=== PATIENT | female | born 1950 | race Caucasian/White ===

== ENCOUNTER → 2018-11-30 12:56 | Outpatient (CLI) | payer MEDICARE, OTHER, SELFPAY ==
[2018-11-30 13:39] LABS: Absolute Lymphocyte Count 1.85 X10^3/ul (0.83-4.51); Absolute Neutrophil Count 3.5 X10^3/uL (2.0-7.7); Basophil# 0.03 X10^3/uL; Basophil% 0.5 % (0-1); Eosinophils% 1.7 % (0-5); Hematocrit 41.3 % (37-47); Hemoglobin 13.8 g/dl (12.0-15.0); Lymphocyte # 1.85 X10^3/ul (4.0); Mean Corp Hgb Conc 33.4 g/gl (32-36); Mean Corpuscular Hgb 31.2 pg (27.0-32.0); Mean Corpuscular Volume 93.2 fL (81-99); Mean Platelet Vol. 10.4 fl (6.2-12.0); Monocyte# 0.31 X10^3/uL; Monocyte% 5.4 % (0-10); Neutrophil # 3.48 X10^3/uL (2.7-7.7); Neutrophil % 60.2 % (47-70); Platelet Count 223 K/mm3 (150-450); RBC Distribution Width CV 13.1 % (11.6-14.6); RBC Distribution Width SD 44.7 fl (35.1-43.9); Red Blood Count 4.43 M/mm3 (4.2-5.4); White Blood Count 5.8 K/mm3 (4.4-11.0)
[2018-11-30 13:53] LABS: POSITIVE COUNT NO; POSITIVE DIFFERENTIAL NO; POSITIVE MORPHOLOGY NO
[2018-11-30 14:02] LABS: Vitamin D,25 Hydroxy 29.8 ng/mL (29.95-100.01)
[2018-11-30 14:09] LABS: ALB/GLOB Ratio 1.1 RATIO (0.9-2.4); AST(SGOT) 13 U/L (15-37); Alanine Aminotransfer ALT/SGPT 24 U/L (13-56); Albumin, Serum 3.9 g/dL (3.2-5.0); Alkaline Phosphatase 89 U/L (45-117); Anion Gap 8 (5-15); BUN 15 mg/dL (7-18); BUN/Creat Ratio 25.6 RATIO (10-20); Chloride 106 mmol/L (98-107); Cholesterol 229 mg/dL (200); Creatinine, Serum 0.59 mg/dL (0.55-1.02); EST Glomerular Filtration Rate 108 mL/min (>60); Est Glom Filt Rate - Afr Amer 131 mL/min (>60); Globulin 3.4 g/dL (2.2-4.2); Glucose 101 mg/dL (74-106); High Density Lipoprotein 55 mg/dL; Iron 104 ug/dL (50-170); Potassium 4.4 mmol/L (3.5-5.1); Protein, Total 7.3 g/dL (6.4-8.2); Sodium Level 142 mmol/L (136-145); T4 Free Direct 1.17 ng/dL (0.76-1.46); Thyroid Stim Hormone (TSH) 2.31 uIU/mL (0.358-3.74); Triglycerides 132 mg/dL; Very Low Density Lipoprotein 26 mg/dL (5-40)
== END ==
PROVIDERS: Family Provider Family Medicine; PCP Family Medicine; Referring Provider Family Medicine; Visit Provider Family Medicine
DX: D64.9 Anemia, unspecified (principal); E78.5 Hyperlipidemia, unspecified; E55.9 Vitamin D deficiency, unspecified; R53.83 Other fatigue; Z51.81 Encounter for therapeutic drug level monitoring
CPT/HCPCS: 36415; 80053; 80061; 82306; 83540; 84439; 84443; 84481; 85025

== ENCOUNTER → 2019-12-02 11:31 | Outpatient (CLI) | payer MEDICARE, OTHER, SELFPAY ==
[2019-12-02 15:15] LABS: Absolute Lymphocyte Count 2.52 X10^3/uL (0.83-4.51); Absolute Neutrophil Count 5.2 X10^3/uL (2.0-7.7); Basophil# 0.05 X10^3/uL; Basophil% 0.6 % (0-1); Eosinophil# 0.17 X10^3/uL; Hematocrit 44.7 % (37-47); Hemoglobin 14.6 g/dL (12.0-15.0); Lymphocyte # 2.52 X10^3/ul (4.0); Lymphocyte % 29.3 % (19-41); Mean Corp Hgb Conc 32.7 g/dL (32-36); Mean Corpuscular Hgb 31.4 pg (27.0-32.0); Mean Corpuscular Volume 96.1 fL (81-99); Mean Platelet Vol. 10.8 fl (6.2-12.0); Monocyte# 0.67 X10^3/uL; Monocyte% 7.8 % (0-10); NRBC Flagged by Analyzer 0 % (0-5); Neutrophil # 5.16 X10^3/uL (2.7-7.7); Platelet Count 245 K/mm3 (150-450); RBC Distribution Width SD 45.3 fl (35.1-43.9); Red Blood Count 4.65 M/mm3 (4.2-5.4); White Blood Count 8.6 K/mm3 (4.4-11.0)
[2019-12-02 15:31] LABS: Vitamin D,25 Hydroxy 44.6 ng/mL
[2019-12-02 15:33] LABS: ALB/GLOB Ratio 0.9 RATIO (0.9-2.4); AST(SGOT) 16 U/L (15-37); Alanine Aminotransfer ALT/SGPT 28 U/L (13-56); Albumin, Serum 3.7 g/dL (3.2-5.0); Alkaline Phosphatase 92 U/L (45-117); Anion Gap 4 (5-15); BUN 18 mg/dL (7-18); Calcium,Total 8.8 mg/dL (8.5-10.1); Chloride 104 mmol/L (98-107); Cholesterol 215 mg/dL (200); Creatinine, Serum 0.58 mg/dL (0.55-1.02); EST Glomerular Filtration Rate 109 mL/min (>60); Est Glom Filt Rate - Afr Amer 132 mL/min (>60); Globulin 4.1 g/dL (2.2-4.2); Glucose 99 mg/dL (74-106); High Density Lipoprotein 61 mg/dL; Potassium 4.4 mmol/L (3.5-5.1); Protein, Total 7.8 g/dL (6.4-8.2); Sodium Level 139 mmol/L (136-145); Triglycerides 146 mg/dL; Very Low Density Lipoprotein 29 mg/dL (5-40)
== END ==
PROVIDERS: PCP Family Medicine; Visit Provider Family Medicine
DX: I10 Essential (primary) hypertension (principal); E55.9 Vitamin D deficiency, unspecified; E87.1 Hypo-osmolality and hyponatremia; E87.2 Acidosis
CPT/HCPCS: 36415; 80053; 80061; 82306; 85025

== ENCOUNTER → 2020-02-13 13:47 | Outpatient (CLI) | payer MEDICARE, OTHER, SELFPAY ==
--- NOTE | 2020-02-13 13:49 | CT_ITS ---
STUDY: CT RIGHT SHOULDER REASON FOR EXAM: Female, 69 years old. PT STATED OSTEOARTHRITIS, TRUE SITE PROSPER RADIATION DOSAGE (If Supplied By Facility): CTDIvol = ( 49.86 ) mGy, DLP = ( 1127.68 ) mGycm TECHNIQUE: The patient was scanned in a multi detector CT scanner. High resolution transaxial imaging was performed without the administration of intravenous contrast material. Sagittal and coronal images were reconstructed. Individualized dose optimization techniques were used for this CT. COMPARISON: None. FINDINGS: There is severe osteoarthritis, with severe articular joint space narrowing, osteoarthritic spurring, articular remodeling, and with articular erosions. Subchondral geodes. Hypertrophic spurs are seen along the inferior aspect of the humerus both anteriorly and posteriorly. Normal humeral head, neck and tuberosities. Normal coracoid process. Normal visualized lateral clavicle. There is moderate osteoarthritis with articular joint space narrowing and with osteoarthritic spurring. There is a Type II morphology (curved), with a neutral orientation. Normal visualized muscles and soft tissue structures. CT/Extremity Upper without Contra IMPRESSION: Marked degree of the degenerative changes involving the glenohumeral joint as well as the acromioclavicular joint. Electronically Signed: Ralph Rowland, at 14:33 EDT , Service support ,
== END ==
PROVIDERS: PCP Family Medicine; Referring Provider Specialist; Visit Provider Specialist
DX: M19.011 Primary osteoarthritis, right shoulder (principal)
CPT/HCPCS: 73200

== ENCOUNTER 2020-03-15 00:40 | Emergency (ER) | payer MEDICARE, OTHER, SELFPAY ==
[2020-03-15 00:48] VITALS: BP 179/73; PULSE 66; RESP 18; TEMP 36.4; O2SAT 96; BMI 43.8
--- NOTE | 2020-03-15 00:58 | CT_ITS ---
STUDY: CT ABDOMEN AND PELVIS WITHOUT CONTRAST REASON FOR EXAM: Female, 69 years old. UMBILICAL PAIN SUDDEN ONSET RADIATION DOSAGE (If Supplied By Facility): CTDIvol = ( 22.84 ) mGy, DLP = ( 1238.30 ) mGycm TECHNIQUE: Transaxial images were obtained from the dome of the diaphragm to the symphysis pubis without oral contrast, and without intravenous contrast. Sagittal and coronal images were reconstructed. Individualized dose optimization techniques were used for this CT. COMPARISON: None. FINDINGS: The visualized lung bases are unremarkable. The visualized portions of the heart are within normal limits. Normal liver. Normal gallbladder and extrahepatic biliary system. Normal spleen. Normal pancreas. Normal bilateral adrenal glands. Normal right kidney. Normal left kidney. Normal visualized stomach. Normal small intestine. There are multiple colonic diverticula consistent with diverticulosis. The appendix is visualized and appears normal. Normal abdominal aorta. Normal inferior vena cava. Normal retroperitoneum. Normal urinary bladder. There is a 6 cm umbilical hernia containing fat. There are diffuse degenerative changes of the visualized lumbar spine. CT/Abdomen/Pelvis without Cont IMPRESSION: Umbilical hernia measures 6 cm containing fat. Sigmoid diverticulosis. Electronically Signed: Alissa Shelley, at 2:01 EDT Tel , Service support ,
--- NOTE | 2020-03-15 00:59 | ED.VIS.GEN ---
History of Present Illness Chief Complaint: Abd Pain Informant: Patient Narrative: Patient is a 69-year-old female with a past medical history of arthritis who presents to the emergency department for acute onset umbilical abdominal pain. This started at 11 PM this night. She does not remember what she is doing to aggravate the symptoms. No injury. She denies ever having this happen before in the past. Her only previous abdominal surgery was for a bladder tuck. She denies any nausea or vomiting associated with this. No change in bowel habits recently. No blood in the stool or black tarry stools. She denies any urinary symptoms. No fevers or chills. No chest pain or shortness of breath associated with this. No radiation of the abdominal pain. She states at its worst it was a 11 out of 10. She currently rates the pain as an 8 out of 10. Movements make the pain worse as well as pushing on it. She has not tried taking anything for this. Past Medical History - Allergies and Home Meds Allergies/Adverse Reactions: Allergies iodine Allergy (Verified 03/15/20 00:41) Hives Penicillins Allergy (Verified 03/15/20 00:41) Hives Iodine and Iodide Containing Produc Adverse Reaction (Verified 03/15/20 00:41) Hives Primary Care Physician: Faith Barrientos DO [Primary Care Provider] - Randall Wang MD [STAFF PHYSICIAN] - 3-5 Days if not improving Prior records reviewed: Yes Past Medical History: - - Arthritis Smoking Status: Former smoker Review of Systems All systems negative except as indicated General: Denies: Chills, Fever, Sweats Eyes: Denies: Visual changes - bilaterally, Diplopia ENT: Denies: Rhinorrhea, Sore throat Cardiovascular: Denies: Chest pain, Palpitations Respiratory: Denies: Dyspnea, Cough, Dyspnea on exertion Gastrointestinal: Reports: Abdominal pain. Denies: Nausea, Vomiting, Diarrhea, Melena, Hematochezia Genitourinary: Denies: Dysuria, Hematuria, Frequency Musculoskeletal: Denies: Back pain, Extremity Pain Skin: Denies: Rash, Wounds Neurological: Denies: Headache, Weakness, Numbness Physical Exam Vital Signs/Narrative: Vital Signs Temp Pulse Resp BP Pulse Ox 03/15/20 00:48 97.5 F L 66 18 179/73 H 96 Inital Vital Signs reviewed: Yes General: Well nourished, Well developed, No Acute Distress Head: Normocephalic, Atraumatic Eyes: Perrl, EOMI ENT: Moist mucous membranes, No rhinorrhea Neck: Supple, Nontender Cardiovascular: Regular rate, Regular rhythm, No murmurs Respiratory: No distress, CTA bilaterally, Chest nontender Abdomen: Soft, Nondistended, Normal bowel sounds, Tender - Umbilical, Umbilical hernia, - - No pain over McBurney's point.. Negative for: Guarding, Rebound tenderness, Motley's sign Back: Nontender, Normal Inspection. Negative for: CVA tenderness, Spinal tenderness Extremities: Nontender, No edema Skin: Normal color, No rash Neurological: Alert, Oriented x3, Cranial nerves II-XII grossly intact, Normal Strength, Normal Sensation Psychological: Normal affect, Normal Mood Diagnostic/Tx/Re-eval - Medical Decision Making Patient presents the emerge department for umbilical abdominal pain. It does appear that she has an umbilical hernia. She states that she has had this before in the past but it has never bothered her before. Upon arrival to the emergency department she is mildly hypertensive but otherwise normal vital signs. She does not appear in any acute distress. Will check basic lab work along with CT scan of the abdomen/pelvis. Patient treated symptomatically with morphine. Patient CT scan showed an abdominal hernia but was only fat-containing. The rest the lab work did not reveal any significant acute abnormality. Patient is feeling much better after treatment. Will recommend symptomatic treatment at home. Will give referral for general surgery if this continues to bother her. Patient given precautions about hernias including bracing the area when exerting or straining. She can use ice/heat over the area. Warning signs and symptoms for which to return to the ED are reviewed. They understand and are agreeable this plan. Will discharge home in stable condition. ED Disposition - Plan for ED Patient: Disposition: Home or Assisted Living Diagnosis: Umbilical hernia Instructions: What Is a Hernia? Referrals: Faith Barrientos DO [Primary Care Provider] - Randall Wang MD [STAFF PHYSICIAN] - 3-5 Days if not improving
[2020-03-15] MEDS: Morphine 4 MG/ML Syringe IV (01:36)
[2020-03-15 01:47] LABS: Absolute Neutrophil Count 6.1 X10^3/uL (2.0-7.7); Basophil# 0.04 X10^3/uL; Basophil% 0.5 % (0-1); Eosinophil# 0.16 X10^3/uL; Eosinophils% 1.8 % (0-5); Hematocrit 40.1 % (37-47); Hemoglobin 13.1 g/dL (12.0-15.0); Lymphocyte % 20.7 % (19-41); Mean Corp Hgb Conc 32.7 g/dL (32-36); Mean Corpuscular Hgb 31.6 pg (27.0-32.0); Mean Corpuscular Volume 96.9 fL (81-99); Mean Platelet Vol. 10.4 fl (6.2-12.0); Monocyte# 0.54 X10^3/uL; Monocyte% 6.2 % (0-10); NRBC Flagged by Analyzer 0 % (0-5); Neutrophil # 6.14 X10^3/uL (2.7-7.7); Neutrophil % 70.6 % (47-70); Platelet Count 233 K/mm3 (150-450); RBC Distribution Width CV 12.2 % (11.6-14.6); RBC Distribution Width SD 43.2 fl (35.1-43.9); Red Blood Count 4.14 M/mm3 (4.2-5.4); White Blood Count 8.7 K/mm3 (4.4-11.0)
[2020-03-15 01:48] LABS: Bacteria 0 SEEN /hpf (None Seen); Mucous, Urine 0 SEEN /hpf (<or=2+); Red Blood Cells-Urine 0 SEEN /hpf (0-5); Squamous Epithelial Cells - UA 0 SEEN /hpf (5-10); White Blood Cells 0 SEEN /hpf (0-5)
[2020-03-15 01:56] LABS: Lactic Acid 1.3 mmol/L (0.4-1.9)
[2020-03-15 01:56] LABS: ALB/GLOB Ratio 0.9 RATIO (0.9-2.4); AST(SGOT) 15 U/L (15-37); Alanine Aminotransfer ALT/SGPT 24 U/L (13-56); Albumin, Serum 3.5 g/dL (3.2-5.0); Alkaline Phosphatase 85 U/L (45-117); Anion Gap 5 (5-15); BUN 26 mg/dL (7-18); BUN/Creat Ratio 33.9 RATIO (10-20); Calcium,Total 8.8 mg/dL (8.5-10.1); Chloride 105 mmol/L (98-107); Creatinine, Serum 0.77 mg/dL (0.55-1.02); EST Glomerular Filtration Rate 79 mL/min (>60); Est Glom Filt Rate - Afr Amer 95 mL/min (>60); Globulin 3.9 g/dL (2.2-4.2); Glucose 118 mg/dL (74-106); Lipase 140 U/L (73-393); Potassium 3.8 mmol/L (3.5-5.1); Protein, Total 7.4 g/dL (6.4-8.2); Sodium Level 139 mmol/L (136-145)
[2020-03-15 01:59] LABS: Color, Urine Yellow (Yellow); Glucose, Dipstick Normal (Normal); Ketone-Dipstick Negative (Negative); Leukocyte Esterase-Dipstick Negative /ul (Negative); Nitrite-Dipstick Negative (Negative); Occult Blood-Urine Negative /ul (Negative); Protein-Dipstick 30 mg/dl (Negative); Specific Gravity, Urine 1.025 (1.002-1.030); Urine Bilirubin Dipstick Negative (Negative); Urine Clarity Sl. Cloudy (Clear); Urine Urobilinogen Normal (Normal)
[2020-03-15 02:08] LABS: Amorphous Sediment 1+
[2020-03-15 02:44] VITALS: BP 142/68; PULSE 65; RESP 15; O2SAT 97
--- NOTE | 2020-03-15 02:45 | ED.RN ---
PT AND EDUCATED ON WRITTEN AND VERBAL DISCHARGE INSTRUCTIONS. PT VERBALIZES UNDERSTANDING OF INSTRUCTIONS AND FOLLOW UP. PT IV D/C AND COVERED WITH 2X2 GAUZE AND PAPER TAPE. PT DRESSES SELF AND WHEELS PT IN WHEELCHAIR TO THE CAR.
== END 2020-03-15 02:47 | disposition home or self-care (01) ==
PROVIDERS: Emergency Provider Emergency Medicine; PCP Family Medicine
DX: K42.9 Umbilical hernia without obstruction or gangrene (principal); I10 Essential (primary) hypertension; M19.90 Unspecified osteoarthritis, unspecified site; Z79.899 Other long term (current) drug therapy; Z87.891 Personal history of nicotine dependence
CPT/HCPCS: 74176; 80053; 81001; 83605; 83690; 84484; 85025; 96374; 99285; A4216

== ENCOUNTER → 2022-05-23 | Outpatient (CLI) | payer MEDICARE, OTHER, SELFPAY ==
[2022-05-23 13:41] LABS: Absolute Neutrophil Count 3.7 X10^3/uL (2.0-7.7); Basophil# 0.03 X10^3/uL; Basophil% 0.5 % (0-1); Eosinophil# 0.16 X10^3/uL; Eosinophils% 2.5 % (0-5); Hematocrit 43.2 % (37-47); Hemoglobin 13.9 g/dL (12.0-15.0); Lymphocyte % 30.7 % (19-41); Mean Corp Hgb Conc 32.2 g/dL (32-36); Mean Corpuscular Hgb 29.6 pg (27.0-32.0); Mean Corpuscular Volume 92.1 fL (81-99); Mean Platelet Vol. 10.6 fl (6.2-12.0); Monocyte# 0.65 X10^3/uL; NRBC Flagged by Analyzer 0 % (0-5); Neutrophil # 3.65 X10^3/uL (2.7-7.7); Platelet Count 260 K/mm3 (150-450); RBC Distribution Width CV 12.9 % (11.6-14.6); RBC Distribution Width SD 43.4 fl (35.1-43.9); Red Blood Count 4.69 M/mm3 (4.2-5.4); White Blood Count 6.5 K/mm3 (4.4-11.0)
[2022-05-23 14:22] LABS: ALB/GLOB Ratio 0.9 RATIO (0.9-2.4); AST(SGOT) 11 U/L (15-37); Alanine Aminotransfer ALT/SGPT 21 U/L (13-56); Albumin, Serum 3.6 g/dL (3.2-5.0); Alkaline Phosphatase 102 U/L (45-117); Anion Gap 4 (5-15); BUN 19 mg/dL (7-18); BUN/Creat Ratio 34.2 RATIO (10-20); Calcium,Total 9.2 mg/dL (8.5-10.1); Chloride 102 mmol/L (98-107); Cholesterol 214 mg/dL (200); Creatinine, Serum 0.56 mg/dL (0.55-1.02); EST Glomerular Filtration Rate 114 mL/min (>60); Est Glom Filt Rate - Afr Amer 138 mL/min (>60); Globulin 3.9 g/dL (2.2-4.2); Glucose 93 mg/dL (74-106); High Density Lipoprotein 58 mg/dL; Potassium 4.4 mmol/L (3.5-5.1); Protein, Total 7.5 g/dL (6.4-8.2); Sodium Level 137 mmol/L (136-145); Thyroid Stim Hormone (TSH) 3.17 uIU/mL (0.358-3.74); Triglycerides 121 mg/dL; Very Low Density Lipoprotein 24 mg/dL (5-40)
== END | disposition home or self-care (01) ==
PROVIDERS: PCP Family Medicine; Referring Provider Specialist; Visit Provider Specialist
DX: M16.12 Unilateral primary osteoarthritis, left hip (principal); I10 Essential (primary) hypertension; Z51.81 Encounter for therapeutic drug level monitoring
CPT/HCPCS: 36415; 80053; 80061; 84443; 85025

== ENCOUNTER → 2022-10-27 | Outpatient (CLI) | payer MEDICARE, OTHER, SELFPAY ==
--- NOTE | 2022-10-27 08:40 | RAD_ITS ---
PROCEDURE: Fluoroscopic guided left shoulder injection. DATE: October 27, 2022. INDICATION: Female, 72 years old. Chronic left shoulder pain. PHYSICIAN: Ralph Rowland M.D. MEDICATIONS: 12 mg of betamethasone and 4 cc of 1% lidocaine. 2% lidocaine administered subcutaneously for local anesthesia. ACCESS SITE: Left shoulder. NEEDLE: 22-gauge spinal needle. FLUOROSCOPY TIME (if supplied): (0:52) minutes/seconds. 6.79 mGy. One image was submitted. FINDINGS: The risks, benefits, and alternatives to the procedure were explained to the patient. The specific risks of bleeding, infection, and neurovascular injury were detailed and accepted. Witnessed informed consent was obtained. A 22-gauge spinal needle was positioned under radiographic fluoroscopic localization. Approximately 2 cc of Isovue-300 instilled for localization purposes. Medication was then injected. The patient tolerated the procedure well without any immediate complications. RAD/Inj/Asp David Jt Should/Hip/Knee IMPRESSION: 1. Successful fluoroscopic guided left shoulder injection. Electronically Signed: Ralph Rowland MD at 11:12 EDT ,
[2022-10-27] MEDS: Lidocaine 2% (5ml sdv) 5 ML VIAL.MPF INFILT (10:00)
[2022-10-27] MEDS: Betamethasone/Betamethasone 30 MG/5 ML Vial 12 MG INTRAARTIC (10:04)
== END | disposition home or self-care (01) ==
LOC: RAD 09:23
PROVIDERS: PCP Family Medicine; Referring Provider Specialist; Visit Provider Specialist
DX: M19.012 Primary osteoarthritis, left shoulder (principal)
CPT/HCPCS: 20610; 77002; Q9967; J0702

== ENCOUNTER → 2024-04-26 | Outpatient (CLI) | payer MEDICARE, OTHER, SELFPAY | END | disposition home or self-care (01) | LOC: LAB.FUTURE 10:19 | PROVIDERS: PCP Family Medicine; Referring Provider Family Medicine; Visit Provider Family Medicine | DX: I10 Essential (primary) hypertension (principal); E55.9 Vitamin D deficiency, unspecified; Z51.81 Encounter for therapeutic drug level monitoring ==

== ENCOUNTER → 2024-04-29 | Outpatient (CLI) | payer MEDICARE, OTHER, SELFPAY ==
[2024-04-29 15:26] LABS: Absolute Lymphocyte Count 1.74 X10^3/uL (0.83-4.51); Absolute Neutrophil Count 3.2 X10^3/uL (2.0-7.7); Basophil# 0.06 X10^3/uL; Basophil% 1.1 % (0-1); Eosinophil# 0.25 X10^3/uL; Eosinophils% 4.4 % (0-5); Hemoglobin 13.4 g/dL (12.0-15.0); Lymphocyte # 1.74 X10^3/ul (0.83-4.51); Lymphocyte % 30.6 % (19-41); Mean Corp Hgb Conc 31.9 g/dL (32-36); Mean Corpuscular Hgb 29.9 pg (27.0-32.0); Mean Corpuscular Volume 93.8 fL (81-99); Mean Platelet Vol. 10.9 fl (6.2-12.0); Monocyte# 0.41 X10^3/uL; Monocyte% 7.2 % (0-10); NRBC Flagged by Analyzer 0 % (0-5); Neutrophil % 56.3 % (47-70); Platelet Count 214 K/mm3 (150-450); RBC Distribution Width CV 12.6 % (11.6-14.6); RBC Distribution Width SD 43.5 fl (35.1-43.9); Red Blood Count 4.48 M/mm3 (4.2-5.4); White Blood Count 5.7 K/mm3 (4.4-11.0)
[2024-04-29 15:53] LABS: Vitamin D,25 Hydroxy 52.6 ng/mL
[2024-04-29 16:17] LABS: AST(SGOT) 11 U/L (15-37); Alanine Aminotransfer ALT/SGPT 17 U/L (13-56); Albumin, Serum 3.6 g/dL (3.2-5.0); Alkaline Phosphatase 86 U/L (45-117); Anion Gap 3 (5-15); BUN 20 mg/dL (7-18); BUN/Creat Ratio 37.5 RATIO (10-20); Chloride 105 mmol/L (98-107); Cholesterol 229 mg/dL (200); Creatinine, Serum 0.53 mg/dL (0.55-1.02); EST Glomerular Filtration Rate 119 mL/min (>60); Est Glom Filt Rate - Afr Amer 144 mL/min (>60); Globulin 3.7 g/dL (2.2-4.2); Glucose 103 mg/dL (74-106); High Density Lipoprotein 59 mg/dL; Potassium 4.4 mmol/L (3.5-5.1); Protein, Total 7.3 g/dL (6.4-8.2); Sodium Level 138 mmol/L (136-145); Triglycerides 99 mg/dL; Very Low Density Lipoprotein 20 mg/dL (5-40)
== END | disposition home or self-care (01) ==
PROVIDERS: PCP Family Medicine; Referring Provider Family Medicine; Visit Provider Family Medicine
DX: I10 Essential (primary) hypertension (principal); E55.9 Vitamin D deficiency, unspecified; Z51.81 Encounter for therapeutic drug level monitoring
CPT/HCPCS: 36415; 80053; 80061; 82306; 84443; 85025

== ENCOUNTER 2024-11-01 14:19 | Emergency (ER) | payer MEDICARE, OTHER, SELFPAY ==
[2024-11-01 14:20] VITALS: BP 209/112; PULSE 78; RESP 18; TEMP 36.4; O2SAT 95; BMI 39.9
--- NOTE | 2024-11-01 15:10 | RAD_ITS ---
EXAM: XR Left Foot Complete, 3 or More Views CLINICAL INDICATION: PAIN TECHNIQUE: Frontal, lateral and oblique views of the left foot. COMPARISON: No relevant prior studies available. FINDINGS: BONES/JOINTS: Mild degenerative changes of the intertarsal joints. SOFT TISSUES: Soft tissue swelling without acute fracture. No radiopaque foreign body. RAD/Foot min 3 Views IMPRESSION: 1. Soft tissue swelling without acute fracture. 2. If symptoms persist, further evaluation with CT is recommended. Reading Location[facility]
--- NOTE | 2024-11-01 15:22 | EDS_ITS ---
HPI History of Present Illness Chief Complaint: Lower Extremity Injury Informant: patient Narrative Narrative: 74-year-old female presenting with atraumatic left foot pain. No systemic symptoms or fevers, started maybe 2 or 3 weeks ago with a couple twinges of pa in, but gradually worsening especially in the past week, now to the point where she cannot put weight on it because of how bad that makes it hurt. She points to the first ray, mostly in the dorsal midfoot near the ankle where the pain is. She denies any new rashes. She denies any obvious reason for this pain to be present or injuries to it. She denies any overuse recently. She states 8 weeks ago she joined a geriatric fitness program, but it ended a week ago and in the past week is when this has become worse. She states she has bilateral knee replacements so she has not been doing any walking or running for exercise. [facility] Medical History Hypertensive disorder Contact with or suspected exposure to other viral communicable disease Acute sinusitis Home Medications ?Medication ?Instructions ?Recorded ?Last Taken ?Type Cholecalciferol (Vitamin D3) 5,000 unit PO DAILY 03/15 Unknown History [Vitamin D3] citalopram 10 mg tablet 10 mg PO QHS 03/15/20 Unknow n History meloxicam 7.5 mg tablet 7.5 mg PO BID 03/15/20 Unkno wn History cetirizine 10 mg tablet 10 mg PO DAILY 10/03/22 Unkn own History montelukast 10 mg tablet 10 mg PO QHS 10/03/22 Unknow n History vitamins A,C,X-wnza-ticqil 4,296 1 cap PO BID 10/03/22 Unknown History mcg-226 mg-90 mg capsule (ICaps AREDS) hydrocodone-acetaminophen 5-325mg 1 tab PO Q6H PRN PRN Pain 3 days 11/01/24 Unknown Rx 5mg-325mg #10 TABLETS prednisone 20 mg tablet 40 mg (2 x 20 mg) PO DAILY 4 days 11/01/24 Unknown Rx #8 tabs Allergy/AdvReac Type Severity Reaction Status Date / Time iodine Allergy Hives Verified 11/01/24 14:30 Penicillins Allergy Hives Verified 11/01/24 14:30 Iodine and Iodide Containing AdvReac Hives Verified 11/01/24 14:30 Produc Surgical History Hx of shoulder surgery History of carpal tunnel surgery of right wrist Hx of tubal ligation History of total left knee replacement History of right knee joint replacement History of left hip replacement Hx of bilateral cataract extraction Social History household members: spouse current occupational status: retired Smoking Status: Former smoker ROS ROS ED Constitutional Constitutional ED: Denies chills or fever(s) Cardiovascular Cardiovascular: Denies chest pain Respiratory/Chest Respiratory/Chest: Denies dyspnea Gastrointestinal Gastrointestinal: Denies abdominal pain Musculoskeletal Musculoskeletal: Reports extremity pain; Denies neck pain Integumentary Denies Abrasions, rash or wounds Neurologic Neurologic: Denies paresthesias or weakness EXAM Physical Exam Const Vital Signs: 11/01/24 14:20 Temperature 97.5 F L Temperature Source Temporal Pulse Rate 78 Respiratory Rate 18 Blood Pressure 209/112 H Blood Pressure Mean 144 Pulse Ox 95 Oxygen Delivery Method Room Air Positive well nourished and well developed General Appearance ED: well developed and NAD Neck full ROM and supple Back/Spine normal ROM and normal to inspection Extremity Extremity Narrative: Patient has tenderness in the anterior left ankle/midfoot. She has significant pain when she actively tries to dorsiflex at the ankle, but if I do it passively she does not have significant discomfort. If I plantarflex her foot, passively stretching the extensor tendons, she has more pain, no tingling. She has an intact pulse. She has symmetric appearing varicose veins at the tibial aspect of both feet. There is no erythema in the affected area or signs of a skin infection. If I gently dorsiflex the foot and have her dorsiflex the great toe actively, she has increased pain. If her ankle is neutral and I passively dorsiflex/plantarflex the great toe she does not have discomfort. Neuro oriented x3, no focal motor deficits and no sensory deficits noted Sensorium / Orientation: alert Psych mental status grossly normal and thought process normal Skin no wounds Rashes: no rashes MDM MDM MDM Narrative Medical decision making narrative: Work this patient up with x-rays but also obtain some labs because it is not clear what is causing her pain. Three-view x-ray series of the left foot on my interpretation are unremarkable, no sign of subcutaneous air, osteomyelitis, or fracture; radiology was in agreement. They said there were soft tissue swelling but they did not say where and I cannot appreciate any major swelling clinically or radiographically where the patient is having pain just anterior and distal to the ankle. It is almost acting like a tendinitis of her foot dorsiflexors. Since I can passively dorsiflex and plantarflex at the ankle without causing any discomfort at all, my suspicion for septic arthritis is extremely low. She does not have a leukocytosis, her CRP is a little elevated but her ESR is normal, and all of this argues against septic arthritis. Her uric acid is 4.1, this is normal and does not rule out gouty arthritis, but again this is acting less like a focal joint inflammation although she states she has a history of osteoarthritis. She has a cane to use and crutches at home, I am giving her an Hussein wrap, a prescription for something for pain but she drove here today, and I think a 5-day course of prednisone would be reasonable. There is no erythema or sign of infection and she has had this for 2 or 3 weeks, with no leukocytosis so I think an infection is much less likely here. I advised following up with podiatry, she has an appointment in 5 days. We discussed signs and symptoms of infection and reasons to return to the ER if she develops any of that while on prednisone and she is comfortable with that plan. Lab Data Attestation: I reviewed the patient's lab results. Labs: Laboratory Results - last 24 hr 11/01/24 15:23 WBC 6.3 RBC 4.24 Hgb 13.1 Hct 39.2 MCV 92.5 MCH 30.9 MCHC 33.4 RDW Std Deviation 44.3 H RDW Coeff of Audrey 13.2 Plt Count 216 MPV 10.7 Immature Gran % (Auto) 0.600 Neut % (Auto) 63.3 Lymph % (Auto) 26.5 Karnes % (Auto) 6.3 Eos % (Auto) 2.7 Baso % (Auto) 0.6 Absolute Neuts (auto) 4.0 Absolute Lymphs (auto) 1.68 Nucleated RBC % 0 ESR 7 Sodium 138 Potassium 4.4 Chloride 100 Carbon Dioxide 28.2 Anion Gap 10 BUN 21 H Creatinine 0.60 L Estim Creat Clear Calc 72.00 Est GFR (MDRD) Non-Af 94 BUN/Creatinine Ratio 34.2 H Glucose 102 H Uric Acid 4.1 Calcium 9.3 C-React Prot Ext Range 11.80 H Radiography Diagnostic Testing: Clinical Impression(s) from Imaging Studies Foot X-Ray 11/01/24 15:10 IMPRESSION: 1. Soft tissue swelling without acute fracture. 2. If symptoms persist, further evaluation with CT is recommended. Reading Location: [facility]AC[facility] Discharge Plan Triage Chief Complaint: Lower Extremity Injury ED Provider: Luis Brown Dx/Rx/DC Orders Clinical Impression: Acute pain of left foot Instructions: What Is Tendonitis of the Foot?, ED Pain, Acute, Uncertain Cause Prescriptions: New hydrocodone-acetaminophen 5-325 mg tablet 1 tab PO Q6H PRN PRN (Reason: Pain) 3 Days Qty: 10 0RF prednisone 20 mg tablet 40 mg PO DAILY 4 Days Qty: 8 0RF No Action montelukast 10 mg tablet 10 mg PO QHS cetirizine 10 mg tablet 10 mg PO DAILY ICaps AREDS 4,296 mcg-226 mg-90 mg capsule 1 cap PO BID citalopram 10 mg tablet 10 mg PO QHS meloxicam 7.5 MG tablet 7.5 mg PO BID Cholecalciferol (Vitamin D3) [Vitamin D3] 5,000 UNIT capsule 5,000 unit PO DAILY Primary Care Provider: Faith Barrientos Referrals: Tee Montilla DPM [Med Staff - Active Staff] - Keep Karma appointment Print Language: Albanian Disposition Disposition: Home, Self Care
[2024-11-01 16:00] LABS: Anion Gap 10 (5-15); BUN 21 mg/dL (4-19); BUN/Creat Ratio 34.2 RATIO (10-20); Calcium,Total 9.3 mg/dL (7.6-11.0); Carbon Dioxide 28.2 mmol/L (21.0-32.0); Chloride 100 mmol/L (98-108); EST Glomerular Filtration Rate 94 (>60); Glucose 102 mg/dL (70-99); Potassium 4.4 mmol/L (3.3-5.1); Sodium Level 138 mmol/L (133-145)
[2024-11-01 16:02] LABS: Absolute Lymphocyte Count 1.68 X10^3/uL (0.83-4.51); Basophil# 0.04 X10^3/uL; Basophil% 0.6 % (0-1); Eosinophil# 0.17 X10^3/uL; Eosinophils% 2.7 % (0-5); Hematocrit 39.2 % (37-47); Hemoglobin 13.1 g/dL (12.0-15.0); Lymphocyte # 1.68 X10^3/ul (0.83-4.51); Lymphocyte % 26.5 % (19-41); Mean Corp Hgb Conc 33.4 g/dL (32-36); Mean Corpuscular Hgb 30.9 pg (27.0-32.0); Mean Corpuscular Volume 92.5 fL (81-99); Mean Platelet Vol. 10.7 fl (6.2-12.0); Monocyte% 6.3 % (0-10); NRBC Flagged by Analyzer 0 % (0-5); Neutrophil # 4.01 X10^3/uL (2.7-7.7); Neutrophil % 63.3 % (47-70); Platelet Count 216 K/mm3 (150-450); RBC Distribution Width CV 13.2 % (11.6-14.6); RBC Distribution Width SD 44.3 fl (35.1-43.9); Red Blood Count 4.24 M/mm3 (4.2-5.4); White Blood Count 6.3 K/mm3 (4.4-11.0)
[2024-11-01 16:19] LABS: Uric Acid 4.1 mg/dL (2.6-6.0)
[2024-11-01 16:24] LABS: Erythrocyte Sedimentation Rate 7 mm/hr (0-30)
[2024-11-01] MEDS: predniSONE 20 MG Tablet 40 MG PO (16:54)
[2024-11-01 17:02] VITALS: BP 174/92; PULSE 79; RESP 19; TEMP 36.3; O2SAT 96
== END 2024-11-01 17:09 | disposition home or self-care (01) ==
PROVIDERS: Emergency Provider Emergency Medicine; PCP Family Medicine; Visit Provider Emergency Medicine
DX: M79.672 Pain in left foot (principal); M25.572 Pain in left ankle and joints of left foot; I10 Essential (primary) hypertension; Z87.891 Personal history of nicotine dependence; Z96.653 Presence of artificial knee joint, bilateral
CPT/HCPCS: 73630; 80048; 84550; 85025; 85652; 86140; 99283; A4216

== ENCOUNTER 2025-04-16 13:10 | Outpatient (CLI) | payer MEDICARE, OTHER, SELFPAY ==
[2025-04-16 13:31] LABS: Hematocrit 39.9 % (37-47); Hemoglobin 13.1 g/dL (12.0-15.0); Immature Granulocytes Count 0.020 X10^3/uL (0.0-0.0); Mean Corp Hgb Conc 32.8 g/dL (32-36); Mean Corpuscular Volume 92.4 fL (81-99); Mean Platelet Vol. 10.4 fl (6.2-12.0); NRBC Flagged by Analyzer 0 % (0-5); Platelet Count 186 K/mm3 (150-450); RBC Distribution Width CV 14.6 % (11.6-14.6); RBC Distribution Width SD 49.2 fl (35.1-43.9); Red Blood Count 4.32 M/mm3 (4.2-5.4); White Blood Count 7.4 K/mm3 (4.4-11.0)
--- NOTE | 2025-04-16 13:35 | RAD_ITS ---
PROCEDURE: CHEST PA AND LATERAL 04/16/2025 REASON FOR EXAM: DYSPNEA TECHNIQUE: Procedure Code: RADCXR Modality: DX Procedure: CHEST PA AND LATERAL FINDINGS: No focal consolidation. Mild pulmonary vascular congestion and interstitial edema. Bibasilar subsegmental atelectasis. No pleural effusion or pneumothorax. Mild cardiomegaly. No acute fractures. Bilateral shoulder prosthesis. RAD/Chest PA and Lateral IMPRESSION: No focal consolidation. Mild pulmonary vascular congestion and interstitial anahy ma. Mild cardiomegaly. Reading Location: [id number]
[2025-04-16 14:06] LABS: AST(SGOT) 24 U/L (<=31); Alanine Aminotransfer ALT/SGPT 12 U/L (<=34); Albumin, Serum 4.0 g/dL (3.4-4.8); Alkaline Phosphatase 86 U/L (35-104); Anion Gap 11 (5-15); BUN 19 mg/dL (4-19); BUN/Creat Ratio 29.5 RATIO (10-20); Calcium,Total 9.0 mg/dL (7.6-11.0); Carbon Dioxide 24.5 mmol/L (21.0-32.0); Chloride 103 mmol/L (98-108); Globulin 2.6 g/dL (2.2-4.2); Glucose 121 mg/dL (70-99); Potassium 4.4 mmol/L (3.3-5.1); Pro- Brain NATRIURETIC PEPTIDE 3156 pg/mL (<=1800)
== END 2025-04-16 23:59 | disposition home or self-care (01) ==
LOC: LAB 13:12
PROVIDERS: PCP Family Medicine; Referring Provider Family Medicine; Visit Provider Family Medicine
DX: R82.90 Unspecified abnormal findings in urine (principal); I50.810 Right heart failure, unspecified; I11.0 Hypertensive heart disease with heart failure; R06.00 Dyspnea, unspecified; Z51.81 Encounter for therapeutic drug level monitoring
CPT/HCPCS: 36415; 71046; 80053; 83880; 85025

== ENCOUNTER 2025-04-21 17:28 | Inpatient (IN) | payer MEDICARE, OTHER, SELFPAY ==
[2025-04-21 17:30] VITALS: BP 133/98; PULSE 72; RESP 18; TEMP 36.6; O2SAT 93; BMI 40.4
--- NOTE | 2025-04-21 18:32 | EKG12_ITS ---
Test Reason : DYSRHYTHMIA Blood Pressure : */* mmHG Vent. Rate : 77 BPM Atrial Rate : 71 BPM P-R Int : 186 ms QRS Dur : 118 ms QT Int : 440 ms P-R-T Axes : 65 -35 143 degrees QTcB Int : 497 ms Sinus rhythm with Premature supraventricular complexes and Premature ventricular complexes Left axis deviation Minimal voltage criteria for LVH, may be normal variant NSST changes can not rule out inf ME- old Abnormal Confirmed by Jose Miguel Pink ([id number]), magazine editor TWIN POLLARD ([id number]) on 04/22/2025 11:44:50 AM Referred By: ANALI Confirmed By: Jose Miguel Pink
--- NOTE | 2025-04-21 18:34 | CT_ITS ---
PROCEDURE: CTA CHEST W/WO CONTRAST 04/21/2025 REASON FOR EXAM: PE TECHNIQUE: Procedure Code: [id number] Modality: CT Procedure: CTA CHEST W/WO CONTRAST Multiplanar Sagittal and Coronal images were obtained. 3D reconstructions CONTRAST: Isovue 370 VOLUME: 100 mL One or more dose reduction techniques were used (e.g., Automated exposure control, adjustment of the mA and/or kV according to patient size, use of iterative reconstruction technique). RADIATION DOSE SUMMARY: CTDlvol: 57 mGy DLP: 568 MGycm FINDINGS: inspection of the lung windows demonstrates moderate right-sided pleural effusion. No separate areas of pulmonary ramirez consolidation are identified. The contrast bolus appears adequate. There is no thoracic aneurysm or dissection. The pulmonary arterial tree is well opacified without visible filling defect. There is no thoracic compression deformity in the sternum is unremarkable. CT/CTA Chest W/WO Contrast IMPRESSION: No visible aortic pathology. Right-sided pleural effusion. Negative for pulmo nary embolism. Positive for coronary artery calcification. No acute lung pathology. Reading Location: [facility]
--- NOTE | 2025-04-21 18:51 | EX.ED.DYSGE1 ---
HPI History of Present Illness Chief Complaint: Abn Labs Narrative Narrative: Chief complaint and HPI: 74-year-old female with past medical history of anxiety, arthritis presents for evaluation of shortness of breath and bilateral lower extremity edema. Patient states for the past several weeks she has been having dyspnea, worse with exertion and bilateral lower extremity edema. States she was seen by her PCP in which she had an elevated BNP and a chest x-ray that showed pulmonary effusions. Concern was for CHF. She was started on 40 mg daily Lasix and then increased to 80 mg last Monday. Patient states for the past 3 weeks she has gained 15 pounds. She did lose 6 pounds being on the Lasix. She states she was was seen in the office today in which she had laboratory workup performed. She was further referred to the emergency department for further workup and to rule out blood clot in the lung. She denies any fever, chills, chest pain. Review of systems: See HPI Medications: As listed on the chart Allergies: As listed on the chart PFSH: Per chart Vital signs: As listed on the chart. Reviewed. Physical exam: Gen: A&O x3, NAD Head: Normocephalic, atraumatic Eyes: No sclera icterus, conjunctiva clear ENT: Moist mucous membranes Neck: Trachea midline CV: RRR, no murmurs, +2 bilateral pitting peripheral edema of the lower extremities Resp: Lungs diminished in the bilateral bases, dyspneic when speaking GI: Abd soft, non-distended, non-tender, no r/r/g Musc: Full ROM, no deformity Skin: Warm, dry Neuro: Alert, oriented, grossly intact, sensation intact Psych: Cooperative, appropriate mood and affect [facility] Medical History (Updated 04/21/25 @ 17:41 by Eliza Gregory) Anxiety Former smoker Hypertensive disorder Contact with or suspected exposure to other viral communicable disease Acute sinusitis Home Medications Medication Instructions Recorded Last Taken Type Cholecalciferol (Vitamin D3) 5,000 unit PO DAILY 03/15/20 04/21/25 History [Vitamin D3] citalopram 10 mg tablet 10 mg PO QHS 03/15/20 04/20/25 History meloxicam 7.5 mg tablet 7.5 mg PO BID 03/15/20 04/21/25 History cetirizine 10 mg tablet 10 mg PO DAILY 10/03/22 04/20/25 History vitamins A,C,Z-btnr-rsfsfu 4,296 1 cap PO BID 10/03/22 04/21/25 History mcg-226 mg-90 mg capsule (ICaps AREDS) acetaminophen 500 mg capsule 1,000 mg PO Q6H PRN fever or pain 04/21/25 04/20/25 History furosemide 40 mg tablet 80 mg PO DAILY 04/21/25 04/21/25 History Allergy/AdvReac Type Severity Reaction Status Date / Time iodine Allergy Hives Verified 04/21/25 17:30 Penicillins Allergy Hives Verified 04/21/25 17:30 Iodine and Iodide Containing AdvReac Hives Verified 04/21/25 17:30 Produc Surgical History Hx of shoulder surgery History of carpal tunnel surgery of right wrist Hx of tubal ligation History of total left knee replacement History of right knee joint replacement History of left hip replacement Hx of bilateral cataract extraction Social History household members: spouse current occupational status: retired Smoking Status: Former smoker EXAM Physical Exam Const Vital Signs: 04/21/25 17:30 04/21/25 17:42 04/21/25 19:00 Temperature 98 F Temperature Source Temporal Pulse Rate 72 73 Respiratory Rate 18 18 Respiratory Effort Short of Breath Blood Pressure 133/98 H 138/92 H Blood Pressure Mean 109 107 Pulse Ox 93 94 Oxygen Delivery Method Room Air 04/21/25 21:00 Temperature Temperature Source Pulse Rate 84 Respiratory Rate 18 Respiratory Effort Blood Pressure 152/99 H Blood Pressure Mean 116 Pulse Ox 94 Oxygen Delivery Method Room Air MDM MDM MDM Narrative Medical decision making narrative: 74-year-old female with past medical history of anxiety, arthritis presents for evaluation of shortness of breath and bilateral lower extremity edema. Patient states for the past several weeks she has been having dyspnea, worse with exertion and bilateral lower extremity edema. States she was seen by her PCP in which she had an elevated BNP and a chest x-ray that showed pulmonary effusions. Concern was for CHF. She was started on 40 mg daily Lasix and then increased to 80 mg last Monday. Patient states for the past 3 weeks she has gained 15 pounds. She did lose 6 pounds being on the Lasix. She states she was was seen in the office today in which she had laboratory workup performed. She was further referred to the emergency department for further workup and to rule out blood clot in the lung. On presentation, patient no acute distress. Not hypoxic. However becomes dyspneic when speaking. Differential diagnosis includes but is not limited to CHF, PE, pleural effusions, electrolyte abnormality, arrhythmia, ACS. CHF workup ordered. Patient has contrast allergy therefore she will require fluids, Benadryl, Solu-Medrol for CTA although fluids will make CHF worse. CBC without leukocytosis or anemia. Platelets unremarkable. INR unremarkable. BMP unremarkable. Magnesium unremarkable. Troponin elevated at 103. Patient not have any chest pain. Will give aspirin. Delta troponin ordered. BNP elevated at 3705. This is decreased from previous lab. IV Lasix ordered. CTA negative for PE. Moderate right sided pleural effusion. Patient will warrant admission for echocardiogram and further workup of elevated troponin. She is updated of all the results and confirmed understand the plan. I spoke with Dr. Nichole who accepted admission. Hold off on heparin for now as patient is not having any chest pain. EKG: Interpreted by me/EM physician: EKG shows sinus rhythm with PVCs. Nonspecific ST changes. Prolonged QTc of 497. Impression: 1. Heart failure 2. Right pulmonary effusion 3. Elevated troponin Lab Data Labs: Laboratory Results - last 24 hr 04/21/25 04/21/25 04/21/25 18:54 20:29 20:43 WBC 6.1 RBC 4.31 Hgb 12.9 Hct 39.7 MCV 92.1 MCH 29.9 MCHC 32.5 RDW Std Deviation 49.0 H RDW Coeff of Audrey 14.6 Plt Count 196 MPV 10.9 Immature Gran % (Auto) 0.300 Neut % (Auto) 73.3 H Lymph % (Auto) 16.7 L [place] % (Auto) 5.9 Eos % (Auto) 3.1 Baso % (Auto) 0.7 Absolute Neuts (auto) 4.5 Absolute Lymphs (auto) 1.02 Nucleated RBC % 0 PT Cancelled 15.4 H INR Cancelled 1.2 APTT Cancelled 28.6 Sodium 137 Potassium 3.9 Chloride 98 Carbon Dioxide 26.0 Anion Gap 14 BUN 23 H Creatinine 0.80 Estim Creat Clear Calc 72.41 Est GFR (MDRD) Non-Af 76 BUN/Creatinine Ratio 29.1 H Glucose 112 H Calcium 8.8 Magnesium 1.9 Troponin T High Sens 103 H* NT pro BNP II 3705 H Radiography Diagnostic Testing: Clinical Impression(s) from Imaging Studies Chest CTA 04/21/25 18:34 IMPRESSION: No visible aortic pathology. Right-sided pleural effusion. Negative for pulmonary embolism. Positive for coronary artery calcification. No acute lung pathology. [facility] Triage Chief Complaint: Abn Labs ED Provider: David Pineda Dx/Rx/DC Orders Prescriptions: No Action cetirizine 10 mg tablet 10 mg PO DAILY ICaps AREDS 4,296 mcg-226 mg-90 mg capsule 1 cap PO BID citalopram 10 mg tablet 10 mg PO QHS meloxicam 7.5 MG tablet 7.5 mg PO BID Cholecalciferol (Vitamin D3) [Vitamin D3] 5,000 UNIT capsule 5,000 unit PO DAILY furosemide 40 mg tablet 80 mg PO DAILY acetaminophen 500 mg capsule 1,000 mg PO Q6H PRN (Reason: fever or pain) Primary Care Provider: Faith Barrientos Referrals: Faith Barrientos DO [Primary Care Provider, Family Practice] Print Language: Citizen [place]
[2025-04-21 19:00] VITALS: BP 138/92; PULSE 73; RESP 18; O2SAT 94
[2025-04-21] MEDS: DiphenhydrAMINE 50 MG/ML Syringe 25 MG IV (19:13)
[2025-04-21] MEDS: 0.9% Normal Saline (1000mL) 1,000 ML 1000 ML IV (19:37)
--- NOTE | 2025-04-21 20:22 | ED.RN ---
This RN notified Dr. Maldonado of the patient's elevated pro-BNP level and asked if the patient's fluids should be stopped at this time. Dr. Maldonado informed this RN that the patient's contrast allergy requires the patient to receive fluids despite her elevated pro-BNP level. Patient notified.
--- NOTE | 2025-04-21 20:57 | ED.RN ---
This RN notified that the patient's original blood work was lost in the lab. Therefore, the blood was redrawn and sent to lab. This RN notified Dr. Maldonado of the 2HR troponin not being drawn at this time.
[2025-04-21 20:58] LABS: Hematocrit 39.7 % (37-47); Hemoglobin 12.9 g/dL (12.0-15.0); Immature Granulocytes Count 0.020 X10^3/uL (0.0-0.0); Mean Corp Hgb Conc 32.5 g/dL (32-36); Mean Corpuscular Volume 92.1 fL (81-99); Mean Platelet Vol. 10.9 fl (6.2-12.0); NRBC Flagged by Analyzer 0 % (0-5); Platelet Count 196 K/mm3 (150-450); RBC Distribution Width CV 14.6 % (11.6-14.6); RBC Distribution Width SD 49.0 fl (35.1-43.9); Red Blood Count 4.31 M/mm3 (4.2-5.4); White Blood Count 6.1 K/mm3 (4.4-11.0)
[2025-04-21 21:00] VITALS: BP 152/99; PULSE 84; RESP 18; O2SAT 94
[2025-04-21 21:10] LABS: Prothrombin Time (Protime)PT. 15.4 SECONDS (11.7-14.9)
[2025-04-21 21:11] LABS: Partial Thromboplast Time 28.6 Seconds (24.1-36.2)
[2025-04-21 21:22] LABS: Anion Gap 14 (5-15); BUN 23 mg/dL (4-19); BUN/Creat Ratio 29.1 RATIO (10-20); Calcium,Total 8.8 mg/dL (7.6-11.0); Carbon Dioxide 26.0 mmol/L (21.0-32.0); Chloride 98 mmol/L (98-108); Estimated Creatinine Clearance 72.41 ml/min (50-250); Glucose 112 mg/dL (70-99); Magnesium 1.9 mg/dL (1.5-2.2); Potassium 3.9 mmol/L (3.3-5.1); Pro- Brain NATRIURETIC PEPTIDE 3705 pg/mL (<=1800)
[2025-04-21 21:23] LABS: Troponin T High Sensitivity 103 ng/L (<=14)
[2025-04-21 21:51] VITALS: BP 150/99; PULSE 86; RESP 18; TEMP 36.6; O2SAT 97
--- NOTE | 2025-04-21 21:57 | PCM.HP.STD ---
HPI - General General Date of Admission: 04/21/25 Date of Service: 04/21/25 Chief Complaint: Shortness of breath, fluid retention HPI Narrative BYRON ARSHAD, is a 74 F who presents to the emergency room at [facility] with complaints of fluid retention chiefly in her legs and shortness of breath especially when she lays flat over the past 2 to 3 weeks. She was placed on Lasix by her family physician because her family physician suspected that the patient might have congestive heart failure. Patient has no complaints at this time of any chest pain. Workup in the emergency room included labs-patient's CBC was unremarkable, chemistry profile was remarkable for BUN of 23, patient's troponin was elevated at 103, and her beta natruretic peptide was elevated at 3705. EKG showed a normal sinus rhythm with Q waves in V1 and V2 and occasional ectopic beats. CTA was obtained which showed right-sided pleural effusion, it was negative for pulmonary embolism and positive for coronary artery calcification. No acute lung pathology was noted. Patient did not require supplemental oxygen to maintain her pulse ox above 90%. Patient will be admitted to PCU for acute congestive heart failure-type unknown-she will be given IV Lasix and an echocardiogram will be obtained. Cardiac enzymes will be cycled but I suspect that the elevation of troponin is secondary to demand ischemia. [facility] Medical History (Updated 04/21/25 @ 22:[address] Freddie Wick, ) Anxiety Former smoker Hypertensive disorder Contact with or suspected exposure to other viral communicable disease Acute sinusitis Home Medications Medication Instructions Recorded Last Taken Type Cholecalciferol (Vitamin D3) 5,000 unit PO DAILY 03/15/20 04/21/25 History [Vitamin D3] citalopram 10 mg tablet 10 mg PO QHS 03/15/20 04/20/25 History meloxicam 7.5 mg tablet 7.5 mg PO BID 03/15/20 04/21/25 History cetirizine 10 mg tablet 10 mg PO DAILY 10/03/22 04/20/25 History vitamins A,C,H-jbqe-bmfihn 4,296 1 cap PO BID 10/03/22 04/21/25 History mcg-226 mg-90 mg capsule (ICaps AREDS) acetaminophen 500 mg capsule 1,000 mg PO Q6H PRN fever or pain 11/10/25 11/09/25 History furosemide 40 mg tablet 80 mg PO DAILY 04/21/25 04/21/25 History Allergy/AdvReac Type Severity Reaction Status Date / Time iodine Allergy Hives Verified 04/21/25 17:30 Penicillins Allergy Hives Verified 04/21/25 17:30 Iodine and Iodide Containing AdvReac Hives Verified 04/21/25 17:30 Produc Surgical History Hx of shoulder surgery History of carpal tunnel surgery of right wrist Hx of tubal ligation History of total left knee replacement History of right knee joint replacement History of left hip replacement Hx of bilateral cataract extraction Social History household members: spouse current occupational status: retired Smoking Status: Former smoker ROS Constitutional Constitutional: Denies anorexia, change in weight, chills, fatigue, fever(s), night sweats or weakness Eyes Eyes: Denies blurry vision, change in vision, discharge from eye(s) or eye pain Cardiovascular Cardiovascular: Reports edema; Denies chest pain, claudication or palpitations Respiratory/Chest Respiratory/Chest: Reports dyspnea, shortness of breath at rest and shortness of breath with exertion; Denies cough or hemoptysis Gastrointestinal Gastrointestinal: Denies abdominal pain, constipation, diarrhea, hematemesis, hematochezia, melena, nausea or vomiting Genitourinary Genitourinary: Denies dysuria, hematuria, urinary frequency, urinary hesitancy, urinary incontinence or urinary urgency Musculoskeletal Musculoskeletal: Denies back pain, joint pain, joint stiffness, joint swelling, myalgias or neck pain Neurologic Neurologic: Denies abnormal gait, abnormal speech, confusion, disequilibrium, dizziness, focal weakness, headache(s), loss of vision, numbness, other visual disturbances, paresthesias, syncope or tingling Psychiatric Psychiatric: Denies anxiety, cognitive impairment, depression, irritability, mood swings or suicidal ideation Endocrine Endocrinology: Denies change in body appearance, cold intolerance, excessive sweating, heat intolerance, polydipsia or polyuria Hematologic/Lymphatic Hematologic/Lymphatic: Denies none, anemia, easy bleeding, easy bruising or lymphadenopathy Allergic/Immunologic Allergic/Immunologic: Denies rhinitis, urticaria, eczemia or asthma Vital Signs Vital Signs Vital Signs: 04/21/25 17:30 04/21/25 17:42 04/21/25 19:00 Temperature 98 F Temperature Source Temporal Pulse Rate 72 73 Respiratory Rate 18 18 Respiratory Effort Short of Breath Blood Pressure 133/98 H 138/92 H Blood Pressure Mean 109 107 Pulse Ox 93 94 Oxygen Delivery Method Room Air 04/21/25 21:00 04/21/25 21:51 Temperature 97.9 F Temperature Source Pulse Rate 84 86 Respiratory Rate 18 18 Respiratory Effort Blood Pressure 152/99 H 150/99 H Blood Pressure Mean 116 116 Pulse Ox 94 97 Oxygen Delivery Method Room Air Weight Weight: 106.685 kg Body Mass Index (BMI) 40.4 Physical Exam Const alert, oriented x3, no apparent distress and healthy appearing Constitutional Narrative: Patient has class III obesity General Appearance: cooperative, well kempt and well developed Orientation / Consciousness: awake, oriented to person, oriented to place and oriented to time HEENT normocephalic, head/scalp atraumatic, hearing grossly normal bilaterally and moist oral mucous membranes Eyes PERRL, EOMs intact bilaterally and conjunctivae normal Neck supple, no JVD, thyroid normal and no carotid bruits General: trachea midline Resp normal respiratory effort, no retractions and no use of accessory muscles Resp Narrative: Decreased breath sounds are noted at the right lung base, there are fine crackles noted at the left lung base on inspiration Auscultation: rales; Negative for rhonchi or wheezes Cardio regular rate, regular rhythm, S1 normal heart sound, S2 normal heart sound, no murmurs, no rub and no gallops GI normal to inspection, nondistended, normoactive bowel sounds, soft to palpation, non-tender and non-distended Extremity Extremity Narrative: There is +1 to 2 mm pitting edema in the lower legs bilaterally-left worse than right Skin no rashes or lesions noted General Skin Exam: no breakdown Neuro oriented x3, CN's II-XII intact bilaterally, moves all extremities, no focal motor deficits and no sensory deficits noted Sensorium / Orientation: awake and alert Speech: speech normal Psych affect normal Results Lab / Micro Data 04/21/25 20:43 04/21/25 20:43 Labs: Laboratory Results - last 24 hr 04/21/25 18:54: PT Cancelled, INR Cancelled, APTT Cancelled 04/21/25 20:29: PT 15.4 H, INR 1.2, APTT 28.6 04/21/25 20:43: WBC 6.1, RBC 4.31, Hgb 12.9, Hct 39.7, MCV 92.1, MCH 29.9, MCHC 32.5, RDW Std Deviation 49.0 H, RDW Coeff of Audrey 14.6, Plt Count 196, MPV 10.9, Immature Gran % (Auto) 0.300, Neut % (Auto) 73.3 H, Lymph % (Auto) 16.7 L, [place] % (Auto) 5.9, Eos % (Auto) 3.1, Baso % (Auto) 0.7, Absolute Neuts (auto) 4.5, Absolute Lymphs (auto) 1.02, Nucleated RBC % 0, Sodium 137, Potassium 3.9, Chloride 98, Carbon Dioxide 26.0, Anion Gap 14, BUN 23 H, Creatinine 0.80, Estim Creat Clear Calc 72.41, Est GFR (MDRD) Non-Af 76, BUN/Creatinine Ratio 29.1 H, Glucose 112 H, Calcium 8.8, Magnesium 1.9, Troponin T High Sens 103 H*, NT pro BNP II 3705 H Imaging Radiology Impression Chest CTA 04/21/25 18:34 IMPRESSION: No visible aortic pathology. Right-sided pleural effusion. Negative for pulmonary embolism. Positive for coronary artery calcification. No acute lung pathology. Reading [facility] Assessment & Plan Assessment/Plan (1) Congestive heart failure: PLAN: Plan 1. Acute congestive heart failure-type unclear at this point-patient will be admitted to PCU, IV Lasix will be administered, she will have an echocardiogram performed, labs will be monitored #2 elevated troponin-most likely secondary to demand ischemia-patient has no complaints of any chest pain, follow-up troponin will be obtained #3 chronic depression-patient is on citalopram #4 class III obesity-complicates care, management, recovery, and prognosis Total clinical time spent by myself addressing the patient's medical issues, reviewing all of her data, and collaborating with patient's care team: 55 minutes Charges/Coding Visit Charges Inpatient E&M: 00523 Init Hosp L2
--- NOTE | 2025-04-21 22:28 | ECHOCS_ITS ---
Reason For Study Reason For Study: CONGESTIVE HEART FAILURE Procedure This was a 2D Doppler, Color Flow transthoracic echocardiogram. Contrast injection was performed. Exam performed portable in patient room. Left Ventricle Normal LV size. Mild concentric left ventricular hypertrophy. Severe global LV systolic dysfunction. Estimated LVEF 20%. Stage III diastolic dysfunction. Right Ventricle Normal right ventricle. Atria There is moderate biatrial dilatation. Mitral Valve Moderate (2+) mitral valve insufficiency. Tricuspid Valve Moderate-Severe (3+) tricuspid valve insufficiency. Right ventricular systolic pressure estimated to be 49 mmHg. Aortic Valve Mildly calcified aortic valve. Mild aortic valve stenosis. Mean peak gradient 9 mmHg. Pulmonic Valve The pulmonic valve is not well visualized. Trivial pulmonic valve insufficiency. Great Vessels Normal sized aortic root. Pericardium/Pleural No pericardial effusion. Medication Diluted definity 2ml given slow IV push to enhance endocardial definition. MMode/2D Measurements & Calculations LVIDd: 5.4 cm IVSd: 1.4 cm LVOT diam: 2.1 cm LVIDs: 4.6 cm LVPWd: 1.0 cm RVDd: 5.1 cm FS: 14.0 % LVOT area: 3.3 cm2 asc Aorta Diam: 3.1 cm LAV(MOD-bp): 85.8 ml LVAd ap4: 42.1 cm2 LAV(MOD-bp) Indexed: 41.0 ml/m2 LVLd ap4: 8.5 cm LAV(MOD-sp2): 88.5 ml EDV(MOD-sp4): 173.7 ml LAV(MOD-sp4): 84.1 ml EDV(sp4-el): 178.0 ml LVAs ap4: 37.2 cm2 LVLs ap4: 8.2 cm ESV(MOD-sp4): 138.7 ml ESV(sp4-el): 144.0 ml EF(MOD-sp4): 20.1 % EF(sp4-el): 19.1 % LVAd ap2: 41.9 cm2 SV(MOD-sp4): 35.0 ml SV(MOD-sp2): 34.2 ml LVLd ap2: 8.5 cm SI(MOD-sp4): 16.7 ml/m2 SI(MOD-sp2): 16.4 ml/m2 EDV(MOD-sp2): 166.3 ml EDV(sp2-el): 175.1 ml LVAs ap2: 36.3 cm2 LVLs ap2: 8.3 cm ESV(MOD-sp2): 132.1 ml ESV(sp2-el): 134.9 ml EF(MOD-sp2): 20.6 % SV(sp4-el): 34.0 ml Ao sinus diam: 2.[address] Junction: 2.4 cm LA dimension(2D): 4.7 cm LA A4 area: 26.9 cm2 RA A4 area: 23.1 cm2 TAPSE: 1.3 cm Time Measurements MV dec time: 0.21 sec Doppler Measurements & Calculations MV E max carlos: 107.8 cm/sec MV dec slope: 522.1 cm/sec2 Ao V2 max: 199.7 cm/sec MV A max carlos: 48.7 cm/sec Ao max P.0 mmHg MV E/A: 2.2 Ao V2 mean: 144.5 cm/sec Ao mean P.4 mmHg Ao V2 VTI: 39.0 cm AV (velocity ratio): 0.62 DANILO(I,D): 2.1 cm2 DANILO(V,D): 1.9 cm2 LV V1 max: 113.6 cm/sec SV(LVOT): 80.0 ml PA V2 max: 94.0 cm/sec LV V1 max P.3 mmHg LV V1 mean P.1 mmHg LV V1 mean: 82.3 cm/sec LV V1 VTI: 24.2 cm TR max carlos: 293.4 cm/sec TR max P.4 mmHg ECHO/Echo Complete W/ Contrast Interpretation Summary Mild concentric left ventricular hypertrophy. Severe global LV systolic dysfunction. Estimated LVEF 20%. Stage III diastolic dysfunction. There is moderate biatrial dilatation. Moderate (2+) mitral valve insufficiency. Moderate-Severe (3+) tricuspid valve insufficiency. Right ventricular systolic pressure estimated to be 49 mmHg. Mildly calcified aortic valve. Mild aortic valve stenosis. Mean peak gradient 9 mmHg. Ordering Physician: Freddie Wick Referring Physician: Faith Barrientos Performed By: Elisa Isbell RDCS
--- OUTSIDE RECORDS SUMMARY | 2025-04-21 22:34 | XMS RPT_ITS | CCD ---
Author Organization [facility] Inform ion Partnership [facility] Care Team Providers Care Legal Transcriptionist Name Role Phone DARNELL FLORES, DR FAITH Spears Primary Care Physician WHITNEY SOSA, DR LAUREANO Spears Attending Mikal Huitron MD, DR LAUREANO Spears Referring Mikal Huitron MD, DR LAUREANO Spears Admitting Unavailab kj BARRIENTOS DO, DR FAITH Spears Primary Care Unavailable KAPPERIK ELIGIBILITY TECHNICIAN-CAR PUSHER, FAITH Garcia Consulting Unavaila alex OLSON MD, DR LAUREANO Spears Attending Unavailab kj BARRIENTOS DO, DR FAITH Spears Primary Care Unavailable JOSE ANGELYS DO, DR FAITH Spears Primary Care Unavailable WHITNEY SOSA, DR LAUREANO Spears Attending Unavailab kj OLSON MD, DR LAUREANO Spears Attending Unavailab kj BARRIENTOS DO, DR FAITH Spears Primary Care Unavailable WHITNEY SOSA, DR LAUREANO Spears Attending Mikal Huitron MD, DR LAUREANO Spears Referring Unavailab kj OLSON MD, DR LAUREANO Spears Admitting Unavailab kj BARRIENTOS DO, DR FAITH Spears Primary Care Unavailable KAPPER ELIGIBILITY TECHNICIAN-CAR PUSHER, FAITH M Consulting Unavaila ble Malys, Faith Attending Unavailable Malys, Faith Referring Unavailable Malys, Faith Primary Care Unavailable Malys, Faith Referring Unavailable Malys, Faith Primary Care Unavailable Malys, Faith Attending Unavailable Malys, Faith Primary Care Unavailable Luis Brown Attending Unavailable Malys, Faith Referring Unavailable Malys, Faith Primary Care Unavailable Malys, Faith Attending Unavailable Allergies Allergy Classification Reported Allergen(s) Allergy Type Date of Onset Reaction(s) Facility (6 sources) Contrast media; Translations: [iodinated radiocontrast agents] Drug allergy [facility] (6 sources) Latex Allergy to substance [facility] (6 sources) Penicillin; Translations: [penicillins] Drug Allergy Hives [facility] (1 source) Iodine Drug Allergy 5 [facility] (1 source) Penicillins Drug allergy (disorder) 5 [facility] (1 source) Iodine and Iodide Containing Produc Drug allergy (disorder) 5 [facility] Medications Current Medications Medication Drug Class(es) Dates Sig (Normalized) Sig (Original) acetaminophen 500 mg oral tablet (5 sources) Start: 08-09-2022 take 1 tablet by mouth once daily Tylenol Extra Strength 500 mg oral tablet Dose : 1,000 mg = 2 tab(s), Oral, TID, PRN as needed for pain, not to exceed 3000 mg/day Start Date: 08/09/22 Status: Ordered Start: 07-27-2022 Tylenol 325 mg oral capsule Dose : 325 mg = 1 cap(s), Oral, q4h, PRN as needed for pain, # 20 cap(s), 0 Refill(s) Start Date: 07/27/22 Status: Ordered Start: 02-03-2022 End: 02-17-2022 take 1 tablet by mouth once daily acetaminophen 500 mg oral tablet Dose : 1,000 mg = 2 tab(s), Oral, TID, PRN as needed for pain, not to exceed 3000 mg/day, # 100 tab(s), 0 Refill(s), 02/17/22 11:25:00 EDT, Pharmacy: [facility]/pharmacy #[id number], 160, cm, 02/01/22 14:54:00 EDT, Height Start Date: 02/03/22 Stop Date: 02/17/22 Status: Ordered aspirin 81 mg oral tablet (2 sources) Platelet Aggregation Inhibitor, Nonsteroidal Anti-inflammatory Drug Start: 03-22-2023 End: 04-04-2023 take 1 tablet by mouth twice daily at mealtime aspirin Dose : 81 mg = 1 tab(s), Oral, BID, Take 81 mg aspirin twice daily with food for 2 weeks postoperatively for DVT prophylaxis., 0 Refill(s) Start Date: 03/22/23 Stop Date: 04/04/23 Status: Ordered Start: 02-03-2022 End: 03-05-2022 take 1 tablet by mouth twice daily aspirin 81 mg oral delayed release tablet Dose : 81 mg = 1 tab(s), Oral, BID, Take 81 mg aspirin twice daily with food for 4 weeks postoperatively for DVT prophylaxis, # 60 tab(s), 0 Refill(s), Pharmacy: [facility]/pharmacy #[id number], 160, cm, 02/01/22 14:54:00 EDT, Height Start Date: 02/03/22 Stop Date: 03/05/22 Status: Ordered betamethasone 0.5 mg/ml topical cream (3 sources) Corticosteroid Start: 03-31-2020 betamethasone dipropionate 0.05% topical cream Apply 1 jerson, Topical, PRN Rash, APPLY TO AREAS OF RASH YOU CAN SEE OR FEEL ON THE LEFT ANKLE Start Date: 03/31/20 Status: Ordered cetirizine hydrochloride 10 mg oral capsule (6 sources) Histamine-1 Receptor Antagonist Start: 03-13-2020 cetirizine 10 mg oral capsule Dose : 10 mg = 1 cap(s), Oral, qDay, PRN as needed for allergy symptoms, # 40 cap(s), 0 Refill(s) Start Date: 03/13/20 Status: Ordered cholecalciferol 0.125 mg oral capsule (6 sources) Vitamin D Start: 02-01-2022 cholecalciferol 125 mcg (5000 intl units) oral capsule Dose : 125 mcg = 1 cap(s), Oral, qDay, 0 Refill(s) Start Date: 02/01/22 Status: Ordered citalopram 10 mg oral tablet (7 sources) Serotonin Reuptake Inhibitor Start: 03-13-2020 citalopram 10 mg oral tablet Dose : 20 mg = 2 tab(s), Oral, qHS, 0 Refill(s) Start Date: 05/26/22 Status: Ordered docusate sodium 50 mg / sennosides, [facility] 8.6 mg oral tablet (1 source) Start: 03-22-2023 End: 03-25-2023 take 1 tablet by mouth twice daily Senokot S 50 mg-8.6 mg oral tablet Dose = 2 tab(s), Oral, BID, Take until first bowel movement, then as needed, X 3 day(s), # 12 tab(s), 0 Refill(s), Pharmacy: [facility]/pharmacy #[id number], 162, cm, 03/21/23 14:52:00 EDT, Height, kg, 03/21/23 14:52:00 EDT, Dosing Weight Start Date: 03/22/23 Stop Date: 03/25/23 Status: Ordered doxycycline hyclate 100 mg oral capsule (1 source) Tetracycline-class Drug Start: 02-03-2022 End: 02-16-2022 doxycycline hyclate 100 mg oral capsule Dose : 100 mg = 1 cap(s), Oral, q12h, X 13 day(s), # 26 cap(s), 0 Refill(s), 02/16/22 11:27:00 EDT, Pharmacy: [facility]/pharmacy #[id number], 160, cm, 02/01/22 14:54:00 EDT, Height, 112.6 Start Date: 02/03/22 Stop Date: 02/16/22 Status: Ordered famotidine 20 mg oral tablet (2 sources) Histamine-2 Receptor Antagonist Start: 03-22-2023 End: 04-05-2023 Pepcid 20 mg oral tablet Dose : 20 mg = 1 tab(s), Oral, qDay, # 14 tab(s), 0 Refill(s), Pharmacy: [facility]/pharmacy #[id number], 162, cm, 03/21/23 14:52:00 EDT, Height, kg, 03/21/23 14:52:00 EDT, Dosing Weight Start Date: 03/22/23 Stop Date: 04/05/23 Status: Ordered Start: 02-03-2022 Pepcid 20 mg o ral tablet Dose : 20 mg = 1 tab(s), Oral, qDay, # 30 tab(s), 0 Refill(s), Pharmacy: [facility]/pharmacy #[id number], 160, cm, 02/01/22 14:54:00 EDT, Height Start Date: 02/03/22 Status: Ordered meloxicam 7.5 mg oral tablet (6 sources) Nonsteroidal Anti-inflammatory Drug Start: 08-10-2022 Mobic 7.5 mg oral tablet Dose : 7.5 mg = 1 tab(s), Oral, BIDM, Do not take any other nonsteroidal anti-inflammatories while on meloxicam/Mobic, # 60 tab(s), 0 Refill(s), Pharmacy: [facility]/pharmacy #[id number], 162.6, cm, 08/09/22 12:41:00 EST, Height Start Date: 08/10/22 Status: Ordered Start: 03-13-2020 meloxicam 7.5 mg oral tablet Dose : 7.5 mg = 1 tab(s), Oral, BID, 0 Refill(s) Start Date: 03/13/20 Status: Ordered montelukast 10 mg oral tablet (1 source) Leukotriene Receptor Antagonist Start: 02-03-2022 montelukast 10 mg oral tablet Dose : 10 mg = 1 tab(s), Oral, qHS, # 30 tab(s), 2 Refill(s), Pharmacy: [facility]/pharmacy #[id number], 160, cm, 02/01/22 14:54:00 EDT, Height Start Date: 02/03/22 Status: Ordered nystatin [id number] unt/ml topical cream (3 sources) Polyene Antifungal Start: 02-01-2022 nystatin 100,000 units/g topical cream Apply 1 jerson, Topical, BID, PRN Rash, # 15 gram(s), 0 Refill(s), Cream, 112.6 Start Date: 02/01/22 Status: Ordered oxyCODONE hydrochloride 5 mg oral tablet (2 sources) Opioid Agonist Start: 03-22-2023 End: 03-29-2023 take 1-2 tablets by mouth every four hours as needed for pain oxyCODONE 5 mg oral tablet ( IMMEDIATE release ) See Instructions, PRN as needed for pain, 1-2 tab(s) Oral q4h, # 42 tab(s), 0 Refill(s), 03/29/23 6:54:00 AM EDT, Pharmacy: [facility]/pharmacy #[id number], Status post reverse total replacement of left shoulder, 162, cm, 03/21/23 14:52:00 EDT, Height, 97.3, kg, 03/21/23 14:52:00 EDT, Dosing Weight Start Date: 03/22/23 Stop Date: 03/29/23 Status: Ordered Start: 02-03-2022 End: 02-10-2022 take 1-2 tablets by mouth every four hours as needed for pain oxyCODONE 5 mg oral tablet ( IMMEDIATE release ) See Instructions, PRN as needed for pain, 1-2 tab(s) Oral q4h, # 60 tab(s), 0 Refill(s), 02/10/22 11:28:00 EDT, Pharmacy: [facility]/pharmacy #[id number], Status post revision of total replacement of left knee, 160, cm, 02/01/22 14:54:00 EDT, Height, 112.6 Start Date: 02/03/22 Stop Date: 02/10/22 Status: Ordered PreserVision AREDS 2 oral capsule (4 sources) Start: 07-27-2022 take 1 capsule by mouth twice daily PreserVision AREDS 2 oral capsule Dose = 1 cap(s), Oral, BID, # 60 cap(s), 0 Refill(s) Start Date: 07/27/22 Status: Ordered Refresh ophthalmic solution (4 sources) Start: 07-27-2022 take 1 dose into the eye(s) twice daily Refresh ophthalmic solution Dose = 1 drop(s), Eyes, both, BID, 0 Refill(s) Start Date: 07/27/22 Status: Ordered Start: 07-27-2022 take 1 dose into the eye(s) twice daily as needed Refresh ophthalmic solution Dose = 1 drop(s), Eyes, both, BID, PRN for dry eyes, # 15 mL, 0 Refill(s) Start Date: 07/27/22 Status: Ordered traMADol hydrochloride 50 mg oral tablet (3 sources) Opioid Agonist Start: 02-27-2023 traMADol 50 mg oral tablet Dose : 50 mg = 1 tab(s), Oral, q12h, PRN for pain, # 12 tab(s), 0 Refill(s), 105.4 Start Date: 02/27/23 Status: Ordered Start: 07-27-2022 take 1-2 tablets by mouth every six hours as needed for pain traMADol 50 mg oral tablet TAKE 1-2 TABLETS BY MOUTH EVERY 6 HOURS NEEDED FOR PAIN Start Date: 07/27/22 Status: Ordered Problems Active Problems Problem Classification Problem Date Documented Date Episodic/Chronic Anxiety disorders (1 source) Anxiety disorder; Translations: [Anxiety disorder, unspecified] Onset: 03-22-2023 Chronic Esophageal disorders (2 sources) Gastroesophageal reflux disease without esophagitis; Translations: [Gastro-esophageal reflux disease without esophagitis] Onset: 03-22-2023 Chronic Essential hypertension (3 sources) Hypertensive disorder; Translations: [Essential (primary) hypertension] Onset: 05-26-2024 08-09-2022 Chronic Fluid and electrolyte disorders (1 source) Hyperkalemia; Translations: [Hyperkalemia] Onset: 02-02-2022 Episodic Genitourinary symptoms and ill-defined conditions (1 source) Unspecified abnormal findings in urine; Translations: [Unspecified abnormal findings in urine] Onset: 04-17-2025 Episodic Mood disorders (1 source) Depressive disorder; Translations: [Depression, unspecified] Onset: 02-01-2022 Chronic Osteoarthritis (3 sources) Osteoarthritis of left hip joint 08-09-2022 Chronic Other connective tissue disease (1 source) Artificial knee joint present; Translations: [Presence of left artificial knee joint] Onset: 02-01-2022 Chronic Other connective tissue disease (1 source) History of left shoulder arthroplasty; Translations: [Presence of left artificial shoulder joint] Onset: 03-22-2023 Chronic Other lower respiratory disease (2 sources) Hypoxia 08-10-2022 Episodic Past or Other Problems Problem Classification Problem Date Documented Da te Episodic/Chronic Other injuries and conditions due to external causes (1 source) Unspecified injury of unspecified lower leg, initial encounter; Translations: [Unspecified injury of unspecified lower leg, initial encounter] Onset: 11-07-2024 Episodic Results Test Name Value Interpretation Reference Range Facility CBC W/Diff, Automatedon 11-0 Absolute Lymph 1.39 X10 3/uL Normal 0.83-4.51 [facility] Comment on above: Performed By: #### L 100.0100, L501.6710, L500.2500, L101.9900, L501.1400 #### [facility] [address] [place], [address] Absolute Neut 5.4 X10 3/uL Normal 2.0-7.7 [facility] Comment on above: Performed By: #### L 100.0100, L501.6710, L500.2500, L101.9900, L501.1400 #### [facility] [address] [place], [address] Basophils/100 WBC (Bld) 0.7 % Normal 0-1 [facility] Comment on above: Performed By: #### L 100.0100, L501.6710, L500.2500, L101.9900, L501.1400 #### [facility] [address] [place], [address] Eosinophils/100 WBC (Bld) 1.3 % Normal 0-5 [facility] Comment on above: Performed By: #### L 100.0100, L501.6710, L500.2500, L101.9900, L501.1400 #### [facility] [address] [place], [address] Erythrocyte distribution width (RBC) [Ratio] 14.6 % Normal 11.6-14.6 [facility] Comment on above: Performed By: #### L 100.0100, L501.6710, L500.2500, L101.9900, L501.1400 #### [facility] [address] [place], [address] Hematocrit (Bld) [Volume fraction] 39.9 % Normal 37-47 [facility] Comment on above: Performed By: #### L 100.0100, L501.6710, L500.2500, L101.9900, L501.1400 #### [facility] [address] [place], [address] Hemoglobin (Bld) [Mass/Vol] 13.1 g/dL Normal 12.0-15.0 [facility] Comment on above: Performed By: #### L 100.0100, L501.6710, L500.2500, L101.9900, L501.1400 #### [facility] [address] [place], [address] IG% 0.300 Normal 0.0-0.9 [facility] Comment on above: Result Comment: IG% - Immature Granulocytes (promyelocytes, myelocytes and metamyelocytes) > 1% indicates that a LEFT SHIFT is Present. Performed By: #### L 100.0100, L501.6710, L500.2500, L101.9900, L501.1400 #### [facility] [address] [place], [address] Lymphocytes/100 WBC (Bld) 18.7 % Low 19-41 [facility] Comment on above: Performed By: #### L 100.0100, L501.6710, L500.2500, L101.9900, L501.1400 #### [facility] [address] [place], [address] MCH (RBC) [Entitic mass] 30.3 pg Normal 27.0-32.0 [facility] Comment on above: Performed By: #### L 100.0100, L501.6710, L500.2500, L101.9900, L501.1400 #### [facility] [address] [place], [address] MCHC (RBC) [Mass/Vol] 32.8 g/dL Normal 32-36 [facility] Comment on above: Performed By: #### L 100.0100, L501.6710, L500.2500, L101.9900, L501.1400 #### [facility] [address] [place], [address] MCV (RBC) [Entitic vol] 92.4 fL Normal 81-99 [facility] Comment on above: Performed By: #### L 100.0100, L501.6710, L500.2500, L101.9900, L501.1400 #### [facility] [address] [place], [address] Monocytes/100 WBC (Bld) 7.1 % Normal 0-10 [facility] Comment on above: Performed By: #### L 100.0100, L501.6710, L500.2500, L101.9900, L501.1400 #### [facility] [address] [place], [address] Neutrophils/100 WBC (Bld) 71.9 % High 47-70 [facility] Comment on above: Performed By: #### L 100.0100, L501.6710, L500.2500, L101.9900, L501.1400 #### [facility] [address] [place], [address] Nucleated RBC (Bld) [#/Vol] 0 10*3/uL Normal 0-5 [facility] Comment on above: Performed By: #### L 100.0100, L501.6710, L500.2500, L101.9900, L501.1400 #### [facility] [address] [place], [address] Platelet mean volume (Bld) [Entitic vol] 10.4 fL Normal 6.2-12.0 [facility] Comment on above: Performed By: #### L 100.0100, L501.6710, L500.2500, L101.9900, L501.1400 #### [facility] [address] [place], [address] Platelets (Bld) [#/Vol] 186 10*3/uL Normal 150-450 [facility] Comment on above: Performed By: #### L 100.0100, L501.6710, L500.2500, L101.9900, L501.1400 #### [facility] [address] [place], [address] RBC (Bld) [#/Vol] 4.32 10*6/uL Normal 4.2-5.4 [facility] Comment on above: Performed By: #### L 100.0100, L501.6710, L500.2500, L101.9900, L501.1400 #### [facility] [address] [place], [address] RDW SD 49.2 fl High 35.1-43.9 [facility] Comment on above: Performed By: #### L 100.0100, L501.6710, L500.2500, L101.9900, L501.1400 #### [facility] [address] [place], [address] WBC (Bld) [#/Vol] 7.4 10*3/uL Normal 4.4-11.0 [facility] Comment on above: Performed By: #### L 100.0100, L501.6710, L500.2500, L101.9900, L501.1400 #### [facility] [address] [place], [address] Chest PA and Lateralon 04-16 Chest PA and Lateral [facility] [address] [place] [address] Chest PA and Lateral MR#: [id number] Acct: [id number] Name: IM PRETTY Rep #: [id number] : [id number] F 74 From: Aury Castrejon PCP: Dr. Faith Barrientos DO Status: REG CLI Study: Chest PA and Lateral Date of Exam: 04/16/25 Exam# [id number] Ordering Dr: Faith Barrientos DO PROCEDURE: CHEST PA AND LATERAL 04/16/2025 REASON FOR EXAM: DYSPNEA TECHNIQUE: Procedure Code: RADCXR Modality: DX Procedure: CHEST PA AND LATERAL FINDINGS: No focal consolidation. Mild pulmonary vascular congestion and interstitial edema. Bibasilar subsegmental atelectasis. No pleural effusion or pneumothorax. Mild cardiomegaly. No acute fractures. Bilateral shoulder prosthesis. RAD/Chest PA and Lateral IMPRESSION: No focal consolidation. Mild pulmonary vascular congestion and interstitial edema. Mild cardiomegaly. Reading Location: [facility] CC: Dr. Faith Barrientos DO Marine Animal Trainer: Signed Normal [facility] Comprehensive Metabolic Prof ilon 04-16-2025 Albumin [Mass/Vol] 4.0 g/dL Normal 3.4-4.8 [facility] Comment on above: Performed By: #### L 100.0100, L501.6710, L500.2500, L101.9900, L501.1400 #### [facility] [address] [place], [address] Albumin/Globulin [Mass ratio] 1.5 {ratio} Normal 0.9-2.4 [facility] Comment on above: Performed By: #### L 100.0100, L501.6710, L500.2500, L101.9900, L501.1400 #### [facility] [address] [place], [address] ALK PHOS 86 U/L Normal 35-104 [facility] Comment on above: Performed By: #### L 100.0100, L501.6710, L500.2500, L101.9900, L501.1400 #### [facility] [address] [place], [address] ALT [Catalytic activity/Vol] 12 U/L Normal <=34 [facility] Comment on above: Performed By: #### L 100.0100, L501.6710, L500.2500, L101.9900, L501.1400 #### [facility] [address] [place], [address] AST [Catalytic activity/Vol] 24 U/L Normal <=31 [facility] Comment on above: Performed By: #### L 100.0100, L501.6710, L500.2500, L101.9900, L501.1400 #### [facility] [address] [place], [address] Bilirubin [Mass/Vol] 1.84 mg/dL High 0.00-1.[address] [facility] Comment on above: Performed By: #### L 100.0100, L501.6710, L500.2500, L101.9900, L501.1400 #### [facility] [address] [place], [address] BUN/CRE 29.5 RATIO High 10-20 [facility] Comment on above: Performed By: #### L 100.0100, L501.6710, L500.2500, L101.9900, L501.1400 #### [facility] [address] [place], [address] Calcium [Mass/Vol] 9.0 mg/dL Normal 7.6-11.0 [facility] Comment on above: Performed By: #### L 100.0100, L501.6710, L500.2500, L101.9900, L501.1400 #### [facility] [address] [place], [address] Chloride [Moles/Vol] 103 mmol/L Normal 98-[address] [facility] Comment on above: Performed By: #### L 100.0100, L501.6710, L500.2500, L101.9900, L501.1400 #### [facility] [address] [place], [address] CO2 [Moles/Vol] 24.5 mmol/L Normal 21.0-32.0 [facility] Comment on above: Performed By: #### L 100.0100, L501.6710, L500.2500, L101.9900, L501.1400 #### [facility] [address] [place], [address] Creatinine [Mass/Vol] 0.65 mg/dL Low 0.70-1.20 [facility] Comment on above: Performed By: #### L 100.0100, L501.6710, L500.2500, L101.9900, L501.1400 #### [facility] [address] [place], [address] GAP 11 Normal 5-15 [facility] Comment on above: Performed By: #### L 100.0100, L501.6710, L500.2500, L101.9900, L501.1400 #### [facility] [address] [place], [address] GFR/1.73 sq M.predicted among non-blacks MDRD (S/P/Bld) [Vol rate/Area] 92 mL/min/{1.73_m2} Normal >60 [facility] Comment on above: Result Comment: mL/m in/1.73m2 CKD-EPI Creatinine Equation (2020) Performed By: #### L 100.0100, L501.6710, L500.2500, L101.9900, L501.1400 #### [facility] [address] [place], [address] Globulin (S) [Mass/Vol] 2.6 g/dL Normal 2.2-4.2 [facility] Comment on above: Performed By: #### L 100.0100, L501.6710, L500.2500, L101.9900, L501.1400 #### [facility] [address] [place], [address] Glucose [Mass/Vol] 121 mg/dL High 70-99 [facility] Comment on above: Performed By: #### L 100.0100, L501.6710, L500.2500, L101.9900, L501.1400 #### [facility] [address] [place], [address] Potassium [Moles/Vol] 4.4 mmol/L Normal 3.3-5.1 [facility] Comment on above: Performed By: #### L 100.0100, L501.6710, L500.2500, L101.9900, L501.1400 #### [facility] [address] [place], [address] Sodium [Moles/Vol] 138 mmol/L Normal 133-145 [facility] Comment on above: Performed By: #### L 100.0100, L501.6710, L500.2500, L101.9900, L501.1400 #### [facility] [address] [place], [address] T PROT 6.5 g/dL Normal 5.9-8.4 [facility] Comment on above: Performed By: #### L 100.0100, L501.6710, L500.2500, L101.9900, L501.1400 #### [facility] [address] [place], [address] Urea nitrogen [Mass/Vol] 19 mg/dL Normal 4-19 [facility] Comment on above: Performed By: #### L 100.0100, L501.6710, L500.2500, L101.9900, L501.1400 #### [facility] [address] [place], [address] Pro- Brain NATRIURETIC PEPTI Maddison 04-16-2025 Natriuretic peptide B (Bld) [Mass/Vol] 3156 pg/mL High <=1800 [facility] Comment on above: Result Comment: Hear t Failure Unlikely: < 300 pg/mL Heart Failure Likely < 50 Years: > 450 pg/mL 50-75 Years: > 900 pg/mL >75 Years: > 1800 pg/mL Performed By: #### L 100.0100, L501.6710, L500.2500, L101.9900, L501.1400 #### [facility] [address] [place], [address] Basic Metabolic Profile (BMP )on 11-01-2024 BUN/CRE 34.2 RATIO High 10-20 [facility] Comment on above: Performed By: #### L 100.0100, L501.6710, L500.2500, L101.9900, L501.1400 #### [facility] [address] [place], [address] Calcium [Mass/Vol] 9.3 mg/dL Normal 7.6-11.0 [facility] Comment on above: Performed By: #### L 100.0100, L501.6710, L500.2500, L101.9900, L501.1400 #### [facility] [address] [place], [address] Chloride [Moles/Vol] 100 mmol/L Normal 98-[address] [facility] Comment on above: Performed By: #### L 100.0100, L501.6710, L500.2500, L101.9900, L501.1400 #### [facility] [address] [place], [address] CO2 [Moles/Vol] 28.2 mmol/L Normal 21.0-32.0 [facility] Comment on above: Performed By: #### L 100.0100, L501.6710, L500.2500, L101.9900, L501.1400 #### [facility] [address] [place], [address] Creatinine [Mass/Vol] 0.60 mg/dL Low 0.70-1.20 [facility] Comment on above: Performed By: #### L 100.0100, L501.6710, L500.2500, L101.9900, L501.1400 #### [facility] Laboratory [address] [place], [address] ECRCL 72.00 ml/min Normal 50-250 [facility] Comment on above: Performed By: #### L 100.0100, L501.6710, L500.2500, L101.9900, L501.1400 #### [facility] [address] [place], [address] GAP 10 Normal 5-15 [facility] Comment on above: Performed By: #### L 100.0100, L501.6710, L500.2500, L101.9900, L501.1400 #### [facility] [address] [place], [address] GFR/1.73 sq M.predicted among non-blacks MDRD (S/P/Bld) [Vol rate/Area] 94 mL/min/{1.73_m2} Normal >60 [facility] Comment on above: Result Comment: mL/m in/1.73m2 CKD-EPI Creatinine Equation (2020) Performed By: #### L 100.0100, L501.6710, L500.2500, L101.9900, L501.1400 #### [facility] [address] [place], [address] Glucose [Mass/Vol] 102 mg/dL High 70-99 [facility] Comment on above: Performed By: #### L 100.0100, L501.6710, L500.2500, L101.9900, L501.1400 #### [facility] [address] [place], [address] Potassium [Moles/Vol] 4.4 mmol/L Normal 3.3-5.1 [facility] Comment on above: Performed By: #### L 100.0100, L501.6710, L500.2500, L101.9900, L501.1400 #### [facility] [address] [place], [address] Sodium [Moles/Vol] 138 mmol/L Normal 133-145 [facility] Comment on above: Performed By: #### L 100.0100, L501.6710, L500.2500, L101.9900, L501.1400 #### [facility] [address] [place], [address] Urea nitrogen [Mass/Vol] 21 mg/dL High 4-19 [facility] Comment on above: Performed By: #### L 100.0100, L501.6710, L500.2500, L101.9900, L501.1400 #### [facility] [address] [place], [address] CBC W/Diff, Automatedon 05-2 -2024 Absolute Lymph 1.68 X10 3/uL Normal 0.83-4.51 [facility] Comment on above: Performed By: #### L 100.0100, L501.6710, L500.2500, L101.9900, L501.1400 #### [facility] [address] [place], [address] Absolute Neut 4.0 X10 3/uL Normal 2.0-7.7 [facility] Comment on above: Performed By: #### L 100.0100, L501.6710, L500.2500, L101.9900, L501.1400 #### [facility] [address] [place], [address] Basophils/100 WBC (Bld) 0.6 % Normal 0-1 [facility] Comment on above: Performed By: #### L 100.0100, L501.6710, L500.2500, L101.9900, L501.1400 #### [facility] [address] [place], [address] Eosinophils/100 WBC (Bld) 2.7 % Normal 0-5 [facility] Comment on above: Performed By: #### L 100.0100, L501.6710, L500.2500, L101.9900, L501.1400 #### [facility] [address] [place], [address] Erythrocyte distribution width (RBC) [Ratio] 13.2 % Normal 11.6-14.6 [facility] Comment on above: Performed By: #### L 100.0100, L501.6710, L500.2500, L101.9900, L501.1400 #### [facility] [address] [place], [address] Hematocrit (Bld) [Volume fraction] 39.2 % Normal 37-47 [facility] Comment on above: Performed By: #### L 100.0100, L501.6710, L500.2500, L101.9900, L501.1400 #### [facility] [address] [place], [address] Hemoglobin (Bld) [Mass/Vol] 13.1 g/dL Normal 12.0-15.0 [facility] Comment on above: Performed By: #### L 100.0100, L501.6710, L500.2500, L101.9900, L501.1400 #### [facility] [address] [place], [address] IG% 0.600 Normal 0.0-0.9 [facility] Comment on above: Result Comment: IG% - Immature Granulocytes (promyelocytes, myelocytes and metamyelocytes) > 1% indicates that a LEFT SHIFT is Present. Performed By: #### L 100.0100, L501.6710, L500.2500, L101.9900, L501.1400 #### [facility] [address] [place], [address] Lymphocytes/100 WBC (Bld) 26.5 % Normal 19-41 [facility] Comment on above: Performed By: #### L 100.0100, L501.6710, L500.2500, L101.9900, L501.1400 #### [facility] [address] [place], [address] MCH (RBC) [Entitic mass] 30.9 pg Normal 27.0-32.0 [facility] Comment on above: Performed By: #### L 100.0100, L501.6710, L500.2500, L101.9900, L501.1400 #### [facility] [address] [place], [address] MCHC (RBC) [Mass/Vol] 33.4 g/dL Normal 32-36 [facility] Comment on above: Performed By: #### L 100.0100, L501.6710, L500.2500, L101.9900, L501.1400 #### [facility] [address] [place], [address] MCV (RBC) [Entitic vol] 92.5 fL Normal 81-99 [facility] Comment on above: Performed By: #### L 100.0100, L501.6710, L500.2500, L101.9900, L501.1400 #### [facility] [address] [place], [address] Monocytes/100 WBC (Bld) 6.3 % Normal 0-10 [facility] Comment on above: Performed By: #### L 100.0100, L501.6710, L500.2500, L101.9900, L501.1400 #### [facility] [address] [place], [address] Neutrophils/100 WBC (Bld) 63.3 % Normal 47-70 [facility] Comment on above: Performed By: #### L 100.0100, L501.6710, L500.2500, L101.9900, L501.1400 #### [facility] [address] [place], [address] Nucleated RBC (Bld) [#/Vol] 0 10*3/uL Normal 0-5 [facility] Comment on above: Performed By: #### L 100.0100, L501.6710, L500.2500, L101.9900, L501.1400 #### [facility] [address] [place], [address] Platelet mean volume (Bld) [Entitic vol] 10.7 fL Normal 6.2-12.0 [facility] Comment on above: Performed By: #### L 100.0100, L501.6710, L500.2500, L101.9900, L501.1400 #### [facility] [address] [place], [address] Platelets (Bld) [#/Vol] 216 10*3/uL Normal 150-450 [facility] Comment on above: Performed By: #### L 100.0100, L501.6710, L500.2500, L101.9900, L501.1400 #### [facility] [address] [place], [address] RBC (Bld) [#/Vol] 4.24 10*6/uL Normal 4.2-5.4 [facility] Comment on above: Performed By: #### L 100.0100, L501.6710, L500.2500, L101.9900, L501.1400 #### [facility] [address] [place], [address] RDW SD 44.3 fl High 35.1-43.9 [facility] Comment on above: Performed By: #### L 100.0100, L501.6710, L500.2500, L101.9900, L501.1400 #### [facility] [address] [place], [address] WBC (Bld) [#/Vol] 6.3 10*3/uL Normal 4.4-11.0 [facility] Comment on above: Performed By: #### L 100.0100, L501.6710, L500.2500, L101.9900, L501.1400 #### [facility] [address] [place], [address] CRPon 11-01-2024 C-REACTIVE PROT 11.80 mg/L High 0.0-3.0 [facility] Comment on above: Performed By: #### L 100.0100, L501.6710, L500.2500, L101.9900, L501.1400 #### [facility] [address] [place], [address] Emergency Department Summary on 11-01-2024 Emergency Department Summary [facility] Medical Records Department [address] [place] [address] Emergency Department Summary 11/01/24 MR#: [id number] Acct: [id number] Name: IM PRETTY Rep #: [id number] : 1950 74 From: Luis Brown MD PCP: Dr. Faith Barrientos, DO Status:REG ER Location: ED HPI History of Present Illness Chief Complaint: Lower Extremity Injury Informant: patient Narrative Narrative: 74-year-old female presenting with atraumatic left foot pain. No systemic symptoms or fevers, started maybe 2 or 3 weeks ago with a couple twinges of pain, but gradually worsening especially in the past week, now to the point where she cannot put weight on it because of how bad that makes it hurt. She points to the first ray, mostly in the dorsal midfoot near the ankle where the pain is. She denies any new rashes. She denies any obvious reason for this pain to be present or injuries to it. She denies any overuse recently. She states 8 weeks ago she joined a geriatric fitness program, but it ended a week ago and in the past week is when this has become worse. She states she has bilateral knee replacements so she has not been doing any walking or running for exercise. [facility] Medical History Hypertensive disorder Contact with or suspected exposure to other viral communicable disease Acute sinusitis Home Medications ???Medication ???Instructions ???Recorded ???Last Taken ???Type Cholecalciferol (Vitamin D3) 5,000 unit PO DAILY 03/15/20 Unkno wn History [Vitamin D3] citalopram 10 mg tablet 10 mg PO QHS 03/15/20 Unknown Hist ory meloxicam 7.5 mg tablet 7.5 mg PO BID 03/15/20 Unknown His tory cetirizine 10 mg tablet 10 mg PO DAILY 10/03/22 Unknown Hi story montelukast 10 mg tablet 10 mg PO QHS 10/03/22 Unknown Hist ory vitamins A,C,M-ogdj-wibesq 4,296 1 cap PO BID 10/03/22 Unknown Hist ory mcg-226 mg-90 mg capsule (ICaps AREDS) hydrocodone-acetamino phen 5-325mg 1 tab PO Q6H PRN PRN Pain 3 days 11/01/24 Unknown Rx 5mg-325mg #10 TABLETS prednisone 20 mg tablet 40 mg (2 x 20 mg) PO DAILY 4 days 11/01/24 Unknown Rx #8 tabs Allergy/AdvReac Type Severity Reaction Status Date / Time iodine Allergy Hives Verified 11/01/24 14:30 Penicillins Allergy Hives Verified 11/01/24 14:30 Iodine and Iodide Containing AdvReac Hives Verified 11/01/24 14:30 Produc Surgical History Hx of shoulder surgery History of carpal tunnel surgery of right wrist Hx of tubal ligation History of total left knee replacement History of right knee joint replacement History of left hip replacement Hx of bilateral cataract extraction Social History household members: spouse current occupational status: retired Smoking Status: Former smoker ROS ROS ED Constitutional Constitutional ED: Denies chills or fever(s) Cardiovascular Cardiovascular: Denies chest pain Respiratory/Chest Respiratory/Chest: Denies dyspnea Gastrointestinal Gastrointestinal: Denies abdominal pain Musculoskeletal Musculoskeletal: Reports extremity pain; Denies neck pain Integumentary Denies Abrasions, rash or wounds Neurologic Neurologic: Denies paresthesias or weakness EXAM Physical Exam Const Vital Signs: 11/01/24 14:20 Temperature 97.5 F L Temperature Source Temporal Pulse Rate 78 Respiratory Rate 18 Blood Pressure 209/112 H Blood Pressure Mean 144 Pulse Ox 95 Oxygen Delivery Method Room Air Positive well nourished and well developed General Appearance ED: well developed and NAD Neck full ROM and supple Back/Spine normal ROM and normal to inspection Extremity Extremity Narrative: Patient has tenderness in the anterior left ankle/midfoot. She has significant pain when she actively tries to dorsiflex at the ankle, but if I do it passively she does not have significant discomfort. If I plantarflex her foot, passively stretching the extensor tendons, she has more pain, no tingling. She has an intact pulse. She has symmetric appearing varicose veins at the tibial aspect of both feet. There is no erythema in the affected area or signs of a skin infection. If I gently dorsiflex the foot and have her dorsiflex the great toe actively, she has increased pain. If her ankle is neutral and I passively dorsiflex/plantarflex the great toe she does not have discomfort. Neuro oriented x3, no focal motor deficits and no sensory deficits noted Sensorium / Orientation: alert Psych mental status grossly normal and thought process normal Skin no wounds Rashes: no rashes MDM MDM MDM Narrative Medical decision making narrative: Work this patient up with x-rays bu (more content not included)... Normal [facility] Erythrocyte Sed Rateon 11-01 SED RATE 7 mm/hr Normal 0-30 [facility] Comment on above: Performed By: #### L 100.0100, L501.6710, L500.2500, L101.9900, L501.1400 #### [facility] [address] [facility] [place], [address] Foot min 3 Viewson 5 Foot min 3 Views [facility] Imaging Services [address] [place] [address] Foot min 3 Views MR#: [id number] Acct: [id number] Name: MI PRETTY Rep #: [id number] : 1950 F 74 From: Freddie Vázquez MD PCP: Dr. Faith Barrientos, DO Status: REG ER Study: Foot min 3 Views Date of Exam: 11/01/24 Exam# [id number] Ordering Dr: Luis Brown MD EXAM: XR Left Foot Complete, 3 or More Views CLINICAL INDICATION: PAIN TECHNIQUE: Frontal, lateral and oblique views of the left foot. COMPARISON: No relevant prior studies available. FINDINGS: BONES/JOINTS: Mild degenerative changes of the intertarsal joints. SOFT TISSUES: Soft tissue swelling without acute fracture. No radiopaque foreign body. RAD/Foot min 3 Views IMPRESSION: 1. Soft tissue swelling without acute fracture. 2. If symptoms persist, further evaluation with CT is recommended. Reading Location: [facility] CC: Dr. Luis Brown MD; Dr. Faith Barrientos DO Marine Animal Trainer: Signed Normal [facility] Uric Acidon 11-01-2024 URIC 4.1 mg/dL Normal 2.6-6.0 [facility] Comment on above: Result Comment: The drugs N-Acetylcysteine and Metamizole may falsely depress this assay. Performed By: #### L 100.0100, L501.6710, L500.2500, L101.9900, L501.1400 #### [facility] [address] [place], [address] CBC W/Diff, Automatedon 04-12 Absolute Lymph 1.74 X10 3/uL Normal 0.83-4.51 [facility] Comment on above: Performed By: #### L 100.0100, L506.1000, L501.9520, L500.4100, L500.4050 #### [facility] [address] [place], [address] Absolute Neut 3.2 X10 3/uL Normal 2.0-7.7 [facility] Comment on above: Performed By: #### L 100.0100, L506.1000, L501.9520, L500.4100, L500.4050 #### [facility] [address] [place], [address] Basophils/100 WBC (Bld) 1.1 % High 0-1 [facility] Comment on above: Performed By: #### L 100.0100, L506.1000, L501.9520, L500.4100, L500.4050 #### [facility] [address] [place], [address] Eosinophils/100 WBC (Bld) 4.4 % Normal 0-5 [facility] Comment on above: Performed By: #### L 100.0100, L506.1000, L501.9520, L500.4100, L500.4050 #### [facility] [address] [place], [address] Erythrocyte distribution width (RBC) [Ratio] 12.6 % Normal 11.6-14.6 [facility] Comment on above: Performed By: #### L 100.0100, L506.1000, L501.9520, L500.4100, L500.4050 #### [facility] [address] [place], [address] Hematocrit (Bld) [Volume fraction] 42.0 % Normal 37-47 [facility] Comment on above: Performed By: #### L 100.0100, L506.1000, L501.9520, L500.4100, L500.4050 #### [facility] [address] [place], [address] Hemoglobin (Bld) [Mass/Vol] 13.4 g/dL Normal 12.0-15.0 [facility] Comment on above: Performed By: #### L 100.0100, L506.1000, L501.9520, L500.4100, L500.4050 #### [facility] [address] [place], [address] IG% 0.400 Normal 0.0-0.9 [facility] Comment on above: Result Comment: IG% - Immature Granulocytes (promyelocytes, myelocytes and metamyelocytes) > 1% indicates that a LEFT SHIFT is Present. Performed By: #### L 100.0100, L506.1000, L501.9520, L500.4100, L500.4050 #### [facility] [address] [place], [address] Lymphocytes/100 WBC (Bld) 30.6 % Normal 19-41 [facility] Comment on above: Performed By: #### L 100.0100, L506.1000, L501.9520, L500.4100, L500.4050 #### [facility] [address] [place], [address] MCH (RBC) [Entitic mass] 29.9 pg Normal 27.0-32.0 [facility] Comment on above: Performed By: #### L 100.0100, L506.1000, L501.9520, L500.4100, L500.4050 #### [facility] [address] [place], [address] MCHC (RBC) [Mass/Vol] 31.9 g/dL Low 32-36 [facility] Comment on above: Performed By: #### L 100.0100, L506.1000, L501.9520, L500.4100, L500.4050 #### [facility] [address] [place], [address] MCV (RBC) [Entitic vol] 93.8 fL Normal 81-99 [facility] Comment on above: Performed By: #### L 100.0100, L506.1000, L501.9520, L500.4100, L500.4050 #### [facility] [address] [place], [address] Monocytes/100 WBC (Bld) 7.2 % Normal 0-10 [facility] Comment on above: Performed By: #### L 100.0100, L506.1000, L501.9520, L500.4100, L500.4050 #### [facility] [address] [place], [address] Neutrophils/100 WBC (Bld) 56.3 % Normal 47-70 [facility] Comment on above: Performed By: #### L 100.0100, L506.1000, L501.9520, L500.4100, L500.4050 #### [facility] [address] [place], [address] Nucleated RBC (Bld) [#/Vol] 0 10*3/uL Normal 0-5 [facility] Comment on above: Performed By: #### L 100.0100, L506.1000, L501.9520, L500.4100, L500.4050 #### [facility] [address] [place], [address] Platelet mean volume (Bld) [Entitic vol] 10.9 fL Normal 6.2-12.0 [facility] Comment on above: Performed By: #### L 100.0100, L506.1000, L501.9520, L500.4100, L500.4050 #### [facility] [address] [place], [address] Platelets (Bld) [#/Vol] 214 10*3/uL Normal 150-450 [facility] Comment on above: Performed By: #### L 100.0100, L506.1000, L501.9520, L500.4100, L500.4050 #### [facility] [address] [place], [address] RBC (Bld) [#/Vol] 4.48 10*6/uL Normal 4.2-5.4 [facility] Comment on above: Performed By: #### L 100.0100, L506.1000, L501.9520, L500.4100, L500.4050 #### [facility] [address] [place], [address] RDW SD 43.5 fl Normal 35.1-43.9 [facility] Comment on above: Performed By: #### L 100.0100, L506.1000, L501.9520, L500.4100, L500.4050 #### [facility] [address] [place], [address] WBC (Bld) [#/Vol] 5.7 10*3/uL Normal 4.4-11.0 [facility] Comment on above: Performed By: #### L 100.0100, L506.1000, L501.9520, L500.4100, L500.4050 #### [facility] [address] [place], [address] Comprehensive Metabolic Prof ilon 04-29-2024 Albumin [Mass/Vol] 3.6 g/dL Normal 3.2-5.0 [facility] Comment on above: Performed By: #### L 100.0100, L506.1000, L501.9520, L500.4100, L500.4050 #### [facility] [address] [place], [address] Albumin/Globulin [Mass ratio] 1.0 {ratio} Normal 0.9-2.4 [facility] Comment on above: Performed By: #### L 100.0100, L506.1000, L501.9520, L500.4100, L500.4050 #### [facility] [address] [place], [address] ALK P 86 U/L Normal 45-117 [facility] Comment on above: Performed By: #### L 100.0100, L506.1000, L501.9520, L500.4100, L500.4050 #### [facility] [address] [place], [address] ALT [Catalytic activity/Vol] 17 U/L Normal 13-56 [facility] Comment on above: Performed By: #### L 100.0100, L506.1000, L501.9520, L500.4100, L500.4050 #### [facility] [address] [place], [address] AST [Catalytic activity/Vol] 11 U/L Low 15-37 [facility] Comment on above: Performed By: #### L 100.0100, L506.1000, L501.9520, L500.4100, L500.4050 #### [facility] [address] [place], [address] Bilirubin [Mass/Vol] 0.70 mg/dL Normal 0.20-1.[address] [facility] Comment on above: Result Comment: For patients on eltrombopag therapy, use of Dimension [place] TBIL is not recommended. Performed By: #### L 100.0100, L506.1000, L501.9520, L500.4100, L500.4050 #### [facility] [address] [place], [address] BUN/CRE 37.5 RATIO High 10-20 [facility] Comment on above: Performed By: #### L 100.0100, L506.1000, L501.9520, L500.4100, L500.4050 #### [facility] [address] [place], [address] CA,Total 9.0 mg/dL Normal 8.5-10.1 [facility] Comment on above: Performed By: #### L 100.0100, L506.1000, L501.9520, L500.4100, L500.4050 #### [facility] [address] [place], [address] Chloride [Moles/Vol] 105 mmol/L Normal 98-[address] [facility] Comment on above: Performed By: #### L 100.0100, L506.1000, L501.9520, L500.4100, L500.4050 #### [facility] [address] [place], [address] CO2 [Moles/Vol] 30.0 mmol/L Normal 21.0-32.0 [facility] Comment on above: Performed By: #### L 100.0100, L506.1000, L501.9520, L500.4100, L500.4050 #### [facility] [address] [place], [address] Creatinine [Mass/Vol] 0.53 mg/dL Low 0.55-1.02 [facility] Comment on above: Result Comment: The validity of the calculated GFR GFRAA in patients over 70 years has not been determined. Clinical correlation is essential. Performed By: #### L 100.0100, L506.1000, L501.9520, L500.4100, L500.4050 #### [facility] [address] [place], [address] EST GFR - AA 144 mL/min Normal >60 [facility] Comment on above: Result Comment: Afri can [facility] [place] GFR Calc Performed By: #### L 100.0100, L506.1000, L501.9520, L500.4100, L500.4050 #### [facility] [address] [place], [address] GAP 3 Low 5-15 [facility] Comment on above: Performed By: #### L 100.0100, L506.1000, L501.9520, L500.4100, L500.4050 #### [facility] [address] [place], [address] GFR/1.73 sq M.predicted among non-blacks MDRD (S/P/Bld) [Vol rate/Area] 119 mL/min/{1.73_m2} Normal >60 [facility] Comment on above: Result Comment: Non- GFR Calc Performed By: #### L 100.0100, L506.1000, L501.9520, L500.4100, L500.4050 #### [facility] [address] [place], [address] Globulin (S) [Mass/Vol] 3.7 g/dL Normal 2.2-4.2 [facility] Comment on above: Performed By: #### L 100.0100, L506.1000, L501.9520, L500.4100, L500.4050 #### [facility] [address] [place], [address] Glucose [Mass/Vol] 103 mg/dL Normal 74-106 [facility] Comment on above: Result Comment: Fast ing Glucose result from 100 to 125 mg/dL suggests IMPAIRED HOMEOSTASIS per A.D.A. criteria. Performed By: #### L 100.0100, L506.1000, L501.9520, L500.4100, L500.4050 #### [facility] [address] [place], [address] Potassium [Moles/Vol] 4.4 mmol/L Normal 3.5-5.1 [facility] Comment on above: Performed By: #### L 100.0100, L506.1000, L501.9520, L500.4100, L500.4050 #### [facility] [address] [place], [address] Sodium [Moles/Vol] 138 mmol/L Normal 136-145 [facility] Comment on above: Performed By: #### L 100.0100, L506.1000, L501.9520, L500.4100, L500.4050 #### [facility] [address] [place], [address] T PROT 7.3 g/dL Normal 6.4-8.2 [facility] Comment on above: Performed By: #### L 100.0100, L506.1000, L501.9520, L500.4100, L500.4050 #### [facility] [address] [place], [address] Urea nitrogen [Mass/Vol] 20 mg/dL High 7-18 [facility] Comment on above: Performed By: #### L 100.0100, L506.1000, L501.9520, L500.4100, L500.4050 #### [facility] [address] [place], [address] Lipid Profileon 04-29-2024 Cholesterol [Mass/Vol] 229 mg/dL High 200 [facility] Comment on above: Result Comment: <200 mg/dL Desirable 200-240 mg/dL Borderline >240 mg/dL High Risk Performed By: #### L 100.0100, L506.1000, L501.9520, L500.4100, L500.4050 #### [facility] [facility] [address] [place], [address] Cholesterol in HDL [Mass/Vol] 59 mg/dL Normal [facility] Comment on above: Result Comment: The drugs N-Acetylcysteine and Metamizole may falsely depress this assay. Reference Range HDL <40 mg/dL Low HDL Cholesterol HDL >or= 60 mg/dL High HDL Cholesterol Performed By: #### L 100.0100, L506.1000, L501.9520, L500.4100, L500.4050 #### [facility] [address] [place], [address] Cholesterol in LDL [Mass/Vol] 150 mg/dL High 0-130 [facility] Comment on above: Performed By: #### L 100.0100, L506.1000, L501.9520, L500.4100, L500.4050 #### [facility] [address] [place], [address] Cholesterol in VLDL [Mass/Vol] 20 mg/dL Normal 5-40 [facility] Comment on above: Performed By: #### L 100.0100, L506.1000, L501.9520, L500.4100, L500.4050 #### [facility] [address] [place], [address] Triglyceride [Mass/Vol] 99 mg/dL Normal [facility] Comment on above: Result Comment: The drugs N-Acetylcysteine and Metamizole may falsely depress this assay. Serum Triglycerides Reference Interval Normal <150 mg/dL Borderline high 150 - 199 mg/dL High 200 - 499 mg/dL Very High > or = 500 mg/dL Performed By: #### L 100.0100, L506.1000, L501.9520, L500.4100, L500.4050 #### [facility] [address] [place], [address] Thyroid Stim Hormone (TSH)on 04-29-2024 TSH 2.330 uIU/mL Normal 0.358-3.740 [facility] Comment on above: Performed By: #### L 100.0100, L506.1000, L501.9520, L500.4100, L500.4050 #### [facility] [address] [place], [address] Vitamin D,25 Hydroxyon 04-29 Vitamin D 25-OH 52.6 ng/mL Normal [facility] Comment on above: Result Comment: Bre min D 25(OH) Status Range Deficiency <20 ng/mL (50nmol/L) Insufficiency 20 - 30 ng/mL (50 - 75 nmol/L) Sufficiency 30 - 100 ng/mL (75 - 250 nmol/L) Toxicity >100 ng/mL (>250 nmol/L) Performed By: #### L 100.0100, L506.1000, L501.9520, L500.4100, L500.4050 #### [facility] [address] [place], [address] .Auto Diffon 03-22-2023 Basophil, Absolute 0.0 10 3/mcL Normal 0.0-0.2 [facility] ([place]) Comment on above: Performed By: #### A HAJA, BMP, GFR, CBC, ADIFF #### [address] [address] Basophils/100 WBC (Bld) 0.0 % Normal 0.0-2.5 [facility] ([place]) Comment on above: Performed By: #### A HAJA, BMP, GFR, CBC, ADIFF #### [id number] [place], [place] [address] Eosinophil, Absolute 0.0 10 3/mcL Normal 0.0-0.4 [facility] ([place]) Comment on above: Performed By: #### A HAJA, BMP, GFR, CBC, ADIFF #### [address] [address] Eosinophils/100 WBC (Bld) 0.0 % Normal 0.0-7.0 [facility] ([place]) Comment on above: Performed By: #### A HAJA, BMP, GFR, CBC, ADIFF #### [address] [address] Lymphocyte, Absolute 1.1 10 3/mcL Normal 0.8-3.9 [facility] ([place]) Comment on above: Performed By: #### A HAJA, BMP, GFR, CBC, ADIFF #### [address] [address] Lymphocytes/100 WBC (Bld) 10.1 % Normal 10.0-50.0 [facility] ([place]) Comment on above: Performed By: #### A HAJA, BMP, GFR, CBC, ADIFF #### [address] [address] Monocyte, Absolute 0.6 10 3/mcL Normal 0.2-1.0 [facility] ([place]) Comment on above: Performed By: #### A HAJA, BMP, GFR, CBC, ADIFF #### [address] [address] Monocytes/100 WBC (Bld) 5.8 % Normal 1.7-13.0 [facility] ([place]) Comment on above: Performed By: #### A HAJA, BMP, GFR, CBC, ADIFF #### [address] [address] Neutrophils/100 WBC (Bld) 84.1 % High 37.0-80.0 [facility] ([place]) Comment on above: Performed By: #### A HAJA, BMP, GFR, CBC, ADIFF #### [address] [address] .GFRon 03-22-2023 GFR 137 ml/min/1.73sqm Normal [facility] ([place]) Comment on above: Result Comment: GFR Population mean for , Non- Americans Ages 20-29 = 116 mL/min/1.73 sq.m. Ages 30-39 = 107 mL/min/1.73 sq.m. Ages 40-49 = 99 mL/min/1.73 sq.m. Ages 50-59 = 93 mL/min/1.73 sq.m. Ages 60-69 = 85 mL/min/1.73 sq.m. Ages 70+ = 75 mL/min/1.73 sq.m. Chronic Kidney Disease: Less than 60 mL/min/1.73 square meters End Stage Renal Disease: Less than 15 mL/min/1.73 square meters Performed By: #### G FR, ADIFF, CBC, ANEU, BMP #### [address] [address] GFR Non- 113 ml/min/1.73sqm Normal [facility] ([place]) Comment on above: Result Comment: GFR Population mean for , Non- Americans Ages 20-29 = 116 mL/min/1.73 sq.m. Ages 30-39 = 107 mL/min/1.73 sq.m. Ages 40-49 = 99 mL/min/1.73 sq.m. Ages 50-59 = 93 mL/min/1.73 sq.m. Ages 60-69 = 85 mL/min/1.73 sq.m. Ages 70+ = 75 mL/min/1.73 sq.m. Chronic Kidney Disease: Less than 60 mL/min/1.73 square meters End Stage Renal Disease: Less than 15 mL/min/1.73 square meters Performed By: #### G FR, ADIFF, CBC, ANEU, BMP #### [address] [address] .NEUABSon 03-22-2023 Neutrophil, Absolute 9.1 10 3/mcL High 2.9-6.2 [facility] ([place]) Comment on above: Performed By: #### A HAJA, BMP, GFR, CBC, ADIFF #### [address] [address] BMPon 03-22-2023 BUN/Creatinine Ratio 26 ratio Normal 7-27 [facility] ([place]) Comment on above: Performed By: #### A HAJA, BMP, GFR, CBC, ADIFF #### [address] [address] Calcium [Mass/Vol] 8.6 mg/dL Normal 8.4-10.2 [facility] ([place]) Comment on above: Performed By: #### A HAJA, BMP, GFR, CBC, ADIFF #### [address] [address] Chloride [Moles/Vol] 99 mmol/L Normal 98-107 [facility] ([place]) Comment on above: Performed By: #### A HAJA, BMP, GFR, CBC, ADIFF #### [address] [address] CO2 [Moles/Vol] 27 mmol/L Normal 23-31 [facility] ([place]) Comment on above: Performed By: #### A HAJA, BMP, GFR, CBC, ADIFF #### [address] [address] Creatinine [Mass/Vol] 0.53 mg/dL Low 0.55-1.02 [facility] ([place]) Comment on above: Performed By: #### A HAJA, BMP, GFR, CBC, ADIFF #### [address] [address] Electrolyte Balance 8.0 mEq/L Normal 4.0-15.0 [facility] ([place]) Comment on above: Performed By: #### A HAJA, BMP, GFR, CBC, ADIFF #### [address] [address] Glucose [Mass/Vol] 127 mg/dL High 83-110 [facility] ([place]) Comment on above: Performed By: #### A HAJA, BMP, GFR, CBC, ADIFF #### [address] [address] Potassium [Moles/Vol] 4.6 mmol/L Normal 3.5-5.1 [facility] ([place]) Comment on above: Performed By: #### A HAJA, BMP, GFR, CBC, ADIFF #### [address] [address] Sodium [Moles/Vol] 134 mmol/L Low 136-145 [facility] ([place]) Comment on above: Performed By: #### A HAJA, BMP, GFR, CBC, ADIFF #### [place] [id number] Urea nitrogen [Mass/Vol] 14 mg/dL Normal 7-18 [facility] ([place]) Comment on above: Performed By: #### A HAJA, BMP, GFR, CBC, ADIFF #### [address] [address] CBCon 03-22-2023 Erythrocyte distribution width (RBC) [Ratio] 13.8 % Normal 11.5-14.5 [facility] ([place]) Comment on above: Performed By: #### A HAJA, BMP, GFR, CBC, ADIFF #### [address] [address] Hematocrit (Bld) [Volume fraction] 36.0 % Low 37.0-47.0 [facility] ([place]) Comment on above: Performed By: #### A HAJA, BMP, GFR, CBC, ADIFF #### [address] [address] Hgb 12.0 G/dL Normal 12.0-16.0 [facility] ([place]) Comment on above: Performed By: #### A HAJA, BMP, GFR, CBC, ADIFF #### [address] [address] MCH (RBC) [Entitic mass] 30.6 pg Normal 27.0-31.2 [facility] ([place]) Comment on above: Performed By: #### A HAJA, BMP, GFR, CBC, ADIFF #### [address] [address] MCHC 33.4 G/dL Normal 33.0-37.0 [facility] ([place]) Comment on above: Performed By: #### A HAJA, BMP, GFR, CBC, ADIFF #### [address] [address] MCV (RBC) [Entitic vol] 91.6 fL Normal 80.0-94.0 [facility] ([place]) Comment on above: Performed By: #### A HAJA, BMP, GFR, CBC, ADIFF #### [place] [id number] Platelet 215 10 3/mcL Normal 130-400 [facility] ([place]) Comment on above: Performed By: #### A HAJA, BMP, GFR, CBC, ADIFF #### [place] [address] Platelet mean volume (Bld) [Entitic vol] 8.9 fL Normal 7.4-10.4 [facility] ([place]) Comment on above: Performed By: #### A HAJA, BMP, GFR, CBC, ADIFF #### [place] [id number] RBC 3.93 10 6/mcL Low 4.20-5.40 [facility] ([place]) Comment on above: Performed By: #### A HAJA, BMP, GFR, CBC, ADIFF #### [address] [address] WBC 10.8 10 3/mcL Normal 4.6-10.8 [facility] Comment on above: Performed By: #### A HAJA, BMP, GFR, CBC, ADIFF #### [address] [address] LABORATORYOrdered By: SYSTEM SYSTEM on 03-22-2023 Basophil, Absolute 0.0 103/mcL Invalid Interpretation Code 0.0 - 0.2 10^3/mcL AO Workflow SS Basophils/100 WBC (Bld) 0.0 % Invalid Interpretation Code 0.0 - 2.5 % AO Workflow SS Calcium [Mass/Vol] 8.6 mg/dL Invalid Interpretation Code 8.4 - 10.2 mg/dL AO ADM SS Chloride [Moles/Vol] 99 mmol/L Invalid Interpretation Code 98 - 107 mmol/L AO ADM SS CO2 [Moles/Vol] 27 mmol/L Invalid Interpretation Code 23 - 31 mmol/L AO ADM SS Creatinine [Mass/Vol] 0.53 mg/dL Invalid Interpretation Code 0.55 - 1.02 mg/dL AO ADM SS Electrolyte Balance 8.0 mEq/L Invalid Interpretation Code 4.0 - 15.0 mEq/L AO ADM SS Eosinophil, Absolute 0.0 103/mcL Invalid Interpretation Code 0.0 - 0.4 10^3/mcL AO Workflow SS Eosinophils/100 WBC (Bld) 0.0 % Invalid Interpretation Code 0.0 - 7.0 % AO Workflow SS Erythrocyte distribution width (RBC) [Ratio] 13.8 % Invalid Interpretation Code 11.5 - 14.5 % AO Workflow SS GFR/1.73 sq M.predicted among blacks MDRD (S/P/Bld) [Vol rate/Area] 137 ml/min/1.73sqm Invalid Interpretation Code AO Chemistry S Comment on above: Interpretive Data: GFR Population mean for , Non- Americans Ages 20-29 = 116 mL/min/1.73 sq.m. Ages 30-39 = 107 mL/min/1.73 sq.m. Ages 40-49 = 99 mL/min/1.73 sq.m. Ages 50-59 = 93 mL/min/1.73 sq.m. Ages 60-69 = 85 mL/min/1.73 sq.m. Ages 70+ = 75 mL/min/1.73 sq.m. Chronic Kidney Disease: Less than 60 mL/min/1.73 square meters End Stage Renal Disease: Less than 15 mL/min/1.73 square meters GFR/1.73 sq M.predicted among non-blacks MDRD (S/P/Bld) [Vol rate/Area] 113 ml/min/1.73sqm Invalid Interpretation Code AO Chemistry S Comment on above: Interpretive Data: GFR Population mean for , Non- Americans Ages 20-29 = 116 mL/min/1.73 sq.m. Ages 30-39 = 107 mL/min/1.73 sq.m. Ages 40-49 = 99 mL/min/1.73 sq.m. Ages 50-59 = 93 mL/min/1.73 sq.m. Ages 60-69 = 85 mL/min/1.73 sq.m. Ages 70+ = 75 mL/min/1.73 sq.m. Chronic Kidney Disease: Less than 60 mL/min/1.73 square meters End Stage Renal Disease: Less than 15 mL/min/1.73 square meters Glucose [Mass/Vol] 127 mg/dL Invalid Interpretation Code 83 - 110 mg/dL AO ADM SS Hematocrit (Bld) [Volume fraction] 36.0 % Invalid Interpretation Code 37.0 - 47.0 % AO Workflow SS Hemoglobin (Bld) [Mass/Vol] 12.0 G/dL Invalid Interpretation Code 12.0 - 16.0 G/dL AO Workflow SS Lymphocyte, Absolute 1.1 103/mcL Invalid Interpretation Code 0.8 - 3.9 10^3/mcL AO Workflow SS Lymphocytes/100 WBC (Bld) 10.1 % Invalid Interpretation Code 10.0 - 50.0 % AO Workflow SS MCH (RBC) [Entitic mass] 30.6 pg Invalid Interpretation Code 27.0 - 31.2 pg AO Workflow SS MCHC 33.4 G/dL Invalid Interpretation Code 33.0 - 37.0 G/dL AO Workflow SS MCV (RBC) [Entitic vol] 91.6 fL Invalid Interpretation Code 80.0 - 94.0 fL AO Workflow SS Monocyte, Absolute 0.6 103/mcL Invalid Interpretation Code 0.2 - 1.0 10^3/mcL AO Workflow SS Monocytes/100 WBC (Bld) 5.8 % Invalid Interpretation Code 1.7 - 13.0 % AO Workflow SS Neutrophil, Absolute 9.1 103/mcL Invalid Interpretation Code 2.9 - 6.2 10^3/mcL AO Workflow SS Neutrophils/100 WBC (Bld) 84.1 % Invalid Interpretation Code 37.0 - 80.0 % AO Workflow SS Platelet mean volume (Bld) [Entitic vol] 8.9 fL Invalid Interpretation Code 7.4 - 10.4 fL AO Workflow SS Platelets (Bld) [#/Vol] 215 103/mcL Invalid Interpretation Code 130 - 400 10^3/mcL AO Workflow SS Potassium [Moles/Vol] 4.6 mmol/L Invalid Interpretation Code 3.5 - 5.1 mmol/L AO ADM SS RBC (Bld) [#/Vol] 3.93 106/mcL Invalid Interpretation Code 4.20 - 5.40 10^6/mcL AO Workflow SS Sodium [Moles/Vol] 134 mmol/L Invalid Interpretation Code 136 - 145 mmol/L AO ADM SS Urea nitrogen [Mass/Vol] 14 mg/dL Invalid Interpretation Code 7 - 18 mg/dL AO ADM SS Urea nitrogen/Creatinine [Mass ratio] 26 ratio Invalid Interpretation Code 7 - 27 ratio AO ADM SS WBC (Bld) [#/Vol] 10.8 103/mcL Invalid Interpretation Code 4.6 - 10.8 10^3/mcL AO Workflow SS Gel ABOon 03-21-2023 ABO/Rh Interp Positive Invalid Interpretation Code [facility] ([place]) Comment on above: Performed By: #### G FR, ADIFF, CBC, ANEU, BMP #### [id number] [place], [place] [address] Gel ABSon 03-21-2023 Antibody Screen Gel Negative Normal [facility] ([place]) Comment on above: Performed By: #### G FR, ADIFF, CBC, ANEU, BMP #### [id number] [place], [place] [address] LABORATORYOrdered By: Ralf Ramos on 03-21-2023 ABO/Rh Interp Positive Invalid Interpretation Code AO BB SS Antibody Screen Gel Negative [facility]SC (03/21/23 9:19 AM) Invalid Interpretation Code AO BB SS XR SHOULDER MINIMUM 2 VIEWS LEFTon 03-21-2023 XR SHOULDER MINIMUM 2 VIEWS LEFT ORIGINAL EXAMINATION: TWO XRAY VIEWS OF THE LEFT SHOULDER 03/21/2023 1:10 pm COMPARISON: None. HISTORY: ORDERING SYSTEM PROVIDED HISTORY: Reason for Exam: Status Post Arthroplasty FINDINGS: There is some soft tissue air from the recent surgery. The prosthetic components appear well seated, and there is no adjacent fracture seen. There are minor degenerative changes at the AC joint. IMPRESSION: Expected postoperative changes. Interpreted by: Jose Miguel Victoria MD Preliminary Report By: Jose Miguel Victoria MD Electronically signed By Jose Miguel Victoria MD Dictated Date: 03/21/2023 1:22:00 PM Prelim Date: 03/21/2023 1:22:24 PM Sign Date: 03/21/2023 1:22:24 PM Ordering Provider: LAUREANO Bazzi [facility] ([place]) .Auto Diffon 02-27-2023 Basophil, Absolute 0.0 10 3/mcL Normal 0.0-0.2 [facility]) Comment on above: Performed By: #### G FR, ADIFF, CBC, ANEU, BMP #### [address] [address] Basophils/100 WBC (Bld) 0.8 % Normal 0.0-2.5 [facility] ([place]) Comment on above: Performed By: #### G FR, ADIFF, CBC, ANEU, BMP #### [address] [address] Eosinophil, Absolute 0.2 10 3/mcL Normal 0.0-0.4 [facility] ([place]) Comment on above: Performed By: #### G FR, ADIFF, CBC, ANEU, BMP #### [address] [address] Eosinophils/100 WBC (Bld) 2.4 % Normal 0.0-7.0 [facility] ([place]) Comment on above: Performed By: #### G FR, ADIFF, CBC, ANEU, BMP #### [address] [address] Lymphocyte, Absolute 1.5 10 3/mcL Normal 0.8-3.9 [facility] ([place]) Comment on above: Performed By: #### G FR, ADIFF, CBC, ANEU, BMP #### [address] [address] Lymphocytes/100 WBC (Bld) 24.3 % Normal 10.0-50.0 [facility] ([place]) Comment on above: Performed By: #### G FR, ADIFF, CBC, ANEU, BMP #### [address] [address] Monocyte, Absolute 0.5 10 3/mcL Normal 0.2-1.0 [facility] ([place]) Comment on above: Performed By: #### G FR, ADIFF, CBC, ANEU, BMP #### [address] [address] Monocytes/100 WBC (Bld) 7.3 % Normal 1.7-13.0 [facility] ([place]) Comment on above: Performed By: #### G FR, ADIFF, CBC, ANEU, BMP #### [address] [address] Neutrophils/100 WBC (Bld) 65.2 % Normal 37.0-80.0 [facility] ([place]) Comment on above: Performed By: #### G FR, ADIFF, CBC, ANEU, BMP #### [address] [address] .GFRon 02-27-2023 GFR Non- 86 ml/min/1.73sqm Normal [facility] ([place]) Comment on above: Result Comment: GFR Population mean for , Non- Americans Ages 20-29 = 116 mL/min/1.73 sq.m. Ages 30-39 = 107 mL/min/1.73 sq.m. Ages 40-49 = 99 mL/min/1.73 sq.m. Ages 50-59 = 93 mL/min/1.73 sq.m. Ages 60-69 = 85 mL/min/1.73 sq.m. Ages 70+ = 75 mL/min/1.73 sq.m. Chronic Kidney Disease: Less than 60 mL/min/1.73 square meters End Stage Renal Disease: Less than 15 mL/min/1.73 square meters Performed By: #### G FR, ADIFF, CBC, ANEU, BMP #### [address] [address] GFR 105 ml/min/1.73sqm Normal [facility] ([place]) Comment on above: Result Comment: GFR Population mean for , Non- Americans Ages 20-29 = 116 mL/min/1.73 sq.m. Ages 30-39 = 107 mL/min/1.73 sq.m. Ages 40-49 = 99 mL/min/1.73 sq.m. Ages 50-59 = 93 mL/min/1.73 sq.m. Ages 60-69 = 85 mL/min/1.73 sq.m. Ages 70+ = 75 mL/min/1.73 sq.m. Chronic Kidney Disease: Less than 60 mL/min/1.73 square meters End Stage Renal Disease: Less than 15 mL/min/1.73 square meters Performed By: #### G FR, ADIFF, CBC, ANEU, BMP #### [address] [address] .NEUABSon 02-27-2023 Neutrophil, Absolute 4.1 10 3/mcL Normal 2.9-6.2 [facility] ([place]) Comment on above: Performed By: #### G FR, ADIFF, CBC, ANEU, BMP #### [address] [address] ALBon 02-27-2023 Albumin Level 3.7 G/dL Normal 3.4-4.8 [facility] ([place]) Comment on above: Performed By: #### G FR, ADIFF, CBC, ANEU, BMP #### [address] [address] BMPon 02-27-2023 BUN/Creatinine Ratio 22 ratio Normal 7-27 [facility] ([place]) Comment on above: Performed By: #### G FR, ADIFF, CBC, ANEU, BMP #### [address] [address] Calcium [Mass/Vol] 8.8 mg/dL Normal 8.4-10.2 [facility] ([place]) Comment on above: Performed By: #### G FR, ADIFF, CBC, ANEU, BMP #### [address] [address] Chloride [Moles/Vol] 101 mmol/L Normal 98-107 [facility] ([place]) Comment on above: Performed By: #### G FR, ADIFF, CBC, ANEU, BMP #### [address] [address] CO2 [Moles/Vol] 32 mmol/L High 23-31 [facility] ([place]) Comment on above: Performed By: #### G FR, ADIFF, CBC, ANEU, BMP #### [address] [address] Creatinine [Mass/Vol] 0.67 mg/dL Normal 0.55-1.02 [facility]) Comment on above: Performed By: #### G FR, ADIFF, CBC, ANEU, BMP #### [address] [address] Electrolyte Balance 5.0 mEq/L Normal 4.0-15.0 [facility] ([place]) Comment on above: Performed By: #### G FR, ADIFF, CBC, ANEU, BMP #### [address] [address] Glucose [Mass/Vol] 104 mg/dL Normal 83-110 [facility] ([place]) Comment on above: Performed By: #### G FR, ADIFF, CBC, ANEU, BMP #### [address] [address] Potassium [Moles/Vol] 5.1 mmol/L Normal 3.5-5.1 [facility] ([place]) Comment on above: Performed By: #### Dorie FR, ADIFF, CBC, ANEU, BMP #### [address] [address] Sodium [Moles/Vol] 138 mmol/L Normal 136-145 [facility] ([place]) Comment on above: Performed By: #### Dorie FR, ADIFF, CBC, ANEU, BMP #### [address] [address] Urea nitrogen [Mass/Vol] 15 mg/dL Normal 7-18 [facility] ([place]) Comment on above: Performed By: #### Dorie FR, ADIFF, CBC, ANEU, BMP #### [address] [address] CBCon 02-27-2023 Erythrocyte distribution width (RBC) [Ratio] 13.9 % Normal 11.5-14.5 [facility] ([place]) Comment on above: Order Comment: Pre-A dmission Testing Performed By: #### G FR, ADIFF, CBC, ANEU, BMP #### [address] [address] Hematocrit (Bld) [Volume fraction] 37.9 % Normal 37.0-47.0 [facility] ([place]) Comment on above: Order Comment: Pre-A dmission Testing Performed By: #### G FR, ADIFF, CBC, ANEU, BMP #### [address] [address] Hgb 12.8 G/dL Normal 12.0-16.0 [facility] ([place]) Comment on above: Order Comment: Pre-A dmission Testing Performed By: #### G FR, ADIFF, CBC, ANEU, BMP #### [place] [address] MCH (RBC) [Entitic mass] 30.7 pg Normal 27.0-31.2 [facility] ([place]) Comment on above: Order Comment: Pre-A dmission Testing Performed By: #### G FR, ADIFF, CBC, ANEU, BMP #### [place] [address] MCHC 33.8 G/dL Normal 33.0-37.0 [facility] ([place]) Comment on above: Order Comment: Pre-A dmission Testing Performed By: #### G FR, ADIFF, CBC, ANEU, BMP #### [address] [address] MCV (RBC) [Entitic vol] 90.9 fL Normal 80.0-94.0 [facility] ([place]) Comment on above: Order Comment: Pre-A dmission Testing Performed By: #### G FR, ADIFF, CBC, ANEU, BMP #### [place] [address] Platelet 228 10 3/mcL Normal 130-400 [facility] ([place]) Comment on above: Order Comment: Pre-A dmission Testing Performed By: #### G FR, ADIFF, CBC, ANEU, BMP #### [address] [address] Platelet mean volume (Bld) [Entitic vol] 8.7 fL Normal 7.4-10.4 [facility] ([place]) Comment on above: Order Comment: Pre-A dmission Testing Performed By: #### G FR, ADIFF, CBC, ANEU, BMP #### [facility] [address] [place], [place] [address] RBC 4.17 10 6/mcL Low 4.20-5.40 [facility] ([place]) Comment on above: Order Comment: Pre-A dmission Testing Performed By: #### G FR, ADIFF, CBC, ANEU, BMP #### [facility] [address] [place], [place] [address] WBC 6.3 10 3/mcL Normal 4.6-10.8 [facility] ([place]) Comment on above: Order Comment: Pre-A dmission Testing Performed By: #### G FR, ADIFF, CBC, ANEU, BMP #### [id number] [place], [place] [address] CT SHOULDER W/O CONTRAST LEF Ton 02-27-2023 CT SHOULDER W/O CONTRAST LEFT ORIGINAL EXAMINATION: CT OF THE LEFT SHOULDER WITHOUT CONTRAST 02/27/2023 3:11 pm TECHNIQUE: CT of the left shoulder was performed without the administration of intravenous contrast. Multiplanar reformatted images are provided for review. Automated exposure control, iterative reconstruction, and/or weight based adjustment of the mA/kV was utilized to reduce the radiation dose to as low as reasonably achievable. CT DIvol: 14.3, DLP: 265 with COMPARISON: None. HISTORY ORDERING SYSTEM PROVIDED HISTORY: Reason for Exam: Primary osteoarthritis, left shoulder FINDINGS: There is advanced osteoarthrosis of the glenohumeral joint with complete loss of the joint space, subcortical cystic changes, and prominent osteophyte formation along the inferomedial humeral head. There is also advanced osteoarthrosis of the acromioclavicular joint. There is no acute fracture or dislocation. There are no suspicious lytic or blastic osseous lesions. The soft tissues are grossly unremarkable. IMPRESSION: Advanced degenerative changes. Interpreted by: Deven Penny Preliminary Report By: Deven Penny Electronically signed By Deven Penny Dictated Date: 02/27/2023 4:45:18 PM Prelim Date: 02/27/2023 4:50:02 PM Sign Date: 02/27/2023 4:50:02 PM Ordering Provider: LAUREANO Bazzi [facility] ([place]) LABORATORYOrdered By: SYSTEM SYSTEM on 02-27-2023 Albumin BCP dye [Mass/Vol] 3.7 G/dL Invalid Interpretation Code 3.4 - 4.8 G/dL AO ADM SS Basophil, Absolute 0.0 103/mcL Invalid Interpretation Code 0.0 - 0.2 10^3/mcL AO Workflow SS Basophils/100 WBC (Bld) 0.8 % Invalid Interpretation Code 0.0 - 2.5 % AO Workflow SS Calcium [Mass/Vol] 8.8 mg/dL Invalid Interpretation Code 8.4 - 10.2 mg/dL AO ADM SS Chloride [Moles/Vol] 101 mmol/L Invalid Interpretation Code 98 - 107 mmol/L AO ADM SS CO2 [Moles/Vol] 32 mmol/L Invalid Interpretation Code 23 - 31 mmol/L AO ADM SS Creatinine [Mass/Vol] 0.67 mg/dL Invalid Interpretation Code 0.55 - 1.02 mg/dL AO ADM SS Electrolyte Balance 5.0 mEq/L Invalid Interpretation Code 4.0 - 15.0 mEq/L AO ADM SS Eosinophil, Absolute 0.2 103/mcL Invalid Interpretation Code 0.0 - 0.4 10^3/mcL AO Workflow SS Eosinophils/100 WBC (Bld) 2.4 % Invalid Interpretation Code 0.0 - 7.0 % AO Workflow SS Erythrocyte distribution width (RBC) [Ratio] 13.9 % Invalid Interpretation Code 11.5 - 14.5 % AO Workflow SS GFR/1.73 sq M.predicted among blacks MDRD (S/P/Bld) [Vol rate/Area] 105 ml/min/1.73sqm Invalid Interpretation Code AO Chemistry S Comment on above: Interpretive Data: GFR Population mean for , Non- Americans Ages 20-29 = 116 mL/min/1.73 sq.m. Ages 30-39 = 107 mL/min/1.73 sq.m. Ages 40-49 = 99 mL/min/1.73 sq.m. Ages 50-59 = 93 mL/min/1.73 sq.m. Ages 60-69 = 85 mL/min/1.73 sq.m. Ages 70+ = 75 mL/min/1.73 sq.m. Chronic Kidney Disease: Less than 60 mL/min/1.73 square meters End Stage Renal Disease: Less than 15 mL/min/1.73 square meters GFR/1.73 sq M.predicted among non-blacks MDRD (S/P/Bld) [Vol rate/Area] 86 ml/min/1.73sqm Invalid Interpretation Code AO Chemistry S Comment on above: Interpretive Data: GFR Population mean for , Non- Americans Ages 20-29 = 116 mL/min/1.73 sq.m. Ages 30-39 = 107 mL/min/1.73 sq.m. Ages 40-49 = 99 mL/min/1.73 sq.m. Ages 50-59 = 93 mL/min/1.73 sq.m. Ages 60-69 = 85 mL/min/1.73 sq.m. Ages 70+ = 75 mL/min/1.73 sq.m. Chronic Kidney Disease: Less than 60 mL/min/1.73 square meters End Stage Renal Disease: Less than 15 mL/min/1.73 square meters Glucose [Mass/Vol] 104 mg/dL Invalid Interpretation Code 83 - 110 mg/dL AO ADM SS Hematocrit (Bld) [Volume fraction] 37.9 % Invalid Interpretation Code 37.0 - 47.0 % AO Workflow SS Hemoglobin (Bld) [Mass/Vol] 12.8 G/dL Invalid Interpretation Code 12.0 - 16.0 G/dL AO Workflow SS Lymphocyte, Absolute 1.5 103/mcL Invalid Interpretation Code 0.8 - 3.9 10^3/mcL AO Workflow SS Lymphocytes/100 WBC (Bld) 24.3 % Invalid Interpretation Code 10.0 - 50.0 % AO Workflow SS MCH (RBC) [Entitic mass] 30.7 pg Invalid Interpretation Code 27.0 - 31.2 pg AO Workflow SS MCHC 33.8 G/dL Invalid Interpretation Code 33.0 - 37.0 G/dL AO Workflow SS MCV (RBC) [Entitic vol] 90.9 fL Invalid Interpretation Code 80.0 - 94.0 fL AO Workflow SS Monocyte, Absolute 0.5 103/mcL Invalid Interpretation Code 0.2 - 1.0 10^3/mcL AO Workflow SS Monocytes/100 WBC (Bld) 7.3 % Invalid Interpretation Code 1.7 - 13.0 % AO Workflow SS Neutrophil, Absolute 4.1 103/mcL Invalid Interpretation Code 2.9 - 6.2 10^3/mcL AO Workflow SS Neutrophils/100 WBC (Bld) 65.2 % Invalid Interpretation Code 37.0 - 80.0 % AO Workflow SS Platelet mean volume (Bld) [Entitic vol] 8.7 fL Invalid Interpretation Code 7.4 - 10.4 fL AO Workflow SS Platelets (Bld) [#/Vol] 228 103/mcL Invalid Interpretation Code 130 - 400 10^3/mcL AO Workflow SS Potassium [Moles/Vol] 5.1 mmol/L Invalid Interpretation Code 3.5 - 5.1 mmol/L AO ADM SS RBC (Bld) [#/Vol] 4.17 106/mcL Invalid Interpretation Code 4.20 - 5.40 10^6/mcL AO Workflow SS Sodium [Moles/Vol] 138 mmol/L Invalid Interpretation Code 136 - 145 mmol/L AO ADM SS Urea nitrogen [Mass/Vol] 15 mg/dL Invalid Interpretation Code 7 - 18 mg/dL AO ADM SS Urea nitrogen/Creatinine [Mass ratio] 22 ratio Invalid Interpretation Code 7 - 27 ratio AO ADM SS WBC (Bld) [#/Vol] 6.3 103/mcL Invalid Interpretation Code 4.6 - 10.8 10^3/mcL AO Workflow SS LABORATORYOrdered By: Marlys rodriguez on 02-27-2023 MRSA DNA ANASTASIIA+probe Ql (Unsp spec) Not Detected 1 (02/27/23 2:30 PM) Invalid Interpretation Code Not Detected Auto Viro/Sero SS Comment on above: Result Comment: Note s [id number] MRSA PCR Int MRSA DNA not detecte d by Real-Time Polymerase Chain Reaction (PCR). A negative result may be due to intermittent colonization. Colonization may vary depending on patient treatment, patient status, or exposure to high-risk environments.As with all PCR based in vitro diagnostic tests, extremely low levels of target below the limit of detection of the assay may be detected, but results may not be reproducible. Invalid Interpretation Code Auto Viro/Sero SS MRSAPCRon 02-27-2023 MRSA (PCR) Not detected Normal Not Detected [facility] ([place]) Comment on above: Result Comment: Note s [id number] Performed By: #### M RSAPCR #### [facility] [address] [place] [address] MRSA PCR Int Normal [facility] ([place]) Comment on above: Result Comment: MRSA DNA not detected by Real-Time Polymerase Chain Reaction (PCR). A negative result may be due to intermittent colonization. Colonization may vary depending on patient treatment, patient status, or exposure to high-risk environments. As with all PCR based in vitro diagnostic tests, extremely low levels of target below the limit of detection of the assay may be detected, but results may not be reproducible. See Below Performed By: #### M RSAPCR #### [address] [address] .Auto Diffon 08-10-2022 Basophil, Absolute 0.0 10 3/mcL Normal 0.0-0.2 [facility] ([place]) Comment on above: Performed By: #### G FR, ADIFF, CBC, ANEU, BMP #### [address] [address] Basophils/100 WBC (Bld) 0.1 % Normal 0.0-2.5 [facility] ([place]) Comment on above: Performed By: #### G FR, ADIFF, CBC, ANEU, BMP #### [address] [address] Eosinophil, Absolute 0.0 10 3/mcL Normal 0.0-0.4 [facility] ([place]) Comment on above: Performed By: #### G FR, ADIFF, CBC, ANEU, BMP #### [address] [address] Eosinophils/100 WBC (Bld) 0.1 % Normal 0.0-7.0 [facility] ([place]) Comment on above: Performed By: #### G FR, ADIFF, CBC, ANEU, BMP #### [address] [address] Lymphocyte, Absolute 1.3 10 3/mcL Normal 0.8-3.9 [facility] ([place]) Comment on above: Performed By: #### G FR, ADIFF, CBC, ANEU, BMP #### [address] [address] Lymphocytes/100 WBC (Bld) 10.8 % Normal 10.0-50.0 [facility] ([place]) Comment on above: Performed By: #### G FR, ADIFF, CBC, ANEU, BMP #### [address] [address] Monocyte, Absolute 0.8 10 3/mcL Normal 0.2-1.0 [facility] ([place]) Comment on above: Performed By: #### G FR, ADIFF, CBC, ANEU, BMP #### [address] [address] Monocytes/100 WBC (Bld) 6.9 % Normal 1.7-13.0 [facility] ([place]) Comment on above: Performed By: #### G FR, ADIFF, CBC, ANEU, BMP #### [address] [address] Neutrophils/100 WBC (Bld) 82.1 % High 37.0-80.0 [facility] ([place]) Comment on above: Performed By: #### G FR, ADIFF, CBC, ANEU, BMP #### [address] [address] .GFRon 08-10-2022 GFR Non- 100 ml/min/1.73sqm Normal [facility] ([place]) Comment on above: Result Comment: GFR Population mean for , Non- Americans Ages 20-29 = 116 mL/min/1.73 sq.m. Ages 30-39 = 107 mL/min/1.73 sq.m. Ages 40-49 = 99 mL/min/1.73 sq.m. Ages 50-59 = 93 mL/min/1.73 sq.m. Ages 60-69 = 85 mL/min/1.73 sq.m. Ages 70+ = 75 mL/min/1.73 sq.m. Chronic Kidney Disease: Less than 60 mL/min/1.73 square meters End Stage Renal Disease: Less than 15 mL/min/1.73 square meters Performed By: #### G FR, ADIFF, CBC, ANEU, BMP #### [address] [address] GFR 121 ml/min/1.73sqm Normal [facility] ([place]) Comment on above: Result Comment: GFR Population mean for , Non- Americans Ages 20-29 = 116 mL/min/1.73 sq.m. Ages 30-39 = 107 mL/min/1.73 sq.m. Ages 40-49 = 99 mL/min/1.73 sq.m. Ages 50-59 = 93 mL/min/1.73 sq.m. Ages 60-69 = 85 mL/min/1.73 sq.m. Ages 70+ = 75 mL/min/1.73 sq.m. Chronic Kidney Disease: Less than 60 mL/min/1.73 square meters End Stage Renal Disease: Less than 15 mL/min/1.73 square meters Performed By: #### G FR, ADIFF, CBC, ANEU, BMP #### [address] [address] .NEUABSon 08-10-2022 Neutrophil, Absolute 9.6 10 3/mcL High 2.9-6.2 [facility] ([place]) Comment on above: Performed By: #### G FR, ADIFF, CBC, ANEU, BMP #### [address] [address] BMPon 08-10-2022 BUN/Creatinine Ratio 25 ratio Normal 7-27 [facility] ([place]) Comment on above: Performed By: #### Dorie FR, ADIFF, CBC, ANEU, BMP #### [address] [address] Calcium [Mass/Vol] 8.6 mg/dL Normal 8.4-10.2 [facility] ([place]) Comment on above: Performed By: #### Dorie FR, ADIFF, CBC, ANEU, BMP #### [address] [address] Chloride [Moles/Vol] 100 mmol/L Normal 98-107 [facility] ([place]) Comment on above: Performed By: #### G FR, ADIFF, CBC, ANEU, BMP #### [address] [address] CO2 [Moles/Vol] 30 mmol/L Normal 23-31 [facility] ([place]) Comment on above: Performed By: #### G FR, ADIFF, CBC, ANEU, BMP #### [address] [address] Creatinine [Mass/Vol] 0.59 mg/dL Normal 0.55-1.02 [facility] ([place]) Comment on above: Performed By: #### G FR, ADIFF, CBC, ANEU, BMP #### [address] [address] Electrolyte Balance 5.0 mEq/L Normal 4.0-15.0 [facility] ([place]) Comment on above: Performed By: #### G FR, ADIFF, CBC, ANEU, BMP #### [address] [address] Glucose [Mass/Vol] 125 mg/dL High 83-110 [facility] ([place]) Comment on above: Performed By: #### G FR, ADIFF, CBC, ANEU, BMP #### [address] [address] Potassium [Moles/Vol] 4.6 mmol/L Normal 3.5-5.1 [facility] ([place]) Comment on above: Performed By: #### G FR, ADIFF, CBC, ANEU, BMP #### [place] [id number] Sodium [Moles/Vol] 135 mmol/L Low 136-145 [facility] ([place]) Comment on above: Performed By: #### G FR, ADIFF, CBC, ANEU, BMP #### [address] [address] Urea nitrogen [Mass/Vol] 15 mg/dL Normal 7-18 [facility] ([place]) Comment on above: Performed By: #### G FR, ADIFF, CBC, ANEU, BMP #### [address] [address] CBCon 08-10-2022 Erythrocyte distribution width (RBC) [Ratio] 14.0 % Normal 11.5-14.5 [facility] ([place]) Comment on above: Performed By: #### G FR, ADIFF, CBC, ANEU, BMP #### [address] [address] Hematocrit (Bld) [Volume fraction] 33.2 % Low 37.0-47.0 [facility] ([place]) Comment on above: Performed By: #### G FR, ADIFF, CBC, ANEU, BMP #### [address] [address] Hgb 11.1 G/dL Low 12.0-16.0 [facility] ([place]) Comment on above: Performed By: #### Dorie FR, ADIFF, CBC, ANEU, BMP #### [address] [address] MCH (RBC) [Entitic mass] 30.0 pg Normal 27.0-31.2 [facility] ([place]) Comment on above: Performed By: #### G FR, ADIFF, CBC, ANEU, BMP #### [address] [address] MCHC 33.5 G/dL Normal 33.0-37.0 [facility] ([place]) Comment on above: Performed By: #### Dorie FR, ADIFF, CBC, ANEU, BMP #### [address] [address] MCV (RBC) [Entitic vol] 89.6 fL Normal 80.0-94.0 [facility] ([place]) Comment on above: Performed By: #### Dorie FR, ADIFF, CBC, ANEU, BMP #### [address] [address] Platelet 210 10 3/mcL Normal 130-400 [facility] ([place]) Comment on above: Performed By: #### G FR, ADIFF, CBC, ANEU, BMP #### [address] [address] Platelet mean volume (Bld) [Entitic vol] 8.6 fL Normal 7.4-10.4 [facility] ([place]) Comment on above: Performed By: #### Dorie FR, ADIFF, CBC, ANEU, BMP #### [place] [id number] RBC 3.70 10 6/mcL Low 4.20-5.40 [facility] ([place]) Comment on above: Performed By: #### G FR, ADIFF, CBC, ANEU, BMP #### [place] [id number] [place], [place] [address] WBC 11.7 10 3/mcL High 4.6-10.8 [facility] ([place]) Comment on above: Performed By: #### G FR, ADIFF, CBC, ANEU, BMP #### [address] [address] Gel ABOon 08-09-2022 ABO/Rh Interp Positive Invalid Interpretation Code [facility] ([place]) Comment on above: Performed By: #### G FR, ADIFF, CBC, ANEU, BMP #### [place] [id number] [place], [place] [address] Gel ABSon 08-09-2022 Antibody Screen Gel Negative Normal [facility] ([place]) Comment on above: Performed By: #### G FR, ADIFF, CBC, ANEU, BMP #### [address] [address] XR FLUORO 1-2 HRS TECH TIMEo n 08-09-2022 XR FLUORO 1-2 HRS TECH TIME ORIGINAL Images acquired, not reported on this accession number. Normal [facility] ([place]) XR HIP LEFT W/PELVIS 4 VIEWS on 08-09-2022 XR HIP LEFT W/PELVIS 4 VIEWS ORIGINAL EXAMINATION: 2 XRAY VIEWS OF THE LEFT HIP. 1 VIEWS OF THE PELVIS. COMPARISON: None. HISTORY: ORDERING SYSTEM PROVIDED HISTORY: Reason for Exam: Status Post Arthroplasty FINDINGS: Patient is status post left total hip arthroplasty. There is no evidence of hardware complication. Expected postoperative changes of the left hip soft tissues are noted with soft tissue gas, swelling, and wound VAC present. Trace volume air within the hip joint suspected. The pelvic ring is intact. The visible sacrum is unremarkable. Advanced right hip degenerative changes. Fairly advanced lower lumbar degenerative change also. Tubal ligation clips noted. IMPRESSION: 1. Left total hip arthroplasty without evidence of hardware complication. 2. Expected postoperative changes of the left hip soft tissues. Interpreted by: Nilson Anderson DO Preliminary Report By: Nilson Anderson DO Electronically signed By Nilson Anderson DO Dictated Date: 08/09/2022 12:13:44 PM Prelim Date: 08/09/2022 12:14:53 PM Sign Date: 08/09/2022 12:14:53 PM Ordering Provider: LAUREANO Bazzi [facility] ([place]) .Auto Diffon 07-27-2022 Basophil, Absolute 0.0 10 3/mcL Normal 0.0-0.2 [facility] ([place]) Comment on above: Performed By: #### G FR, ADIFF, CBC, ANEU, BMP #### [address] [address] Basophils/100 WBC (Bld) 0.8 % Normal 0.0-2.5 [facility] ([place]) Comment on above: Performed By: #### G FR, ADIFF, CBC, ANEU, BMP #### [address] [address] Eosinophil, Absolute 0.1 10 3/mcL Normal 0.0-0.4 [facility] ([place] Comment on above: Performed By: #### G FR, ADIFF, CBC, ANEU, BMP #### [address] [address] Eosinophils/100 WBC (Bld) 2.4 % Normal 0.0-7.0 [facility] ([place]) Comment on above: Performed By: #### G FR, ADIFF, CBC, ANEU, BMP #### [address] [address] Lymphocyte, Absolute 1.8 10 3/mcL Normal 0.8-3.9 [facility] ([place] Comment on above: Performed By: #### G FR, ADIFF, CBC, ANEU, BMP #### [address] [address] Lymphocytes/100 WBC (Bld) 30.4 % Normal 10.0-50.0 [facility] ([place]) Comment on above: Performed By: #### G FR, ADIFF, CBC, ANEU, BMP #### [address] [address] Monocyte, Absolute 0.4 10 3/mcL Normal 0.2-1.0 [facility] ([place]) Comment on above: Performed By: #### G FR, ADIFF, CBC, ANEU, BMP #### [address] [address] Monocytes/100 WBC (Bld) 6.8 % Normal 1.7-13.0 [facility] ([place]) Comment on above: Performed By: #### G FR, ADIFF, CBC, ANEU, BMP #### [address] [address] Neutrophils/100 WBC (Bld) 59.6 % Normal 37.0-80.0 [facility] ([place]) Comment on above: Performed By: #### G FR, ADIFF, CBC, ANEU, BMP #### [address] [address] .GFRon 07-27-2022 GFR 174 ml/min/1.73sqm Normal [facility] ([place]) Comment on above: Result Comment: GFR Population mean for , Non- Americans Ages 20-29 = 116 mL/min/1.73 sq.m. Ages 30-39 = 107 mL/min/1.73 sq.m. Ages 40-49 = 99 mL/min/1.73 sq.m. Ages 50-59 = 93 mL/min/1.73 sq.m. Ages 60-69 = 85 mL/min/1.73 sq.m. Ages 70+ = 75 mL/min/1.73 sq.m. Chronic Kidney Disease: Less than 60 mL/min/1.73 square meters End Stage Renal Disease: Less than 15 mL/min/1.73 square meters Performed By: #### G FR, ADIFF, CBC, ANEU, BMP #### [address] [address] GFR Non- 144 ml/min/1.73sqm Normal [facility] ([place]) Comment on above: Result Comment: GFR Population mean for , Non- Americans Ages 20-29 = 116 mL/min/1.73 sq.m. Ages 30-39 = 107 mL/min/1.73 sq.m. Ages 40-49 = 99 mL/min/1.73 sq.m. Ages 50-59 = 93 mL/min/1.73 sq.m. Ages 60-69 = 85 mL/min/1.73 sq.m. Ages 70+ = 75 mL/min/1.73 sq.m. Chronic Kidney Disease: Less than 60 mL/min/1.73 square meters End Stage Renal Disease: Less than 15 mL/min/1.73 square meters Performed By: #### G FR, ADIFF, CBC, ANEU, BMP #### [address] [address] .NEUABSon 07-27-2022 Neutrophil, Absolute 3.5 10 3/mcL Normal 2.9-6.2 [facility] ([place] Comment on above: Performed By: #### G FR, ADIFF, CBC, ANEU, BMP #### [address] [address] ALBon 07-27-2022 Albumin Level 3.7 G/dL Normal 3.4-4.8 [facility] ([place]) Comment on above: Performed By: #### G FR, ADIFF, CBC, ANEU, BMP #### [address] [address] BMPon 07-27-2022 BUN/Creatinine Ratio 40 ratio High 7-27 [facility] ([place]) Comment on above: Performed By: #### G FR, ADIFF, CBC, ANEU, BMP #### [address] [address] Calcium [Mass/Vol] 9.1 mg/dL Normal 8.4-10.2 [facility] ([place]) Comment on above: Performed By: #### G FR, ADIFF, CBC, ANEU, BMP #### [address] [address] Chloride [Moles/Vol] 103 mmol/L Normal 98-107 [facility] ([place]) Comment on above: Performed By: #### G FR, ADIFF, CBC, ANEU, BMP #### [address] [address] CO2 [Moles/Vol] 29 mmol/L Normal 23-31 [facility] ([place]) Comment on above: Performed By: #### G FR, ADIFF, CBC, ANEU, BMP #### [address] [address] Creatinine [Mass/Vol] 0.43 mg/dL Low 0.55-1.02 [facility] ([place]) Comment on above: Performed By: #### G FR, ADIFF, CBC, ANEU, BMP #### [address] [address] Electrolyte Balance 8.0 mEq/L Normal 4.0-15.0 [facility] ([place]) Comment on above: Performed By: #### G FR, ADIFF, CBC, ANEU, BMP #### [address] [address] Glucose [Mass/Vol] 89 mg/dL Normal 83-110 [facility] ([place]) Comment on above: Performed By: #### G FR, ADIFF, CBC, ANEU, BMP #### [address] [address] Potassium [Moles/Vol] 4.8 mmol/L Normal 3.5-5.1 [facility] ([place]) Comment on above: Performed By: #### G FR, ADIFF, CBC, ANEU, BMP #### [address] [address] Sodium [Moles/Vol] 140 mmol/L Normal 136-145 [facility] ([place]) Comment on above: Performed By: #### G FR, ADIFF, CBC, ANEU, BMP #### [address] [address] Urea nitrogen [Mass/Vol] 17 mg/dL Normal 7-18 [facility] ([place]) Comment on above: Performed By: #### G FR, ADIFF, CBC, ANEU, BMP #### [address] [address] CBCon 07-27-2022 Erythrocyte distribution width (RBC) [Ratio] 14.2 % Normal 11.5-14.5 [facility] ([place]) Comment on above: Order Comment: Pre-A dmission Testing Performed By: #### G FR, ADIFF, CBC, ANEU, BMP #### [address] [address] Hematocrit (Bld) [Volume fraction] 39.8 % Normal 37.0-47.0 [facility] ([place]) Comment on above: Order Comment: Pre-A dmission Testing Performed By: #### G FR, ADIFF, CBC, ANEU, BMP #### [address] [address] Hgb 13.5 G/dL Normal 12.0-16.0 [facility] ([place]) Comment on above: Order Comment: Pre-A dmission Testing Performed By: #### G FR, ADIFF, CBC, ANEU, BMP #### [address] [address] MCH (RBC) [Entitic mass] 30.2 pg Normal 27.0-31.2 [facility] ([place]) Comment on above: Order Comment: Pre-A dmission Testing Performed By: #### G FR, ADIFF, CBC, ANEU, BMP #### [address] [address] MCHC 33.9 G/dL Normal 33.0-37.0 [facility] ([place]) Comment on above: Order Comment: Pre-A dmission Testing Performed By: #### G FR, ADIFF, CBC, ANEU, BMP #### [address] [address] MCV (RBC) [Entitic vol] 89.0 fL Normal 80.0-94.0 [facility] ([place]) Comment on above: Order Comment: Pre-A dmission Testing Performed By: #### G FR, ADIFF, CBC, ANEU, BMP #### [address] [address] Platelet 232 10 3/mcL Normal 130-400 [facility] ([place]) Comment on above: Order Comment: Pre-A dmission Testing Performed By: #### G FR, ADIFF, CBC, ANEU, BMP #### [address] [address] Platelet mean volume (Bld) [Entitic vol] 8.9 fL Normal 7.4-10.4 [facility] ([place]) Comment on above: Order Comment: Pre-A dmission Testing Performed By: #### G FR, ADIFF, CBC, ANEU, BMP #### [address] [address] RBC 4.47 10 6/mcL Normal 4.20-5.40 [facility] ([place]) Comment on above: Order Comment: Pre-A dmission Testing Performed By: #### G FR, ADIFF, CBC, ANEU, BMP #### [address] [address] WBC 5.9 10 3/mcL Normal 4.6-10.8 [facility] ([place]) Comment on above: Order Comment: Pre-A dmission Testing Performed By: #### G FR, ADIFF, CBC, ANEU, BMP #### [address] [address] Gel ABOon 07-27-2022 ABO/Rh Interp Positive Invalid Interpretation Code [facility] ([place]) Comment on above: Performed By: #### G FR, ADIFF, CBC, ANEU, BMP #### [address] [address] Gel ABSon 07-27-2022 Antibody Screen Gel Negative Normal [facility] ([place]) Comment on above: Performed By: #### G FR, ADIFF, CBC, ANEU, BMP #### [address] [address] LABORATORYOrdered By: Irena Cameron on 07-27-2022 ABO/Rh Interp Positive Invalid Interpretation Code AO BB SS Antibody Screen Gel Negative ABSC (07/27/22 1:42 PM) Invalid Interpretation Code AO BB SS Basophil, Absolute 0.0 103/mcL Invalid Interpretation Code 0.0 - 0.2 10^3/mcL AO Workflow SS Basophils/100 WBC (Bld) 0.8 % Invalid Interpretation Code 0.0 - 2.5 % AO Workflow SS Eosinophil, Absolute 0.1 103/mcL Invalid Interpretation Code 0.0 - 0.4 10^3/mcL AO Workflow SS Eosinophils/100 WBC (Bld) 2.4 % Invalid Interpretation Code 0.0 - 7.0 % AO Workflow SS Erythrocyte distribution width (RBC) [Ratio] 14.2 % Invalid Interpretation Code 11.5 - 14.5 % AO Workflow SS Hematocrit (Bld) [Volume fraction] 39.8 % Invalid Interpretation Code 37.0 - 47.0 % AO Workflow SS Hemoglobin (Bld) [Mass/Vol] 13.5 G/dL Invalid Interpretation Code 12.0 - 16.0 G/dL AO Workflow SS Lymphocyte, Absolute 1.8 103/mcL Invalid Interpretation Code 0.8 - 3.9 10^3/mcL AO Workflow SS Lymphocytes/100 WBC (Bld) 30.4 % Invalid Interpretation Code 10.0 - 50.0 % AO Workflow SS MCH (RBC) [Entitic mass] 30.2 pg Invalid Interpretation Code 27.0 - 31.2 pg AO Workflow SS MCHC 33.9 G/dL Invalid Interpretation Code 33.0 - 37.0 G/dL AO Workflow SS MCV (RBC) [Entitic vol] 89.0 fL Invalid Interpretation Code 80.0 - 94.0 fL AO Workflow SS Monocyte, Absolute 0.4 103/mcL Invalid Interpretation Code 0.2 - 1.0 10^3/mcL AO Workflow SS Monocytes/100 WBC (Bld) 6.8 % Invalid Interpretation Code 1.7 - 13.0 % AO Workflow SS Neutrophil, Absolute 3.5 103/mcL Invalid Interpretation Code 2.9 - 6.2 10^3/mcL AO Workflow SS Neutrophils/100 WBC (Bld) 59.6 % Invalid Interpretation Code 37.0 - 80.0 % AO Workflow SS Platelet mean volume (Bld) [Entitic vol] 8.9 fL Invalid Interpretation Code 7.4 - 10.4 fL AO Workflow SS Platelets (Bld) [#/Vol] 232 103/mcL Invalid Interpretation Code 130 - 400 10^3/mcL AO Workflow SS RBC (Bld) [#/Vol] 4.47 106/mcL Invalid Interpretation Code 4.20 - 5.40 10^6/mcL AO Workflow SS WBC (Bld) [#/Vol] 5.9 103/mcL Invalid Interpretation Code 4.6 - 10.8 10^3/mcL AO Workflow SS LABORATORYOrdered By: UCAN SYSTEM on 07-27-2022 Albumin BCP dye [Mass/Vol] 3.7 G/dL Invalid Interpretation Code 3.4 - 4.8 G/dL AO ADM SS Calcium [Mass/Vol] 9.1 mg/dL Invalid Interpretation Code 8.4 - 10.2 mg/dL AO ADM SS Chloride [Moles/Vol] 103 mmol/L Invalid Interpretation Code 98 - 107 mmol/L AO ADM SS CO2 [Moles/Vol] 29 mmol/L Invalid Interpretation Code 23 - 31 mmol/L AO ADM SS Creatinine [Mass/Vol] 0.43 mg/dL Invalid Interpretation Code 0.55 - 1.02 mg/dL AO ADM SS Electrolyte Balance 8.0 mEq/L Invalid Interpretation Code 4.0 - 15.0 mEq/L AO ADM SS GFR 174 ml/min/1.73sqm Invalid Interpretation Code AO Chemistry S GFR Non- 144 ml/min/1.73sqm Invalid Interpretation Code AO Chemistry S Glucose [Mass/Vol] 89 mg/dL Invalid Interpretation Code 83 - 110 mg/dL AO ADM SS Potassium [Moles/Vol] 4.8 mmol/L Invalid Interpretation Code 3.5 - 5.1 mmol/L AO ADM SS Sodium [Moles/Vol] 140 mmol/L Invalid Interpretation Code 136 - 145 mmol/L AO ADM SS Urea nitrogen [Mass/Vol] 17 mg/dL Invalid Interpretation Code 7 - 18 mg/dL AO ADM SS Urea nitrogen/Creatinine [Mass ratio] 40 ratio Invalid Interpretation Code 7 - 27 ratio AO ADM SS LABORATORYOrdered By: Mariposa Collins on 02-03-2022 Basophil, Absolute 0.1 103/mcL Invalid Interpretation Code 0.0 - 0.2 10^3/mcL AO Workflow SS Basophils/100 WBC (Bld) 0.6 % Invalid Interpretation Code 0.0 - 2.5 % AO Workflow SS Eosinophil, Absolute 0.1 103/mcL Invalid Interpretation Code 0.0 - 0.4 10^3/mcL AO Workflow SS Eosinophils/100 WBC (Bld) 0.8 % Invalid Interpretation Code 0.0 - 7.0 % AO Workflow SS Erythrocyte distribution width (RBC) [Ratio] 13.7 % Invalid Interpretation Code 11.5 - 14.5 % AO Workflow SS Hematocrit (Bld) [Volume fraction] 31.9 % Invalid Interpretation Code 37.0 - 47.0 % AO Workflow SS Hemoglobin (Bld) [Mass/Vol] 11.0 G/dL Invalid Interpretation Code 12.0 - 16.0 G/dL AO Workflow SS Lymphocyte, Absolute 1.7 103/mcL Invalid Interpretation Code 0.8 - 3.9 10^3/mcL AO Workflow SS Lymphocytes/100 WBC (Bld) 21.9 % Invalid Interpretation Code 10.0 - 50.0 % AO Workflow SS MCH (RBC) [Entitic mass] 32.0 pg Invalid Interpretation Code 27.0 - 31.2 pg AO Workflow SS MCHC 34.4 G/dL Invalid Interpretation Code 33.0 - 37.0 G/dL AO Workflow SS MCV (RBC) [Entitic vol] 92.8 fL Invalid Interpretation Code 80.0 - 94.0 fL AO Workflow SS Monocyte, Absolute 0.7 103/mcL Invalid Interpretation Code 0.2 - 1.0 10^3/mcL AO Workflow SS Monocytes/100 WBC (Bld) 8.3 % Invalid Interpretation Code 1.7 - 13.0 % AO Workflow SS Neutrophil, Absolute 5.4 103/mcL Invalid Interpretation Code 2.9 - 6.2 10^3/mcL AO Workflow SS Neutrophils/100 WBC (Bld) 68.4 % Invalid Interpretation Code 37.0 - 80.0 % AO Workflow SS Platelet mean volume (Bld) [Entitic vol] 8.1 fL Invalid Interpretation Code 7.4 - 10.4 fL AO Workflow SS Platelets (Bld) [#/Vol] 186 103/mcL Invalid Interpretation Code 130 - 400 10^3/mcL AO Workflow SS RBC (Bld) [#/Vol] 3.44 106/mcL Invalid Interpretation Code 4.20 - 5.40 10^6/mcL AO Workflow SS WBC 7.9 103/mcL Invalid Interpretation Code 4.6 - 10.8 10^3/mcL AO Workflow SS LABORATORYOrdered By: Zeinab Moore on 02-03-2022 Calcium [Mass/Vol] 8.3 mg/dL Invalid Interpretation Code 8.4 - 10.2 mg/dL AO ADM SS Chloride [Moles/Vol] 103 mmol/L Invalid Interpretation Code 98 - 107 mmol/L AO ADM SS CO2 [Moles/Vol] 36 mmol/L Invalid Interpretation Code 23 - 31 mmol/L AO ADM SS Creatinine [Mass/Vol] 0.61 mg/dL Invalid Interpretation Code 0.55 - 1.02 mg/dL AO ADM SS Electrolyte Balance 2.0 mEq/L Invalid Interpretation Code 4.0 - 15.0 mEq/L AO ADM SS Glucose [Mass/Vol] 185 mg/dL Invalid Interpretation Code 83 - 110 mg/dL AO ADM SS Potassium [Moles/Vol] 4.6 mmol/L Invalid Interpretation Code 3.5 - 5.1 mmol/L AO ADM SS Sodium [Moles/Vol] 141 mmol/L Invalid Interpretation Code 136 - 145 mmol/L AO ADM SS Urea nitrogen [Mass/Vol] 17 mg/dL Invalid Interpretation Code 7 - 18 mg/dL AO ADM SS Urea nitrogen/Creatinine [Mass ratio] 28 ratio Invalid Interpretation Code 7 - 27 ratio AO ADM SS LABORATORYOrdered By: SYSTEM SYSTEM on 02-03-2022 GFR 117 ml/min/1.73sqm Invalid Interpretation Code AO Chemistry S GFR Non- 96 ml/min/1.73sqm Invalid Interpretation Code AO Chemistry S LABORATORYOrdered By: Zeinab Moore on 02-02-2022 Potassium [Moles/Vol] 4.2 mmol/L Invalid Interpretation Code 3.5 - 5.1 mmol/L AO ADM SS LABORATORYOrdered By: Salome Garcia on 02-02-2022 Basophil, Absolute 0.0 103/mcL Invalid Interpretation Code 0.0 - 0.2 10^3/mcL AO Workflow SS Basophils/100 WBC (Bld) 0.1 % Invalid Interpretation Code 0.0 - 2.5 % AO Workflow SS Calcium [Mass/Vol] 8.5 mg/dL Invalid Interpretation Code 8.4 - 10.2 mg/dL AO ADM SS Chloride [Moles/Vol] 101 mmol/L Invalid Interpretation Code 98 - 107 mmol/L AO ADM SS CO2 [Moles/Vol] 32 mmol/L Invalid Interpretation Code 23 - 31 mmol/L AO ADM SS Creatinine [Mass/Vol] 0.58 mg/dL Invalid Interpretation Code 0.55 - 1.02 mg/dL AO ADM SS Electrolyte Balance 6.0 mEq/L Invalid Interpretation Code 4.0 - 15.0 mEq/L AO ADM SS Eosinophil, Absolute 0.0 103/mcL Invalid Interpretation Code 0.0 - 0.4 10^3/mcL AO Workflow SS Eosinophils/100 WBC (Bld) 0.0 % Invalid Interpretation Code 0.0 - 7.0 % AO Workflow SS Erythrocyte distribution width (RBC) [Ratio] 13.3 % Invalid Interpretation Code 11.5 - 14.5 % AO Workflow SS Glucose [Mass/Vol] 127 mg/dL Invalid Interpretation Code 83 - 110 mg/dL AO ADM SS Hematocrit (Bld) [Volume fraction] 33.6 % Invalid Interpretation Code 37.0 - 47.0 % AO Workflow SS Hemoglobin (Bld) [Mass/Vol] 11.4 G/dL Invalid Interpretation Code 12.0 - 16.0 G/dL AO Workflow SS Lymphocyte, Absolute 1.3 103/mcL Invalid Interpretation Code 0.8 - 3.9 10^3/mcL AO Workflow SS Lymphocytes/100 WBC (Bld) 9.9 % Invalid Interpretation Code 10.0 - 50.0 % AO Workflow SS MCH (RBC) [Entitic mass] 31.3 pg Invalid Interpretation Code 27.0 - 31.2 pg AO Workflow SS MCHC 33.8 G/dL Invalid Interpretation Code 33.0 - 37.0 G/dL AO Workflow SS MCV (RBC) [Entitic vol] 92.6 fL Invalid Interpretation Code 80.0 - 94.0 fL AO Workflow SS Monocyte, Absolute 1.0 103/mcL Invalid Interpretation Code 0.2 - 1.0 10^3/mcL AO Workflow SS Monocytes/100 WBC (Bld) 7.5 % Invalid Interpretation Code 1.7 - 13.0 % AO Workflow SS Neutrophil, Absolute 10.7 103/mcL Invalid Interpretation Code 2.9 - 6.2 10^3/mcL AO Workflow SS Neutrophils/100 WBC (Bld) 82.5 % Invalid Interpretation Code 37.0 - 80.0 % AO Workflow SS Platelet mean volume (Bld) [Entitic vol] 8.4 fL Invalid Interpretation Code 7.4 - 10.4 fL AO Workflow SS Platelets (Bld) [#/Vol] 200 103/mcL Invalid Interpretation Code 130 - 400 10^3/mcL AO Workflow SS Potassium [Moles/Vol] 5.7 mmol/L Invalid Interpretation Code 3.5 - 5.1 mmol/L AO ADM SS Comment on above: Result Comment: Rech ecked and verified Sample not hemolyzed RBC (Bld) [#/Vol] 3.63 106/mcL Invalid Interpretation Code 4.20 - 5.40 10^6/mcL AO Workflow SS Sodium [Moles/Vol] 139 mmol/L Invalid Interpretation Code 136 - 145 mmol/L AO ADM SS Urea nitrogen [Mass/Vol] 17 mg/dL Invalid Interpretation Code 7 - 18 mg/dL AO ADM SS Urea nitrogen/Creatinine [Mass ratio] 29 ratio Invalid Interpretation Code 7 - 27 ratio AO ADM SS WBC 13.0 103/mcL Invalid Interpretation Code 4.6 - 10.8 10^3/mcL AO Workflow SS LABORATORYOrdered By: SYSTEM SYSTEM on 02-02-2022 GFR 124 ml/min/1.73sqm Invalid Interpretation Code AO Chemistry S GFR Non- 102 ml/min/1.73sqm Invalid Interpretation Code AO Chemistry S LABORATORYOrdered By: Cassandra Villegas on 02-01-2022 ABO/Rh Interp Positive Invalid Interpretation Code AO BB SS Antibody Screen Gel Negative ABSC (02/01/22 8:30 AM) Invalid Interpretation Code AO BB SS No Panel Informationon 02-01 AFS Acid Fast Smear from Concentrated Specimen: Negative [facility] Culture Tissue No growth to date [facility] FUNSM No fungal elements observed by calcofluor white stain. [facility] GS 3+ Mononuclear cells No organisms seen. [facility] GS 3+ Mononuclear cells 1+ Polymorphonuclear cells No organisms seen. [facility] MRI Lumbar Spine w/oon 10-20 MRI Lumbar Spine w/o Clinical Informatio n: Low back pain Study Technique: MRI lumbar spine was performed with Sagittal T1, T2 and STIR images. Axial T1 and T2 images were obtained. Comparisons: None Findings: For purposes of numbering lumbar vertebral bodies on this study the most inferior normal diameter disc space will be considered L5-S1. No transitional vertebral body segments. Plain film radiographs would be required to confirm nomenclature used in this report, particularly prior to any spine intervention. Vertebral body height: Mild loss of height noted throughout the vertebral bodies. No compression deformities are detected. Disc height and Disc signal: Multilevel disc desiccation and mild reduction of disc height is noted. Alignment: Mild straightening with loss of normal lumbar lordosis. No spondylolistheses. Bone marrow signal: No reconversion Conus medullaris: Extends to the L1 level. Paraspinal soft tissues: No edema Other findings: There is suspicion of a right L5 pars interarticularis defect. L1-2: The intervertebral disc is intact. Facet articulations are intact. No evidence of canal or lateral recess stenosis is identified at this level. The neural foramina are patent. L2-3: There is mild diffuse disc bulge indenting the ventral thecal sac. Mild facet arthropathy and ligamentum flavum hypertrophy are noted. No evidence of central canal stenosis. There is mild bilateral neural foraminal stenosis. L3-4: There is mild diffuse disc bulge indenting the ventral thecal sac. Facet arthropathy and ligamentum flavum hypertrophy are noted. No evidence of central canal stenosis. There is mild bilateral neural foraminal stenosis. L4-5: There is mild diffuse disc bulge indenting the ventral thecal sac. Facet arthropathy and ligamentum flavum hypertrophy are noted. No evidence of central canal stenosis. There is mild bilateral neural foraminal stenosis, prominent on the right side. L5-S1: There is mild diffuse disc bulge indenting the ventral thecal sac. Facet arthropathy is noted. No evidence of central canal stenosis. There is mild right foraminal stenosis. The left neural foramen is patent. Impressions: 1. Multilevel spondylosis including facet arthropathy as described above. 2. Mild neural foraminal stenosis at L2-3, L3-4, L4-5 and L5-S1 as described above. 3. Mild straightening of the normal lumbar lordosis, correlate for spasm/strain. Referring physician: The radiologist can be reached at [phone] if you would like to discuss the findings. [id number] Normal [facility] [employer] Professor CNCOon 03-13-2019 CNCO HNO ID: [id number] Author: Mammography Coordinator Service: ? Author Type: Physician Type: Letter Filed: 03/14/2019 11:32 PM Note Text: March 13, 2019 PID: [id number] Mi Pretty [address] [place] [address] Dear Ms. Pretty, We are pleased to inform you that the results of your recent breast imaging exam on 03/13/2019 are normal and we recommend that you return to your annual screening Mammography schedule. Early detection of cancer is very important. We also understand recommendations regarding breast cancer screening are controversial. Please discuss with your primary care provider which strategy is best for you and whether a mammogram is right for you. Your imaging studies and report will be kept on file at [facility] as part of your permanent medical record and are available for your continuing care. Thank you for allowing us to help in meeting your health care needs. Sincerely, Dr. Rocha Interpreting Radiologist [facility] (Return to Annual Mammogram schedule) Normal [facility] CNCO HNO ID: [id number] Author: Mammography Coordinator Service: ? Author Type: Physician Type: Letter Filed: 03/14/2019 11:32 PM Note Text: March 13, 2019 PID: [id number] Mi Pretty [address] [facility] [address] Dear Ms. Pretty, We are pleased to inform you that the results of your recent breast imaging exam on 03/13/2019 are normal and we recommend that you return to your annual screening Mammography schedule. Early detection of cancer is very important. We also understand recommendations regarding breast cancer screening are controversial. Please discuss with your primary care provider which strategy is best for you and whether a mammogram is right for you. Your imaging studies and report will be kept on file at [facility] as part of your permanent medical record and are available for your continuing care. Thank you for allowing us to help in meeting your health care needs. Sincerely, Dr. Rocha Interpreting Radiologist [facility] (Return to Annual Mammogram schedule) Normal [facility] DIAGNOSTIC LTon 03-13-20 19 [facility] LT * * *Final Report* * * DATE OF EXAM: Mar 13 2019 10:08AM WRW [id number] - [facility] DIAGNOSTIC LT / PROCEDURE REASON: Abnormal mammogram * * * * Physician Interpretation * * * * RESULT: #[id number] - [facility] DIAGNOSTIC LT #[id number] - [facility] US BREAST LTD LT UNILATERAL LEFT DIGITAL DIAGNOSTIC MAMMOGRAM WITH CAD: 03/13/2019 HISTORY: Diagnostic Left Mammogram /Short term follow up left breast-Abnormal Mammogram Abnormal Mammogram. RESULT: TECHNIQUE: The study was acquired using full field digital technology and interpreted from soft copy. Current study was also evaluated with a Computer Aided Detection (CAD). Comparison is made to exam dated: 09/11/2018 mammogram - [facility]. There are scattered fibroglandular elements in left breast. There is a 5 mm oval equal density focal asymmetry with a circumscribed margin in the left breast at 3 o'clock middle depth. This is not significantly changed. No other significant masses or calcifications are seen in the breast. IMPRESSION: BENIGN FINDING The 5 mm oval equal density focal asymmetry in the left breast is consistent with a cyst and is benign. There is no mammographic evidence of malignancy. LIMITED ULTRASOUND OF LEFT BREAST: 03/13/2019 RESULT: Comparison is made to exam dated: 09/11/2018 mammogram - [facility]. Color flow and real-time ultrasound of the left breast 3 o'clock region were performed. Ribeiro scale images of the real-time examination were reviewed. There is a benign 0.8 cm x 0.3 cm x 0.5 cm oval cyst in the left breast at 3 o'clock middle depth 4 cm from the nipple. This oval cyst is hypoechoic with internal echoes. This abnormality is not significantly changed and correlates with mammography findings. IMPRESSION: BENIGN FINDING There is no sonographic evidence of malignancy. The 0.8 cm x 0.3 cm x 0.5 cm oval cyst in the left breast is consistent with a complicated cyst and is benign. Return to annual mammogram screening schedule is recommended. Farhana beyer/reno:03/13/2019 10:29:16 Multiple national specialty organizations have released breast cancer screening guidelines for women at average risk for developing breast cancer - guidelines that are based on both evidence and opinion, yet differ on when to start and how often to screen for breast cancer. With representation from Breast Imaging, Internal Medicine, Women's Health, Family Medicine, and Medical/Surgical Oncology, the [facility] has carefully reviewed the data and reached the following consensus: 1) All women should engage in shared decision-making with their providers to decide when to start and how often to screen; 2) All women should have the opportunity to start screening mammography at age 40; 3) For women ages 45-55, we recommend annual screening mammograms; 4) For women ages 55 and over, we support both the transition from an annual to a biennial interval if this aligns more with patient's values and preferences, or continuation with annual screening; 5) All women should discuss with their providers when to stop screening mammograms. Industrial Welder(s): RT Nika(R)(M), [facility]; Faye Archer, [facility] letter sent: Return to Annual OVERALL STUDY BIRADS: 2 Benign finding Marine Animal Trainer: [place] Transcribe Date/Time: Mar 13 2019 9:53A Dictated by: FARHANA ROCHA MD This examination was interpreted and the report reviewed and electronically signed by: FARHANA ROCHA MD on Mar 13 2019 10:29AM EST [id number] Normal [facility] [employer] [place] BREAST LTD LTon 03-13 [facility] LT * * *Final Report* * * DATE OF EXAM: Mar 13 2019 10:20AM WRU [id number] - [facility] / PROCEDURE REASON: Abnormal mammogram * * * * Physician Interpretation * * * * #[id number] - [facility] DIAGNOSTIC LT #[id number] - [place] [place] BREAST [employer] LT UNILATERAL LEFT DIGITAL DIAGNOSTIC MAMMOGRAM WITH CAD: 03/13/2019 HISTORY: Diagnostic Left Mammogram /Short term follow up left breast-Abnormal Mammogram Abnormal Mammogram. RESULT: TECHNIQUE: The study was acquired using full field digital technology and interpreted from soft copy. Current study was also evaluated with a Computer Aided Detection (CAD). Comparison is made to exam dated: 09/11/2018 mammogram - [facility]. There are scattered fibroglandular elements in left breast. There is a 5 mm oval equal density focal asymmetry with a circumscribed margin in the left breast at 3 o'clock middle depth. This is not significantly changed. No other significant masses or calcifications are seen in the breast. IMPRESSION: BENIGN FINDING The 5 mm oval equal density focal asymmetry in the left breast is consistent with a cyst and is benign. There is no mammographic evidence of malignancy. LIMITED ULTRASOUND OF LEFT BREAST: 03/13/2019 RESULT: Comparison is made to exam dated: 09/11/2018 mammogram - [facility]. Color flow and real-time ultrasound of the left breast 3 o'clock region were performed. Ribeiro scale images of the real-time examination were reviewed. There is a benign 0.8 cm x 0.3 cm x 0.5 cm oval cyst in the left breast at 3 o'clock middle depth 4 cm from the nipple. This oval cyst is hypoechoic with internal echoes. This abnormality is not significantly changed and correlates with mammography findings. IMPRESSION: BENIGN FINDING There is no sonographic evidence of malignancy. The 0.8 cm x 0.3 cm x 0.5 cm oval cyst in the left breast is consistent with a complicated cyst and is benign. Return to annual mammogram screening schedule is recommended. Farhana beyer/reno:03/13/2019 10:29:16 Multiple national specialty organizations have released breast cancer screening guidelines for women at average risk for developing breast cancer - guidelines that are based on both evidence and opinion, yet differ on when to start and how often to screen for breast cancer. With representation from Breast Imaging, Internal Medicine, Women's Health, Family Medicine, and Medical/Surgical Oncology, the [facility] has carefully reviewed the data and reached the following consensus: 1) All women should engage in shared decision-making with their providers to decide when to start and how often to screen; 2) All women should have the opportunity to start screening mammography at age 40; 3) For women ages 45-55, we recommend annual screening mammograms; 4) For women ages 55 and over, we support both the transition from an annual to a biennial interval if this aligns more with patient's values and preferences, or continuation with annual screening; 5) All women should discuss with their providers when to stop screening mammograms. Industrial Welder(s): Franchesca Walker, RT(R)(M), [facility]; Faye Archer, [facility] letter sent: Return to Annual OVERALL STUDY BIRADS: 2 Benign finding Marine Animal Trainer: Penrad Transcribe Date/Time: Mar 13 2019 9:53A Dictated by : FARHANA ROCHA MD This examination was interpreted and the report reviewed and electronically signed by: FARHANA ROCHA MD on Mar 13 2019 10:29AM EST [id number] Normal [facility] PROGRESSon 03-13-2019 PROGRESS HNO ID: [id number] Author: Faye Archer Rdms Service: ? Author Type: ? Type: Progress Notes Filed: 03/13/2019 10:26 AM Note Text: Radiology Service Progress Note PATIENT NAME: Mi Pretty DATE OF SERVICE: March 13, 2019 TIME: 10:26 AM PATIENT IDENTITY VERIFICATION COMPLETED USING TWO (2) METHODS: Name and Date of confirmed by patient verbally. PATIENT GENDER DATA: Female. status: : No status: NO. PATIENT RELEVANT IMPLANT DATA REVIEWED: Not Applicable RADIOLOGY DEPARTMENT: Ultrasound PERIPHERAL IV DATA: Not applicable SIGNED BY: Faye Archer Rdms March 13, 2019 10:26 AM Normal [facility] PROGRESS HNO ID: [id number] Author: Franchesca Alcantara Service: ? Author Type: ? Type: Progress Notes Filed: 03/13/2019 10:18 AM Note Text: Radiology Service Progress Note PATIENT NAME: Mi Pretty DATE OF SERVICE: March 13, 2019 TIME: 10:18 AM PATIENT IDENTITY VERIFICATION COMPLETED USING TWO (2) METHODS: Name and Date of confirmed by patient verbally. PATIENT GENDER DATA: Female. status: : No status: NO. PATIENT RELEVANT IMPLANT DATA REVIEWED: Not Applicable RADIOLOGY DEPARTMENT: Mammography left diagnostic PERIPHERAL IV DATA: Not applicable SIGNED BY: Franchesca Alcantara March 13, 2019 10:18 AM Normal [facility] CNCOon 09-11-2018 CNCO HNO ID: [id number] Author: Mammography Coordinator Service: ? Author Type: Physician Type: Letter Filed: 09/12/2018 11:31 PM Note Text: September 11, 2018 PID: [id number] Mi Pretty [address] [place] [address] Dear Ms. Pretty, Your recent breast imaging examination performed on 09/11/2018 showed an area that we believe is probably benign (not cancer). A six month follow-up is recommended to ensure your breast health. Please call [phone] to schedule an appointment for these tests if you have not already done so. Early detection of cancer is very important. We also understand recommendations regarding breast cancer screening are controversial. Please discuss with your primary care provider which strategy is best for you and whether a mammogram is right for you. Your breast images and report will be kept on file here as part of your permanent medical record and are available for your continuing care. Thank you for allowing us to help in meeting your health care needs. Sincerely, Dr. Rush Interpreting Radiologist [facility] (# mo Follow-up) Normal [facility] CNCO HNO ID: [id number] Author: Mammography Coordinator Service: ? Author Type: Physician Type: Letter Filed: 09/12/2018 11:31 PM Note Text: September 11, 2018 PID: [id number] Mi Pretty [address] [place] [address] Dear Ms. Pretty, Your recent breast imaging examination performed on 09/11/2018 showed an area that we believe is probably benign (not cancer). A six month follow-up is recommended to ensure your breast health. Please call [phone] to schedule an appointment for these tests if you have not already done so. Early detection of cancer is very important. We also understand recommendations regarding breast cancer screening are controversial. Please discuss with your primary care provider which strategy is best for you and whether a mammogram is right for you. Your breast images and report will be kept on file here as part of your permanent medical record and are available for your continuing care. Thank you for allowing us to help in meeting your health care needs. Sincerely, Dr. Rush Interpreting Radiologist [facility] (# mo Follow-up) Normal [facility] DIAGNOSTIC LTon 09-12-19 19 [facility] DIAGNOSTIC LT * * *Final Report* * * DATE OF EXAM: Sep 11 2018 9:18AM IFEOMAW [id number] - [facility] DIAGNOSTIC LT / PROCEDURE REASON: Abnormal mammogram * * * * Physician Interpretation * * * * RESULT: #[id number] - [facility] DIAGNOSTIC LT #[id number] - [facility] US BREAST LTD LT UNILATERAL LEFT DIGITAL DIAGNOSTIC MAMMOGRAM WITH CAD: 09/11/2018 HISTORY: Abnormal Mammogram/call back left /priors available for comparison Abnormal Mammogram. RESULT: TECHNIQUE: The study was acquired using full field digital technology and interpreted from soft copy. Current study was also evaluated with a Computer Aided Detection (CAD). Comparison is made to exams dated: 08/20/2018 mammogram and 04/01/2015 mammogram - [facility]. There are scattered fibroglandular elements in left breast. There is a 4 mm oval lesion in the left breast at 3 o'clock anterior depth. No other significant masses or calcifications are seen in the breast. IMPRESSION: PROBABLY BENIGN - SHORT TERM INTERVAL FOLLOW-UP RECOMMENDED The 4 mm oval lesion in the left breast most likely is a cyst and is probably benign. Follow-up mammogram and ultrasound in 6 months is recommended. LIMITED ULTRASOUND OF LEFT BREAST: 09/11/2018 RESULT: Comparison is made to exams dated: 08/20/2018 mammogram and 04/01/2015 mammogram - [facility]. Color flow and real-time ultrasound of the left breast 3 o'clock region were performed. Ribeiro scale images of the real-time examination were reviewed. There is 0.8 cm x 0.3 cm x 0.5 cm oval lesion with a circumscribed margin in the left breast at 3 o'clock anterior depth 4 cm from the nipple. This oval lesion is hypoechoic with no posterior acoustic shadowing or enhancement. This correlates with mammography findings. Color flow imaging demonstrates that there is no increase in vascularity. IMPRESSION: PROBABLY BENIGN - SHORT TERM INTERVAL FOLLOW-UP RECOMMENDED The 0.8 cm x 0.3 cm x 0.5 cm oval lesion in the left breast resembles a complex cyst and is probably benign. Follow-up mammogram and ultrasound in 6 months is recommended. A follow-up mammogram and an ultrasound in 6 months is recommended to demonstrate stability. Octavio mcghee/reno:09/11/2018 10:21:33 Multiple national specialty organizations have released breast cancer screening guidelines for women at average risk for developing breast cancer - guidelines that are based on both evidence and opinion, yet differ on when to start and how often to screen for breast cancer. With representation from Breast Imaging, Internal Medicine, Women's Health, Family Medicine, and Medical/Surgical Oncology, the [facility] has carefully reviewed the data and reached the following consensus: 1) All women should engage in shared decision-making with their providers to decide when to start and how often to screen; 2) All women should have the opportunity to start screening mammography at age 40; 3) For women ages 45-55, we recommend annual screening mammograms; 4) For women ages 55 and over, we support both the transition from an annual to a biennial interval if this aligns more with patient's values and preferences, or continuation with annual screening; 5) All women should discuss with their providers when to stop screening mammograms. Industrial Welder(s): Mercy Handley, RT(R)(M), [facility]; Faye Archer, [facility] letter sent: # Mo FU OVERALL STUDY BIRADS: 3 Probably benign finding - short term interval follow-up recommended Marine Animal Trainer: [place] Transcribe Date/Time: Sep 11 2018 9:01A Dictated by: OCTAVIO RUSH MD This examination was interpreted and the report reviewed and electronically signed by: OCTAVIO RUSH MD on Sep 11 2018 10:21AM EST [id number] Normal [facility] [facility] LTon 09-11 [facility] * * *Final Report* * * DATE OF EXAM: Sep 11 2018 10:07AM [facility] [id number] - [facility] / PROCEDURE REASON: Abnormal mammogram * * * * Physician Interpretation * * * * #[id number] - [facility] #[id number] - [facility] UNILATERAL LEFT DIGITAL DIAGNOSTIC MAMMOGRAM WITH CAD: 09/11/2018 HISTORY: Abnormal Mammogram/call back left /priors available for comparison Abnormal Mammogram. RESULT: TECHNIQUE: The study was acquired using full field digital technology and interpreted from soft copy. Current study was also evaluated with a Computer Aided Detection (CAD). Comparison is made to exams dated: 08/20/2018 mammogram and 04/01/2015 mammogram - [facility]. There are scattered fibroglandular elements in left breast. There is a 4 mm oval lesion in the left breast at 3 o'clock anterior depth. No other significant masses or calcifications are seen in the breast. IMPRESSION: PROBABLY BENIGN - SHORT TERM INTERVAL FOLLOW-UP RECOMMENDED The 4 mm oval lesion in the left breast most likely is a cyst and is probably benign. Follow-up mammogram and ultrasound in 6 months is recommended. LIMITED ULTRASOUND OF LEFT BREAST: 09/11/2018 RESULT: Comparison is made to exams dated: 08/20/2018 mammogram and 04/01/2015 mammogram - [facility]. Color flow and real-time ultrasound of the left breast 3 o'clock region were performed. Ribeiro scale images of the real-time examination were reviewed. There is 0.8 cm x 0.3 cm x 0.5 cm oval lesion with a circumscribed margin in the left breast at 3 o'clock anterior depth 4 cm from the nipple. This oval lesion is hypoechoic with no posterior acoustic shadowing or enhancement. This correlates with mammography findings. Color flow imaging demonstrates that there is no increase in vascularity. IMPRESSION: PROBABLY BENIGN - SHORT TERM INTERVAL FOLLOW-UP RECOMMENDED The 0.8 cm x 0.3 cm x 0.5 cm oval lesion in the left breast resembles a complex cyst and is probably benign. Follow-up mammogram and ultrasound in 6 months is recommended. A follow-up mammogram and an ultrasound in 6 months is recommended to demonstrate stability. Octavio mcghee/reno:09/11/2018 10:21:33 Multiple national specialty organizations have released breast cancer screening guidelines for women at average risk for developing breast cancer - guidelines that are based on both evidence and opinion, yet differ on when to start and how often to screen for breast cancer. With representation from Breast Imaging, Internal Medicine, Women's Health, Family Medicine, and Medical/Surgical Oncology, the [facility] has carefully reviewed the data and reached the following consensus: 1) All women should engage in shared decision-making with their providers to decide when to start and how often to screen; 2) All women should have the opportunity to start screening mammography at age 40; 3) For women ages 45-55, we recommend annual screening mammograms; 4) For women ages 55 and over, we support both the transition from an annual to a biennial interval if this aligns more with patient's values and preferences, or continuation with annual screening; 5) All women should discuss with their providers when to stop screening mammograms. Industrial Welder(s): RT Clark(R)(M), [facility]; [facility] letter sent: # Mo FU OVERALL STUDY BIRADS: 3 Probably benign finding - short term interval follow-up recommended Marine Animal Trainer: [place] Denise Date/Time: Sep 11 2018 9:01A Dictated by : OCTAVIO RUSH MD This examination was interpreted and the report reviewed and electronically signed by: OCTAVIO RUSH MD on Sep 11 2018 10:21AM EST [id number] Normal [facility] PROGRESSon 09-11-2018 PROGRESS HNO ID: [id number] Author: Faye Archer Rdms Service: ? Author Type: ? Type: Progress Notes Filed: 09/11/2018 10:48 AM Note Text: Radiology Service Progress Note PATIENT NAME: Mi Pretty DATE OF SERVICE: September 11, 2018 TIME: 10:48 AM PATIENT IDENTITY VERIFICATION COMPLETED USING TWO (2) METHODS: Patient confirmed name verbally and Date of . PATIENT GENDER DATA: Female. status: : No status: NO. PATIENT RELEVANT IMPLANT DATA REVIEWED: Not Applicable RADIOLOGY DEPARTMENT: Ultrasound PERIPHERAL IV DATA: Not applicable SIGNED BY: Faye Archer Rdwv September 11, 2018 10:48 AM Normal [facility] PROGRESS HNO ID: [id number] Author: Triny Alcantara Service: ? Author Type: ? Type: Progress Notes Filed: 09/11/2018 9:52 AM Note Text: Radiology Service Progress Note PATIENT NAME: Mi Pretty DATE OF SERVICE: September 11, 2018 TIME: 9:00 AM PATIENT IDENTITY VERIFICATION COMPLETED USING TWO (2) METHODS: Patient confirmed name verbally and Date of . PATIENT GENDER DATA: Female. status: : No status: NO. PATIENT RELEVANT IMPLANT DATA REVIEWED: Not Applicable RADIOLOGY DEPARTMENT: Women's Health Left diag mammogram PERIPHERAL IV DATA: Not applicable SIGNED BY: Triny Alcantara September 11, 2018 9:00 AM Normal [facility] CNCOon 08-20-2018 CNCO HNO ID: [id number] Author: Mammography Coordinator Service: ? Author Type: Physician Type: Letter Filed: 08/21/2018 11:32 PM Note Text: August 20, 2018 PID: [id number] Mi Pretty [address] [place] [address] Dear Sukhwinder, Your recent breast imaging exam on 08/20/2018 showed a possible finding that requires additional imaging studies for a complete evaluation. Most such findings are probably benign (not cancer). Please call [phone] or [phone] to schedule an appointment for your additional imaging if you have not already done so. Your breast images and report will be kept on file here as part of your permanent medical record and are available for your continuing care. Thank you for allowing us to help in meeting your health care needs. Sincerely, Dr. Mclean Interpreting Radiologist [facility] (Additional imaging) Normal [facility] CNOVon 08-20-2018 CNOV Office Visit (WOOB) MI PRETTY ([id number]) 1950 F Date Time Provider Department 08/20/18 9:00 AM THAO FORBES During your visit today, we recorded the following information about you: Blood pressure Weight 132/82 115.4 kg Thao Forbes MD 08/20/2018 12:35 PM Signed Mi Pretty is a 68 year old female who presents for problem visit for labial bump. HPI: Patient presents as a walk in for a labial bump. Noticed a bump on the left labia, decreasing in size over 1 week. Tenderness and pain with touch/pressure. With wiping she noticed a bloody drainage from it and after that that is when she noticed it decreasing in size. Has never had this before. No change routine/new clothing, underwear, shaving, soaps, pantiliners, etc. She otherwise feels well. Not sexually active. 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 nabumetone (RELAFEN) 500 mg tablet Take 500 mg by mouth every 8 hours as needed. ibuprofen (MOTRIN) 200 mg tablet Take 200 mg by mouth every 6 hours as needed. No current facility-administered medications for this visit. Allergies As of Date: 08/20/2018 Allergen Noted Reaction PENICILLIN 04/01/2015 Hives Fully Assessed 08/20/2018 REVIEW OF SYSTEMS Abdomen: No abdominal pain, nausea, vomiting, diarrhea, or constipation. Bladder: No dysuria, gross hematuria. Fiber Optic Splicer: No PMB. Expanded ROS: Gen: No fevers or chills. Allergies and current medication updated:Yes EXAM: BP 132/82 Wt 254 lb 6.4 oz (115.4kg) GENERAL: pleasant, female in no apparent distress HEENT: Normocephalic and atraumatic NECK: full range of motion DERMATOLOGY: Normal and without lesions CHEST: Normal inspiratory effort PELVIC: Very small scar, 0.5 cm in size, noted over mid-left labia where the folliculitis had been, no swelling, no erythema, no fluctuance, no drainage NEURO: exam grossly non-focal EXTREMITIES: normal ASSESSMENT AND PLAN: Encounter Diagnosis ICD-10-CM 1. Breast screening Z12.31 [facility] SCREENING 2. Folliculitis L73.9 Folliculitis: No drainage or antibiotics needed of area. Well healed. Discussed perineal care and hygiene measures. Reviewed sitz baths and warm compresses. Breast screening: Ordered mammogram. Patient to come in that day for annual exam as well. Thao Forbes DO Referring Provider: SELF [200] Allergies As of Date: 08/20/2018 Noted Allergy Reaction PENICILLIN 04/01/2015 4 - Hives Date Reviewed: 08/20/2018 Reviewed by: Thao Forbes - Fully Assessed Reason for Visit: Vaginal Problem [117] Primary Visit Diagnosis:Breast screening [Z12.31] Other Visit Diagnosis:Folliculiti s [L73.9] Order(s):[facility] SCREENING [[id number]] Order #: [id number] FUTURE Prescriptions as of 08/20/2018 Sig: CHOLECALCIFEROL (VITAMIN D3) * Take 2,000 Units by mouth onc* NABUMETONE 500 MG TABLET Take 500 mg by mouth every 8 * IBUPROFEN 200 MG TABLET Take 200 mg by mouth every 6 * Problem List As Of Date: 08/20/2018 (None) Level of Service: NEW PATIENT VISIT LEVEL 2 [05091] Follow-up and Disposition History Recorded Encounter Status:Closed by THAO FORBES MD on 08/20/18 Normal [facility] SCREENINGon 08-20-2018 [facility] SCREENING * * *Final Report* * * DATE OF EXAM: Aug 20 2018 10:25AM [facility] 0581 - [facility] SCREENING / PROCEDURE REASON: Breast screening * * * * Physician Interpretation * * * * RESULT: #[id number] - [facility] SCREENING BILATERAL DIGITAL SCREENING MAMMOGRAM WITH CAD: 08/20/2018 HISTORY: Breast Screening /Screening Mammogram - patient reports NO breast symptoms /Priors available for comparison. RESULT: TECHNIQUE: The study was acquired using full field digital technology and interpreted from soft copy. Current study was also evaluated with a Computer Aided Detection (CAD). Comparison is made to exam dated: 04/01/2015 mammogram - [facility]. There are scattered fibroglandular elements in both breasts. There is a focal asymmetry in the left breast upper outer aspect middle depth. No other significant masses, calcifications, or other findings are seen in either breast. IMPRESSION: INCOMPLETE: NEEDS ADDITIONAL IMAGING EVALUATION The focal asymmetry in the left breast is indeterminate. Additional views are recommended. Roscoe Mclean M.D. ns/penrad:08/20/2018 10:36:32 Industrial Welder(s): RT Nika(R)(M), [facility] letter sent: Additional Imaging Needed Mammogram BI-RADS: 0 Incomplete: needs additional imaging evaluation If this report indicates you need additional imaging, and it has NOT yet been performed, please call , to schedule. We sincerely thank you for choosing the [facility] for your breast imaging needs. Multiple national specialty organizations have released breast cancer screening guidelines for women at average risk for developing breast cancer - guidelines that are based on both evidence and opinion, yet differ on when to start and how often to screen for breast cancer. With representation from Breast Imaging, Internal Medicine, Women's Health, Family Medicine, and Medical/Surgical Oncology, the [facility] has carefully reviewed the data and reached the following consensus: 1) All women should engage in shared decision-making with their providers to decide when to start and how often to screen; 2) All women should have the opportunity to start screening mammography at age 40; 3) For women ages 45-55, we recommend annual screening mammograms; 4) For women ages 55 and over, we support both the transition from an annual to a biennial interval if this aligns more with patient's values and preferences, or continuation with annual screening; 5) All women should discuss with their providers when to stop screening mammograms. Marine Animal Trainer: [place] Transcribe Date/Time: Aug 20 2018 10:08A Dictated by: ROSCOE MCLEAN MD This examination was interpreted and the report reviewed and electronically signed by: ROSCOE MCLEAN MD on Aug 20 2018 10:36AM EST [id number] Normal [facility] PROGRESSon 08-20-2018 PROGRESS HNO ID: [id number] Author: Thao Forbes Service: ? Author Type: Physician Type: Progress Notes Filed: 08/20/2018 12:35 PM Note Text: Mi Pretty is a 68 year old female who presents for problem visit for labial bump. HPI: Patient presents as a walk in for a labial bump. Noticed a bump on the left labia, decreasing in size over 1 week. Tenderness and pain with touch/pressure. With wiping she noticed a bloody drainage from it and after that that is when she noticed it decreasing in size. Has never had this before. No change routine/new clothing, underwear, shaving, soaps, pantiliners, etc. She otherwise feels well. Not sexually active. 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 nabumetone (RELAFEN) 500 mg tablet Take 500 mg by mouth every 8 hours as needed. ibuprofen (MOTRIN) 200 mg tablet Take 200 mg by mouth every 6 hours as needed. No current facility-administered medications for this visit. Allergies As of Date: 08/20/2018 Allergen Noted Reaction PENICILLIN 04/01/2015 Hives Fully Assessed 08/20/2018 REVIEW OF SYSTEMS Abdomen: No abdominal pain, nausea, vomiting, diarrhea, or constipation. Bladder: No dysuria, gross hematuria. Fiber Optic Splicer: No PMB. Expanded ROS: Gen: No fevers or chills. Allergies and current medication updated:Yes EXAM: BP 132/82 Wt 254 lb 6.4 oz (115.4kg) GENERAL: pleasant, female in no apparent distress HEENT: Normocephalic and atraumatic NECK: full range of motion DERMATOLOGY: Normal and without lesions CHEST: Normal inspiratory effort PELVIC: Very small scar, 0.5 cm in size, noted over mid-left labia where the folliculitis had been, no swelling, no erythema, no fluctuance, no drainage NEURO: exam grossly non-focal EXTREMITIES: normal ASSESSMENT AND PLAN: Encounter Diagnosis ICD-10-CM 1. Breast screening Z12.31 [facility] SCREENING 2. Folliculitis L73.9 Folliculitis: No drainage or antibiotics needed of area. Well healed. Discussed perineal care and hygiene measures. Reviewed sitz baths and warm compresses. Breast screening: Ordered mammogram. Patient to come in that day for annual exam as well. Thao Forbes, DO Normal [facility] Vital Signs Date Time Vital Sign Value Performing Clinician Lior gomez 03-22-2023 12:19-0400 Body temperature 98.06 [degF] DR LAUREANO OLSON MD [facility] 03-22-2023 12:19-0400 Diastolic Blood Pressure Non-Invasive [address] LAUREANO OLSON MD [facility] 03-22-2023 12:19-0400 Heart rate 71 /min DR LAUREANO OLSON MD [facility] 03-22-2023 12:19-0400 Reason For Taking VItal Signs DR LAUREANO OLSON MD [facility] 03-22-2023 12:19-0400 Respiratory rate 20 /min DR LAUREANO OLSON MD [facility] 03-22-2023 12:19-0400 Systolic Blood Pressure Non-Invasive [address] LAUREANO OLSON MD [facility] 03-22-2023 07:35-0400 Body temperature 98.06 [degF] DR LAUREANO OLSON MD [facility] 03-22-2023 07:35-0400 Diastolic Blood Pressure Non-Invasive [address] LAUREANO OLSON MD [facility] 03-22-2023 07:35-0400 Heart rate 62 /min DR LAUREANO OLSON MD [facility] 03-22-2023 07:35-0400 Reason For Taking VItal Signs DR LAUREANO OLSON MD [facility] 03-22-2023 07:35-0400 Respiratory rate 18 /min DR LAUREANO OLSON MD [facility] 03-22-2023 07:35-0400 Systolic Blood Pressure Non-Invasive [address] LAUREANO OLSON MD [facility] 03-22-2023 03:50-0400 Body temperature 97.7 [degF] DR LAUREANO OLSON MD [facility] 03-22-2023 03:50-0400 Diastolic Blood Pressure Non-Invasive [address] LAUREANO OLSON MD [facility] 03-22-2023 03:50-0400 Heart rate 60 /min DR LAUREANO OLSON MD [facility] 03-22-2023 03:50-0400 Reason For Taking VItal Signs DR LAUREANO OLSON MD [facility] 03-22-2023 03:50-0400 Respiratory rate 18 /min DR LAUREANO OLSON MD [facility] 03-22-2023 03:50-0400 Systolic Blood Pressure Non-Invasive [address] LAUREANO OLSNO MD [facility] 03-21-2023 22:44-0400 Heart rate 75 /min DR LAUREANO OLSON MD [facility] 03-21-2023 14:52-0400 Body height [address] LAUREANO OLSON MD [facility] 03-21-2023 14:52-0400 Body weight 97.[address] LAUREANO OLSON MD [facility] 03-21-2023 14:52-0400 Body weight 37.08 kg/m2 DR LAUREANO OLSON MD [facility] 03-21-2023 14:08-0400 Heart rate 81 /min DR LAUREANO OLSON MD [facility] 03-21-2023 13:07-0400 Heart rate 66 /min DR LAUREANO OLSON MD [facility] 03-21-2023 12:45-0400 Heart rate 76 /min DR LAUREANO OLSON MD [facility] 03-21-2023 12:02-0400 Body temperature 96.98 [degF] DR LAUREANO OLSON MD [facility] 03-21-2023 11:55-0400 Respiratory Rate - Anes 0 br/min DR LAUREANO OLSON MD [facility] 03-21-2023 11:50-0400 Respiratory Rate - Anes 15 br/min DR LAUREANO OLSON MD [facility] 03-21-2023 11:45-0400 Respiratory Rate - Anes 16 br/min DR LAUREANO OLSON MD [facility] 03-21-2023 09:00-0400 Body temperature 98.06 [degF] DR LAUREANO OLSON MD [facility] 03-21-2023 09:00-0400 Heart rate 72 /min DR LAUREANO OLSON MD [facility] 02-27-2023 14:05-[address] LAUREANO OLSON MD [facility] 02-27-2023 14:05-[address] LAUREANO Castrejon [facility] 02-27-2023 14:05-0400 Body height [address] LAUREANO OLSON MD [facility] 02-27-2023 14:05-0400 Body weight [address] LAUREANO OLSON MD [facility] 02-27-2023 14:05-0400 Body weight 38.67 kg/m2 DR LAUREANO OLSON MD [facility] 02-27-2023 14:05-0400 Diastolic Blood Pressure Non-Invasive [address] LAUREANO OLSON MD [facility] 02-27-2023 14:05-0400 Heart rate 68 /min DR LAUREANO OLSON MD [facility] 02-27-2023 14:05-0400 Respiratory rate 18 /min DR LAUREANO OLSON MD [facility] 02-27-2023 14:05-0400 Systolic Blood Pressure Non-Invasive [address] LAUREANO OLSON MD [facility] 07-27-2022 13:20-0500 Blood Pressure Cuff Size DR LAUREANO OLSON MD [facility] 07-27-2022 13:20-[address] LAUREANO OLSON MD [facility] 07-27-2022 13:20-[address] LAUREANO Castrejon [facility] 07-27-2022 13:20-0500 Body height 162.[address] LAUREANO OLSON MD [facility] 07-27-2022 13:20-0500 Body weight 105.[address] LAUREANO OLSON MD [facility] 07-27-2022 13:20-0500 Body weight 39.87 kg/m2 DR LAUREANO OLSON MD [facility] 07-27-2022 13:20-0500 Diastolic Blood Pressure Non-Invasive [address] LAUREANO OLSON MD [facility] 07-27-2022 13:20-0500 Heart rate 66 /min DR LAUREANO OLSON MD [facility] 07-27-2022 13:20-0500 Systolic Blood Pressure Non-Invasive [address] LAUREANO OLSON MD [facility] 05-26-2022 14:16-0500 Body height [address] LAUREANO OLSON MD [facility] 05-26-2022 14:16-0500 Body weight [address] LAUREANO OLSON MD [facility] 02-03-2022 07:28-0400 Body temperature 98.06 [degF] DR LAUREANO OLSON MD [facility] 02-03-2022 07:28-0400 Diastolic blood pressure 65 mm[Hg] DR LAUREANO OLSON MD [facility] 02-03-2022 07:28-0400 Heart rate 67 /min DR LAUREANO OLSON MD [facility] 02-03-2022 07:28-0400 Reason For Taking VItal Signs DR LAUREANO OLSON MD [facility] 02-03-2022 07:28-0400 Respiratory rate 16 /min DR LAUREANO OLSON MD [facility] 02-03-2022 07:28-0400 Systolic blood pressure 137 mm[Hg] DR LAUREANO OLSON MD [facility] 02-03-2022 03:14-0400 Body temperature 98.42 [degF] DR LAUREANO OLSON MD [facility] 02-03-2022 03:14-0400 Diastolic blood pressure 86 mm[Hg] DR LAUREANO OLSON MD [facility] 02-03-2022 03:14-0400 Heart rate 70 /min DR LAUREANO OLSON MD [facility] 02-03-2022 03:14-0400 Reason For Taking VItal Signs DR LAUREANO OLSON MD [facility] 02-03-2022 03:14-0400 Systolic blood pressure 153 mm[Hg] DR LAUREANO OLSON MD [facility] 02-02-2022 23:52-0400 Body temperature 98.42 [degF] DR LAUREANO OLSON MD [facility] 02-02-2022 23:52-0400 Diastolic blood pressure 71 mm[Hg] DR LAUREANO OLSON MD [facility] 02-02-2022 23:52-0400 Heart rate 72 /min DR LAUREANO OLSON MD [facility] 02-02-2022 23:52-0400 Reason For Taking VItal Signs DR LAUREANO OLSON MD [facility] 02-02-2022 23:52-0400 Respiratory rate 16 /min DR LAUREANO OLSON MD [facility] 02-02-2022 23:52-0400 Systolic blood pressure 146 mm[Hg] DR LAUREANO OLSON MD [facility] 02-02-2022 19:08-0400 Body temperature 98.06 [degF] DR LAUREANO OLSON MD [facility] 02-02-2022 19:08-0400 Heart rate 69 /min DR LAUREANO OSLON MD [facility] 02-02-2022 15:50-0400 Diastolic Blood Pressure NBP [address] LAUREANO OLSON MD [facility] 02-02-2022 15:50-0400 Heart rate 65 /min DR LAUREANO OLSON MD [facility] 02-02-2022 15:50-0400 Respiratory rate 16 /min DR LAUREANO OLSON MD [facility] 02-02-2022 15:50-0400 Systolic Blood Pressure NBP [address] LAUREANO OLSON MD [facility] 02-02-2022 12:15-0400 Diastolic Blood Pressure NBP [address] LAUREANO OLSON MD [facility] 02-02-2022 12:15-0400 Heart rate 72 /min DR LAUREANO OLSON MD [facility] 02-02-2022 12:15-0400 Systolic Blood Pressure NBP [address] LAUREANO OLSON MD [facility] 02-02-2022 09:10-0400 Diastolic Blood Pressure NBP [address] LAUREANO OLSON MD [facility] 02-02-2022 09:10-0400 Systolic Blood Pressure NBP [address] LAUREANO OLSON MD [facility] 02-01-2022 14:54-0400 Body height [address] LAUREANO OLSON MD [facility] 02-01-2022 14:54-0400 Body weight 112.[address] LAUREANO OLSON MD [facility] 02-01-2022 14:54-0400 Body weight 43.98 kg/m2 DR LAUREANO OLSON MD [facility] 02-01-2022 14:50-0400 Heart rate 76 /min DR LAUREANO OLSON MD [facility] 02-01-2022 13:10-0400 Body temperature 97.16 [degF] DR LAUREANO OLSON MD [facility] 02-01-2022 12:55-0400 Body temperature 99.25 [degF] DR LAUREANO OLSON MD [facility] 02-01-2022 12:50-0400 Body temperature 99.19 [degF] DR LAUREANO OLSON MD [facility] 02-01-2022 12:45-0400 Body temperature 99.14 [degF] DR LAUREANO OLSON MD [facility] 02-01-2022 08:25-0400 Body height [address] LAUREANO OLSON MD [facility] 02-01-2022 08:25-0400 Body temperature 97.52 [degF] DR LAUREANO OLSON MD [facility] 02-01-2022 08:25-0400 Body weight 112.[address] LAUREANO OLSON MD [facility] 02-01-2022 08:25-0400 Heart rate 74 /min DR LAUREANO OLSON MD [facility] Encounters Encounter Date Encounter Type Care Provider Facility Start: 04-16-2025 End: 04-16-2025 ambulatory Faith Malys Facility:[facility] Start: 11-01-2024 End: 11-01-2024 [facility] Start: 04-29-2024 End: 04-29-2024 ambulatory Faith Malys Facility:[facility] Start: 04-26-2024 End: 04-26-2024 ambulatory Faith Malys Facility:[facility] Start: 03-21-2023 End: 03-22-[address] LAUREANO OLSNO MD Facility:[facility] Start: 03-21-2023 End: 03-22-[address] LAUREANO OLSON MD [facility] Start: 02-27-2023 End: 02-28-[address] LAUREANO OLSON MD Facility:[facility] Start: 02-27-2023 End: 02-27-[address] LAUREANO OLSON MD [facility] Start: 02-27-2023 End: 02-27-[address] LAUREANO OLSON MD [facility] Start: 08-09-2022 End: 08-10-[address] LAUREANO OLSON MD Facility:[facility] Start: 07-27-2022 End: 07-28-[address] LAUREANO OLSON MD Facility:[facility] Start: 07-27-2022 End: 07-27-[address] LAUREANO OLSON MD [facility] Start: 05-26-2022 End: 05-26-[address] LAUREANO OLSON MD [facility] Start: 02-01-2022 End: 02-03-[address] LAUREANO OLSON MD [facility] Procedures Date Procedure Procedure Detail Performing Clinician Start: 02-01-2022 Revision of left tot al knee arthroplasty DR LAUREANO OLSON MD Start: 03-31-[address] LAUREANO OLSON MD Comment on above: RIGHT SHOULDER Bilateral replacemen t of knee joints DR LAUREANO OLSON MD Decompression of med kathleen nerve DR LAUREANO OLSON MD Comment on above: Bilateral Epidural steroid injection D Aidee OLSON MD Comment on above: LUMBAR SPINE Extraction of cataract DR RAYMUNDO SOSA Left hip region stru cture (body structure) DR LAUREANO OLSON MD Left hip region stru cture (body structure) DR LAUREANO OLSON MD Comment on above: left hip total arthr oplasty Immunizations Immunization Date Immunization Notes Care Provider Fa [facility] 04-11-2022 influenza virus vaccine, unspecified formulation DR LAUREANO OLSON MD [facility] 05-27-2021 SARS-CoV-2 (COVID-19 ) mRNA-[address] LAUREANO OLSON MD [facility] 08-20-2020 SARS-CoV-2 (COVID-19 ) Ad26 vaccine, recombinant DR LAUREANO OLSON MD [facility] Comment on above: Result Comment: 2021: [id number] Payers Date Payer Category Payer Self-pay 2022 Medicare [id number] 2022 Private Health Insurance [id number] 1950 Unknown [id number] [id number] 1950 Unknown [id number] 2.16.8 [id number] 1950 Unknown [id number] 2.16.8 [id number] 1950 Unknown [id number] 2.16.8 [id number] 1950 Unknown [id number] 2.16.8 [id number] Unknown [id number] 2.16.8 [id number] Unknown [id number] 2.16.8 [id number] Unknown [id number] 2.16.8 [id number] Unknown [id number] 2.16.8 [id number] Social History Date Type Detail Facility Start: 03-13-2020 End: 03-21-2023 Tobacco smoking status Ex-smoker (finding) [facility] Sex Assigned At Female [facility] Functional Status Date Assessment Result Facility 03-22-2023 Functional Status IND [facility] 03-22-2023 Functional Status Mod A [facility] 03-22-2023 Functional Status Resting [facility] 03-22-2023 Functional Status Room check performed [facility] 03-22-2023 Functional Status Antiembolism S tocking On/Re-applied bilateral thigh high [facility] 03-22-2023 Functional Status [facility] 03-22-2023 Functional Status [facility] 03-21-2023 Functional Status [facility] 03-21-2023 Functional Status Demonstrates C orrect Call Light Use No [facility] 03-21-2023 Functional Status [facility] 03-21-2023 Functional Status Multilevel home [facility] 03-21-2023 Functional Status Patient Identi fied Identification band [facility] 03-21-2023 Functional Status Maintained, More than 8 hours [facility] 02-27-2023 Functional Status Sensory Deficits None A [facility] 07-27-2022 Functional Status Sensory Deficits None A [facility] 05-26-2022 Functional Status Sensory Deficits None A [facility] 02-03-2022 Functional Status Room check performed [facility] 02-03-2022 Functional Status Carolyn Mazariegos [facility] 02-03-2022 Functional Status flight Carolyn Mazariegos [facility] 02-03-2022 Functional Status Independent Carolyn Mazariegos [facility] 02-02-2022 Functional Status bilateral knee high [facility] 02-02-2022 Functional Status Carolyn Mazariegos [facility] 02-02-2022 Functional Status Mod I 6 Carolyn Mazariegos [facility] 02-02-2022 [place] [facility] 02-02-[facility] Functional Status Carolyn Mazariegos [facility] 02-02-2022 Functional Status Orthotics, Dev ice Worn Per Schedule Yes [facility] 02-01-2022 Functional Status Carolyn Mazariegos [facility] 02-01-2022 Functional Status Carolyn Mazariegos [facility] 02-01-2022 Functional Status Multilevel home [facility] 02-01-2022 Functional Status Carolyn Mazariegos [facility] 02-01-2022 Functional Status Maintained [facility]yn [facility] Mental Status Date Assessment Result Facility 03-22-2023 Mental Status Oriented x 4 [facility] 03-22-2023 Mental Status [facility] 03-21-2023 Mental Status [facility] 03-[facility]23 Mental Status [facility] 02-03-2022 Mental Status Orientation Asse ssment Oriented x 4 [facility] 02-03-2022 Mental Status Oriented x 4 [facility] 02-02-2022 Mental Status [facility] 02-02-2022 Mental Status [facility] Clinical Notes 02-01-2022 to 03-22-2023 Note Date & Type Note Facility 03-22-2023 Hospital Discharg e instructions Patient Education 03/22/2023 11:46:42 Shoulder Joint Replacement, Care After Shoulder Joint Replacement, Care After This sheet gives you information about how to care for yourself after your procedure. Your health care provider may also give you more specific instructions. If you have problems or questions, contact your health care provider. What can I expect after the procedure? After your procedure, it is common to have: A bruised and stiff shoulder. A bruised and stiff arm. Some pain. Follow these instructions at home: If you have a sling: Wear the sling as told by your health care provider. Remove it only as told by your health care provider. Loosen the sling if your fingers tingle, become numb, or turn cold and blue. Keep the sling clean. If the sling is not waterproof: ?Do not let it get wet. ?Cover it with a watertight covering when you take a bath or a shower. Bathing Do not take baths, swim, or use a hot tub until your health care provider approves. Ask your health care provider if you can take showers. You may only be allowed to take sponge baths for bathing. If your sling is not waterproof, cover it with a watertight covering when you take a bath or a shower. Keep the bandage (dressing) dry until your health care provider says it can be removed. Managing pain, stiffness, and swelling If directed, put ice on the affected area. ?If you have a removable sling, remove it as told by your health care provider. ?Put ice in a plastic bag. ?Place a towel between your skin and the bag. ?Leave the ice on for 20 minutes, 2 3 times a day. Move your fingers often to avoid stiffness and to lessen swelling. Driving Do not drive or use heavy machinery while taking prescription pain medicine. Do not drive for 2 4 weeks after surgery or as told by your health care provider. Medicine Take hfuq-jmo-usvmdir and prescription medicines only as told by your health care provider. If you were prescribed an antibiotic medicine, use it as told by your health care provider. Do not stop using the antibiotic even if you start to feel better. Incision care Follow instructions from your health care provider about how to take care of your incision area. Make sure you: ?Wash your hands with soap and water before you change your bandage (dressing). If soap and water are not available, use hand ostrich farmer. ?Change your dressing as told by your health care provider. ?Leave colin, stitches (sutures), skin glue, or adhesive strips in place. These skin closures may need to stay in place for 2 weeks or longer. If adhesive strip edges start to loosen and curl up, you may trim the loose edges. Do not remove adhesive strips completely unless your health care provider tells you to do that. If you have a tube to remove drainage, follow instructions from your health care provider about caring for it. Do not remove the drain tube or any dressings around the tube opening unless your health care provider approves. Check your incision area every day for signs of infection. Check for: ?More redness, swelling, or pain. ?More fluid or blood. ?Warmth. ?Pus or a bad smell. Activity Do not use your arm to push yourself up in bed or from a chair. This requires too much muscle. Follow lifting restrictions as told: ?Do not lift anything that is heavier than a cup of coffee for the first 6 weeks after surgery, or as told by your health care provider. ?Do not lift anything that is heavier than 10 lb (4.5 kg) for 6 months, or as told by your health care provider. Do exercises, including physical therapy, as told by your health care provider. Try not to overuse your shoulder. This includes repetitive pushing or pulling. Early overuse of the shoulder may result in later problems. (Overusing the shoulder is easy to do when your pain goes away for the first time.) Avoid overstretching your arm for 6 weeks after surgery, or as told by your health care provider. Avoid sitting for a long time without moving. Get up and move around one or more times every few hours. Ask for help with some activities. Your health care provider may be able to suggest a clinic or agency for this if you do not have home support. Do not participate in contact sports. General instructions Keep all follow-up visits as told by your health care provider. This is important. Do not use any products that contain nicotine or tobacco, such as cigarettes and e-cigarettes. These can delay healing. If you need help quitting, ask your health care provider. Contact a health care provider if: You develop a rash. You have a fever. You have more redness, swelling, or pain in the incision area. You have more fluid or blood coming from your incision area. You have more pain when moving your shoulder. Get help right away if: Your incision area feels warm to the touch. You have pus or a bad smell coming from your incision area. The edges of the incision site break open after sutures have been removed. You have chest pain or shortness of breath. Summary It is common to have pain and stiffness in your shoulder and arm after the procedure. Put ice on the affected area and take pain medicine as told by your health care provider. Do not use your arm to push yourself up in bed or from a chair. Do exercises, including physical therapy, as told by your health care provider. Check your incision area daily. Call your health care provider if you see signs of infection. This information is not intended to replace advice given to you by your health care provider. Make sure you discuss any questions you have with your health care provider. Document Released: 12/16/2005 Document Revised: 09/20/2019 Document Reviewed: 03/13/2017 [employer] Patient Education 2020 [employer]. 03/22/2023 06:52:29 5 - [facility] Post-op Instruction 01/2017 (75170) [facility] Post-operative Instructions PLEASE FOLLOW [facility] POST-OP INSTRUCTIONS GIVEN WATCH FOR SIGNS OF INFECTION: call the office ([phone]) if experencing any of the following: (Usually appears 36-48 hours after surgery) Increased temperature (101 degrees Fahrenheit or higher) Redness or swelling Increased uncontrolled pain Foul odor or drainage Calf discomfort Significant swelling Or if having any chest pain, shortness of breath, or difficulty breathing or swallowing call the office or go the nearest Emergency Room. If you have any questions, please call your doctor at the number listed on your follow up instructions. Form: [id number]) R: 10/16 Follow Up Care 01/18/2023 14:49:48 With:NILSON GARCIA PA-C, Orthopedic Address: [facility] [address] [place] [id number]- When:04/03/2023 14:00:00 Comments:This is your post-op appointment. Follow-up as scheduled. With:[facility] Address: [address] [place] [phone] When:04/03/2023 15:15:00 Comments:This is your first physical therapy appointment. Follow-up as scheduled. It is right after your appointment with Nil[facility]. [facility] Discharge Instructions Thank you for allowing [facility] to assist you with your healthcare needs. The following is important discharge information regarding your hospital visit. Your Care Team Laureano Olson MD Your Diagnosis Anxiety Chronic GERD Status post reverse total replacement of left shoulder What to do next Follow Up Appointments Follow Up with [facility] When 04/03/2023 03:15 PM EDT Why: This is your first physical therapy appointment. Follow-up as scheduled. It is right after your appointment with Nilson. Where: [address] [place] [phone] Follow Up with NILSON GARCIA PA-C, Orthopedic When 04/03/2023 02:00 PM EDT Why: This is your post-op appointment. Follow-up as scheduled. Where: [facility] [address] [place] [address] [place] [address]- The Following Activity and Diet Have Been Ordered for You No qualifying data available. No qualifying data available. The Following Treatments Have Been Ordered for You Discharge Labs No qualifying data available. Discharge Radiology No qualifying data available. Other Therapies No qualifying data available. Post Acute Orders No qualifying data available. Allergies Contrast dye (Hives) Latex (Hives) penicillin (Hives) Medications Please ask your primary doctor or pharmacist before taking any other medication not listed, including over the counter drugs, herbal medications, vitamins and or supplements as they may interact with your home medications. What How Much When Why Instructions Last Dose New aspirin 81 Milligram by mouth Two (2) times a day Duration: 14 Days Take 81 mg aspirin twice daily with food for 2 weeks postoperatively for DVT prophylaxis. New docusate-senna (Senokot S 50 mg-8.6 mg oral tablet) 2 tab(s) by mouth Two (2) times a day Duration: 3 Days Take until first bowel movement, then as needed Pickup at [facility]/pharmacy #[id number] New famotidine (Pepcid 20 mg oral tablet) 1 tab(s) by mouth Once a day Duration: 14 Days Pickup at [facility]/pharmacy #[id number] New oxyCODONE (oxyCODONE 5 mg oral tablet ( IMMEDIATE release )) See instructions Status post reverse total replacement of left shoulder 1-2 tab(s) [facility] q4h [id number] Unchanged acetaminophen (Tylenol Extra Strength 500 mg oral tablet) 2 tab(s) by mouth Three (3) times a day as needed for as needed for pain not to exceed 3000 mg/ day Unchanged cetirizine (cetirizine 10 mg oral capsule) 1 cap by mouth Once a day as needed for as needed for allergy symptoms Unchanged cholecalciferol (cholecalciferol 125 mcg (5000 intl units) oral capsule) 1 cap by mouth Once a day Unchanged citalopram (citalopram 10 mg oral tablet) 2 tab(s) by mouth Daily at bedtime Unchanged meloxicam (Mobic 7.5 mg oral tablet) 1 tab(s) by mouth Twice daily with meals Do not take any other nonsteroidal anti-inflammatories while on meloxicam/ Mobic Unchanged multivitamin with minerals (PreserVision AREDS 2 oral capsule) 1 cap by mouth Two (2) times a day Unchanged ocular lubricant (Refresh ophthalmic solution) 1 Drops Both eyes Two (2) times a day [id number] [address] [place], [place] [id number] [phone] What How Much When Comments Stop Taking traMADol (traMADol 50 mg oral tablet) 1 tab(s) by mouth Every 12 hours as needed for for pain Please take this list to your next doctor s visit. Bring all medications you take, including over the counter medications, herbals and other supplements with you to your doctor s visit. Patients and families are reminded to discard old lists and to update any records with all medication providers or retail pharmacies. Medication Leaflets oxycodone (ox i KOE done) Oxaydo, OxyCONTIN, Roxicodone, RoxyBond, Xtampza ER What is the most important information I should know about oxycodone? MISUSE OF OPIOID MEDICINE CAN CAUSE ADDICTION, OVERDOSE, OR . Keep the medication in a place where others cannot get to it. Taking opioid medicine during may cause life-threatening withdrawal symptoms in the . Fatal side effects can occur if you use opioid medicine with alcohol, or with other drugs that cause drowsiness or slow your breathing. What is oxycodone? Oxycodone is an opioid pain medication used to treat moderate to severe pain. The extended-release form of oxycodone is for biybrf-qsf-aatmi treatment of pain and should not be used on an as-needed basis for pain. Oxycodone may also be used for purposes not listed in this medication guide. What should I discuss with my healthcare provider before using oxycodone? You should not use oxycodone if you are allergic to it, or if you have: severe asthma or breathing problems; or a blockage in your stomach or intestines. You should not use oxycodone unless you are already using a similar opioid medicine and are tolerant to it. Most brands of oxycodone are not approved for use in people under 18. OxyContin should not be given to a child younger than 11 years old. Tell your doctor if you have ever had: breathing problems, sleep apnea; a head injury, or seizures; drug or alcohol addiction, or mental illness; liver or kidney disease; urination problems; or problems with your gallbladder, pancreas, or thyroid. If you use opioid medicine while you are , your baby could become dependent on the drug. This can cause life-threatening withdrawal symptoms in the baby after it is born. Babies born dependent on opioids may need medical treatment for several weeks. Ask a doctor before using opioid medicine if you are . Tell your doctor if you notice severe drowsiness or slow breathing in the nursing baby. How should I use oxycodone? Follow the directions on your prescription label and read all medication guides. Never use oxycodone in larger amounts, or for longer than prescribed. Tell your doctor if you feel an increased urge to take more of this medicine. Never share opioid medicine with another person, especially someone with a history of drug abuse or addiction. MISUSE CAN CAUSE ADDICTION, OVERDOSE, OR . Keep the medication in a place where others cannot get to it. Selling or giving away opioid medicine is against the law. Stop taking all other kllude-jif-utbpu opioid pain medicines when you start taking extended-release oxycodone. Take oxycodone with food. Swallow the capsule or tablet whole to avoid exposure to a potentially fatal overdose. Do not crush, chew, break, open, or dissolve. If you cannot swallow a capsule whole, open it and sprinkle the medicine into a spoonful of pudding or applesauce. Swallow the mixture right away without chewing. Do not save it for later use. Never crush or break an oxycodone pill to inhale the powder or mix it into a liquid to inject the drug into your vein. This can cause in . Measure liquid medicine carefully. Use the dosing syringe provided, or use a medicine dose-measuring device (not a kitchen spoon). You should not stop using oxycodone suddenly. Follow your doctor's instructions about tapering your dose. Store at room temperature, away from heat, moisture, and light. Keep track of your medicine. Oxycodone is a drug of abuse and you should be aware if anyone is using your medicine improperly or without a prescription. Do not keep leftover opioid medication. Just one dose can cause in someone using this medicine accidentally or improperly. Ask your pharmacist where to locate a drug take-back disposal program. If there is no take-back program, flush the unused medicine down the toilet. What happens if I miss a dose? Since oxycodone is used for pain, you are not likely to miss a dose. Skip any missed dose if it is almost time for your next dose. Do not use two doses at one time. What happens if I overdose? Seek emergency medical attention or call the Poison Help line at . An opioid overdose can be fatal, especially in a child or other person using the medicine without a prescription. Overdose symptoms may include severe drowsiness, pinpoint pupils, slow breathing, or no breathing. Your doctor may recommend you get naloxone (a medicine to reverse an opioid overdose) and keep it with you at all times. A person caring for you can give the naloxone if you stop breathing or don't wake up. Your caregiver must still get emergency medical help and may need to perform CPR (cardiopulmonary resuscitation) on you while waiting for help to arrive. Anyone can buy naloxone from a pharmacy or local health department. Make sure any person caring for you knows where you keep naloxone and how to use it. What should I avoid while using oxycodone? Do not drink alcohol. Dangerous side effects or could occur. Avoid driving or operating machinery until you know how oxycodone will affect you. Dizziness or severe drowsiness can cause falls or other accidents. Avoid medication errors. Always check the brand and strength of oxycodone you get from the pharmacy. What are the possible side effects of oxycodone? Get emergency medical help if you have signs of an allergic reaction: hives; difficult breathing; swelling of your face, lips, tongue, or throat. Opioid medicine can slow or stop your breathing, and may occur. A person caring for you should give naloxone and/or seek emergency medical attention if you have slow breathing with long pauses, blue colored lips, or if you are hard to wake up. Call your doctor at once if you have: noisy breathing, sighing, shallow breathing, breathing that stops during sleep; a slow heart rate or weak pulse; a light-headed feeling, like you might pass out; confusion, unusual thoughts or behavior; seizure (convulsions); low cortisol levels-- nausea, vomiting, loss of appetite, dizziness, worsening tiredness or weakness; or high levels of serotonin in the body--agitation, hallucinations, fever, sweating, shivering, fast heart rate, muscle stiffness, twitching, loss of coordination, nausea, vomiting, diarrhea. Serious breathing problems may be more likely in older adults and in those who are debilitated or have wasting syndrome or chronic breathing disorders. Common side effects may include: drowsiness, headache, dizziness, tiredness; or constipation, stomach pain, nausea, vomiting. This is not a complete list of side effects and others may occur. Call your doctor for medical advice about side effects. You may report side effects to FDA at 6-586-MAF-2859. What other drugs will affect oxycodone? You may have breathing problems or withdrawal symptoms if you start or stop taking certain other medicines. Tell your doctor if you also use an antibiotic, antifungal medication, heart or blood pressure medication, seizure medication, or medicine to treat HIV or hepatitis C. Opioid medication can interact with many other drugs and cause dangerous side effects or . Be sure your doctor knows if you also use: cold or allergy medicines, bronchodilator asthma/COPD medication, or a diuretic ('water pill'); medicines for motion sickness, irritable bowel syndrome, or overactive bladder; other opioids--opioid pain medicine or prescription cough medicine; a sedative like Valium--diazepam, alprazolam, lorazepam, Xanax, Klonopin, Versed, and others; drugs that make you sleepy or slow your breathing--a sleeping pill, muscle relaxer, medicine to treat mood disorders or mental illness; or drugs that affect serotonin levels in your body--a stimulant, or medicine for depression, Parkinson's disease, migraine headaches, serious infections, or nausea and vomiting. This list is not complete and many other drugs may affect oxycodone. This includes prescription and fbcb-ibr-ndvgpso medicines, vitamins, and herbal products. Not all possible drug interactions are listed here. Where can I get more information? Your pharmacist can provide more information about oxycodone. Remember, keep this and all other medicines out of the reach of children, never share your medicines with others, and use this medication only for the indication prescribed. Every effort has been made to ensure that the information provided by [employer]. ('[facility]') is accurate, up-to-date, and complete, but no guarantee is made to that effect. Drug information contained herein may be time sensitive. [employer] information has been compiled for use by healthcare practitioners and consumers in the [place] and therefore [employer] does not warrant that uses outside of the [place] are appropriate, unless specifically indicated otherwise. [employer]'s drug information does not endorse drugs, diagnose patients or recommend therapy. [employer] drug information is an informational resource designed to assist licensed healthcare practitioners in caring for their patients and/or to serve consumers viewing this service as a supplement to, and not a substitute for, the expertise, skill, knowledge and judgment of healthcare practitioners. The absence of a warning for a given drug or drug combination in no way should be construed to indicate that the drug or drug combination is safe, effective or appropriate for any given patient. [employer] does not assume any responsibility for any aspect of healthcare administered with the aid of information [employer] provides. The information contained herein is not intended to cover all possible uses, directions, precautions, warnings, drug interactions, allergic reactions, or adverse effects. If you have questions about the drugs you are taking, check with your doctor, nurse or pharmacist. Copyright 3201-2475 [employer]. Version: 16.. Revision Date: 01/13/2023. famotidine (oral/injection) (fam [place] ti eddie) Heartburn Relief, Pepcid, Pepcid AC, Pepcid AC Maximum Strength, Zantac 360 What is the most important information I should know about famotidine? Follow all directions on the label and package. Use exactly as directed. What is famotidine? Famotidine is used to treat and prevent ulcers in the stomach and intestines. It also treats conditions in which the stomach produces too much acid, such as Tatyana-Cortes syndrome. Famotidine also treats gastroesophageal reflux disease (GERD) and other conditions in which acid backs up from the stomach into the esophagus, causing heartburn. The Zantac 360 brand of this medicine does not contain ranitidine, a medicine that was withdrawn from market in the [place]. Famotidine may also be used for purposes not listed in this medication guide. What should I discuss with my healthcare provider before taking famotidine? Heartburn can feel like a heart attack. Get emergency medical help if you have chest pain that spreads to your jaw or shoulder. You should not use this medicine if you are allergic to famotidine or similar medicines such as ranitidine (Zantac), cimetidine (Tagamet), or nizatidine (Axid). Ask a doctor or pharmacist if this medicine is safe to use if you have: kidney disease; liver disease; cancer stomach; or long QT syndrome (in you or a family member). Ask a doctor before using this medicine if you are or . How should I take famotidine? Use exactly as directed on the label, or as prescribed by your doctor. Famotidine oral is taken by mouth. Famotidine injection is given in a vein if you are unable to take the medicine by mouth. You may take famotidine oral with or without food. Measure liquid medicine with the supplied syringe or a dose-measuring device (not a kitchen spoon). Most ulcers heal within 4 weeks of famotidine treatment, but it may take up to 8 weeks of using this medicine before your ulcer heals. Keep using the medication as directed. Call your doctor if the condition you are treating with famotidine does not improve, or if it gets worse while using famotidine. Your treatment may also include changes in diet or lifestyle habits. Follow all instructions of your doctor or dietitian. Store at room temperature away from moisture, heat, and light. Do not allow the liquid medicine to freeze. Throw away any unused famotidine liquid that is older than 30 days. What happens if I miss a dose? Take the medicine as soon as you can, but skip the missed dose if it is almost time for your next dose. Do not take two doses at one time. What happens if I overdose? Seek emergency medical attention or call the Poison Help line at . What should I avoid while taking famotidine? Drinking alcohol may increase the risk of damage to your stomach. Avoid taking other stomach acid reducers unless your doctor has told you to. However, you may take an antacid (such as Maalox, Mylanta, Gaviscon, Milk of Magnesia, Rolaids, or Tums) with famotidine. What are the possible side effects of famotidine? Get emergency medical help if you have signs of an allergic reaction: hives; difficult breathing; swelling of your face, lips, tongue, or throat. Stop using famotidine and call your doctor at once if you have: confusion, hallucinations, agitation, lack of energy; a seizure; fast or pounding heartbeats, sudden dizziness (like you might pass out); or unexplained muscle pain, tenderness, or weakness especially if you also have fever, unusual tiredness, and dark colored urine. Some side effects may be more likely in older adults and in people who have severe kidney disease. Common side effects may include: headache; dizziness; or constipation or diarrhea. This is not a complete list of side effects and others may occur. Call your doctor for medical advice about side effects. You may report side effects to FDA at 9-358-BKQ-9735. What other drugs will affect famotidine? Famotidine oral can make it harder for your body to absorb other medicines you take by mouth. Tell your doctor if you are taking: cefditoren; dasatinib; delavirdine; fosamprenavir; or tizanidine (if you are taking famotidine liquid). This list is not complete. Other drugs may affect famotidine, including prescription and oyqw-ebh-lulbbnn medicines, vitamins, and herbal products. Not all possible drug interactions are listed here. Where can I get more information? Your doctor or pharmacist can provide more information about famotidine. Remember, keep this and all other medicines out of the reach of children, never share your medicines with others, and use this medication only for the indication prescribed. Every effort has been made to ensure that the information provided by [employer]. ('[employer]') is accurate, up-to-date, and complete, but no guarantee is made to that effect. Drug information contained herein may be time sensitive. [employer] information has been compiled for use by healthcare practitioners and consumers in the [place] and therefore [employer] does not warrant that uses outside of the [place] are appropriate, unless specifically indicated otherwise. [employer] drug information does not endorse drugs, diagnose patients or recommend therapy. [employer] drug information is an informational resource designed to assist licensed healthcare practitioners in caring for their patients and/or to serve consumers viewing this service as a supplement to, and not a substitute for, the expertise, skill, knowledge and judgment of healthcare practitioners. The absence of a warning for a given drug or drug combination in no way should be construed to indicate that the drug or drug combination is safe, effective or appropriate for any given patient. [employer] does not assume any responsibility for any aspect of healthcare administered with the aid of information [employer] provides. The information contained herein is not intended to cover all possible uses, directions, precautions, warnings, drug interactions, allergic reactions, or adverse effects. If you have questions about the drugs you are taking, check with your doctor, nurse or pharmacist. Copyright 2455-0715 [employer]. Version: .. Revision Date: 01/02/2023. aspirin (oral) ( pir in) Aspi-Cor, Joaquina Plus, Durlaza, Ecotrin, Miniprin, Vazalore What is the most important information I should know about aspirin? Aspirin can cause Sana's syndrome, a serious and sometimes fatal condition in children. What is aspirin? Aspirin is a salicylate (do-YUK-mj-ate) that is used to treat pain, and reduce fever or inflammation. Aspirin is sometimes used to treat or prevent heart attacks, strokes, and chest pain (angina). Aspirin should be used for these conditions only under the supervision of a doctor. Aspirin may also be used for purposes not listed in this medication guide. What should I discuss with my healthcare provider before taking aspirin? Using aspirin in a child or teenager with flu symptoms or chickenpox can cause a serious or fatal condition called Sana's syndrome. You should not use aspirin if you are allergic to it, or if you have: a recent history of stomach or intestinal bleeding; a bleeding disorder such as hemophilia; or if you have ever had an asthma attack or severe allergic reaction after taking aspirin or an NSAID (non-steroidal anti-inflammatory drug). Tell your doctor if you have ever had: asthma or seasonal allergies; stomach ulcers; liver disease; kidney disease; a bleeding or blood clotting disorder; gout; or heart disease, high blood pressure, or congestive heart failure. Taking aspirin during late may cause bleeding in the mother or the baby during delivery. Tell your doctor if you are or plan to become . You should not breastfeed while using this medicine. How should I take aspirin? Use exactly as directed on the label, or as prescribed by your doctor. Always follow directions on the medicine label about giving aspirin to a child. Take with food if aspirin upsets your stomach. You must chew the chewable tablet before you swallow it. Do not crush, chew, break, or open an enteric-coated or delayed/extended-release pill. Swallow it whole. Tell your doctor if you have a planned surgery. Store at room temperature away from moisture and heat. Do not use aspirin if you smell a strong vinegar odor in the aspirin bottle. The medicine may no longer be effective. What happens if I miss a dose? Aspirin is used when needed. If you are on a dosing schedule, skip any missed dose. Do not use two doses at one time. What happens if I overdose? Seek emergency medical attention or call the Poison Help line at . Overdose may cause stomach pain, vomiting, diarrhea, vision or hearing problems, fast or slow breathing, or confusion. What should I avoid while taking aspirin? Avoid alcohol. Heavy drinking can increase your risk of stomach bleeding. Avoid taking ibuprofen if you take aspirin to prevent stroke or heart attack. Ibuprofen can make aspirin less effective in protecting your heart and blood vessels. Ask your doctor how far apart your doses should be. Ask a doctor or pharmacist before using other medicines for pain, fever, swelling, or cold/flu symptoms. They may contain ingredients similar to aspirin (such as magnesium salicylate, ibuprofen, ketoprofen, or naproxen). What are the possible side effects of aspirin? Get emergency medical help if you have signs of an allergic reaction: hives; difficult breathing; swelling of your face, lips, tongue, or throat. Stop using aspirin and call your doctor at once if you have: ringing in your ears, confusion, hallucinations, rapid breathing, seizure (convulsions); severe nausea, vomiting, or stomach pain; bloody or tarry stools, coughing up blood or vomit that looks like coffee grounds; fever lasting longer than 3 days; or swelling, or pain lasting longer than 10 days. Common side effects may include: upset stomach, heartburn; drowsiness; or mild headache. This is not a complete list of side effects and others may occur. Call your doctor for medical advice about side effects. You may report side effects to FDA at 6-495-JRZ-3116. What other drugs will affect aspirin? Ask your doctor before using aspirin if you take an antidepressant. Taking certain antidepressants with aspirin may cause you to bruise or bleed easily. Ask a doctor or pharmacist before using aspirin with any other medications, especially: a blood thinner (warfarin, Coumadin, Jantoven), or other medication used to prevent blood clots; or other salicylates such as Nuprin Backache Caplet, Kaopectate, KneeRelief, Pamprin Cramp Formula, Pepto-Bismol, Tricosal, Trilisate, and others. This list is not complete. Other drugs may affect aspirin, including prescription and hhas-mpb-xvtqrfk medicines, vitamins, and herbal products. Not all possible drug interactions are listed here. Where can I get more information? Your pharmacist can provide more information about aspirin. Remember, keep this and all other medicines out of the reach of children, never share your medicines with others, and use this medication only for the indication prescribed. Every effort has been made to ensure that the information provided by [employer]. ('[employer]') is accurate, up-to-date, and complete, but no guarantee is made to that effect. Drug information contained herein may be time sensitive. [employer] information has been compiled for use by healthcare practitioners and consumers in the [place] and therefore [employer] does not warrant that uses outside of the [place] are appropriate, unless specifically indicated otherwise. [employer] drug information does not endorse drugs, diagnose patients or recommend therapy. [employer] drug information is an informational resource designed to assist licensed healthcare practitioners in caring for their patients and/or to serve consumers viewing this service as a supplement to, and not a substitute for, the expertise, skill, knowledge and judgment of healthcare practitioners. The absence of a warning for a given drug or drug combination in no way should be construed to indicate that the drug or drug combination is safe, effective or appropriate for any given patient. [facility] does not assume any responsibility for any aspect of healthcare administered with the aid of information [facility] provides. The information contained herein is not intended to cover all possible uses, directions, precautions, warnings, drug interactions, allergic reactions, or adverse effects. If you have questions about the drugs you are taking, check with your doctor, nurse or pharmacist. Copyright 3978-0592 [facility] [employer]. Version: 18.. Revision Date: 01/02/2023. docusate and senna (DOK trevor sate and SEN a) Colace 2-in-1, Senexon-S, Senna Plus, Senna S, Senna-Time S, Senokot S, SenoSol-SS, Stool Softener + Stimulant Laxative, Stool Softener with Laxative What is the most important information I should know about docusate and senna? Use exactly as directed on the label, or as prescribed by your doctor. What is docusate and senna? Docusate is a stool softener. Senna is a laxative. Docusate and senna is a combination medicine used to treat occasional constipation. Docusate and senna may also be used for purposes not listed in this medication guide. What should I discuss with my healthcare provider before using docusate and senna? You should not use this medicine if you are allergic to docusate or senna, or if you are also taking mineral oil. Ask a doctor or pharmacist if this medicine is safe to use if you have ever had: nausea or vomiting; stomach pain; a sudden change in bowel habits that lasts for 2 weeks or longer; or an intestinal disorder such as Crohn's disease or ulcerative colitis. Ask a doctor before using this medicine if you are or . Do not give this medicine to a child younger than 2 years old without medical advice. How should I use docusate and senna? Use exactly as directed on the label, or as prescribed by your doctor. Take docusate and senna with a full glass of water. It may be best to take this medicine at night or at bedtime. Docusate and senna should cause you to have a bowel movement within 6 to 12 hours. Do not take docusate and senna for longer than 7 days in a row, unless your doctor tells you to. Call your doctor if your constipation does not improve or if it gets worse after taking docusate and senna. Store at room temperature away from moisture and heat. What happens if I miss a dose? Since docusate and senna is used when needed, you may not be on a dosing schedule. Skip any missed dose if it's almost time for your next dose. Do not use two doses at one time. What happens if I overdose? Seek emergency medical attention or call the Poison Help line at . Overdose symptoms may include nausea, vomiting, stomach pain, or diarrhea. What should I avoid while using docusate and senna? Ask a doctor or pharmacist before using any other laxative or other stool softener that may contain ingredients similar to docusate or senna. What are the possible side effects of docusate and senna? Get emergency medical help if you have signs of an allergic reaction: hives; difficulty breathing; swelling of your face, lips, tongue, or throat. Stop using docusate and senna and call your doctor at once if you have: rectal bleeding; severe stomach pain, nausea, vomiting; or no bowel movement. Common side effects may include: gas, bloating; diarrhea; or mild nausea. This is not a complete list of side effects and others may occur. Call your doctor for medical advice about side effects. You may report side effects to FDA at 1-822-ASZ-7962. What other drugs will affect docusate and senna? Other drugs may affect docusate and senna, including prescription and sasc-eiv-hokyqwn medicines, vitamins, and herbal products. Tell your doctor about all your current medicines and any medicine you start or stop using. Where can I get more information? Your pharmacist can provide more information about docusate and senna. Remember, keep this and all other medicines out of the reach of children, never share your medicines with others, and use this medication only for the indication prescribed. Every effort has been made to ensure that the information provided by [employer] ('[employer]') is accurate, up-to-date, and complete, but no guarantee is made to that effect. Drug information contained herein may be time sensitive. [employer] information has been compiled for use by healthcare practitioners and consumers in the [place] and therefore [employer] does not warrant that uses outside of the [place] are appropriate, unless specifically indicated otherwise. [employer] drug information does not endorse drugs, diagnose patients or recommend therapy. [employer] drug information is an informational resource designed to assist licensed healthcare practitioners in caring for their patients and/or to serve consumers viewing this service as a supplement to, and not a substitute for, the expertise, skill, knowledge and judgment of healthcare practitioners. The absence of a warning for a given drug or drug combination in no way should be construed to indicate that the drug or drug combination is safe, effective or appropriate for any given patient. [employer] does not assume any responsibility for any aspect of healthcare administered with the aid of information [employer] provides. The information contained herein is not intended to cover all possible uses, directions, precautions, warnings, drug interactions, allergic reactions, or adverse effects. If you have questions about the drugs you are taking, check with your doctor, nurse or pharmacist. Copyright 4373-2295 [employer]. Version: 5.01. Revision Date: 01/16/2023. meloxicam (oral/injection) (oliver OKS i racquel) Anjeso, Mobic, Vivlodex What is the most important information I should know about meloxicam? Meloxicam can increase your risk of fatal heart attack or stroke. Do not use this medicine just before or after heart bypass surgery (coronary artery bypass graft, or CABG). Meloxicam may also cause stomach or intestinal bleeding, which can be fatal. What is meloxicam? Meloxicam is a nonsteroidal anti-inflammatory drug (NSAID) that is used to treat osteoarthritis or rheumatoid arthritis in adults. Meloxicam is also used to treat juvenile rheumatoid arthritis in children who are at least 2 years old. The Anjeso brand of meloxicam is used to treat moderate to severe pain in adults. Vivlodex is for use only in adults. Meloxicam may also be used for purposes not listed in this medication guide. What should I discuss with my healthcare provider before receiving meloxicam? Meloxicam can increase your risk of fatal heart attack or stroke. Do not use this medicine just before or after heart bypass surgery (coronary artery bypass graft, or CABG). Meloxicam may also cause stomach or intestinal bleeding, which can be fatal. Meloxicam may also cause stomach or intestinal bleeding, which can be fatal. These conditions can occur without warning while you are using meloxicam, especially in older adults. You should not use meloxicam if you are allergic to it, or if you ever had an asthma attack or severe allergic reaction after taking aspirin or an NSAID. Tell your doctor if you have ever had: heart disease, high blood pressure, high cholesterol, diabetes, or if you smoke; a heart attack, stroke, or blood clot; ulcers or stomach bleeding; asthma; kidney disease (or if you are on dialysis); liver disease; or fluid retention. If you are , you should not take meloxicam unless your doctor tells you to. Taking an NSAID during the last 20 weeks of can cause serious heart or kidney problems in the unborn baby and possible complications with your . Meloxicam may cause a delay in ovulation (the release of an egg from an ovary). You should not take meloxicam if you are undergoing fertility treatment, or are otherwise trying to get . Ask a doctor if it is safe to breastfeed while using this medicine. Meloxicam is not approved for use by anyone younger than 2 years old. How is meloxicam given? Follow all directions on your prescription label and read all medication guides or instruction sheets. Use the lowest effective dose for your condition. Meloxicam oral is taken by mouth. Meloxicam injection is given as an infusion into a vein. A healthcare provider will give you this injection. Your dose needs may change if you switch to a different brand, strength, or form of this medicine. Avoid medication errors by using only the medicine your doctor prescribes. Meloxicam doses are based on weight (especially in children and teenagers). Your dose needs may change if you gain or lose weight. If you use this medicine long-term, you may need frequent medical tests. Store meloxicam oral suspension, tablets or capsules at room temperature, away from moisture and heat. Keep the bottle tightly closed when not in use. What happens if I miss a dose? Use the medicine as soon as you can, but skip the missed dose if it is almost time for your next dose. Do not use two doses at one time. What happens if I overdose? Seek emergency medical attention or call the Poison Help line at . What should I avoid while receiving meloxicam? Drinking alcohol may increase your risk of stomach bleeding. Avoid taking aspirin while you are taking meloxicam, unless your doctor tells you to. Ask a doctor or pharmacist before using other medicines for pain, fever, swelling, or cold/flu symptoms. They may contain ingredients similar to meloxicam (such as aspirin, ibuprofen, ketoprofen, or naproxen). What are the possible side effects of meloxicam? Get emergency medical help if you have signs of an allergic reaction (hives, difficult breathing, swelling in your face or throat) or a severe skin reaction (fever, sore throat, burning eyes, skin pain, red or purple skin rash with blistering and peeling). Get emergency medical help if you have signs of a heart attack or stroke: chest pain spreading to your jaw or shoulder, sudden numbness or weakness on one side of the body, slurred speech, leg swelling, feeling short of breath. Stop using meloxicam and call your doctor at once if you have: the first sign of any skin rash, no matter how mild; shortness of breath (even with mild exertion); swelling or rapid weight gain; signs of stomach bleeding--bloody or tarry stools, coughing up blood or vomit that looks like coffee grounds; liver problems--nausea, upper stomach pain, itching, tired feeling, flu-like symptoms, loss of appetite, dark urine, ezio-colored stools, jaundice (yellowing of the skin or eyes); low red blood cells (anemia)--pale skin, unusual tiredness, feeling light-headed, cold hands and feet; or kidney problems--little or no urination, swelling in your feet or ankles, feeling tired or short of breath. Common side effects may include: stomach pain, nausea, vomiting, heartburn; diarrhea, constipation, gas; dizziness; or cold symptoms, flu symptoms. This is not a complete list of side effects and others may occur. Call your doctor for medical advice about side effects. You may report side effects to FDA at 0-371-YID-4592. What other drugs will affect meloxicam? Ask your doctor before using meloxicam if you take an antidepressant. Taking certain antidepressants with an NSAID may cause you to bruise or bleed easily. Tell your doctor about all your other medicines, especially: cyclosporine; lithium; methotrexate; pemetrexed; sodium polystyrene sulfonate (Kayexalate); a blood thinner (warfarin, Coumadin, Jantoven); heart or blood pressure medication, including a diuretic or 'water pill'; or steroid medicine (such as prednisone). This list is not complete. Other drugs may affect meloxicam, including prescription and [id number]-[id number] medicines, vitamins, and herbal products. Not all possible drug interactions are listed here. Where can I get more information? Your doctor or pharmacist can provide more information about meloxicam. Remember, keep this and all other medicines out of the reach of children, never share your medicines with others, and use this medication only for the indication prescribed. Every effort has been made to ensure that the information provided by [employer]. ('[employer]') is accurate, up-to-date, and complete, but no guarantee is made to that effect. Drug information contained herein may be time sensitive. [employer] information has been compiled for use by healthcare practitioners and consumers in the [place] and therefore [employer] does not warrant that uses outside of the [place] are appropriate, unless specifically indicated otherwise. [employer] drug information does not endorse drugs, diagnose patients or recommend therapy. [employer] drug information is an informational resource designed to assist licensed healthcare practitioners in caring for their patients and/or to serve consumers viewing this service as a supplement to, and not a substitute for, the expertise, skill, knowledge and judgment of healthcare practitioners. The absence of a warning for a given drug or drug combination in no way should be construed to indicate that the drug or drug combination is safe, effective or appropriate for any given patient. [employer] does not assume any responsibility for any aspect of healthcare administered with the aid of information [employer] provides. The information contained herein is not intended to cover all possible uses, directions, precautions, warnings, drug interactions, allergic reactions, or adverse effects. If you have questions about the drugs you are taking, check with your doctor, nurse or phar (more content not included)... [facility] 03-22-2023 Note Date of Service March 22, 2023 Subjective The patient was sitting in bed upon examination. Patient denies any chest pain, shortness of breath, dizziness, lightheadedness, nausea or vomiting, or calf pain. No adverse overnight events. Pain has been controlled on medications. Patient denies any numbness and tingling in the left upper extremity. She is currently on 1 L of nasal oxygen in which she has had some decrease O2 saturation overnight. She states she has never had complications in the past. Denies sleep apnea. Plan will be to wean patient off oxygen today. She has had previous right reverse total shoulder arthroplasty in 2019. Patient states the pain is well controlled this morning. She has been treated by pain management Dr. White for tramadol preoperatively for the left shoulder as she was having difficulty sleeping. She states that she does not even think she has any more the tramadol left at home. Objective Vitals and Measurements T: 36.5 C (Oral) TMIN: 36.1 C (Temporal Artery) TMAX: 36.7 C (Temporal Artery) HR: 60 RR: 18 BP: 133/62 SpO2: 93% HT: 162 cm WT: 97.3 kg BMI: 37.08 Intake and Output 7AM Yesterday to 7AM Today Intake and Output (Last 24 hours) Intake Administration Information 1461.54 Oral Intake 200.00 Output Intra-Op EBL 125.00 Urine Count 3.00 Total Summary Total Intake 1661.54 Total Output 125.00 Fluid Balance 1536.54 Physical Exam Vital signs stable, afebrile SCDs and QUIQUE hose are in place bilaterally: When patient goes home she does not need to continue wearing the QUIQUE hose. Dressing is clean dry and intact UltraSling fitting appropriately Sensation is intact to axillary, radial, median, and ulnar distribution Motor intact with patient able to make okay sign, cross fingers, and thumbs up Weight Dosing Weight: 97.3 kg (03/21/23) Dosing Weight: 97.3 kg (03/21/23) Medications Medications (25) Active Scheduled: (13) acetaminophen 500 mg Tablet 1,000 mg 2 tab(s), Oral, q6hr aspirin 81 mg EC 81 mg 1 tab(s), Oral, BID bisacodyl 5 mg EC tablet 10 mg 2 tab(s), Oral, Once citalopram 20 mg Tablet 20 mg 1 tab(s), Oral, qHS docusate sodium 100 mg Capsule 100 mg 1 cap(s), Oral, BID docusate-senna (Senokot S) 50 mg-8.6 mg Tablet 2 tab(s), Oral, BID famotidine 20 mg tablet 20 mg 1 tab(s), Oral, qDay magnesium hydroxide 8% Suspension 30 mL UD 30 mL, Oral, Daily meloxicam 7.5 mg tablet 7.5 mg 1 tab(s), Oral, BIDM ocular lubricant preserved Soln 15 mL 1 drop(s), Eyes, both, BID ondansetron 2 mg/ 1 mL 2 mL INJ 4 mg 2 mL, IV Push, q8h ropivacaine 25 mg + ketorolac 15 mg + epinephrine 0.3 mg + morphine 2.5 mg 25 mg 5 mL, Other, PREOP pharm ropivacaine 25 mg + ketorolac 15 mg + epinephrine 0.3 mg + morphine 2.5 mg 25 mg 5 mL, Other, PREOP pharm Continuous: (1) Lactated Ringers 1,000 mL 1,000 mL, Intravenous, 100 mL/hr PRN: (11) acetaminophen 325 mg Tablet 650 mg 2 tab(s), Oral, q4h diphenhydramine 25 mg tablet 25 mg 1 tab(s), Oral, q6h diphenhyDRAMINE 50 mg/mL (1 mL) INJ 25 mg 0.5 mL, IV Push, q6h hydromorphone 1 mg/mL (1mL) INJ 0.25 mg 0.25 mL, IV Push, q5min ketorolac 30 mg/mL (1 mL) vial 15 mg 0.5 mL, IV Push, q6h loratadine 10 mg Tablet 10 mg 1 tab(s), Oral, qDay ondansetron 2 mg/ 1 mL 2 mL INJ 4 mg 2 mL, IV Push, q8h oxycodone 5 mg tablet (immediate release) 5 mg 1 tab(s), Oral, q4h oxycodone 5 mg tablet (immediate release) 10 mg 2 tab(s), Oral, q4h prochlorperazine 10 mg/2 mL vial 5 mg 1 mL, IV Push, q6h sodium biphosphate-sodium phosphate 19 gm-7 gm Enema 133 mL, Rectal, qDay Lab Results 03/22 05:45 WBC: 10.8 Hgb: 12.0 Hct: 36.0 L Platelet: 215 Neutrophil %: 84.1 H Glucose Level: 127 H Sodium Level: 134 L Potassium Level: 4.6 BUN: 14 Creatinine Lvl (s): 0.53 L EKG No qualifying data available. Assessment/Plan 1. Status post left reverse total shoulder arthroplasty postop day #1 2. Continue pain medications: Tylenol, meloxicam, oxycodone. Do not take any other nonsteroidal anti-inflammatories while on meloxicam/Mobic 3. DVT prophylaxis: Take 81 mg aspirin twice daily with food for 2 weeks postoperatively for DVT prophylaxis. 4. Physical therapy: Continue with UltraSling at all times. Okay to take off sling for elbow range of motion and pendulum exercises 2-3 times daily. No range of motion of the operative shoulder. Will begin outpatient physical therapy after the 2-week follow-up at [facility]. 5. H & H: 12.0/36.0, asymptomatic. Postoperative anemia from surgery without intraoperative complications. At this time there is no need for treatment. 6. Encouraged incentive spirometry 7. Continue postoperative medical management per medicine 8. Disposition: Plan will be for probable discharge home this afternoon as long as patient is medically stable. Patient is currently on 1 L nasal oxygen and plan will be for patient to wean off this oxygen. This will ultimately determine patient's discharge planning from a medical standpoint. She has outpatient physical therapy established. She will follow-up per postoperative instructions. Patient was instructed to contact her office upon discharge with any concerns or questions. We also discussed if she does have any tramadol at home that she is never to take tramadol alongside the oxycodone for pain relief. She voiced understanding agreement. Patient states she has the Tylenol, meloxicam and aspirin at home. Other medications will be E scribed to the primary care pharmacy [facility] in [facility]. I have reviewed the [place] Automated Rx Reporting System (OARRS) report for this patient for refill pattern and other prescriber involvement as part of the appropriate surveillance for the provision of acute and chronic controlled medications. The report was requested and reviewed on the date of this entry, and was considered in the prescribing process This dictation was created using voice recognition software. Phonetic and/or grammatical errors may exist. Digitally Signed by NILSON GARCIA PA-C on 03/22/2023 06:52 AM [facility] 03-21-2023 Note ORIGINAL EXAMINATION: TWO XRAY VIEWS OF THE LEFT SHOULDER 03/21/2023 1:10 pm COMPARISON: None. HISTORY: ORDERING SYSTEM PROVIDED HISTORY: Reason for Exam: Status Post Arthroplasty FINDINGS: There is some soft tissue air from the recent surgery. The prosthetic components appear well seated, and there is no adjacent fracture seen. There are minor degenerative changes at the AC joint. IMPRESSION: Expected postoperative changes. Interpreted by: Jose Miguel Victoria MD Preliminary Report By: Jose Miguel Victoria MD Electronically signed By Jose Miguel Victoria MD Dictated Date: 03/21/2023 1:22:00 PM Prelim Date: 03/21/2023 1:22:24 PM Sign Date: 03/21/2023 1:22:24 PM Ordering Provider: LAUREANO OLSON [facility] 03-21-2023 Anesthesiology Consult note Patient: MI PRETTY Age: 72 years Sex: Female : 1950 Associated Diagnoses: None Author: TANK AMATO APRN-DRUGLESS PHYSICIAN Preoperative Information Time of last food or liquid consumption: 03/21/2023 00:00:00 Anesthesia history Patient's history: negative. Family's history: negative. Review of Systems Ear/Nose/Mouth/Throat: Negative. Respiratory: Negative. Cardiovascular: Negative. Gastrointestinal: obese. Genitourinary: Negative. Endocrine: Negative. Musculoskeletal: OA. Integumentary: Negative. Neurologic: anxiety. Health Status Allergies: Allergic Reactions (Selected) Severity Not Documented Contrast dye- Hives. Latex- Hives. Penicillin- Hives., Allergies (3) ActiveReaction Contrast dyeHives LatexHives penicillinHives Current medications: (Selected) Inpatient Medications Ordered Decadron: 10 mg, 1 mL, IV Push, AsDirected LR 1,000 mL: 125 mL/hr, Intravenous, Stop: 03/21/23 23:59:00 EDT LR 1000 mL: 20 mL/hr, Intravenous Naropin 25 mg + Toradol 15 mg + EPINEPHrine 1 mg/mL injectable solution 0.3 mg + morphine 2.5 mg...: 25 mg, 5 mL, mL/hr, Other, PREOP pharm Naropin 25 mg + Toradol 15 mg + EPINEPHrine 1 mg/mL injectable solution 0.3 mg + morphine 2.5 mg...: 25 mg, 5 mL, mL/hr, Other, PREOP pharm Zofran ( PACU ): 4 mg, 2 mL, IV Push, AsDirected, PRN: Nausea/Vomiting morphine ( PACU ): 2 mg, 1 mL, IV Push, q5min, PRN: Pain, scale 4-6 tranexamic acid 1 g / 100 mL 0.7% NaCl PMX: 1 gram(s), 100 mL, 300 mL/hr, IV Piggyback, AsDirected tranexamic acid 1 g / 100 mL 0.7% NaCl PMX: 1 gram(s), 100 mL, 300 mL/hr, IV Piggyback, AsDirected vancomycin: 1,500 mg, 30 mL, 166.67 mL/hr, IV Piggyback, PREOP pharm Prescriptions Prescribed Mobic 7.5 mg oral tablet: 7.5 mg, 1 tab(s), Oral, BIDM, Do not take any other nonsteroidal anti-inflammatories while on meloxicam/Mobic, 60 tab(s), 0 Refill(s) Documented Medications Documented PreserVision AREDS 2 oral capsule: 1 cap(s), Oral, BID, 60 cap(s), 0 Refill(s) Refresh ophthalmic solution: 1 drop(s), Eyes, both, BID, 0 Refill(s) Tylenol Extra Strength 500 mg oral tablet: 1,000 mg, 2 tab(s), Oral, TID, not to exceed 3000 mg/day, PRN: as needed for pain cetirizine 10 mg oral capsule: 10 mg, 1 cap(s), Oral, qDay, PRN: as needed for allergy symptoms, 40 cap(s), 0 Refill(s) cholecalciferol 125 mcg (5000 intl units) oral capsule: 125 mcg, 1 cap(s), Oral, qDay, 0 Refill(s) citalopram 10 mg oral tablet: 20 mg, 2 tab(s), Oral, qHS, 0 Refill(s) traMADol 50 mg oral tablet: 50 mg, 1 tab(s), Oral, q12h, PRN: for pain, 12 tab(s), 0 Refill(s), Medications (10) Active Scheduled: (6) dexamethasone 10 mg/mL (1mL) SDV 10 mg 1 mL, IV Push, AsDirected ropivacaine 25 mg + ketorolac 15 mg + epinephrine 0.3 mg + morphine 2.5 mg 25 mg 5 mL, Other, PREOP pharm ropivacaine 25 mg + ketorolac 15 mg + epinephrine 0.3 mg + morphine 2.5 mg 25 mg 5 mL, Other, PREOP pharm tranexamic acid PMX 1 gram(s) 100 mL, IV Piggyback, AsDirected tranexamic acid PMX 1 gram(s) 100 mL, IV Piggyback, AsDirected vancomycin 1,500 mg 30 mL, IV Piggyback, PREOP pharm Continuous: (2) Lactated Ringers 1,000 mL 1,000 mL, Intravenous, 125 mL/hr Lactated Ringers Infusion 1000 mL 1,000 mL, Intravenous, 20 mL/hr PRN: (2) morphine 2 mg/mL 1 mL syringe 2 mg 1 mL, IV Push, q5min ondansetron 2 mg/ 1 mL 2 mL INJ 4 mg 2 mL, IV Push, AsDirected Problem list: Medical Osteoarthritis of left hip / SNOMED CT [id number] / Confirmed, Active Problems (4) Anxiety Lumbar disc herniation Osteoarthritis Osteoarthritis of left hip Histories Past Medical History: Resolved Hypoxia (2541870906): Resolved. Family History: Diabetes mellitus Mother () CABG - Coronary artery bypass graft Father () Procedure history: Revision of left total knee arthroplasty ([id number]) on 02/01/2022 at 71 Years. Total shoulder replacement ([id number]) on 03/31/2020 at 69 Years. Comments: 03/31/2020 11:22 EDT - Alaina Mcgrath RN RIGHT SHOULDER Bilateral prosthetic arthroplasty of knees ([id number]). CTR - Carpal tunnel release ([id number]). Comments: 03/13/2020 12:21 EDT - Cheyenne Donahue RN Bilateral Excision of cataract ([id number]). Epidural steroid injection ([id number]). Comments: 02/01/2022 8:22 EDT - Mracus Mcknight RN LUMBAR SPINE Left hip ([id number]). Comments: 03/21/2023 9:01 BLADIMIR - Cheyenne Donahue RN left hip total arthroplasty Social History Social & Psychosocial Habits Alcohol 03/21/2023 Use: Current Frequency: 1-2 times per year Substance Abuse 03/21/2023 Use: Never Tobacco 03/21/2023 Tobacco Use: Former smoker, quit more Type: Cigarettes Number of years: 10 Stopped at age: 27 Years Home/Environment 03/21/2023 Domestic Concerns None Living situation: Home/Independent Primary Quality Rn: Self Lives In Multilevel home Current Home Treatments None Special Services and Community Resources None Spouse Name Conrado Marital Status of Patient if Patient Independent Adult: Nutrition/Health 03/21/2023 Type of diet: Regular Appetite Good Eating Difficulties None Caffeine intake amount: 5 servings daily . Physical Examination Vital Signs 03/21/2023 10:45 EDT Heart Rate Monitored 75 bpm bpm Respiratory Rate - Anes 10 br/min br/min 03/21/2023 10:40 EDT Heart Rate Monitored 91 bpm bpm Respiratory Rate - Anes 10 br/min br/min Systolic Blood Pressure Non-Invasive 148 mmHg mmHg Diastolic Blood Pressure Non-Invasive 82 mmHg mmHg 03/21/2023 10:35 EDT Heart Rate Monitored 69 bpm bpm Respiratory Rate - Anes 10 br/min br/min Systolic Blood Pressure Non-Invasive 98 mmHg mmHg Diastolic Blood Pressure Non-Invasive 60 mmHg mmHg 03/21/2023 10:30 EDT Heart Rate Monitored 68 bpm bpm Respiratory Rate - Anes 10 br/min br/min Systolic Blood Pressure Non-Invasive 83 mmHg mmHg Diastolic Blood Pressure Non-Invasive 50 mmHg mmHg 03/21/2023 10:25 EDT Heart Rate Monitored 77 bpm bpm Respiratory Rate - Anes 6 br/min br/min Systolic Blood Pressure Non-Invasive 104 mmHg mmHg Diastolic Blood Pressure Non-Invasive 64 mmHg mmHg 03/21/2023 10:20 EDT Heart Rate Monitored 83 bpm bpm Respiratory Rate - Anes 10 br/min br/min Systolic Blood Pressure Non-Invasive 120 mmHg mmHg Diastolic Blood Pressure Non-Invasive 80 mmHg mmHg 03/21/2023 10:15 EDT Heart Rate Monitored 77 bpm bpm Respiratory Rate - Anes 9 br/min br/min Systolic Blood Pressure Non-Invasive 90 mmHg mmHg Diastolic Blood Pressure Non-Invasive 46 mmHg mmHg 03/21/2023 10:10 EDT Heart Rate Monitored 74 bpm bpm Respiratory Rate - Anes 0 br/min br/min Systolic Blood Pressure Non-Invasive 158 mmHg mmHg Diastolic Blood Pressure Non-Invasive 76 mmHg mmHg 03/21/2023 9:00 EDT Temperature Temporal Artery 36.7 DegC Apical Heart Rate 72 bpm Respiratory Rate 20 br/min Systolic Blood Pressure Non-Invasive 148 mmHg HI Diastolic Blood Pressure Non-Invasive 81 mmHg Vital Signs(last 24 hrs) Last Charted Heart Rate [id number] bpm (MAR 21 10:45) Resp Rate 20 br/min (MAR 21 09:00) BTH404 mmHg (MAR 21 10:40) DBP82 mmHg (MAR 21 10:40) Measurements from flowsheet : Measurements 03/21/2023 9:00 EDT Height 162 cm Height in inches 63.8 inch(es) Admission Weight 97.3 kg Weight Lbs 214.1 lb [place] Body Weight 54.19 kg Admission Body Mass Index 37.08 m2 Pain assessment: Pain Assessment 03/21/2023 9:38 EDT Primary Pain Location Shoulder Primary Pain Laterality Left Primary Pain Intensity 8 Primary Pain Time Pattern chronic Primary Pain Quality Aching, Sharp, Throbbing Primary Pain Nonverbal Response Facial grimace Pain Scale Type 0-10 Pain scale . General: Alert and oriented. Airway: Normal temporomandibular joint mobility. Mallampati classification: II (soft palate, fauces, uvula visible). Head: Normocephalic. Dentition Evaluation: Dentures, lower, Dentures, partial plate. Neck: Supple. Respiratory: Lungs are clear to auscultation. Cardiovascular: Normal rate. Heart Sounds: Normal. Gastrointestinal: Soft. Musculoskeletal Normal range of motion. Integumentary: Intact. Neurologic: Alert, Oriented. Review / Management Results review: No qualifying data available , Lab results 03/21/2023 10:51 EDT SN - PP - Body Position Beach Chair Position Standard Intra-op 03/21/2023 10:48 EDT SN - PTCare - Anti-thromboembolism Toma Sequential Compression Device (SCD) 03/21/2023 10:48 EDT SN - Assess - LOC Alert SN - Assess - Orientation Oriented X 3 SN - Assess - Post-op Skin Integrity Intact/Dry 03/21/2023 10:48 EDT SN - TN - Medication IRRIGATION CHG 0.05% IRRISEPT [id number] SN - TN - Route of Administration Irrigation SN - TN - By (Single) SN - TN - By (Single) 03/21/2023 10:47 EDT SN - GCD - ASA Class 2 SN - GCD - Post-operative Diagnosis PRIMARY OSTEOARTHRITIS LEFT SHOULDER SN - GCD - Case Level Level 4 03/21/2023 10:47 EDT SN - Cul - Culture Type No Specimen per Surgeon 03/21/2023 10:45 EDT SN - CTm - Surgery Start 03/21/2023 10:41 03/21/2023 10:45 EDT SN - CAt - Case Attendee SN - CAt - Case Attendee SN - CAt - Case Attendee SN - CAt - Case Attendee SN - CAt - Case Attendee SN - CAt - Case Attendee SN - CAt - Case Attendee SN - CAt - Case Attendee SN - CAt - Case Attendee SN - CAt - Case Attendee SN - CAt - Case Attendee SN - CAt - Case Attendee SN - CAt - Case Attendee SN - CAt - Case Attendee SN - CAt - Case Attendee SN - CAt - Case Attendee SN - CAt - Role Performed Primary Surgeon SN - CAt - Role Performed Hand Tube Winder 1 SN - CAt - Role Performed Scrub 1 SN - CAt - Role Performed Acquisition Marketing Coordinator 1 SN - CAt - Role Performed DRUGLESS PHYSICIAN SN - CAt - Role Performed Physician Computer Systems Security Administrator SN - CAt - Role Performed Cleat Feeder SN - CAt - Role Performed Student Nurse 03/21/2023 10:45 EDT Heart Rate Monitored 75 bpm bpm Respiratory Rate - Anes 10 br/min br/min Oxygen Saturation 98 % % 03/21/2023 10:43 EDT fentaNYL 50 mcg mcg 03/21/2023 10:40 EDT Heart Rate Monitored 91 bpm bpm Respiratory Rate - Anes 10 br/min br/min Systolic Blood Pressure Non-Invasive 148 mmHg mmHg Diastolic Blood Pressure Non-Invasive 82 mmHg mmHg Oxygen Saturation 98 % % acetaminophen 1,000 mg mg povidone iodine topical Not Done: Other (Not Done) Set Rate Anes 10 br/min br/min 03/21/2023 10:35 EDT Heart Rate Monitored 69 bpm bpm Respiratory Rate - Anes 10 br/min br/min Systolic Blood Pressure Non-Invasive 98 mmHg mmHg Diastolic Blood Pressure Non-Invasive 60 mmHg mmHg Oxygen Saturation 98 % % Set Rate Anes 10 br/min br/min 03/21/2023 10:30 EDT Heart Rate Monitored 68 bpm bpm Respiratory Rate - Anes 10 br/min br/min Systolic Blood Pressure Non-Invasive 83 mmHg mmHg Diastolic Blood Pressure Non-Invasive 50 mmHg mmHg Oxygen Saturation 98 % % Set Rate Anes 10 br/min br/min 03/21/2023 10:25 EDT Heart Rate Monitored 77 bpm bpm Respiratory Rate - Anes 6 br/min br/min Systolic Blood Pressure Non-Invasive 104 mmHg mmHg Diastolic Blood Pressure Non-Invasive 64 mmHg mmHg Oxygen Saturation 98 % % acetaminophen Begin Bag 100 mL mg Set Rate Anes 10 br/min br/min 03/21/2023 10:22 EDT citric acid-sodium citrate Not Done: Not Appropriate at this Time (Not Done) 03/21/2023 10:20 EDT Heart Rate Monitored 83 bpm bpm Respiratory Rate - Anes 10 br/min br/min Systolic Blood Pressure Non-Invasive 120 mmHg mmHg Diastolic Blood Pressure Non-Invasive 80 mmHg mmHg Oxygen Saturation 98 % % Set Rate Anes 10 br/min br/min 03/21/2023 10:15 EDT Heart Rate Monitored 77 bpm bpm Respiratory Rate - Anes 9 br/min br/min Systolic Blood Pressure Non-Invasive 90 mmHg mmHg Diastolic Blood Pressure Non-Invasive 46 mmHg mmHg Oxygen Saturation 100 % % Set Rate Anes 10 br/min br/min 03/21/2023 10:12 EDT lidocaine 4 mg mg propofol 150 mg mg rocuronium 30 mg mg 03/21/2023 10:10 EDT Heart Rate Monitored 74 bpm bpm Respiratory Rate - Anes 0 br/min br/min Systolic Blood Pressure Non-Invasive 158 mmHg mmHg Diastolic Blood Pressure Non-Invasive 76 mmHg mmHg Oxygen Saturation 89 % % 03/21/2023 10:07 EDT SN - CTm - Anesthesia Start Time Anesthesia Start 03/21/2023 9:55 EDT Time Out Procedure Verified Time Out Procedure Site Verified Yes Time Out Procedure Site Marked Yes Time Out Correct Patient Position Yes Consent Form Signed Yes Bedside Procedure Nerve Block Provider #1 Bedside Time Out TANK AMATO APRN-DRUGLESS PHYSICIAN Provider #2 Bedside Time Out Cheyenne Donahue RN Allergy Band on and Verified Yes Blood Band on and Verified Yes Patient ID Band on and Verified Yes Anesthesia Consent Signed Yes Blood Consent Signed Yes 03/21/2023 9:47 EDT SN - Preop - CTm Pt Ready for OR/Proced 03/21/2023 9:47 03/21/2023 9:47 EDT Antecubital Right 03/21/2023 20 gauge Peripheral IV Activity: Insert new site Peripheral IV Dressing Condition: Clean, Dry, Intact Peripheral IV Dressing Activity: Applied, Transparent dressing Peripheral IV Line Status/Patency: Continuous infusion, Good blood return Peripheral IV Site Condition: No complications Peripheral IV Equipment: Extension set, PRN Adaptor Peripheral IV Number of Attempts: 2 03/21/2023 9:41 EDT Urinary Elimination Voiding, no difficulties IV Present Present Anesthesia Extension Set Applied Yes CHG Preoperative Wash/Wipe Night before procedure, Day of procedure, Site specific wipe Preop Nasal Swab Povidone-Iodine MRSA/MSSA Protocol Yes Last Fluid Intake 03/20/2023 22:00 Last Food Intake 03/20/2023 22:00 Last Void 03/21/2023 7:00 03/21/2023 9:38 EDT Primary Pain Location Shoulder Primary Pain Laterality Left Primary Pain Intensity 8 Primary Pain Time Pattern chronic Primary Pain Quality Aching, Sharp, Throbbing Primary Pain Nonverbal Response Facial grimace Pain Scale Type 0-10 Pain scale celecoxib 400 mg mg oxyCODONE 10 mg mg 03/21/2023 9:37 EDT Lactated Ringers Injection 1,000 mL mL 03/21/2023 9:33 EDT famotidine 20 mg mg 03/21/2023 9:10 EDT Allergies Yes Consent Form Signed Yes Patient Dressed In Hospital gown, No undergarments Pre-op Preparation Dentures, upper removed, Dentures, lower removed, Glasses removed CHG Skin Prep Completed for Eligible Surgery History & Physical On Chart Yes Belongings At Bedside Dentures, lower, Dentures, partial plate, Dress, Glasses, Shoes, Socks, Undergarments NPO Status Maintained, More than 8 hours Allergy Band on and Verified Yes Patient ID Band on and Verified Yes Implants Verified Yes Pacemaker/AICD Verified Yes Site Verified by Patient/Family Yes Blood Consent Signed Yes 03/21/2023 9:02 EDT Designated Person #1 We May Share PHI Conraod Pretty [phone] Designated Person #1 Relationship Spouse Designated Person #2 We May Share PHI Bright Cárdenas [phone] Designated Person #2 Relationship Daughter Privacy Restrictions Requested None Status N/A Sensory Deficits None Sleep Apnea Snore No Sleep Apnea Tired Yes Sleep Apnea Obstruction No Sleep Apnea Pressure No Sleep Apnea BMI Yes Sleep Apnea Age Yes Sleep Apnea Neck No Sleep Apnea Gender No Sleep Apnea Score 3 Diagnosed With Sleep Apnea No Advanced Directives No - refuses information Infectious Disease Symptoms Patient states no symptoms Infectious Disease Recent Exposure No Alcohol and Drug Use No Employee of Institutional Living No Health Care Employee No History of Exposure to TB No History of Positive Chest X-Ray for TB No History of Positive TB Skin Test No Homeless No Known Immunosuppression No Recent Immigrant No Resident of Institutional Living No Bloody Sputum No Fatigue No Fever No Loss of Appetite No Night Sweats No Persistent Cough > 3 Weeks No Weight Loss No Pre-Op Patient Education NPO after midnight, No smoking after midnight, No makeup, No jewelry, Responsible Constitution Party, Aware of surgery location, Pre-op education done, 1 bottle CHG wash with instructions given, No ordered medications, Anesthesia block education provided SN - Preprocedure Comments Spoke with patient, Verbalizes/Nonverbally indicates understanding Barriers to Learning None evident Teaching Method Explanation, Printed materials Preferred Spoken Language [place] Preferred Written Language [place] Teaching Evaluation Verbalizes/Nonverbally indicates understanding Total Joint Book Given Yes Safety Brochure Information Reviewed Yes Carolyn Guan Video Viewed No Information Given by Patient Patient's Current Physicians Patient's Current Physicians Discharge To, Anticipated Home with family care Prev Test Positive/Diagnosis w/COVID-19 No Current Quarantine/Isolated any Illness No Any Contact with Sick Animals/Birds No Traveled Anywhere in Last 30 Days No Lost Weight Unintentionally Recently No Eat Poorly Due to Decreased Appetite No Total MST Score 0 N/A Personal Devices, Patient Valuables Dentures, lower, Dentures, partial plate, Glasses Anesthesia/Transfusions Prior anesthesia Admission Note-Nursing Same Day Patient History 03/21/2023 9:00 EDT Height 162 cm Height in inches 63.8 inch(es) Admission Weight 97.3 kg Weight Lbs 214.1 lb [place]aver Body Weight 54.19 kg Admission Body Mass Index 37.08 m2 Temperature Temporal Artery 36.7 DegC Apical Heart Rate 72 bpm Respiratory Rate 20 br/min Systolic Blood Pressure Non-Invasive 148 mmHg HI Diastolic Blood Pressure Non-Invasive 81 mmHg Monitor Alarms On and Limits Checked Heart Sounds ICU S1S2 Heart Rhythm Regular Dorsalis Pedis Pulse, Left 2+ Normal Dorsalis Pedis Pulse, Right 2+ Normal Radial Pulse, Left 2+ Normal Radial Pulse, Right 2+ Normal Respirations Unlabored Respiratory Pattern Regular All Lobes Breath Sounds Clear Cough None Oxygen Therapy Room air Oxygen Saturation 95 % Abdomen Description Soft, Rounded Bowel Sounds All Quadrants Present Skin Temperature Warm Skin Description [place], Dry Skin Integrity Intact Skin Moisture General Dry Neurological Symptoms Patient denies Extremity Movement Equal Characteristics of Speech Clear Level of Consciousness Alert Strength All Extremities Strong Tone All Extremities Normal Sensation All Extremities Intact Affect/Behavior Appropriate, Calm, Cooperative Orientation Oriented x 4 Jo Motor (2) Moves 4 extremities voluntarily or on command Jo Respirations (2) Spontaneous respiration without support, RR > 10 Jo Blood Pressure (2) BP 20% above or below preanesthetic level Jo Pulse (2) Pulse 20% above or below preanesthetic level Jo Oxygen Saturation (2) 94% or more Jo Level of Consciousness (2) Fully awake Jo III Score 12 Positioning Repositions self Activity Status ADL Awake Sequential Compression Device bilateral knee high applied/on Standard Safety ID band on, Allergy Band on, Call device within reach, Bed in low position, Wheels locked, Upper/Half-Length side-rails up, Non-Slip footwear Demonstrates Correct Call Light Use Yes 03/21/2023 8:55 EDT SN - Preop - CTm Pt in SDS Room 03/21/2023 8:55 . Assessment and Plan [place] [employer] Anesthesiologists (ASA) physical status classification: Class II. Anesthetic Preoperative Plan Premedication: intravenous. Anesthetic technique: General. Induction: intravenously. Maintenance airway: Oral endotracheal tube. Regional: Interscalene Block. Postoperative pain management: Per surgeon. Risks discussed: nausea, vomiting, sore throat. Informed consent: signed by patient. Digitally Signed by TANK AMATO on 03/21/2023 10:52 AM [facility] 02-27-2023 Note ORIGINAL EXAMINATION: CT OF THE LEFT SHOULDER WITHOUT CONTRAST 02/27/2023 3:11 pm TECHNIQUE: CT of the left shoulder was performed without the administration of intravenous contrast. Multiplanar reformatted images are provided for review. Automated exposure control, iterative reconstruction, and/or weight based adjustment of the mA/kV was utilized to reduce the radiation dose to as low as reasonably achievable. CT DIvol: 14.3, DLP: 265 with COMPARISON: None. HISTORY ORDERING SYSTEM PROVIDED HISTORY: Reason for Exam: Primary osteoarthritis, left shoulder FINDINGS: There is advanced osteoarthrosis of the glenohumeral joint with complete loss of the joint space, subcortical cystic changes, and prominent osteophyte formation along the inferomedial humeral head. There is also advanced osteoarthrosis of the acromioclavicular joint. There is no acute fracture or dislocation. There are no suspicious lytic or blastic osseous lesions. The soft tissues are grossly unremarkable. IMPRESSION: Advanced degenerative changes. Interpreted by: Deven Penny Preliminary Report By: Deven Penny Electronically signed By Deven Penny Dictated Date: 02/27/2023 4:45:18 PM Prelim Date: 02/27/2023 4:50:02 PM Sign Date: 02/27/2023 4:50:02 PM Ordering Provider: [facility] 02-03-2022 [facility] instructions Patient Education 02/03/2022 11:24:02 5 - [facility] Post-op Instruction 01/2017 (04546) [facility] Post-operative Instructions PLEASE FOLLOW [facility] POST-OP INSTRUCTIONS GIVEN WATCH FOR SIGNS OF INFECTION: call the office ([phone]) if experencing any of the following: (Usually appears 36-48 hours after surgery) Increased temperature (101 degrees Fahrenheit or higher) Redness or swelling Increased uncontrolled pain Foul odor or drainage Calf discomfort Significant swelling Or if having any chest pain, shortness of breath, or difficulty breathing or swallowing call the office or go the nearest Emergency Room. If you have any questions, please call your doctor at the number listed on your follow up instructions. Form: 338A (39280) R: 10/16 Follow Up Care 12/21/2021 15:03:14 With:[facility] Address: [address] [place] [phone] When:02/04/2022 13:00:00 Comments:This is your first physical therapy appointment. Follow-up as scheduled. With:NILSON GARCIA PA-C, Orthopedic Address: [facility] [address] [place] [phone]- When:02/16/2022 10:45:00 Comments:This is your post-op appointment. Follow-up as scheduled. [facility] 02-03-2022 Note Discharge Instructions Thank you for allowing [facility] to assist you with your healthcare needs. The following is important discharge information regarding your hospital visit. Your Care Team [facility] Your Diagnosis Hyperkalemia Depression Status post revision of total replacement of left knee What to do next Follow Up Appointments Follow Up with NILSON GARCIA PA-C, Orthopedic When 02/16/2022 10:45 AM EDT Why: This is your post-op appointment. Follow-up as scheduled. Where: [facility] [address] [place] [phone] Follow Up with [facility] When 02/04/2022 01:00 PM EDT Why: This is your first physical therapy appointment. Follow-up as scheduled. Where: [address] [place] [phone] The Following Activity and Diet Have Been Ordered for You No qualifying data available. No qualifying data available. The Following Equipment Has Been Ordered for You No qualifying data available. The Following Treatments Have Been Ordered for You Discharge Labs No qualifying data available. Discharge Radiology No qualifying data available. Other Therapies No qualifying data available. Post Acute Orders No qualifying data available. Someone Will Contact You Regarding These Home Health Referrals No home referrals have been ordered for you. No one will call you. Allergies Contrast dye (Hives) Latex (Hives) penicillin (Hives) Medications Please ask your primary doctor or pharmacist before taking any other medication not listed, including over the counter drugs, herbal medications, vitamins and or supplements as they may interact with your home medications. What How Much When Why Instructions Last Dose New acetaminophen (acetaminophen 500 mg oral tablet) 2 tab(s) by mouth Three (3) times a day as needed for as needed for pain not to exceed 3000 mg/ day Pickup at [facility]/pharmacy #[id number] New aspirin (aspirin 81 mg oral delayed release tablet) 1 tab(s) by mouth Two (2) times a day Duration: 30 Days Take 81 mg aspirin twice daily with food for 4 weeks postoperatively for DVT prophylaxis Pickup at [facility]/pharmacy #[id number] New doxycycline (doxycycline hyclate 100 mg oral capsule) 1 cap by mouth Every 12 hours Duration: 13 Days Pickup at [facility]/pharmacy #[id number] New famotidine (Pepcid 20 mg oral tablet) 1 tab(s) by mouth Once a day Pickup at [facility]/pharmacy #[id number] New montelukast (montelukast 10 mg oral tablet) 1 tab(s) by mouth Daily at bedtime Refills: 2 Pickup at [facility]/pharmacy #[id number] New oxyCODONE (oxyCODONE 5 mg oral tablet ( IMMEDIATE release )) See instructions Status post revision of total replacement of left knee 1-2 tab(s) Oral q4h Pickup at [facility]/pharmacy #[id number] Unchanged betamethasone topical (betamethasone dipropionate 0.05% topical cream) 1 application Topical As needed for Rash APPLY TO AREAS OF RASH YOU CAN SEE OR FEEL ON THE LEFT ANKLE Unchanged cetirizine (cetirizine 10 mg oral capsule) 1 cap by mouth Once a day as needed for as needed for allergy symptoms Unchanged cholecalciferol (cholecalciferol 125 mcg (5000 intl units) oral capsule) 1 cap by mouth Once a day Unchanged citalopram (citalopram 10 mg oral tablet) 1 tab(s) by mouth Daily at bedtime Unchanged meloxicam (meloxicam 7.5 mg oral tablet) 1 tab(s) by mouth Two (2) times a day Unchanged nystatin topical (nystatin 100,000 units/ g topical cream) 1 application Topical Two (2) times a day as needed for Rash Pharmacy Information [facility]/pharmacy #[id number]: [address], [place] [id number] [phone] What How Much When Comments Stop Taking traMADol (traMADol 50 mg oral tablet) 1 tab(s) by mouth Every 12 hours as needed for for pain Please take this list to your next doctor s visit. Bring all medications you take, including over the counter medications, herbals and other supplements with you to your doctor s visit. Patients and families are reminded to discard old lists and to update any records with all medication providers or retail pharmacies. Education Materials [facility] Post-operative Instructions PLEASE FOLLOW [facility] POST-OP INSTRUCTIONS GIVEN WATCH FOR SIGNS OF INFECTION: call the office ([phone]) if experencing any of the following: (Usually appears 36-48 hours after surgery) Increased temperature (101 degrees Fahrenheit or higher) Redness or swelling Increased uncontrolled pain Foul odor or drainage Calf discomfort Significant swelling Or if having any chest pain, shortness of breath, or difficulty breathing or swallowing call the office or go the nearest Emergency Room. If you have any questions, please call your doctor at the number listed on your follow up instructions. Form: 338A (46614) R: 10/16 Additional Information VACCINATE! IT SAVES LIVES! Members of the community who have not yet received the COVID-19 vaccine and would like to receive it can visit one of [facility] vaccine clinics. There are many vaccine clinic locations within the [facility]. For locations and available times, please visit [email or web address] It is important to note that some COVID mobile vaccine clinics are held outdoors and may be canceled in rainy or stormy conditions. To learn more about pediatric vaccinations (ages 5-11), we invite you to visit the [facility] webpage. [email or web address] To learn more about the COVID-19 vaccine, we invite you to visit the [facility] website for a list of frequently asked questions. [email or web address] [facility] Patient Portal Access Instructions: Stay connected with your healthcare team and access your personal medical information anytime with the [facility] Patient Portal.If you would like a full copy of your medical records, please contact the [facility] Medical Records Department, Monday through Monday between 8a.m. and 4:30p.m. Please follow the directions below to access the portal: 1.Access the email account you provided upon registration to the [facility].2.Look for an invitation email from [facility].3.Open the email and access the invitation link: Accept Invitation to [facility].Fill in the required marquez to create your account. Sign into [email or web address] with your username and password that you created in the above steps to stay up to date. You can then view a summary of results, a summary of your visits, and the ability to download your summaries to your computer or send the information securely to a physician. Remember that your healthcare information is confidential, so carefully consider who you will allow to register on the [facility] Patient Portal for access to your information. You can also access the [facility] Patient Portal on the [employer]. Simply click on "Health Records" under "Health Data" and then click on the [facility] logo. HOW TO SAFELY DISPOSE OF PRESCRIPTION MEDICATIONS Please use one of the following methods to safely dispose of your unused medications. 1.Use a drug disposal kit: the drug disposal pouch allows you to safely discard your old and unused drugs. Ask your nurse to give you one when you are discharged.2.Visit a local take-back location: Many local pharmacies and police departments have programs that collect old and unwanted prescription drugs. Call your local pharmacy or go to http://[employer].Alere Analytics/1Y4Ck1i to find one close to you.3.Make use of household items: Use cat litter or old coffee grounds to dispose medications if other options are not available. Mix your drugs with these household products, seal them in an airtight container and throw it into the garbage. Call [facility]: [phone] to be sure your drugs can be disposed of in this way. Some medicines may require a different approach.4.Never flush your medications down the toilet. IF YOU HAVE BEEN PRESCRIBED AN OPIOID FOR PAIN If you have been prescribed an opioid (such as hydrocodone, oxycodone or morphine), it is critical to understand the possible side effects and risks of opioid pain medications. Even when taken as directed, opioids can have several side effects including: Tolerance, meaning you might need to take more of a medication for the same pain relief. Nausea, vomiting and/or constipation. Sleepiness, dizziness, dry mouth, confusion, depression or itching. Physical dependence, meaning you have withdrawal symptoms when a medication is stopped, can develop within a few days. KNOW YOUR RESPONSIBILITIES It is important to know exactly how much and how often to take the opioid pain medications you are prescribed. Never take opioids in higher amounts or more often than prescribed. Do not combine opioids with alcohol or other drugs that cause drowsiness, such as benzodiazepines, also known as benzos, including diazepam and alprazolam, muscle relaxants or sleep aids. Never sell or share prescription opioids. This is illegal. Store opioids in a secure place and out of reach of others (including children, family, friends and visitors). The last page of this document has been signed and retained as a CHART COPY. Signatures Patient Education Materials [address] [place] [address] Post-op Instruction 01/2017 (61486) Medication Leaflets My discharge plan and instructions have been reviewed and explained to me and I,MI PRETTY understand my current condition and have read and understand these discharge instructions. I have received a written copy of the plan/instructions. If I have questions, I am aware that I should contact my doctor. 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 02-03-2022 Note ORIGINAL EXAMINATION: TWO XRAY VIEWS OF THE CHEST02/02/2022 3:28 pm COMPARISON: Chest radiograph 01/17/2022 HISTORY: ORDERING SYSTEM PROVIDED HISTORY: Reason for Exam: hypoxia, knee surgery 1 day ago FINDINGS: Cardiomediastinal contours are stable. Atherosclerotic aorta. Hypoventilatory changes with no focal consolidation. No pneumothorax or pleural effusion. No acute osseous abnormalities. Degenerative changes of the spine with exaggerated thoracic kyphosis. Orthopedic hardware in place in the right shoulder. IMPRESSION: No acute cardiopulmonary findings. I have personally reviewed the images of this examination and agree with the resident's findings and interpretation. Interpreted by: Tressa Garnica Preliminary Report By: Jigna Mclean Electronically signed By Tressa Garnica Dictated Date: 02/03/2022 9:05:19 AM Prelim Date: 02/03/2022 12:28:36 PM Sign Date: 02/03/2022 12:28:36 PM Ordering Provider: DAVID JUAN [facility] 02-03-2022 Note Date of Service 02/03/2022 Chief Complaint Left knee pain Subjective Patient seen and evaluated while resting in recliner. She states that she is doing well this morning. She adds that she did not get much sleep last night as the pulse ox kept alarming throughout the night. Patient is currently on room air with oxygen saturations of 95%. Labs were ordered late this morning and potassium is within normal limits today, 4.6. Therapy reports that patient is having difficulty bending her knee secondary to pain. They are planning to work with her again shortly after she has been medicated. Patient denies any new problems or concerns this morning. She denies any fever, chills, cough, shortness of breath, chest pain, abdominal pain or nausea. All questions answered. Objective Vitals and Measurements T: 36.7 C (Oral) TMIN: 36.6 C (Oral) TMAX: 36.9 C (Oral) HR: 67 RR: 16 BP: 137/65 SpO2: 98% Intake and Output 7AM Yesterday to 7AM Today Intake and Output (Last 24 hours) Intake Supplement Intake 240.00 Output Urine Count 1.00 Total Summary Total Intake 240.00 Total Output 0.00 Fluid Balance 240.00 Physical Exam General: No acute distress. Patient is alert and appropriate. Skin: No rash. Skin is warm, dry and intact. Left knee dressing is dry and intact. HEENT: Head is normocephalic, atraumatic. Pupils are equal, round and reactive. Mouth is without lesion. Nose without septal deviation. Neck: Supple. No lymphadenopathy, thyromegaly. Lungs: Bilaterally clear but diminished without crepitation or wheeze. Unlabored. Heart: Heart is regular rhythm, S1, S2. No murmurs, gallops or rubs. Abdomen: Abdomen is soft, nontender. Bowels sounds present in all quadrants. Extremities: No clubbing, cyanosis, or edema. Peripheral pulses palpable. No calf tenderness. Neurological: Patient is awake and alert to person, place and time. Following simple commands, moving all extremities. Weight Dosing Weight: 112.6 kg (02/01/22) Dosing Weight: 112.6 kg (02/01/22) Medications Medications (20) Active Scheduled: (10) acetaminophen 500 mg Tablet 1,000 mg 2 tab(s), Oral, q8h aspirin 81 mg Chewable 81 mg 1 tab(s), Oral, BIDM citalopram 20 mg Tablet 10 mg 0.5 tab(s), Oral, qHS docusate sodium 100 mg Capsule 100 mg 1 cap(s), Oral, BID docusate-senna (Senokot S) 50 mg-8.6 mg Tablet 2 tab(s), Oral, BID doxycycline hyclate 100 mg Capsule 100 mg 1 cap(s), Oral, q12h famotidine 20 mg tablet 20 mg 1 tab(s), Oral, qDay magnesium hydroxide 8% Suspension 30 mL UD 30 mL, Oral, Daily montelukast 10 mg Tablet 10 mg 1 tab(s), Oral, qHS multivitamin (Myadec) with minerals Therapeutic Multiple Vitamins with Minerals Tablet 1 tab(s), Oral, qDayM Continuous: (1) Lactated Ringers 1,000 mL 1,000 mL, Intravenous, 100 mL/hr PRN: (9) acetaminophen 325 mg Tablet 650 mg 2 tab(s), Oral, q4h diphenhydramine 25 mg tablet 25 mg 1 tab(s), Oral, q6h diphenhyDRAMINE 50 mg/mL (1 mL) INJ 25 mg 0.5 mL, IV Push, q6h morphine 4 mg/mL 1mL INJ 2 mg 0.5 mL, IV Push, q1h ondansetron 2 mg/ 1 mL 2 mL INJ 4 mg 2 mL, IV Push, q8h oxycodone 5 mg tablet (immediate release) 5 mg 1 tab(s), Oral, q4h oxycodone 5 mg tablet (immediate release) 10 mg 2 tab(s), Oral, q4h prochlorperazine 10 mg/2 mL vial 5 mg 1 mL, IV Push, q6h sodium biphosphate-sodium phosphate 19 gm-7 gm Enema 133 mL, Rectal, qDay Lab Results 02/03 10:18 WBC: 7.9 Hgb: 11.0 L Hct: 31.9 L Platelet: 186 Neutrophil %: 68.4 Glucose Level: 185 H Sodium Level: 141 Potassium Level: 4.6 BUN: 17 Creatinine Lvl (s): 0.61 02/02 14:23 Potassium Level: 4.2 02/02 05:47 WBC: 13.0 H Hgb: 11.4 L Hct: 33.6 L Platelet: 200 Neutrophil %: 82.5 H Glucose Level: 127 H Sodium Level: 139 Potassium Level: 5.7 H BUN: 17 Creatinine Lvl (s): 0.58 Imaging Results and Diagnostics XR Knee 1 or 2 Views Left Result Date: February 01, 2022 Verified By: CHERELLE VARGAS MD CLINICAL STATEMENT: IMPRESSION: Arthroplasty with immediate postoperative changes. Assessment/Plan 1. Hyperkalemia Acute, new onset, unknown etiology *500cc normal saline bolus and Kayexalate 30 gram x1 given yesterday. *Repeat potassium yesterday was 4.2. *On morning labs, 4.6 this morning. 2. Depression Chronic, no thoughts of self-harm *Continue current home medications. 3. Status post revision of total replacement of left knee s/p revision of left knee. *Management per primary team. *Pain not well-controlled this morning. *Continue PT/OT. DVT prophylaxis:SCD's, aspirin 81 mg PO BID. Labs, diagnostics, and progress notes reviewed as noted in HPI. Code Status:Full Code Plan of care discussed with patient. All questions answered. Patient verbalizes understanding and is agreeable to plan of care. This case was discussed with collaborating physician, Dr. Stephen Kaye. Hospitalist service agrees with plan to discharge patient home today. Time Spent 35 minutes. Digitally Signed by FAITH HEADLEY on 02/03/2022 01:14 PM [facility] 02-03-2022 Note Date of Service February 03, 2022 Subjective The patient was sitting in bed upon examination just finished in physical therapy. Patient denies any chest pain, shortness of breath, dizziness, lightheadedness, nausea or vomiting, or calf pain. No adverse overnight events. Pain has been controlled on medications. Patient did tolerate therapy. She is sore from physical therapy. Therapist states that she is okay to go home as long as she has help with her . She participated on steps. Discussed case with medicine and they are okay with patient being discharged home today. Her hyperkalemia has resolved. Patient has outpatient physical therapy established tomorrow. Objective Vitals and Measurements T: 36.7 C (Oral) TMIN: 36.6 C (Oral) TMAX: 36.9 C (Oral) HR: 67 RR: 16 BP: 137/65 SpO2: 98% Intake and Output 7AM Yesterday to 7AM Today Intake and Output (Last 24 hours) Intake Supplement Intake 240.00 Output Urine Count 1.00 Total Summary Total Intake 240.00 Total Output 0.00 Fluid Balance 240.00 Physical Exam Vital signs stable, afebrile QUIQUE hose and SCDs are in place bilaterally Patient is able to plantarflex and dorsiflex actively Sensation is intact to saphenous, sural, superficial and deep peroneal, and tibial distribution Dressing is clean dry and intact Negative signs and symptoms of DVT, negative Homans bilaterally Weight Dosing Weight: 112.6 kg (02/01/22) Dosing Weight: 112.6 kg (02/01/22) Medications Medications (20) Active Scheduled: (10) acetaminophen 500 mg Tablet 1,000 mg 2 tab(s), Oral, q8h aspirin 81 mg Chewable 81 mg 1 tab(s), Oral, BIDM citalopram 20 mg Tablet 10 mg 0.5 tab(s), Oral, qHS docusate sodium 100 mg Capsule 100 mg 1 cap(s), Oral, BID docusate-senna (Senokot S) 50 mg-8.6 mg Tablet 2 tab(s), Oral, BID doxycycline hyclate 100 mg Capsule 100 mg 1 cap(s), Oral, q12h famotidine 20 mg tablet 20 mg 1 tab(s), Oral, qDay magnesium hydroxide 8% Suspension 30 mL UD 30 mL, Oral, Daily montelukast 10 mg Tablet 10 mg 1 tab(s), Oral, qHS multivitamin (Myadec) with minerals Therapeutic Multiple Vitamins with Minerals Tablet 1 tab(s), Oral, qDayM Continuous: (1) Lactated Ringers 1,000 mL 1,000 mL, Intravenous, 100 mL/hr PRN: (9) acetaminophen 325 mg Tablet 650 mg 2 tab(s), Oral, q4h diphenhydramine 25 mg tablet 25 mg 1 tab(s), Oral, q6h diphenhyDRAMINE 50 mg/mL (1 mL) INJ 25 mg 0.5 mL, IV Push, q6h morphine 4 mg/mL 1mL INJ 2 mg 0.5 mL, IV Push, q1h ondansetron 2 mg/ 1 mL 2 mL INJ 4 mg 2 mL, IV Push, q8h oxycodone 5 mg tablet (immediate release) 5 mg 1 tab(s), Oral, q4h oxycodone 5 mg tablet (immediate release) 10 mg 2 tab(s), Oral, q4h prochlorperazine 10 mg/2 mL vial 5 mg 1 mL, IV Push, q6h sodium biphosphate-sodium phosphate 19 gm-7 gm Enema 133 mL, Rectal, qDay Lab Results 02/03 10:18 WBC: 7.9 Hgb: 11.0 L Hct: 31.9 L Platelet: 186 Neutrophil %: 68.4 Glucose Level: 185 H Sodium Level: 141 Potassium Level: 4.6 BUN: 17 Creatinine Lvl (s): 0.61 02/02 14:23 Potassium Level: 4.2 02/02 05:47 WBC: 13.0 H Hgb: 11.4 L Hct: 33.6 L Platelet: 200 Neutrophil %: 82.5 H Glucose Level: 127 H Sodium Level: 139 Potassium Level: 5.7 H BUN: 17 Creatinine Lvl (s): 0.58 EKG No qualifying data available. Assessment/Plan 1. Depression 2. Status post revision of total replacement of left knee 1. Status post revision left total knee arthroplasty postop day #2 2. Continue pain medications: Tylenol, meloxicam, oxycodone. Do not take any other nonsteroidal anti-inflammatories while on meloxicam/Mobic 3. DVT prophylaxis: Take 81 mg aspirin twice daily with food for 4 weeks postoperatively for DVT prophylaxis. Patient denies previous history of DVT or pulmonary embolism. 4. Physical therapy: Weightbearing as tolerated with walker. I did recommend to the patient to make sure she is doing the exercises 3 times daily and focusing on flexion. She did voice understanding and agreement. 5. H & H: 11.0/31.9, asymptomatic. Postoperative anemia secondary to acute blood loss from surgery without intraoperative complications. 6. Reactive leukocytosis: Resolved currently 7.9, yesterday was 13.0, afebrile. Patient did receive Decadron intraoperatively 7. Postoperative hypoxia: Currently on room air. Recommended incentive spirometer every 30 minutes. Nursing is currently weaning off of oxygen at this time. No previous history of sleep apnea or requirement for oxygen. 8. Hyperkalemia: Resolved and potassium is currently 4.6. On preop lab work patient was 4.5 on January 17, 2022 9. Encouraged incentive spirometry 10. Continue antibiotics while following cultures: Currently on doxycycline for 2 weeks postoperatively. Cultures are currently without growth and we will continue to monitor to these postoperatively. I discussed with the patient to take appropriate precautions as she has more hypersensitivity to the sun. Also recommend to take probiotics while on the antibiotics for 2 weeks postoperatively. 11. Continue postoperative medical management per medicine: Case was discussed with medicine and they are appropriate for discharge. 12. Disposition: Plan will be for discharge home today. Dr. Laureano Olson has placed patient on Montelukast for 3 months postoperatively for scar tissue prevention. She would like her prescriptions E scribed to [facility] in [facility]. She has outpatient physical therapy established beginning tomorrow. I again discussed with the patient the importance of her performing exercises on a daily basis 3 times working on range of motion. She will continue to ambulate with walker and progress per physical therapy. Patient will follow-up per postop instructions. She will contact her office upon discharge with any concerns or questions. I have reviewed the [place] Automated Rx Reporting System (OARRS) report for this patient for refill pattern and other prescriber involvement as part of the appropriate surveillance for the provision of acute and chronic controlled medications. The report was requested and reviewed on the date of this entry, and was considered in the prescribing process. This dictation was created using voice recognition software. Phonetic and/or grammatical errors may exist. 3. Hyperkalemia Digitally Signed by NILSON GARCIA PA-C on 02/03/2022 11:23 AM [facility] 02-02-2022 Note ORIGINAL EXAMINATION: TWO XRAY VIEWS OF THE CHEST02/02/2022 3:28 pm COMPARISON: Chest radiograph 01/17/2022 HISTORY: ORDERING SYSTEM PROVIDED HISTORY: Reason for Exam: hypoxia, knee surgery 1 day ago FINDINGS: Cardiomediastinal contours are stable. Atherosclerotic aorta. Hypoventilatory changes with no focal consolidation. No pneumothorax or pleural effusion. No acute osseous abnormalities. Degenerative changes of the spine with exaggerated thoracic kyphosis. Orthopedic hardware in place in the right shoulder. IMPRESSION: No acute cardiopulmonary findings. I have personally reviewed the images of this examination and agree with the resident's findings and interpretation. Interpreted by: Tressa Garnica Preliminary Report By: Jigna Mclean Electronically signed By Tressa Garnica Dictated Date: 02/03/2022 9:05:19 AM Prelim Date: 02/03/2022 12:28:36 PM Sign Date: 02/03/2022 12:28:36 PM [facility] 02-02-2022 Note Date of Service 02/02/2022 Subjective 71-year-old female with past medical history significant for depression. Patient seen for consultation for medical management. Patient presents for elective revision of left total knee arthroplasty. Preoperative labs reviewed from 01/17/2022. No leukocytosis. H&H 14 and 41% respectively. Electrolytes all within normal limits. BUN and creatinine 17 and 0.52. Hemoglobin A1c 6.0. On exam today, pt denies any fever or chills. No headache or dizziness. Denies chest pain, palpitations. No cough, dyspnea, sputum production. Denies N/V/D/C. No melena/hematochezia. No dysuria or hematuria. No new paresthesias. Objective Vitals and Measurements T: 36.6 C (Oral) TMIN: 36.5 C (Oral) TMAX: 36.7 C (Oral) HR: 72 RR: 16 BP: 122/62 SpO2: 97% HT: 160 cm WT: 112.6 kg BMI: 43.98 Intake and Output 7AM Yesterday to 7AM Today Intake and Output (Last 24 hours) Intake Oral Intake 850.00 Administration Information 1502.00 Supplement Intake 100.00 Output Urine Count 2.00 Total Summary Total Intake 2452.00 Total Output 0.00 Fluid Balance 2452.00 Physical Exam GEN: Appears chronically ill EYES: No conjunctival erythema, drainage. EOMI EARS: Hearing grossly intact. NOSE: No nasal discharge. THROAT: Oral cavity and pharynx pink and moist. CHEST: Normal S1 and S2. Rhythm is regular. Clear to auscultation, without rales, rhonchi, wheezing. ABD: Positive bowel sounds x 4 quads. Soft, nondistended, nontender. EXT: No significant deformity or joint abnormality. No edema. Peripheral pulses intact. NEURO: Sensation grossly intact SKIN: Surgical dressing in place PSYCH: The mental examination revealed the patient was alert and oriented x 4 Weight Dosing Weight: 112.6 kg (02/01/22) Dosing Weight: 112.6 kg (02/01/22) Medications Medications (22) Active Scheduled: (10) acetaminophen 500 mg Tablet 1,000 mg 2 tab(s), Oral, q8h aspirin 81 mg Chewable 81 mg 1 tab(s), Oral, BIDM citalopram 20 mg Tablet 10 mg 0.5 tab(s), Oral, qHS docusate sodium 100 mg Capsule 100 mg 1 cap(s), Oral, BID docusate-senna (Senokot S) 50 mg-8.6 mg Tablet 2 tab(s), Oral, BID doxycycline hyclate 100 mg Capsule 100 mg 1 cap(s), Oral, q12h famotidine 20 mg tablet 20 mg 1 tab(s), Oral, qDay magnesium hydroxide 8% Suspension 30 mL UD 30 mL, Oral, Daily montelukast 10 mg Tablet 10 mg 1 tab(s), Oral, qHS multivitamin (Myadec) with minerals Therapeutic Multiple Vitamins with Minerals Tablet 1 tab(s), Oral, qDayM Continuous: (2) Lactated Ringers 1,000 mL 1,000 mL, Intravenous, 100 mL/hr Lactated Ringers 1000 mL 1,000 mL, Intravenous, 20 mL/hr PRN: (10) acetaminophen 325 mg Tablet 650 mg 2 tab(s), Oral, q4h diphenhydramine 25 mg tablet 25 mg 1 tab(s), Oral, q6h diphenhyDRAMINE 50 mg/mL (1 mL) INJ 25 mg 0.5 mL, IV Push, q6h ketorolac 30 mg/mL (1 mL) vial 15 mg 0.5 mL, IV Push, q6h morphine 4 mg/mL 1mL INJ 2 mg 0.5 mL, IV Push, q1h ondansetron 2 mg/ 1 mL 2 mL INJ 4 mg 2 mL, IV Push, q8h oxycodone 5 mg tablet (immediate release) 5 mg 1 tab(s), Oral, q4h oxycodone 5 mg tablet (immediate release) 10 mg 2 tab(s), Oral, q4h prochlorperazine 10 mg/2 mL vial 5 mg 1 mL, IV Push, q6h sodium biphosphate-sodium phosphate 19 gm-7 gm Enema 133 mL, Rectal, qDay Lab Results 02/02 05:47 WBC: 13.0 H Hgb: 11.4 L Hct: 33.6 L Platelet: 200 Neutrophil %: 82.5 H Glucose Level: 127 H Sodium Level: 139 Potassium Level: 5.7 H BUN: 17 Creatinine Lvl (s): 0.58 EKG No qualifying data available. Assessment/Plan 1. Depression 2. Status post revision of total replacement of left knee 3. Hyperkalemia Depression- No thoughts of self harm. Continue home medication. s/p revision of Left knee- management per primary team. Pain well controlled. Hyperkalemia 500 mL bolus of normal saline and Kayexalate 30 g x 1. Repeat potassium level at 1400. DVT prophylaxis:SCD's Labs, diagnostics, and progress notes reviewed as noted in HPI Code Status:Full Code Plan of care discussed with patient. All questions answered. Patient verbalizes understanding is agreeable to plan of care. This dictation was performed using voice recognition software and may include grammatical and/or spelling errors. Digitally Signed by DAVID JUAN on 02/02/2022 02:42 PM [facility] 02-02-2022 Note Date of Service February 02, 2022 Subjective The patient was sitting in bed upon examination. Patient denies any chest pain, shortness of breath, dizziness, lightheadedness, nausea or vomiting, or calf pain. No adverse overnight events. Pain has been controlled on medications. Patient states she was able to get up and walk yesterday with pain in the knee. She has required nasal oxygen overnight due to to some postoperative hypoxia. They are weaning her off the oxygen this morning. She denies any shortness of breath. Denies history of sleep apnea. She has been working on her incentive spirometer. Objective Vitals and Measurements T: 36.6 C (Oral) TMIN: 35.63 C TMAX: 37.36 C HR: 65 RR: 16 BP: 135/63 SpO2: 95% HT: 160 cm WT: 112.6 kg BMI: 43.98 Intake and Output 7AM Yesterday to 7AM Today Intake and Output (Last 24 hours) Intake Oral Intake 850.00 Administration Information 3002.00 Supplement Intake 100.00 Output Intra-Op EBL 250.00 Urine Count 2.00 Total Summary Total Intake 3952.00 Total Output 250.00 Fluid Balance 3702.00 Physical Exam Vital signs stable, afebrile. Postoperative overnight required 2 L nasal O2 with some hypoxia. Currently on room air Currently with QUIQUE hose and SCDs on the right and SCD on the left. We will be placing the QUIQUE hose back on the left knee. Patient is able to plantarflex and dorsiflex actively Sensation is intact to saphenous, sural, superficial and deep peroneal, and tibial distribution Dressing is clean dry and intact Negative signs and symptoms of DVT, negative Homans bilaterally Weight Dosing Weight: 112.6 kg (02/01/22) Dosing Weight: 112.6 kg (02/01/22) Medications Medications (28) Active Scheduled: (16) acetaminophen 500 mg Tablet 1,000 mg 2 tab(s), Oral, q8h aspirin 81 mg Chewable 81 mg 1 tab(s), Oral, BIDM bisacodyl 5 mg EC tablet 10 mg 2 tab(s), Oral, Once citalopram 20 mg Tablet 10 mg 0.5 tab(s), Oral, qHS dexamethasone 10 mg/mL (1mL) SDV 10 mg 1 mL, IV Push, AsDirected docusate sodium 100 mg Capsule 100 mg 1 cap(s), Oral, BID docusate-senna (Senokot S) 50 mg-8.6 mg Tablet 2 tab(s), Oral, BID doxycycline hyclate 100 mg Capsule 100 mg 1 cap(s), Oral, q12h famotidine 20 mg tablet 20 mg 1 tab(s), Oral, qDay magnesium hydroxide 8% Suspension 30 mL UD 30 mL, Oral, Daily montelukast 10 mg Tablet 10 mg 1 tab(s), Oral, qHS multivitamin (Myadec) with minerals Therapeutic Multiple Vitamins with Minerals Tablet 1 tab(s), Oral, qDayM ondansetron 2 mg/ 1 mL 2 mL INJ 4 mg 2 mL, IV Push, q8h sodium polystyrene sulfonate 15 gm/60 mL Suspension UD 30 gram(s) 120 mL, Oral, Once tranexamic acid PMX 1 gram(s) 100 mL, IV Piggyback, AsDirected tranexamic acid PMX 1 gram(s) 100 mL, IV Piggyback, AsDirected Continuous: (2) Lactated Ringers 1,000 mL 1,000 mL, Intravenous, 100 mL/hr Lactated Ringers 1000 mL 1,000 mL, Intravenous, 20 mL/hr PRN: (10) acetaminophen 325 mg Tablet 650 mg 2 tab(s), Oral, q4h diphenhydramine 25 mg tablet 25 mg 1 tab(s), Oral, q6h diphenhyDRAMINE 50 mg/mL (1 mL) INJ 25 mg 0.5 mL, IV Push, q6h ketorolac 30 mg/mL (1 mL) vial 15 mg 0.5 mL, IV Push, q6h morphine 4 mg/mL 1mL INJ 2 mg 0.5 mL, IV Push, q1h ondansetron 2 mg/ 1 mL 2 mL INJ 4 mg 2 mL, IV Push, q8h oxycodone 5 mg tablet (immediate release) 5 mg 1 tab(s), Oral, q4h oxycodone 5 mg tablet (immediate release) 10 mg 2 tab(s), Oral, q4h prochlorperazine 10 mg/2 mL vial 5 mg 1 mL, IV Push, q6h sodium biphosphate-sodium phosphate 19 gm-7 gm Enema 133 mL, Rectal, qDay Lab Results 02/02 05:47 WBC: 13.0 H Hgb: 11.4 L Hct: 33.6 L Platelet: 200 Neutrophil %: 82.5 H Glucose Level: 127 H Sodium Level: 139 Potassium Level: 5.7 H BUN: 17 Creatinine Lvl (s): 0.58 EKG No qualifying data available. Assessment/Plan 1. Depression 2. Status post revision of total replacement of left knee 1. Status post revision left total knee arthroplasty postop day #1 2. Continue pain medications: Tylenol, meloxicam, oxycodone 3. DVT prophylaxis: Take 81 mg aspirin twice daily with food for 4 weeks postoperatively for DVT prophylaxis. Patient denies previous history of DVT or pulmonary embolism. 4. Physical therapy: Weightbearing as tolerated with walker 5. H & H: 11.4/33.6, asymptomatic. Postoperative anemia secondary to acute blood loss from surgery without intraoperative complications. 6. Reactive leukocytosis: Currently 13.0, afebrile. Patient did receive Decadron intraoperatively 7. Postoperative hypoxia: Currently on room air. Recommended incentive spirometer every 30 minutes. Nursing is currently weaning off of oxygen at this time. No previous history of sleep apnea or requirement for oxygen. 8. Hyperkalemia: Currently 5.7. On preop lab work patient was 4.5 on January 17, 2022 9. Encouraged incentive spirometry 10. Continue antibiotics while following cultures: Currently on doxycycline for 2 weeks postoperatively. Cultures are currently without growth and we will continue to monitor to these postoperatively. 11. Continue postoperative medical management per medicine 12. Disposition: At this time patient will require additional night stay secondary to surgery as well as current medical status. I would like medicine to evaluate for the hyperkalemia and we will continue to monitor her postoperative hypoxia. Patient overall is doing well with regards to the knee with the pain controlled on medications. Plan will be for possible discharge home tomorrow as long as patient is medically stable and pain is well controlled and tolerating physical therapy. She does have outpatient physical therapy established. Per Dr. Laureano Olson patient is going to be placed on Montelukast for 3 months postoperatively. Will continue with the doxycycline for 2 weeks postoperatively as well due to patient's elevated BMI. I have reviewed the [place] Automated Rx Reporting System (OARRS) report for this patient for refill pattern and other prescriber involvement as part of the appropriate surveillance for the provision of acute and chronic controlled medications. The report was requested and reviewed on the date of this entry, and was considered in the prescribing process This dictation was created using voice recognition software. Phonetic and/or grammatical errors may exist. Digitally Signed by NILSON GARCIA PA-C on 02/02/2022 07:41 AM [facility] 02-01-2022 Anesthesiology Consult note Patient: MI PRETTY Age: 71 years Sex: Female : 1950 Associated Diagnoses: None Author: SARKIS FOLEY ELIGIBILITY TECHNICIAN-DRUGLESS PHYSICIAN Assessment Postanesthesia assessment Vitals: Vital signs from flowsheet : Vital Signs 02/01/2022 16:32 EDT Heart Rate Monitored 69 bpm Respiratory Rate 16 br/min Reason For Taking VItal Signs Routine 02/01/2022 14:50 EDT Temperature Oral 36.5 DegC Apical Heart Rate 76 bpm Respiratory Rate 16 br/min Systolic Blood Pressure NBP 145 mmHg HI Diastolic Blood Pressure NBP 85 mmHg 02/01/2022 14:10 EDT Heart Rate Monitored 76 bpm Respiratory Rate 16 br/min Systolic Blood Pressure NBP 126 mmHg Diastolic Blood Pressure NBP 64 mmHg 02/01/2022 13:55 EDT Heart Rate Monitored 77 bpm Respiratory Rate 14 br/min Systolic Blood Pressure NBP 123 mmHg Diastolic Blood Pressure NBP 69 mmHg 02/01/2022 13:40 EDT Heart Rate Monitored 77 bpm Respiratory Rate 14 br/min Systolic Blood Pressure NBP 131 mmHg Diastolic Blood Pressure NBP 61 mmHg 02/01/2022 13:25 EDT Heart Rate Monitored 82 bpm Respiratory Rate 16 br/min Systolic Blood Pressure NBP 128 mmHg Diastolic Blood Pressure NBP 67 mmHg 02/01/2022 13:20 EDT Heart Rate Monitored 86 bpm Respiratory Rate 15 br/min Systolic Blood Pressure NBP 131 mmHg Diastolic Blood Pressure NBP 66 mmHg 02/01/2022 13:15 EDT Heart Rate Monitored 89 bpm Respiratory Rate 15 br/min Systolic Blood Pressure NBP 132 mmHg Diastolic Blood Pressure NBP 67 mmHg 02/01/2022 13:10 EDT Temperature Temporal Artery 36.2 DegC Heart Rate Monitored 84 bpm Respiratory Rate 16 br/min Systolic Blood Pressure NBP 128 mmHg Diastolic Blood Pressure NBP 62 mmHg 02/01/2022 13:05 EDT Heart Rate Monitored 80 bpm bpm Respiratory Rate 14 br/min br/min 02/01/2022 13:00 EDT Heart Rate Monitored 81 bpm bpm Respiratory Rate 14 br/min br/min Systolic Blood Pressure NBP 115 mmHg mmHg Diastolic Blood Pressure NBP 71 mmHg mmHg 02/01/2022 12:55 EDT Temperature (Route Not Specified) 37.36 DegC DegC Heart Rate Monitored 86 bpm bpm Respiratory Rate 13 br/min br/min Systolic Blood Pressure NBP 118 mmHg mmHg Diastolic Blood Pressure NBP 68 mmHg mmHg 02/01/2022 12:50 EDT Temperature (Route Not Specified) 37.33 DegC DegC Heart Rate Monitored 67 bpm bpm Respiratory Rate 12 br/min br/min Systolic Blood Pressure NBP 97 mmHg mmHg Diastolic Blood Pressure NBP 50 mmHg mmHg 02/01/2022 12:45 EDT Temperature (Route Not Specified) 37.3 DegC DegC Heart Rate Monitored 66 bpm bpm Respiratory Rate 12 br/min br/min Systolic Blood Pressure NBP 102 mmHg mmHg Diastolic Blood Pressure NBP 57 mmHg mmHg 02/01/2022 12:40 EDT Temperature (Route Not Specified) 37.25 DegC DegC Heart Rate Monitored 67 bpm bpm Respiratory Rate 11 br/min br/min Systolic Blood Pressure NBP 111 mmHg mmHg Diastolic Blood Pressure NBP 60 mmHg mmHg 02/01/2022 12:35 EDT Temperature (Route Not Specified) 37.2 DegC DegC Heart Rate Monitored 62 bpm bpm Respiratory Rate 8 br/min br/min Systolic Blood Pressure NBP 110 mmHg mmHg Diastolic Blood Pressure NBP 61 mmHg mmHg 02/01/2022 12:32 EDT Systolic Blood Pressure NBP 83 mmHg mmHg Diastolic Blood Pressure NBP 46 mmHg mmHg 02/01/2022 12:30 EDT Temperature (Route Not Specified) 37.19 DegC DegC Heart Rate Monitored 61 bpm bpm Respiratory Rate 11 br/min br/min Systolic Blood Pressure NBP 87 mmHg mmHg Diastolic Blood Pressure NBP 49 mmHg mmHg 02/01/2022 12:25 EDT Temperature (Route Not Specified) 37.19 DegC DegC Heart Rate Monitored 63 bpm bpm Respiratory Rate 11 br/min br/min Systolic Blood Pressure NBP 95 mmHg mmHg Diastolic Blood Pressure NBP 52 mmHg mmHg 02/01/2022 12:20 EDT Temperature (Route Not Specified) 37.24 DegC DegC Heart Rate Monitored 65 bpm bpm Respiratory Rate 9 br/min br/min Systolic Blood Pressure NBP 115 mmHg mmHg Diastolic Blood Pressure NBP 68 mmHg mmHg 02/01/2022 12:15 EDT Temperature (Route Not Specified) 37.21 DegC DegC Heart Rate Monitored 65 bpm bpm Respiratory Rate 9 br/min br/min Systolic Blood Pressure NBP 125 mmHg mmHg Diastolic Blood Pressure NBP 67 mmHg mmHg 02/01/2022 12:10 EDT Temperature (Route Not Specified) 37.12 DegC DegC Heart Rate Monitored 67 bpm bpm Respiratory Rate 9 br/min br/min Systolic Blood Pressure NBP 133 mmHg mmHg Diastolic Blood Pressure NBP 71 mmHg mmHg 02/01/2022 12:05 EDT Temperature (Route Not Specified) 37.02 DegC DegC Heart Rate Monitored 65 bpm bpm Respiratory Rate 9 br/min br/min Systolic Blood Pressure NBP 99 mmHg mmHg Diastolic Blood Pressure NBP 61 mmHg mmHg 02/01/2022 12:00 EDT Temperature (Route Not Specified) 36.94 DegC DegC Heart Rate Monitored 64 bpm bpm Respiratory Rate 9 br/min br/min Systolic Blood Pressure NBP 98 mmHg mmHg Diastolic Blood Pressure NBP 53 mmHg mmHg 02/01/2022 11:55 EDT Temperature (Route Not Specified) 36.89 DegC DegC Heart Rate Monitored 63 bpm bpm Respiratory Rate 10 br/min br/min Systolic Blood Pressure NBP 105 mmHg mmHg Diastolic Blood Pressure NBP 53 mmHg mmHg 02/01/2022 11:53 EDT Systolic Blood Pressure NBP 106 mmHg mmHg Diastolic Blood Pressure NBP 52 mmHg mmHg 02/01/2022 11:50 EDT Temperature (Route Not Specified) 36.99 DegC DegC Heart Rate Monitored 63 bpm bpm Respiratory Rate 10 br/min br/min Systolic Blood Pressure NBP 91 mmHg mmHg Diastolic Blood Pressure NBP 49 mmHg mmHg 02/01/2022 11:45 EDT Temperature (Route Not Specified) 37.22 DegC DegC Heart Rate Monitored 67 bpm bpm Respiratory Rate 8 br/min br/min Systolic Blood Pressure NBP 115 mmHg mmHg Diastolic Blood Pressure NBP 54 mmHg mmHg 02/01/2022 11:40 EDT Temperature (Route Not Specified) 37.19 DegC DegC Heart Rate Monitored 67 bpm bpm Respiratory Rate 9 br/min br/min Systolic Blood Pressure NBP 137 mmHg mmHg Diastolic Blood Pressure NBP 71 mmHg mmHg 02/01/2022 11:35 EDT Temperature (Route Not Specified) 37.12 DegC DegC Heart Rate Monitored 65 bpm bpm Respiratory Rate 9 br/min br/min Systolic Blood Pressure NBP 128 mmHg mmHg Diastolic Blood Pressure NBP 66 mmHg mmHg 02/01/2022 11:30 EDT Temperature (Route Not Specified) 37.05 DegC DegC Heart Rate Monitored 64 bpm bpm Respiratory Rate 9 br/min br/min Systolic Blood Pressure NBP 130 mmHg mmHg Diastolic Blood Pressure NBP 63 mmHg mmHg 02/01/2022 11:25 EDT Temperature (Route Not Specified) 36.97 DegC DegC Heart Rate Monitored 62 bpm bpm Respiratory Rate 9 br/min br/min Systolic Blood Pressure NBP 134 mmHg mmHg Diastolic Blood Pressure NBP 68 mmHg mmHg 02/01/2022 11:20 EDT Temperature (Route Not Specified) 36.86 DegC DegC Heart Rate Monitored 60 bpm bpm Respiratory Rate 9 br/min br/min Systolic Blood Pressure NBP 130 mmHg mmHg Diastolic Blood Pressure NBP 72 mmHg mmHg 02/01/2022 11:18 EDT Systolic Blood Pressure NBP 131 mmHg mmHg Diastolic Blood Pressure NBP 70 mmHg mmHg 02/01/2022 11:15 EDT Temperature (Route Not Specified) 35.63 DegC DegC Heart Rate Monitored 72 bpm bpm Respiratory Rate 7 br/min br/min Systolic Blood Pressure NBP 133 mmHg mmHg Diastolic Blood Pressure NBP 69 mmHg mmHg 02/01/2022 11:10 EDT Heart Rate Monitored 70 bpm bpm Respiratory Rate 8 br/min br/min Systolic Blood Pressure NBP 138 mmHg mmHg Diastolic Blood Pressure NBP 69 mmHg mmHg 02/01/2022 11:05 EDT Heart Rate Monitored 66 bpm bpm Respiratory Rate 7 br/min br/min Systolic Blood Pressure NBP 131 mmHg mmHg Diastolic Blood Pressure NBP 68 mmHg mmHg 02/01/2022 11:00 EDT Temperature (Route Not Specified) 36.5 DegC DegC Heart Rate Monitored 72 bpm bpm Respiratory Rate 7 br/min br/min Systolic Blood Pressure NBP 132 mmHg mmHg Diastolic Blood Pressure NBP 72 mmHg mmHg 02/01/2022 10:55 EDT Heart Rate Monitored 67 bpm bpm Respiratory Rate 8 br/min br/min Systolic Blood Pressure NBP 140 mmHg mmHg Diastolic Blood Pressure NBP 74 mmHg mmHg 02/01/2022 10:50 EDT Heart Rate Monitored 66 bpm bpm Respiratory Rate 8 br/min br/min Systolic Blood Pressure NBP 135 mmHg mmHg Diastolic Blood Pressure NBP 72 mmHg mmHg 02/01/2022 10:45 EDT Temperature (Route Not Specified) 36.5 DegC DegC Heart Rate Monitored 67 bpm bpm Respiratory Rate 8 br/min br/min Systolic Blood Pressure NBP 120 mmHg mmHg Diastolic Blood Pressure NBP 66 mmHg mmHg 02/01/2022 10:40 EDT Heart Rate Monitored 68 bpm bpm Respiratory Rate 8 br/min br/min Systolic Blood Pressure NBP 129 mmHg mmHg Diastolic Blood Pressure NBP 71 mmHg mmHg 02/01/2022 10:35 EDT Heart Rate Monitored 66 bpm bpm Respiratory Rate 8 br/min br/min Systolic Blood Pressure NBP 128 mmHg mmHg Diastolic Blood Pressure NBP 67 mmHg mmHg 02/01/2022 10:30 EDT Temperature (Route Not Specified) 36 DegC DegC Heart Rate Monitored 68 bpm bpm Respiratory Rate 8 br/min br/min Systolic Blood Pressure NBP 129 mmHg mmHg Diastolic Blood Pressure NBP 67 mmHg mmHg 02/01/2022 10:25 EDT Heart Rate Monitored 65 bpm bpm Respiratory Rate 8 br/min br/min Systolic Blood Pressure NBP 119 mmHg mmHg Diastolic Blood Pressure NBP 71 mmHg mmHg 02/01/2022 10:20 EDT Heart Rate Monitored 61 bpm bpm Respiratory Rate 7 br/min br/min Systolic Blood Pressure NBP 125 mmHg mmHg Diastolic Blood Pressure NBP 76 mmHg mmHg 02/01/2022 10:15 EDT Temperature (Route Not Specified) 36 DegC DegC Heart Rate Monitored 60 bpm bpm Respiratory Rate 8 br/min br/min Systolic Blood Pressure NBP 111 mmHg mmHg Diastolic Blood Pressure NBP 62 mmHg mmHg 02/01/2022 10:10 EDT Heart Rate Monitored 62 bpm bpm Respiratory Rate 8 br/min br/min Systolic Blood Pressure NBP 116 mmHg mmHg Diastolic Blood Pressure NBP 66 mmHg mmHg 02/01/2022 10:05 EDT Heart Rate Monitored 64 bpm bpm Respiratory Rate 8 br/min br/min Systolic Blood Pressure NBP 125 mmHg mmHg Diastolic Blood Pressure NBP 65 mmHg mmHg 02/01/2022 10:00 EDT Temperature (Route Not Specified) 36 DegC DegC Heart Rate Monitored 64 bpm bpm Respiratory Rate 8 br/min br/min Systolic Blood Pressure NBP 125 mmHg mmHg Diastolic Blood Pressure NBP 72 mmHg mmHg 02/01/2022 9:55 EDT Heart Rate Monitored 68 bpm bpm Respiratory Rate 8 br/min br/min Systolic Blood Pressure NBP 111 mmHg mmHg Diastolic Blood Pressure NBP 66 mmHg mmHg 02/01/2022 9:50 EDT Heart Rate Monitored 65 bpm bpm Respiratory Rate 7 br/min br/min Systolic Blood Pressure NBP 120 mmHg mmHg Diastolic Blood Pressure NBP 67 mmHg mmHg 02/01/2022 9:45 EDT Temperature (Route Not Specified) 36 DegC DegC Heart Rate Monitored 64 bpm bpm Respiratory Rate 8 br/min br/min Systolic Blood Pressure NBP 128 mmHg mmHg Diastolic Blood Pressure NBP 75 mmHg mmHg 02/01/2022 9:40 EDT Heart Rate Monitored 66 bpm bpm Respiratory Rate 8 br/min br/min Systolic Blood Pressure NBP 121 mmHg mmHg Diastolic Blood Pressure NBP 64 mmHg mmHg 02/01/2022 9:35 EDT Heart Rate Monitored 83 bpm bpm Respiratory Rate 4 br/min br/min Systolic Blood Pressure NBP 137 mmHg mmHg Diastolic Blood Pressure NBP 81 mmHg mmHg 02/01/2022 9:30 EDT Respiratory Rate 0 br/min br/min Systolic Blood Pressure NBP 162 mmHg mmHg Diastolic Blood Pressure NBP 86 mmHg mmHg 02/01/2022 8:25 EDT Temperature Temporal Artery 36.4 DegC Apical Heart Rate 74 bpm Respiratory Rate 15 br/min Systolic Blood Pressure NBP 147 mmHg HI Diastolic Blood Pressure NBP 77 mmHg , Measurements from flowsheet . Mental status: alert & oriented x 4. Respiratory function: respirations are non-labored. Respiratory support: oxygen delivery method via nasal cannula. CV function: Normal rate. Cardiovascular support: none. Pain. Nausea status: see nursing documentation of medications. Postoperative hydration status: within normal limits. Digitally Signed by SARKIS FOLEY on 02/01/2022 07:37 PM [facility] 02-01-2022 Note ORIGINAL HISTORY: Arthroplasty COMPARISON: No FINDINGS: There is an arthroplasty in near anatomic alignment. There is no radiographic evidence of loosening or failure of hardware. There is gas in the joint space and overlying soft tissues, and there are skin colin. IMPRESSION: Arthroplasty with immediate postoperative changes. Interpreted by: Cherelle Vargas MD Preliminary Report By: Cherelle Vargas MD Electronically signed By Cherelle Vargas MD Dictated Date: 02/01/2022 3:05:46 PM Prelim Date: 02/01/2022 3:06:26 PM Sign Date: 02/01/2022 3:06:26 PM Ordering Provider: LAUREANO OLSON [facility] 02-01-2022 Note ORIGINAL HISTORY: Arthroplasty COMPARISON: No FINDINGS: There is an arthroplasty in near anatomic alignment. There is no radiographic evidence of loosening or failure of hardware. There is gas in the joint space and overlying soft tissues, and there are skin colin. IMPRESSION: Arthroplasty with immediate postoperative changes. Interpreted by: Cherelle Vargas MD Preliminary Report By: Cherelle Vargas MD Electronically signed By Cherelle Vargas MD Dictated Date: 02/01/2022 3:05:46 PM Prelim Date: 02/01/2022 3:06:26 PM Sign Date: 02/01/2022 3:06:26 PM Ordering Provider: LAUREANO [facility] 02-01-2022 Anesthesiology Consult note Patient: MI PRETTY Age: 71 years Sex: Female : 1950 Associated Diagnoses: None Author: SARKIS FOLEY ELIGIBILITY TECHNICIAN-DRUGLESS PHYSICIAN Preoperative Information Time of last food or liquid consumption: 02/01/2022 00:00:00 Anesthesia history Patient's history: negative. Family's history: negative. Health Status Allergies: Allergic Reactions (Selected) Severity Not Documented Contrast dye- Hives. Latex- Hives. Penicillin- Hives., Allergies (3) ActiveReaction Contrast dyeHives LatexHives penicillinHives Current medications: (Selected) Inpatient Medications Ordered Decadron: 10 mg, 1 mL, IV Push, AsDirected LR 1000 mL: 20 mL/hr, Intravenous, Stop: 02/02/22 17:59:00 EDT Naropin 25 mg + Toradol 15 mg + EPINEPHrine 1 mg/mL injectable solution 0.3 mg + morphine 2.5 mg...: 25 mg, 5 mL, mL/hr, Other, PREOP pharm Naropin 25 mg + Toradol 15 mg + EPINEPHrine 1 mg/mL injectable solution 0.3 mg + morphine 2.5 mg...: 25 mg, 5 mL, mL/hr, Other, PREOP pharm tranexamic acid 1 g / 100 mL 0.7% NaCl PMX: 1 gram(s), 100 mL, 300 mL/hr, IV Piggyback, AsDirected tranexamic acid 1 g / 100 mL 0.7% NaCl PMX: 1 gram(s), 100 mL, 300 mL/hr, IV Piggyback, AsDirected Documented Medications Documented DOK 100 mg oral capsule: TAKE 1 CAPSULE BY MOUTH TWICE A DAY NEEDED Vitamin D3: 5,000 unit(s), 1 cap(s), Oral, qDay, 0 Refill(s) betamethasone dipropionate 0.05% topical cream: 1 jerson, Topical, APPLY TO AREAS OF RASH YOU CAN SEE OR FEEL ON THE LEFT ANKLE, PRN: Rash cetirizine 10 mg oral capsule: 10 mg, 1 cap(s), Oral, qDay, PRN: as needed for allergy symptoms, 40 cap(s), 0 Refill(s) citalopram 10 mg oral tablet: 10 mg, 1 tab(s), Oral, Daily, 0 Refill(s) meloxicam 7.5 mg oral tablet: 7.5 mg, 1 tab(s), Oral, BID, 0 Refill(s), Medications (6) Active Scheduled: (5) dexamethasone 10 mg/mL (1mL) SDV 10 mg 1 mL, IV Push, AsDirected ropivacaine 25 mg + ketorolac 15 mg + epinephrine 0.3 mg + morphine 2.5 mg 25 mg 5 mL, Other, PREOP pharm ropivacaine 25 mg + ketorolac 15 mg + epinephrine 0.3 mg + morphine 2.5 mg 25 mg 5 mL, Other, PREOP pharm tranexamic acid PMX 1 gram(s) 100 mL, IV Piggyback, AsDirected tranexamic acid PMX 1 gram(s) 100 mL, IV Piggyback, AsDirected Continuous: (1) Lactated Ringers 1000 mL 1,000 mL, Intravenous, 20 mL/hr PRN: (0) Problem list: Active Problems (3) Anxiety Lumbar disc herniation Osteoarthritis Histories Past Medical History: No active or resolved past medical history items have been selected or recorded. Family History: Diabetes mellitus Mother () CABG - Coronary artery bypass graft Father () Procedure history: Total shoulder replacement ([id number]) on 03/31/2020 at 69 Years. Comments: 03/31/2020 11:22 EDT - Alaina Mcgrath RN RIGHT SHOULDER Bilateral prosthetic arthroplasty of knees ([id number]). CTR - Carpal tunnel release ([id number]). Comments: 03/13/2020 12:21 EDT - Cheyenne Donahue RN Bilateral Excision of cataract ([id number]). Epidural steroid injection ([id number]). Comments: 02/01/2022 8:22 EDT - Marcus Mcknight RN LUMBAR SPINE Social History Social & Psychosocial Habits Alcohol 03/13/2020 Use: Current Frequency: 1-2 times per year Substance Abuse 03/13/2020 Use: Never Tobacco 03/13/2020 Tobacco Use: Former smoker, quit more Type: Cigarettes Number of years: 10 Home/Environment 03/13/2020 Domestic Concerns None Living situation: Home/Independent Primary Quality Rn: Self Lives In Multilevel home Current Home Treatments None Special Services and Community Resources None Spouse Name Conrado Marital Status of Patient if Patient Independent Adult: Nutrition/Health 03/13/2020 Type of diet: Regular Appetite Good Eating Difficulties None Caffeine intake amount: 5 servings daily . Physical Examination Vital Signs 02/01/2022 9:40 EDT Heart Rate Monitored 66 bpm bpm Respiratory Rate 8 br/min br/min Systolic Blood Pressure NBP 121 mmHg mmHg Diastolic Blood Pressure NBP 64 mmHg mmHg 02/01/2022 9:35 EDT Heart Rate Monitored 83 bpm bpm Respiratory Rate 4 br/min br/min Systolic Blood Pressure NBP 137 mmHg mmHg Diastolic Blood Pressure NBP 81 mmHg mmHg 02/01/2022 9:30 EDT Respiratory Rate 0 br/min br/min Systolic Blood Pressure NBP 162 mmHg mmHg Diastolic Blood Pressure NBP 86 mmHg mmHg 02/01/2022 8:25 EDT Temperature Temporal Artery 36.4 DegC Apical Heart Rate 74 bpm Respiratory Rate 15 br/min Systolic Blood Pressure NBP 147 mmHg HI Diastolic Blood Pressure NBP 77 mmHg Vital Signs(last 24 hrs) Last Charted Heart Rate [id number] bpm (FEB 01 09:40) Resp Rate 8 br/min (FEB 01 09:40) [id number] mmHg (FEB 01 09:40) DBP64 mmHg (FEB 01 09:40) Measurements from flowsheet : Measurements 02/01/2022 8:25 EDT Height 160 cm Height in inches 63 inch(es) Admission Weight 112.6 kg Weight Lbs 247.7 lb [place] Body Weight 52.38 kg Admission Body Mass Index 43.98 m2 02/01/2022 8:24 EDT Body Mass Index In Error kg/m2 (In Error) Pain assessment: Pain Assessment 02/01/2022 8:36 EDT Primary Pain Intensity 0 02/01/2022 8:25 EDT Primary Pain Intensity 0 Pain Scale Type 0-10 Pain scale . General: Alert and oriented. Airway: Normal temporomandibular joint mobility, Normal mouth, Normal neck range of motion. Mallampati classification: III (soft palate, base of uvula visible). Dentition Evaluation: Dentures, upper, Dentures, partial plate, Denies loose/chipped teeth. Respiratory: Respirations are non-labored. Cardiovascular: Normal rate, Regular rhythm. Neurologic: Alert, Oriented. Review / Management Results review: No qualifying data available , Lab results 02/01/2022 9:49 EDT SN - Irl - Irrigant Normal Saline SN - Irl - Irrigant Sterile Water SN - IrI - Volume In 450 mL SN - Irl - Additive IRRIGATION CHG 0.05% IRRISEPT 12/CA [id number] SN - IrI - Volume Out 450 mL 02/01/2022 9:49 EDT SN - PTCare - Anti-thromboembolism Toma Sequential Compression Device (SCD) SN - PTCare - Anti-thromboembolism Toma Elastic Compression Stockings 02/01/2022 9:49 EDT SN - GCD - ASA Class 3 SN - GCD - Post-operative Diagnosis PRESENCE OF LEFT ARTIFICAL KNEE JOINT 02/01/2022 9:40 EDT Heart Rate Monitored 66 bpm bpm Respiratory Rate 8 br/min br/min Systolic Blood Pressure NBP 121 mmHg mmHg Diastolic Blood Pressure NBP 64 mmHg mmHg Oxygen Saturation 100 % % clindamycin 600 mg mg Set Rate Anes 8 br/min br/min 02/01/2022 9:35 EDT Heart Rate Monitored 83 bpm bpm Respiratory Rate 4 br/min br/min Systolic Blood Pressure NBP 137 mmHg mmHg Diastolic Blood Pressure NBP 81 mmHg mmHg Oxygen Saturation 100 % % Set Rate Anes 5 br/min br/min 02/01/2022 9:30 EDT Respiratory Rate 0 br/min br/min Systolic Blood Pressure NBP 162 mmHg mmHg Diastolic Blood Pressure NBP 86 mmHg mmHg 02/01/2022 9:16 EDT SN - GCD - Case Level Level 4 02/01/2022 9:16 EDT SN - Assess - LOC Alert, Awake SN - Assess - Orientation Oriented X 3 SN - Assess - Post-op Skin Integrity Intact/Dry 02/01/2022 9:16 EDT SN - CAt - Case Attendee SN - CAt - Case Attendee SN - CAt - Case Attendee SN - CAt - Case Attendee SN - CAt - Case Attendee SN - CAt - Case Attendee SN - CAt - Case Attendee SN - CAt - Case Attendee SN - CAt - Case Attendee SN - CAt - Case Attendee SN - CAt - Case Attendee SN - CAt - Case Attendee SN - CAt - Case Attendee SN - CAt - Case Attendee SN - CAt - Role Performed DRUGLESS PHYSICIAN SN - CAt - Role Performed Acquisition Marketing Coordinator 1 SN - CAt - Role Performed Scrub 1 SN - CAt - Role Performed Scrub 2 SN - CAt - Role Performed Hand Tube Winder 1 SN - CAt - Role Performed Physician Computer Systems Security Administrator SN - CAt - Role Performed Cleat Feeder 02/01/2022 9:14 EDT SN - Preop - CTm Pt in SDS Room 02/01/2022 8:19 SN - Preop - CTm Pt Ready for OR/Proced 02/01/2022 9:14 02/01/2022 9:13 EDT SN - CAt - Case Attendee SN - CAt - Case Attendee SN - CAt - Role Performed Primary Surgeon 02/01/2022 9:13 EDT SN - Proc - Actual Procedure REVISION LEFT TOTAL KNEE ARTHROPLASTY 02/01/2022 8:36 EDT Primary Pain Intensity 0 celecoxib 400 mg mg famotidine 20 mg mg oxyCODONE 10 mg mg Lactated Ringers Injection 1,000 mL mL 02/01/2022 8:31 EDT citric acid-sodium citrate Not Done: Other Med (Not Done) 02/01/2022 8:25 EDT Height 160 cm Height in inches 63 inch(es) Admission Weight 112.6 kg Weight Lbs 247.7 lb [place] Body Weight 52.38 kg Admission Body Mass Index 43.98 m2 Temperature Temporal Artery 36.4 DegC Apical Heart Rate 74 bpm Respiratory Rate 15 br/min Systolic Blood Pressure NBP 147 mmHg HI Diastolic Blood Pressure NBP 77 mmHg Primary Pain Intensity 0 Pain Scale Type 0-10 Pain scale Monitor Alarms On and Limits Checked Nail Bed Color [place] Capillary Refill < 2 seconds Heart Rhythm Regular All Lobes Breath Sounds Clear Oxygen Therapy Room air Oxygen Saturation 96 % Abdomen Description Non-distended Abdomen Palpation Non-Tender Bowel Sounds All Quadrants Present Urinary Elimination Voiding, no difficulties Skin Temperature Warm Skin Description Normal for ethnicity Skin Integrity Intact Mucous Membrane Color [place] IV Present Present Extremity Movement Equal Characteristics of Speech Clear Level of Consciousness Alert Strength All Extremities Strong Tone All Extremities Normal Sensation All Extremities Intact Affect/Behavior Appropriate, Calm, Cooperative Orientation Oriented x 4 Allergies Yes Consent Form Signed Yes Patient Dressed In Hospital gown CHG Preoperative Wash/Wipe Night before procedure, Day of procedure CHG Skin Prep Completed for Eligible Surgery History & Physical Update On Chart Yes History & Physical On Chart Yes Obstructive Sleep Apnea Assess Completed Yes Orientation Assessment Oriented x 4 Belongings At Bedside Pants, Shoes, Socks, T-shirt, Undergarments Activity Status ADL Awake, Resting Assistive Device None SCD On/Re-applied right knee high Antiembolism Stocking On/Re-applied right thigh high NPO Status Maintained Standard Safety ID band on, Allergy Band on, Call device within reach, Bed in low position, Wheels locked, Upper/Half-Length side-rails up, Phone within reach, personal items within reach Demonstrates Correct Call Light Use Yes Allergy Band on and Verified Yes Blood Band on and Verified Yes Patient ID Band on and Verified Yes Implants Verified Yes Pacemaker/AICD Verified Yes Anesthesia Consent Signed Yes Blood Consent Signed Yes Last Fluid Intake 01/31/2022 23:00 Last Food Intake 01/31/2022 22:00 Last Void 02/01/2022 8:00 02/01/2022 8:24 EDT Privacy Restrictions Requested None Body Mass Index In Error kg/m2 (In Error) Safety Brochure Information Reviewed Yes [place] Video Viewed No Teaching Evaluation Verbalizes/Nonverbally indicates understanding Admission Note-Nursing Same Day Patient History (Modified) . Assessment and Plan [place] [employer]esthesi[employer] (ASA) physical status classification: Class III. Anesthetic Preoperative Plan Anesthetic technique: General. Postoperative pain management: adductor. Informed consent: signed by patient. Notes: pt request GA. Digitally Signed by SARKIS FOLEY on 02/01/2022 09:52 AM [facility] Evaluation + Plan note No data available for this section [facility] Evaluation + Plan note Future Appointments Appointment Date:2022 02:00:00 PM Scheduled Provider: Location:[facility] Appointment Type:PT Outpatient Evaluation [facility] Evaluation + Plan note Future Appointments [facility] Hospital Discharge instructions No data available for this section [facility] Progress note No data available for this section [facility] Summary Purpose Family History No Family History Records FoundNo Family History Records Found No data available for this section No data available for this section No data available for this section No Family History Records FoundNo Family History Records Found Advance Directives No Advanced Directives Records FoundNo Advanced Directives Records FoundNo Advanced Directives Records FoundNo Advanced Directives Records Found Additional Source Comments INFORMATION SOURCE (unrecogn ized section and content) DATE CREATED AUTHOR 03/17/2019 [facility] DATE CREATED AUTHOR AUTHOR'S ORGANIZ ATION 10/23/2021 [facility] dical Specialist DATE CREATED AUTHOR AUTHOR'S ORGANIZ ATION 06/15/2023 [facility] ([place]) DATE CREATED AUTHOR AUTHOR'S ORGANIZ ATION 04/18/2025 [facility] Care Team (unrecognized sect ion and content) Care Team Personnel Name: FAITH BARRIENTOS DO Member Role: Primary Care Physician Address: Address: [address] [place] [address] [place] [address]- Care Team Related Persons Name: SUKHWINDER, HANS Address: Home [address] [place] [address] [place] [address] Care Team Personnel Name: FAITH BARRIENTOS DO Member Role: Primary Care Physician Address: Address: [address] [place] [address] [place], [place] [address] Care Team Related Persons Name: HANS PRETTY Address: Home [address] [place] [address] Care Team Personnel Name: FAITH BARRIENTOS DO Member Role: Primary Care Physician Address: Address: [address] [place] [address] [place] [address]- Care Team Related Persons Name: HANS PRETTY Address: Home [address] [place] [address] Patient Care team informatio n (unrecognized section and content) Care Team Personnel Name: FAITH BARRIENTOS DO Member Role: Primary Care Physician Address: Address: [address] [place] [address] [place] [address]- Care Team Related Persons Name: HANS PRETTY Address: Home [address] [address] Care Team Personnel Name: FAITH BARRIENTOS Member Role: Primary Care Physician Address: Address: [address] [place] [address] Care Team Related Persons Name: HANS PRETTY Address: [address] [place] [address] Care Team Personnel Name: FAITH BARRIENTOS Member Role: Primary Care Physician Address: Address: [address] [place] [address] Care Team Related Persons Name: HANS PRETTY Address: [address] [place] [address] FOR RECORDS PERTAINING TO PATIENTS WHO ARE OR HAVE BEEN ENROLLED IN A CHEMICAL DEPENDENCY/SUBSTANCEABUSE PROGRAM, SOME INFORMATION MAY BE OMITTED. This clinical summary was aggregated from multiple sources. Caution should be exercised in using it in the provision of clinical care. This summary normalizes information from multiple sources, and as a consequence, information in this document may materially change the coding, format and clinical context of patient data. In addition, data may be omitted in some cases. CLINICAL DECISIONS SHOULD BE BASED ON THE PRIMARY CLINICAL RECORDS. [facility]. provides no warranty or guarantee of the accuracy or completeness of information in this document.
[2025-04-21 23:05] VITALS: BMI 40.2
[2025-04-21 23:10] VITALS: BP 153/78; PULSE 82; RESP 18; TEMP 36.5; O2SAT 93
[2025-04-21 23:12] LABS: Troponin T High Sens 2 HR 96 ng/L (<=14)
[2025-04-22 03:27] LABS: Troponin T High Sens 4 HR 84 ng/L (<=14)
[2025-04-22 03:33] LABS: Anion Gap 13 (5-15); BUN 20 mg/dL (4-19); BUN/Creat Ratio 26.8 RATIO (10-20); Calcium,Total 9.1 mg/dL (7.6-11.0); Carbon Dioxide 25.5 mmol/L (21.0-32.0); Chloride 98 mmol/L (98-108); Estimated Creatinine Clearance 72.27 ml/min (50-250); Glucose 181 mg/dL (70-99); Potassium 3.9 mmol/L (3.3-5.1)
[2025-04-22 03:51] VITALS: BP 136/85; PULSE 79; RESP 18; TEMP 36.4; O2SAT 92
[2025-04-22 05:24] VITALS: BP 139/80
[2025-04-22] MEDS: Furosemide 20 MG/2 ML VIAL IV ×3 (05:26→20:52)
[2025-04-22] MEDS: 0.9% Saline Lock 10 ML Syringe IV ×3 (05:29→21:01)
--- NOTE | 2025-04-22 09:25 | CASEMGMT ---
RN CM Face to Face with patient for initial transition planning/care coordination assessment. RN CM introduced self and role at [facility]. Patient lying in bed, alert and oriented. Patient willing to participate in assessment and is able to answer all questions appropriately. Care providers, pharmacy, and demographics verified. Strata: 2 PCP: [facility] Specialists: Roldan, prop worker; Ab, pain; Bhavana, ortho Preferred Pharmacy: [facility] Insurance: [facility], AAR Prescription Benefit: yes Living Will/HPOA: none LNOK: Living Arrangements: Patient lives with in a 2 story home. Patient is independent and able to ambulate stairs. Transportation: self, DME/HHC: Patient has shower chair, BSC, raised toilet, cane, walker at home. No previous HHC or SNF. Will follow for home oxygen, prefers [employer]. Patient wishes to discharge home, denies need for home health at this time. Patient states she has no further needs or concerns at this time. CM to follow for discharge planning needs that may arise. Disposition Plan: Patient to discharge home with family support and follow-up plans in place. Leyda PEREIRA, RN, CM
[2025-04-22 09:28] VITALS: BP 138/83; PULSE 69; RESP 16; TEMP 36.6; O2SAT 93
[2025-04-22] MEDS: Potassium Chloride Oral Tablet 20 MEQ PO ×2 (09:29→17:20)
[2025-04-22] MEDS: Cholecalciferol (Vit D3) 125 MCG CAPSULE (5,000 UNITS) PO (09:31)
[2025-04-22] MEDS: Heparin Injection (Vial) 5,000 UNIT/ML VIAL 5000 UNIT SC ×2 (09:31→20:51)
--- NOTE | 2025-04-22 09:33 | PCM.PN.HOSP ---
Subjective Subjective Feels a bit better with Lasix Objective Data Objective Data Vital Signs: Vital Signs Temp Pulse Resp BP Pulse Ox O2 Del Method 97.8 F 69 16 138/83 H 93 Room Air 04/22/25 09:28 04/22/25 09:28 04/22/25 09:28 04/22/25 09:28 04/22/25 09:28 04/22/25 03:51 Oxygen Delivery Method Room Air Weight: 234 lb 5.622 oz Body Mass Index (BMI) 40.2 Intake & Output: Intake and Output for Last 24 Hours 04/21/25 04/22/25 04/23/25 03:59 03:59 03:59 Intake Total 1000 / 1000 Output Total Balance 999 / 999 Lab / Micro Data 04/21/25 20:43 04/22/25 02:54 Labs: Laboratory Results - last 24 hr 04/21/25 18:54: PT Cancelled, INR Cancelled, APTT Cancelled 04/21/25 20:29: PT 15.4 H, INR 1.2, APTT 28.6 04/21/25 20:43: WBC 6.1, RBC 4.31, Hgb 12.9, Hct 39.7, MCV 92.1, MCH 29.9, MCHC 32.5, RDW Std Deviation 49.0 H, RDW Coeff of Audrey 14.6, Plt Count 196, MPV 10.9, Immature Gran % (Auto) 0.300, Neut % (Auto) 73.3 H, Lymph % (Auto) 16.7 L, [place] % (Auto) 5.9, Eos % (Auto) 3.1, Baso % (Auto) 0.7, Absolute Neuts (auto) 4.5, Absolute Lymphs (auto) 1.02, Nucleated RBC % 0, Sodium 137, Potassium 3.9, Chloride 98, Carbon Dioxide 26.0, Anion Gap 14, BUN 23 H, Creatinine 0.80, Estim Creat Clear Calc 72.41, Est GFR (MDRD) Non-Af 76, BUN/Creatinine Ratio 29.1 H, Glucose 112 H, Calcium 8.8, Magnesium 1.9, Troponin T High Sens 103 H*, NT pro BNP II 3705 H 04/21/25 22:43: Troponin T Hi Sens 2 Hr 96 H* 04/22/25 02:54: Sodium 137, Potassium 3.9, Chloride 98, Carbon Dioxide 25.5, Anion Gap 13, BUN 20 H, Creatinine 0.73, Estim Creat Clear Calc 72.27, Est GFR (MDRD) Non-Af 85, BUN/Creatinine Ratio 26.8 H, Glucose 181 H, Calcium 9.1, Troponin T Hi Sens 4Hr 84 H*, TSH 1.310 Radiography Diagnostic Testing: Radiology Impression Chest CTA 04/21/25 18:34 IMPRESSION: No visible aortic pathology. Right-sided pleural effusion. Negative for pulmonary embolism. Positive for coronary artery calcification. No acute lung pathology. Reading Location: [facility] Physical Exam Narrative General: Alert, Oriented x3, Cooperative, No apparent distress HEENT: Atraumatic, PERRLA, EOMI, Normocephalic Oral: Moist Mucosa Neck: Supple, No JVD Lungs: Diminished, Normal air movement, No rhonchi, No wheeze, No rales Cardiovascular: Regular rate, Regular Rhythm, Normal S1, Normal S2, No murmurs Abdomen: Soft, Non Tender, Non-Distended, No Hepato-splenomegaly Extremities: Trace edema, Capillary Refill Less than 3 Seconds Skin: No rashes, No breakdown Musculoskeletal: No Tenderness to Palpation of Joints or Extremities Neurological: No focal neurological deficits, moves all extremities Psych/Mental Status: Normal Affect, Appropriate Assessment & Plan Assessment/Plan (1) Congestive heart failure: PLAN: Plan 1. Acute on chronic CHF unclear type/essential HTN/HLD – She had lipids done last year and her LDL was elevated – Will repeat lipid panel today – Blood pressures on her previous admission in October were also elevated pending echocardiogram results will make further determinations – Echo is pending – Continue with Lasix 20 mg IV 3 times daily 2. Anxiety/depression – Stable – Continue with her home medications DVT: Heparin Charges/Coding Visit Charges Inpatient E&M: 89939 Subs Hosp L2
[2025-04-22 09:48] LABS: Hematocrit 41.6 % (37-47); Hemoglobin 13.5 g/dL (12.0-15.0); Immature Granulocytes Count 0.020 X10^3/uL (0.0-0.0); Mean Corp Hgb Conc 32.5 g/dL (32-36); Mean Corpuscular Volume 92.4 fL (81-99); Mean Platelet Vol. 11.2 fl (6.2-12.0); NRBC Flagged by Analyzer 0 % (0-5); POSITIVE DIFFERENTIAL YES; POSITIVE MORPHOLOGY YES; Platelet Count 220 K/mm3 (150-450); RBC Distribution Width CV 14.7 % (11.6-14.6); RBC Distribution Width SD 50.4 fl (35.1-43.9); Red Blood Count 4.50 M/mm3 (4.2-5.4); White Blood Count 5.7 K/mm3 (4.4-11.0)
[2025-04-22 09:52] LABS: Differential Indicated SCAN CRITERIA MET
[2025-04-22 10:00] LABS: Cholesterol 144 mg/dL (<=200); Low Density Lipoprotein Calc. 93 mg/dL; Triglycerides 64 mg/dL; Very Low Density Lipoprotein 13 mg/dL (5-40); cholesterol:hdl ratio screen 3.80
[2025-04-22 13:44] VITALS: BP 145/88; PULSE 77; RESP 16; TEMP 36.8; O2SAT 93
--- NOTE | 2025-04-22 16:07 | PCM.CONS.C ---
Assessment & Plan Assessment/Plan (1) HFrEF (heart failure with reduced ejection fraction): PLAN: Patient presenting with new onset congestive heart failure. She has a right sided pleural effusion, lower extremity edema, elevated BNP, and ejection fraction of 20% with global LV systolic dysfunction. The patient does have mild to moderate valvular heart disease with mitral regurgitation and aortic stenosis. Aortic stenosis is mild. The patient has responded to IV diuresis. She is now being titrated on guideline directed medical therapy. The patient is starting lisinopril which we will increase to 10 mg twice daily given her blood pressure. The patient was also started on Coreg which has not been given her first dose yet. We need to monitor her rhythm closely as she does appear to have sinus rhythm with blocked PACs. This may be a marker for sick sinus syndrome. She is also been instituted on Jardiance appropriately. Monitor her renal function heart rate and blood pressure response to these medications and then add spironolactone in the next 24-48 hours. The patient will continue on Lasix as needed for decongestion. A repeat BNP should be done prior to discharge. The plan is to titrate guideline directed medical therapy to maximum tolerated doses and then 6 weeks later reevaluate her LV function with echocardiogram. Will need to evaluate the patient for ischemic etiology as there are no definitive etiologies identified. It is likely this represents hypertensive heart disease in the face of mild to moderate valvular heart disease. (2) Valvular heart disease: PLAN: Patient has a history of moderate 2+ mitral regurgitation 3+ tricuspid regurgitation and mild aortic valve stenosis with a mean gradient of 9 mmHg. Given her severe LV dysfunction in combination with this moderate valvular heart disease and a history of significant hypertension this probably represents the etiology of her heart failure. The patient does have calcified coronary arteries noted on CT of the chest and will need further ischemic evaluation once she is maximally treated with guideline directed medical therapy. We will then decide whether we should proceed with left heart catheterization or functional stress testing. (3) Hypertensive disorder: QUALIFIERS: Hypertension type: primary hypertension Qualified Code(s): I10 - Essential (primary) hypertension PLAN: Patient has a history of hypertension that has not been treated by her report. She has been instituted on therapy during this hospitalization. Will titrate carvedilol as heart rate will allow will increase lisinopril to 10 mg twice daily and will add spironolactone in the next 24-48 hours as blood pressure and renal function tolerate. The patient will continue her Lasix which may need to be decreased in the near future. PLAN: Plan 1. Will institute Coreg and monitor heart rate closely given her current rhythm. 2. Increase lisinopril to 10 mg twice daily and will titrate to 20 mg twice daily as blood pressure tolerates. 3. Continue Jardiance 10 mg daily. 4. Recommend switching furosemide to 40 mg every morning starting tomorrow morning. 5. If blood pressure and renal function tolerated would add spironolactone on 04/24/2025. 6. Patient will need to be aggressively titrated with guideline directed medical therapy in ambulatory setting over the next 2 weeks. 7. Once discharged the patient should follow-up within 5 to 7 days in the [facility] for further titration of meds. 8. Once titrated to maximum dose of guideline directed medical therapy would repeat echocardiogram 6 weeks after achieving maximum dose GDMT 9. Once discharged the patient should follow-up with advanced practitioner in the [facility] office in 5 to 7 days for titration of meds. HPI Consult Data Date of Consult: 04/22/25 HPI Narrative Reason for Consultation: New onset heart failure HPI Narrative: BYRON ARSHAD, is a 74 F who presents to the [facility] emergency department on 04/21/2025 with complaints of fluid retention mainly in her legs. She also has a history of shortness of breath when she lays flat over the last 2 to 3 weeks. She saw her primary care physician and started Lasix. She came to the emergency room and was evaluated there and where CBC was really unremarkable her BUN was elevated at 23 with a creatinine in the normal range. Troponins were slightly elevated at 103 and her BNP was 3705. The patient's ECG showed normal sinus rhythm with PVCs and PACs and a nonspecific interventricular conduction delay with left axis deviation. The patient has no prior history of cardiac events. She does have a history of hypertension that has been untreated. She denies any recent bronchitis or viral URI type symptoms. She has no toxic exposure. Patient is O2 saturation may remained above 90% without supplemental oxygen. A CTA was obtained that showed a right-sided pleural effusion there was no evidence of pulmonary embolus. She did have coronary artery calcifications documented. Currently the patient reports that she is feeling much better she is breathing easier she is resting comfortably in the recumbent position in no apparent distress. Her lower extremity edema has improved. The patient has been up ambulating in the room. Her telemetry has shown sinus rhythm with frequent PACs and blocked PACs. Patient's echocardiogram done today showed global LV systolic dysfunction with ejection fraction estimated at 20%. She had stage III diastolic dysfunction. The patient had normal right ventricle there was moderate biatrial enlargement moderate 2+ mitral regurgitation moderate to severe 3+ tricuspid regurgitation with right ventricular systolic pressure estimated at 49 mmHg. Patient had a mean gradient of 9 mmHg consistent with mild aortic valve stenosis. FOR[facility]LY [facility], [facility] Medical History (Updated 04/22/25 @ 16:[address] Jose Miguel Pink MD) Anxiety Former smoker Hypertensive disorder Contact with or suspected exposure to other viral communicable disease Acute sinusitis Home Medications Medication Instructions Recorded Last Taken Type Cholecalciferol (Vitamin D3) 5,000 unit PO DAILY 03/15/20 04/21/25 History [Vitamin D3] citalopram 10 mg tablet 10 mg PO QHS 03/15/20 04/20/25 History meloxicam 7.5 mg tablet 7.5 mg PO BID 03/15/20 04/21/25 History cetirizine 10 mg tablet 10 mg PO DAILY 10/03/22 04/20/25 History vitamins A,C,W-yjet-qsjlor 4,296 1 cap PO BID 10/03/22 04/21/25 History mcg-226 mg-90 mg capsule (ICaps AREDS) acetaminophen 500 mg capsule 1,000 mg PO Q6H PRN fever or pain 04/21/25 04/20/25 History furosemide 40 mg tablet 80 mg PO DAILY 04/21/25 04/21/25 History white petrolatum-mineral oil 94 1 applic EACH EYE QHS dry eyes 04/21/25 04/20/25 History %-3 % eye ointment Allergy/AdvReac Type Severity Reaction Status Date / Time iodine Allergy Hives Verified 04/21/25 17:30 Penicillins Allergy Hives Verified 04/21/25 17:30 Iodine and Iodide Containing AdvReac Hives Verified 04/21/25 17:30 Produc Surgical History Hx of shoulder surgery History of carpal tunnel surgery of right wrist Hx of tubal ligation History of total left knee replacement History of right knee joint replacement History of left hip replacement Hx of bilateral cataract extraction Social History household members: spouse current occupational status: retired Smoking Status: Former smoker ROS Constitutional Constitutional: Reports as per HPI Eyes Eyes: Reports systems reviewed and no addt'l complaints, except as documented ENT HEENT: Reports systems reviewed and no addt'l complaints, except as documented Cardiovascular Cardiovascular: Reports as per HPI Respiratory/Chest Respiratory/Chest: Reports as per HPI Gastrointestinal Gastrointestinal: Reports systems reviewed and no addt'l complaints, except as documented Genitourinary Genitourinary: Reports as per HPI Musculoskeletal Musculoskeletal: Reports systems reviewed and no addt'l complaints, except as documented Integumentary Integumentary: Reports systems reviewed and no addt'l complaints, except as documented Neurologic Neurologic: Reports systems reviewed and no addt'l complaints, except as documented Psychiatric Psychiatric: Reports systems reviewed and no addt'l complaints, except as documented Endocrine Endocrinology: Reports as per HPI Hematologic/Lymphatic Hematologic/Lymphatic: Reports as per HPI Allergic/Immunologic Allergic/Immunologic: Reports systems reviewed and no addt'l complaints, except as documented Physical Exam Const alert and oriented x3 HEENT normocephalic Eyes EOMs intact bilaterally Neck no JVD and no carotid bruits Neck Narrative: No JVD at 90 degrees Chest inspection of chest normal Resp normal respiratory effort Auscultation: crackles bilateral lower and breath sounds absent right (Base with dullness.) Cardio Rate: regular rate Rhythm: regular rhythm Heart Sounds: S1 normal, S2 normal and murmur systolic II/ soft mid left sternal border; Negative for click or gallop GI soft to palpation Extremity General Extremity: edema bilateral lower extremity Details: trace Neuro Neuro Narrative: Alert and oriented x 3 Psych mental status grossly normal Charges/Coding Visit Charges Inpatient E&M: 91399 Init Hosp L3 Objective Data Vital Signs: Vital Signs Temp Pulse Resp BP Pulse Ox O2 Del Method 98.3 F 77 16 145/88 H 93 Room Air 04/22/25 13:44 04/22/25 13:44 04/22/25 13:44 04/22/25 13:44 04/22/25 13:44 04/22/25 13:45 Oxygen Delivery Method Room Air Weight: 234 lb 5.622 oz Body Mass Index (BMI) 40.2 Intake & Output: Intake and Output for Last 24 Hours 04/20/25 04/21/25 04/22/25 23:59 23:59 23:59 Intake Total 1000 / 1000 600 / 600 Output Total Balance 999 / 999 600 / 600 Lab / Micro Data Attestation: I reviewed the patient's lab results. 04/22/25 02:54 04/22/25 02:54 Labs: Laboratory Results - last 24 hr 04/21/25 18:54: PT Cancelled, INR Cancelled, APTT Cancelled 04/21/25 20:29: PT 15.4 H, INR 1.2, APTT 28.6 04/21/25 20:43: WBC 6.1, RBC 4.31, Hgb 12.9, Hct 39.7, MCV 92.1, MCH 29.9, MCHC 32.5, RDW Std Deviation 49.0 H, RDW Coeff of Audrey 14.6, Plt Count 196, MPV 10.9, Immature Gran % (Auto) 0.300, Neut % (Auto) 73.3 H, Lymph % (Auto) 16.7 L, [place] % (Auto) 5.9, Eos % (Auto) 3.1, Baso % (Auto) 0.7, Absolute Neuts (auto) 4.5, Absolute Lymphs (auto) 1.02, Nucleated RBC % 0, Sodium 137, Potassium 3.9, Chloride 98, Carbon Dioxide 26.0, Anion Gap 14, BUN 23 H, Creatinine 0.80, Estim Creat Clear Calc 72.41, Est GFR (MDRD) Non-Af 76, BUN/Creatinine Ratio 29.1 H, Glucose 112 H, Calcium 8.8, Magnesium 1.9, Troponin T High Sens 103 H*, NT pro BNP II 3705 H 04/21/25 22:43: Troponin T Hi Sens 2 Hr 96 H* 04/22/25 02:54: WBC 5.7, RBC 4.50, Hgb 13.5, Hct 41.6, MCV 92.4, MCH 30.0, MCHC 32.5, RDW Std Deviation 50.4 H, RDW Coeff of Audrey 14.7 H, Plt Count 220, MPV 11.2, Immature Gran % (Auto) 0.300, Neut % (Auto) 90.3 H, Lymph % (Auto) 8.0 L, [place] % (Auto) 1.2, Eos % (Auto) 0.0, Baso % (Auto) 0.2, Absolute Neuts (auto) 5.2, Absolute Lymphs (auto) 0.46 L, Nucleated RBC % 0, Sodium 137, Potassium 3.9, Chloride 98, Carbon Dioxide 25.5, Anion Gap 13, BUN 20 H, Creatinine 0.73, Estim Creat Clear Calc 72.27, Est GFR (MDRD) Non-Af 85, BUN/Creatinine Ratio 26.8 H, Glucose 181 H, Calcium 9.1, Troponin T Hi Sens 4Hr 84 H*, Triglycerides 64, Cholesterol 144, LDL Cholesterol, Calc 93, VLDL Cholesterol 13, HDL Cholesterol 38 L, Cholesterol/HDL Ratio 3.80, TSH 1.310 Rhythm Strip Rhythm Strip: Sinus Rhythm Rate: 81 Ectopy: PAC(s) Cardiology Labs/Tests 04/21/25 18:54: PT Cancelled, INR Cancelled, APTT Cancelled 04/21/25 20:29: PT 15.4 H, INR 1.2, APTT 28.6 04/21/25 20:43: WBC 6.1, RBC 4.31, Hgb 12.9, Hct 39.7, MCV 92.1, MCH 29.9, MCHC 32.5, Plt Count 196, MPV 10.9, Immature Gran % (Auto) 0.300, Neut % (Auto) 73.3 H, Lymph % (Auto) 16.7 L, [place] % (Auto) 5.9, Eos % (Auto) 3.1, Baso % (Auto) 0.7, Absolute Neuts (auto) 4.5, Nucleated RBC % 0, Sodium 137, Potassium 3.9, Chloride 98, Carbon Dioxide 26.0, Anion Gap 14, BUN 23 H, Creatinine 0.80, Est GFR (MDRD) Non-Af 76, BUN/Creatinine Ratio 29.1 H, Glucose 112 H, Calcium 8.8, Magnesium 1.9 04/22/25 02:54: WBC 5.7, RBC 4.50, Hgb 13.5, Hct 41.6, MCV 92.4, MCH 30.0, MCHC 32.5, Plt Count 220, MPV 11.2, Immature Gran % (Auto) 0.300, Neut % (Auto) 90.3 H, Lymph % (Auto) 8.0 L, [place] % (Auto) 1.2, Eos % (Auto) 0.0, Baso % (Auto) 0.2, Absolute Neuts (auto) 5.2, Nucleated RBC % 0, Sodium 137, Potassium 3.9, Chloride 98, Carbon Dioxide 25.5, Anion Gap 13, BUN 20 H, Creatinine 0.73, Est GFR (MDRD) Non-Af 85, BUN/Creatinine Ratio 26.8 H, Glucose 181 H, Calcium 9.1, Triglycerides 64, Cholesterol 144, VLDL Cholesterol 13, HDL Cholesterol 38 L, Cholesterol/HDL Ratio 3.80 Rhythm: EKG: ECHO: Stress Test: Cardiac Cath: PCI: CT Surgery: Holter monitor: EPS: PPM: CXR: Chest CT Scan: Radiography Diagnostic Testing: Radiology Impression Chest CTA 04/21/25 18:34 IMPRESSION: No visible aortic pathology. Right-sided pleural effusion. Negative for pulmonary embolism. Positive for coronary artery calcification. No acute lung pathology. Reading Location: [facility] Echocardiogram 04/21/25 22:28 Interpretation Summary Mild concentric left ventricular hypertrophy. Severe global LV systolic dysfunction. Estimated LVEF 20%. Stage III diastolic dysfunction. There is moderate biatrial dilatation. Moderate (2+) mitral valve insufficiency. Moderate-Severe (3+) tricuspid valve insufficiency. Right ventricular systolic pressure estimated to be 49 mmHg. Mildly calcified aortic valve. Mild aortic valve stenosis. Mean peak gradient 9 mmHg. Ordering Physician: Freddie Wick Referring Physician: Faith Barrientos Performed By: Elisa Isbell ALLEN OACANO Risk Score for UA/STEMI Assesmment (YES = 1) Risk Stratification Applicable: Yes Age > or = 65: Yes > or = 3 CAD risk factors (HTN, Hypercholesterolemia, Diabetes, family hx, current smoker): No Known CAD (Stenosis > or = 50%): No ASA used in past 7 days: No Severe angina (> or = 2 episodes in 24 hrs): No EKG ST change > or = 0.5mm: No Positive cardiac markers: Yes Score MICHOACANO Risk Score of mortality/ recurrent ischemic event over the next 14 days: 2 = 8.3% - Low Risk
[2025-04-22 17:15] VITALS: BP 133/86; PULSE 81; RESP 18; TEMP 36.6; O2SAT 95
[2025-04-22 20:40] VITALS: BP 149/84; PULSE 80; RESP 18; TEMP 36.7; O2SAT 93
[2025-04-23] VITALS (7 sets, daily range): BP systolic 114–137; BP diastolic 73–87; PULSE 56–79; RESP 16–18; TEMP 36.4–36.6; O2SAT 93–96
[2025-04-23] MEDS: MELATONIN 3 MG TABLET PO ×2 (00:36→21:12)
[2025-04-23] MEDS: 0.9% Saline Lock 10 ML Syringe IV ×2 (05:49→21:28)
[2025-04-23] MEDS: Furosemide 20 MG/2 ML VIAL IV (05:49)
[2025-04-23 06:20] LABS: Anion Gap 20 (5-15); BUN 28 mg/dL (4-19); BUN/Creat Ratio 29.6 RATIO (10-20); Calcium,Total 8.9 mg/dL (7.6-11.0); Carbon Dioxide 20.3 mmol/L (21.0-32.0); Chloride 98 mmol/L (98-108); Estimated Creatinine Clearance 60.22 ml/min (50-250); Glucose 117 mg/dL (70-99); Potassium 4.1 mmol/L (3.3-5.1)
--- NOTE | 2025-04-23 08:37 | PCM.PN.CARD ---
Subjective Subjective Patient is resting in her common position in bed. She is emotionally upset about her overall diagnosis and situation with her heart failure. Blood pressure and heart rate have been stable through the night she is tolerating the institution of guideline directed medical therapy. Objective Data Vital Signs: Vital Signs Temp Pulse Resp BP Pulse Ox O2 Del Method 97.6 F L 66 16 114/85 H 94 Room Air 04/23/25 03:30 04/23/25 03:30 04/23/25 03:30 04/23/25 03:30 04/23/25 03:30 04/23/25 03:30 Oxygen Delivery Method Room Air Weight: 234 lb 5.622 oz Body Mass Index (BMI) 40.2 Intake & Output: Intake and Output for Last 24 Hours 04/21/25 04/22/25 04/23/25 23:59 23:59 23:59 Intake Total 1000 / 1000 1400 / 2300 900 / 900 Output Total Balance 999 / 999 1400 / 2300 900 / 900 Lab / Micro Data Attestation: I reviewed the patient's lab results. 04/22/25 02:54 04/23/25 05:15 Labs: Laboratory Results - last 24 hr 04/22/25 02:54: WBC 5.7, RBC 4.50, Hgb 13.5, Hct 41.6, MCV 92.4, MCH 30.0, MCHC 32.5, RDW Std Deviation 50.4 H, RDW Coeff of Audrey 14.7 H, Plt Count 220, MPV 11.2, Immature Gran % (Auto) 0.300, Neut % (Auto) 90.3 H, Lymph % (Auto) 8.0 L, Bryan % (Auto) 1.2, Eos % (Auto) 0.0, Baso % (Auto) 0.2, Absolute Neuts (auto) 5.2, Absolute Lymphs (auto) 0.46 L, Nucleated RBC % 0, Triglycerides 64, Cholesterol 144, LDL Cholesterol, Calc 93, VLDL Cholesterol 13, HDL Cholesterol 38 L, Cholesterol/HDL Ratio 3.80 04/23/25 05:15: Sodium 139, Potassium 4.1, Chloride 98, Carbon Dioxide 20.3 L, Anion Gap 20 H, BUN 28 H, Creatinine 0.96, Estim Creat Clear Calc 60.22, Est GFR (MDRD) Non-Af 62, BUN/Creatinine Ratio 29.6 H, Glucose 117 H, Calcium 8.9 Rhythm Strip Rhythm Strip: Sinus Rhythm Rate: 65 Ectopy: PAC(s) Cardiology Labs/Tests 04/22/25 02:54: WBC 5.7, RBC 4.50, Hgb 13.5, Hct 41.6, MCV 92.4, MCH 30.0, MCHC 32.5, Plt Count 220, MPV 11.2, Immature Gran % (Auto) 0.300, Neut % (Auto) 90.3 H, Lymph % (Auto) 8.0 L, Bryan % (Auto) 1.2, Eos % (Auto) 0.0, Baso % (Auto) 0.2, Absolute Neuts (auto) 5.2, Nucleated RBC % 0, Triglycerides 64, Cholesterol 144, VLDL Cholesterol 13, HDL Cholesterol 38 L, Cholesterol/HDL Ratio 3.80 04/23/25 05:15: Sodium 139, Potassium 4.1, Chloride 98, Carbon Dioxide 20.3 L, Anion Gap 20 H, BUN 28 H, Creatinine 0.96, Est GFR (MDRD) Non-Af 62, BUN/Creatinine Ratio 29.6 H, Glucose 117 H, Calcium 8.9 Rhythm: EKG: ECHO: Stress Test: Cardiac Cath: PCI: CT Surgery: Holter monitor: EPS: PPM: CXR: Chest CT Scan: Radiography Diagnostic Testing: Radiology Impression Echocardiogram 04/21/25 22:28 Interpretation Summary Mild concentric left ventricular hypertrophy. Severe global LV systolic dysfunction. Estimated LVEF 20%. Stage III diastolic dysfunction. There is moderate biatrial dilatation. Moderate (2+) mitral valve insufficiency. Moderate-Severe (3+) tricuspid valve insufficiency. Right ventricular systolic pressure estimated to be 49 mmHg. Mildly calcified aortic valve. Mild aortic valve stenosis. Mean peak gradient 9 mmHg. Ordering Physician: Freddie Wick Referring Physician: Faith Barrientos Performed By: Elisa Isbell RDCS Physical Exam Const alert and oriented x3 HEENT normocephalic Eyes EOMs intact bilaterally Neck no JVD Chest inspection of chest normal Resp normal respiratory effort Auscultation: crackles bilateral lower and diminished lung sounds bilateral lower Cardio Rate: regular rate Rhythm: regular rhythm Heart Sounds: S1 normal, S2 normal and murmur systolic I/ soft mid; Negative for click or gallop Extremity General Extremity: edema bilateral lower extremity Details: trace Neuro Neuro Narrative: alert and oriented X 3 Psych mental status grossly normal Assessment & Plan Assessment/Plan (1) HFrEF (heart failure with reduced ejection fraction): PLAN: Patient is LVEF known to be in the 20% range by echo on this admission. Guideline directed medical therapy was instituted yesterday so far she is tolerating the Coreg lisinopril Jardiance and oral Lasix. BUN was 28 creatinine 0.96 with a GFR 62 on today's blood work fasting blood sugars 117. The patient was started on Jardiance for both heart failure and her elevated fasting blood sugars. Should consider adding spironolactone if blood pressure and renal function as well as electrolytes will tolerate in the next 24 hours. She should have a BMP checked prior to discharge it does appear the patient is still having significant dyspnea on exertion with ambulation in the halls. Her lower extremity edema is resolving. The patient does have a combination of valvular heart disease with 2+ MR 3+ TR and mild aortic stenosis with a mean gradient of 9 mmHg. Will continue to titrate guideline directed medical therapy. Should be able to be discharged in the next 48 hours. The patient should then follow-up in the [place] [facility] office in 7 to 10 days. The plan would be to titrate the patient to guideline directed medical therapy if her symptoms resolve and dyspnea on exertion improved significantly would consider stress testing. If she continues to have persistent symptoms would proceed with right and left heart catheterization. This will be determined after she is follow-up in the office at the [facility]. (2) Hypertensive disorder: QUALIFIERS: Hypertension type: primary hypertension Qualified Code(s): I10 - Essential (primary) hypertension PLAN: Blood pressure is coming under better control on her current meds. Will titrate to blood pressure and heart rate. (3) Valvular heart disease: PLAN: As noted the patient has 2+ MR, 3+ TR, and mild aortic stenosis with a mean gradient of 9 mmHg in the face of an ejection fraction of 20% with global LV dysfunction. There were no segmental wall motion abnormalities noted. However the patient does have risk factors for coronary artery disease. PLAN: Plan 1. Titrate guideline directed medical therapy to maximum tolerated doses. 2. Add spironolactone next 24 hours. 3. Check basic metabolic panel, BMP, and hemoglobin A1c prior to discharge. 4. Patient to follow-up in the [place] [facility] office with advanced practitioner in 7 to [address] Pink in 3-4 weeks. 5. Once maximally tried treated to guideline directed medical therapy we will repeat echocardiogram after 6 weeks. 6. Should the patient continue to have significant dyspnea on exertion despite aggressive therapy and improvement in her volume status would recommend left and right heart catheterizations. 7. If the patient's symptoms resolve and she is back to baseline activity levels would recommend stress testing to evaluate for ischemic burden. 8. Please call if further assistance is needed. Dr. Huff will be assuming the inpatient service starting tomorrow. Charges/Coding Visit Charges Inpatient E&M: 29748 Subs Hosp L2
[2025-04-23] MEDS: Cholecalciferol (Vit D3) 125 MCG CAPSULE (5,000 UNITS) PO (09:09)
[2025-04-23] MEDS: Potassium Chloride Oral Tablet 20 MEQ PO (09:09)
[2025-04-23] MEDS: Heparin Injection (Vial) 5,000 UNIT/ML VIAL 5000 UNIT SC ×2 (09:09→21:12)
--- NOTE | 2025-04-23 09:53 | PN.HOSP_ITS ---
Subjective Subjective Did have a great night overnight secondary to stress from her diagnosis Objective Data Objective Data Vital Signs: Vital Signs Temp Pulse Resp BP Pulse Ox O2 Del Method 97.5 F L 56 L 16 130/78 H 94 Room Air 04/23/25 08:50 04/23/25 08:50 04/23/25 08:50 04/23/25 08:50 04/23/25 08:50 04/23/25 08:52 Oxygen Delivery Method Room Air Weight: 234 lb 5.622 oz Body Mass Index (BMI) 40.2 Intake & Output: Intake and Output for Last 24 Hours 04/22/25 04/23/25 04/24/25 03:59 03:59 03:59 Intake Total 1000 / 1000 2300 / 2300 Output Total Balance 999 / 999 2300 / 2300 Lab / Micro Data 04/22/25 02:54 04/23/25 05:15 Labs: Laboratory Results - last 24 hr 04/22/25 02:54: Triglycerides 64, Cholesterol 144, LDL Cholesterol, Calc 93, VLDL Cholesterol 13, HDL Cholesterol 38 L, Cholesterol/HDL Ratio 3.80 04/23/25 05:15: Sodium 139, Potassium 4.1, Chloride 98, Carbon Dioxide 20.3 L, A nion Gap 20 H, BUN 28 H, Creatinine 0.96, Estim Creat Clear Calc 60.22, Est GFR (MDRD) Non-Af 62, BUN/Creatinine Ratio 29.6 H, Glucose 117 H, Calcium 8.9 Radiography Diagnostic Testing: Radiology Impression Echocardiogram 04/21/25 22:28 Interpretation Summary Mild concentric left ventricular hypertrophy. Severe global LV systolic dysfunction. Estimated LVEF 20%. Stage III diastolic dysfunction. There is moderate biatrial dilatation. Moderate (2+) mitral valve insufficiency. Moderate-Severe (3+) tricuspid valve insufficiency. Right ventricular systolic pressure estimated to be 49 mmHg. Mildly calcified aortic valve. Mild aortic valve stenosis. Mean peak gradient 9 mmHg. Ordering Physician: Freddie Wick Referring Physician: Faith Barrientos Performed By: Elisa Isbell RDCS Rhythm Strip Rhythm Strip: Sinus Rhythm Rate: 65 Ectopy: PAC(s) Physical Exam Narrative General: Alert, Oriented x3, Cooperative, No apparent distress HEENT: Atraumatic, PERRLA, EOMI, Normocephalic Oral: Moist Mucosa Neck: Supple, No JVD Lungs: Diminished, Normal air movement, No rhonchi, No wheeze, No rales Cardiovascular: Regular rate, Regular Rhythm, Normal S1, Normal S2, No murmurs Abdomen: Soft, Non Tender, Non-Distended, No Hepato-splenomegaly Extremities: Trace edema, Capillary Refill Less than 3 Seconds Skin: No rashes, No breakdown Musculoskeletal: No Tenderness to Palpation of Joints or Extremities Neurological: No focal neurological deficits, moves all extremities Psych/Mental Status: Normal Affect, Appropriate Assessment & Plan Assessment/Plan (1) Congestive heart failure: PLAN: Plan 1. Acute on chronic combined systolic and diastolic CHF/essential HTN/HLD – She had lipids done last year and her LDL was elevated – LDL is 93, will continue with Lipitor – Echo with stage III diastolic dysfunction EF of 20% with an RVSP of 49 mmHg and moderate to severe tricuspid valve insufficiency and moderate mitral valve insufficiency –Will continue with lisinopril 10 mg p.o. twice daily as well as Coreg 3.125 mg twice daily – Will transition her Lasix to p.o. at 40 mg daily – Continue with Aldactone at 25 mg p.o. daily – Continue with Jardiance 2. Anxiety/depression – Stable – Continue with her home medications DVT: Heparin Charges/Coding Visit Charges Inpatient E&M: 50906 Subs Hosp L2
[2025-04-24 03:35] VITALS: BP 146/98; PULSE 73; RESP 18; TEMP 36.5; O2SAT 97
[2025-04-24 06:03] LABS: Anion Gap 8 (5-15); BUN 31 mg/dL (4-19); BUN/Creat Ratio 36.4 RATIO (10-20); Calcium,Total 9.4 mg/dL (7.6-11.0); Carbon Dioxide 30.5 mmol/L (21.0-32.0); Chloride 99 mmol/L (98-108); Estimated Creatinine Clearance 68.82 ml/min (50-250); Glucose 100 mg/dL (70-99); Potassium 4.7 mmol/L (3.3-5.1)
[2025-04-24 06:45] LABS: Pro- Brain NATRIURETIC PEPTIDE 1947 pg/mL (<=1800)
[2025-04-24 07:15] VITALS: PULSE 65
--- NOTE | 2025-04-24 07:22 | PN.CARD_ITS ---
Subjective Subjective Patient is resting comfortably at 45 degrees in the bed. She denies any shortness of breath at rest. She is still having some dyspnea on exertion but she does believe it is improved over the last 24 hours. Patient's blood pressure is still running systolic 125–150. The patient appears to be in a much better place emotionally after discussion yesterday about her challenges and opportunities to improve with her LV function. Objective Data Vital Signs: Vital Signs Temp Pulse Resp BP Pulse Ox O2 Del Method 97.7 F L 73 18 146/98 H 97 Room Air 04/24/25 03:35 04/24/25 03:35 04/24/25 03:35 04/24/25 03:35 04/24/25 03:35 04/24/25 03:35 Oxygen Delivery Method Room Air Weight: 234 lb 5.622 oz Body Mass Index (BMI) 40.2 Intake & Output: Intake and Output for Last 24 Hours 04/22/25 04/23/25 04/24/25 23:59 23:59 23:59 Intake Total 1400 / 2300 2130 / 2130 Balance 1400 / 2300 2130 / 2130 Lab / Micro Data Attestation: I reviewed the patient's lab results. 04/22/25 02:54 04/24/25 05:11 Labs: Laboratory Results - last 24 hr 04/24/25 05:11: Sodium 138, Potassium 4.7, Chloride 99, Carbon Dioxide 30.5, Anion Gap 8, BUN 31 H, Creatinine 0.84, Estim Creat Clear Calc 68.82, Est GFR (MDRD) Non-Af 72, BUN/Creatinine Ratio 36.4 H, Glucose 100 H, Calcium 9.4, NT pro BNP II 1947 H Rhythm Strip Rhythm Strip: Sinus Rhythm Rate: 64 Ectopy: PVC(s) Cardiology Labs/Tests 04/24/25 05:11: Sodium 138, Potassium 4.7, Chloride 99, Carbon Dioxide 30.5, Anion Gap 8, BUN 31 H, Creatinine 0.84, Est GFR (MDRD) Non-Af 72, BUN/Creatinine Ratio 36.4 H, Glucose 100 H, Calcium 9.4 Rhythm: EKG: ECHO: Stress Test: Cardiac Cath: PCI: CT Surgery: Holter monitor: EPS: PPM: CXR: Chest CT Scan: Physical Exam Const alert and oriented x3 HEENT normocephalic Eyes EOMs intact bilaterally Neck no JVD Chest inspection of chest normal Resp normal respiratory effort Resp Narrative: Lung sounds much better than the last 24 hours. Auscultation: diminished lung sounds right lower Cardio Cardio Narrative: Distant heart tones due to body habitus no obvious murmur auscultated. Rate: regular rate Rhythm: regular rhythm Heart Sounds: S1 normal and S2 normal; Negative for click, gallop or murmur GI GI Narrative: Obese Extremity no pedal edema Neuro Neuro Narrative: Alert and oriented x 3 Psych mental status grossly normal and affect normal Assessment & Plan Assessment/Plan (1) HFrEF (heart failure with reduced ejection fraction): PLAN: Patient reports that she is feeling better she has less dyspnea on exertion but is still short of breath with activity when walking in the halls. She feels much better than upon presentation. Patient's initial BNP was over 4100 yesterday we rechecked it at 1947. This is consistent with her clinical status and diuresis. Currently the patient is on guideline directed medical therapy with Jardiance 10 mg daily, Lasix 40 mg every morning, spironolactone 25 mg daily started today. I would recommend we increase her lisinopril to 20 mg twice daily and her Coreg to 6.25 mg twice daily given her blood pressure and heart rate response. The patient is to be ambulated in the halls and when felt to be appropriate could be discharged to home from a cardiovascular perspective. The patient should follow-up with the [place] [facility] in 7 to 10 days after discharge. At that time she needs to have a BMP and BNP. Will titrate her guideline directed medical therapy to maximum tolerated doses. After that is achieved a repeat echocardiogram will be done in 6-12 weeks. (2) Hypertensive disorder: QUALIFIERS: Hypertension type: primary hypertension Qualified Code(s): I10 - Essential (primary) hypertension PLAN: Patient's blood pressure still in systolic 125–150 range. This gives us room to increase guideline directed medical therapy as noted in #1 above. (3) Valvular heart disease: PLAN: Patient has mild valvular heart disease with mild aortic stenosis mean gradient of 9 mmHg. She has 2+ MR and 3+ TR. I suspect these regurgitant lesions will improve with guideline directed medical therapy and lowering her blood pressure along with compensation for her heart failure. A full echocardiogram should be repeated not just a limited echo in 6-12 weeks after aggressive therapy. PLAN: Plan 1. Will increase Coreg to 6.25 mg twice daily. 2. Increase lisinopril to 20 mg twice daily. 3. Continue Jardiance Lasix and spironolactone at current doses. 4. When felt to be appropriate from the hospitalist perspective the patient can be discharged home from a cardiovascular perspective. 5. Patient should follow-up in the [facility] in 7-10 days after discharge. 6. Patient should have a BMP and BNP the day of her visit to the [place] [facility] in 7-10 days. 7. Once guideline directed medical therapy is titrated to maximum tolerated doses, will obtain full 2D echo in 6-12 weeks to reassess LV function and the patient's valvular heart disease. 8. Dr. Huff will be assuming the inpatient service today. Charges/Coding Visit Charges Inpatient E&M: 05490 [facility] [place] Hosp L3
[2025-04-24] MEDS: Heparin Injection (Vial) 5,000 UNIT/ML VIAL 5000 UNIT SC (08:41)
[2025-04-24] MEDS: Cholecalciferol (Vit D3) 125 MCG CAPSULE (5,000 UNITS) PO (08:41)
[2025-04-24 09:07] VITALS: BP 138/92; PULSE 63; RESP 16; TEMP 36.6; O2SAT 96
[2025-04-24 11:07] VITALS: BP 122/74; PULSE 57; RESP 16; TEMP 36.4; O2SAT 92
--- NOTE | 2025-04-24 11:11 | DCINST_ITS ---
Discharge Instructions DC O2, CPAP, BIPAP needs Home O2 Discharge instructions: No Dressing / Incision Discharge Activity: Return to Normal Activity Dressing / Incision Call your doctor if you observe: Fever of 101 or Higher, Shortness of breath, Dizziness, Fainting spells, Swelling in the ankles, Chest pain and Increased palpitations (irregular heartbeat) Follow Up Care Test Results: Test results from this visit will be discussed in further detail at your follow- up appointment, if applicable. Discharge Plan Admission Admit Date/Time: 04/21/25 22:08 Attending Provider: Win Marin Primary Care Provider: Faith Barrientos Consulting Providers: Curtis Nichole; Jose Miguel Pink Instructions Patient Instructions: Heart Failure Meds, Heart Failure: Tracking Your Weight, Heart Failure Make Changes Diet, ED CHF Left Side Discharge Orders/Prescriptions Prescriptions: New furosemide 40 mg Tablet 40 mg PO DAILY 30 Days Qty: 30 0RF atorvastatin 40 mg Tablet 40 mg PO QHS 30 Days Qty: 30 0RF carvedilol 6.25 mg Tablet 6.25 mg PO BIDCM 30 Days Qty: 60 0RF lisinopril 20 mg Tablet 20 mg PO BID 30 Days Qty: 60 0RF spironolactone 25 mg Tablet 25 mg PO DAILY 30 Days Qty: 30 0RF Jardiance 10 mg Tablet 10 mg PO DAILY 30 Days Qty: 30 0RF Continued cetirizine 10 mg tablet 10 mg PO DAILY ICaps AREDS 4,296 mcg-226 mg-90 mg capsule 1 cap PO BID citalopram 10 mg tablet 10 mg PO QHS Cholecalciferol (Vitamin D3) [Vitamin D3] 5,000 UNIT capsule 5,000 unit PO DAILY acetaminophen 500 mg capsule 1,000 mg PO Q6H PRN (Reason: fever or pain) white petrolatum-mineral oil 94-3 % ointment 1 applic EACH EYE QHS Held meloxicam 7.5 MG tablet 7.5 mg PO BID Hold Instructions: Resume on 05/01/25. Discontinued furosemide 40 mg tablet 80 mg PO DAILY Referrals / Follow Up: Faith Barrientos DO [Primary Care Provider, Family Practice] - Within 1 Week Jose Miguel Pink MD [Med Staff - Active Staff, Cardiology] - Within 2 Weeks Disposition Disposition (needs filled in before D/C Order can be placed): Home, Self Care
[2025-04-24 11:19] VITALS: PULSE 66
[2025-04-24 12:03] VITALS: O2SAT 95; O2SAT 98
--- NOTE | 2025-04-24 12:30 | PHA.DC_ITS ---
Pharmacy [facility] has performed discharge medication counseling for this patient. The patient was counseled on the following discharge medications and changes in medications for homegoing review. - Atorvastatin 40 mg tablet, Carvedilol 6.25 mg tablet, Furosemide 40 mg tablet, Jardiance 10 mg tablet, Lisinopril 20 mg tablet, Spironolactone 25 mg tablet The Reason for Use, instructions for use, and potential side effects were reviewed for all new medications. The patient's questions regarding all of their medications were answered. The patient was able to verbally demonstrate an understanding of their discharge medications. Medications at Discharge Home Medications Cholecalciferol (Vitamin D3) [Vitamin D3] 5,000 unit PO DAILY vitamin 03/15/20 citalopram 10 mg tablet 10 mg PO QHS mental health 03/15/20 meloxicam 7.5 mg tablet 7.5 mg PO BID pain 03/15/20 Held on 04/24/25. Instructions: Resume on 05/01/25. cetirizine 10 mg tablet 10 mg PO DAILY allergies 10/03/22 vitamins A,C,Z-ligk-jwauco 4,296 mcg-226 mg-90 mg capsule (ICaps AREDS) 1 cap PO BID vitamin 10/03/22 acetaminophen 500 mg capsule 1,000 mg PO Q6H PRN fever or pain 04/21/25 white petrolatum-mineral oil 94 %-3 % eye ointment 1 applic EACH EYE QHS dry eyes 04/21/25 atorvastatin 40 mg tablet 40 mg PO QHS 30 days #30 tabs 04/24/25 carvedilol 6.25 mg tablet 6.25 mg PO BIDCM 30 days #60 tabs 04/24/25 empagliflozin 10 mg tablet (Jardiance) 10 mg PO DAILY 30 days #30 tabs 04/24/25 furosemide 40 mg tablet 40 mg PO DAILY 30 days #30 tabs 04/24/25 lisinopril 20 mg tablet 20 mg PO BID 30 days #60 tabs 04/24/25 spironolactone 25 mg tablet 25 mg PO DAILY 30 days #30 tabs 04/24/25
--- NOTE | 2025-04-24 12:55 | PCM.DC.SUM ---
Providers Date of Admission: 04/21/25 Primary Care Physician: Dr. Faith Barrientos DO Consultations 04/22/25 12:34 Consult: Cardiology Routine Consulting Provider: Jose Miguel Pink Reason for Consult: [place] combined CHF EMERGENT Consult: No MD Notified: Yes Date Notified: 04/22/25 Time Notified: 12:34 Method of Notification: Text Reason For Visit: ACUTE CONGESTIVE HEART FAILURE Diagnosis Discharge Diagnosis (1) HFrEF (heart failure with reduced ejection fraction): Status: Acute Code(s): I50.20 - Unspecified systolic (congestive) heart failure (2) Hypertensive disorder: Status: Chronic Code(s): I10 - Essential (primary) hypertension Qualifiers: Hypertension type: primary hypertension Qualified Code(s): I10 - Essential (primary) hypertension Medications at Discharge Home Medications Cholecalciferol (Vitamin D3) [Vitamin D3] 5,000 unit PO DAILY vitamin 03/15/20 citalopram 10 mg tablet 10 mg PO QHS mental health 03/15/20 meloxicam 7.5 mg tablet 7.5 mg PO BID pain 03/15/20 Held on 04/24/25. Instructions: Resume on 05/01/25. cetirizine 10 mg tablet 10 mg PO DAILY allergies 10/03/22 vitamins A,C,I-acof-yirsse 4,296 mcg-226 mg-90 mg capsule (ICaps AREDS) 1 cap PO BID vitamin 10/03/22 acetaminophen 500 mg capsule 1,000 mg PO Q6H PRN fever or pain 04/21/25 white petrolatum-mineral oil 94 %-3 % eye ointment 1 applic EACH EYE QHS dry eyes 04/21/25 atorvastatin 40 mg tablet 40 mg PO QHS 30 days #30 tabs 04/24/25 carvedilol 6.25 mg tablet 6.25 mg PO BIDCM 30 days #60 tabs 04/24/25 empagliflozin 10 mg tablet (Jardiance) 10 mg PO DAILY 30 days #30 tabs 04/24/25 furosemide 40 mg tablet 40 mg PO DAILY 30 days #30 tabs 04/24/25 lisinopril 20 mg tablet 20 mg PO BID 30 days #60 tabs 04/24/25 spironolactone 25 mg tablet 25 mg PO DAILY 30 days #30 tabs 04/24/25 Hospital Course Operations None Procedures 2-D Echocardiogram Summary of Care Provided Minutes Spent on Discharge: 37 Hospital Course: Per HPI: BYRON ARSHAD, is a 74 F who presents to the emergency room at [facility] with complaints of fluid retention chiefly in her legs and shortness of breath especially when she lays flat over the past 2 to 3 weeks. She was placed on Lasix by her family physician because her family physician suspected that the patient might have congestive heart failure. Patient has no complaints at this time of any chest pain. Workup in the emergency room included labs-patient's CBC was unremarkable, chemistry profile was remarkable for BUN of 23, patient's troponin was elevated at 103, and her beta natruretic peptide was elevated at 3705. EKG showed a normal sinus rhythm with Q waves in V1 and V2 and occasional ectopic beats. CTA was obtained which showed right-sided pleural effusion, it was negative for pulmonary embolism and positive for coronary artery calcification. No acute lung pathology was noted. Patient did not require supplemental oxygen to maintain her pulse ox above 90%. Patient will be admitted to PCU for acute congestive heart failure-type unknown-she will be given IV Lasix and an echocardiogram will be obtained. Cardiac enzymes will be cycled but I suspect that the elevation of troponin is secondary to demand ischemia. Hospital Course: 1. Acute on chronic combined systolic and diastolic CHF secondary to valvular disease and hypertension/essential HTN/HLD–74-year-old female presented to the hospital with increasing dyspnea on exertion and lower extremity edema. She had been started on Lasix as an outpatient secondary to an elevated BNP however she presented to the hospital and had an echocardiogram that demonstrated an EF of 20% and stage III diastolic dysfunction with an RVSP of 49 mmHg and a moderate to severe tricuspid valve insufficiency and a moderate mitral valve insufficiency. Cardiology was consulted and recommended aggressive blood pressure control. She was discharged on lisinopril 20 mg p.o. twice daily as well as Lasix 40 mg p.o. daily, Aldactone 25 mg p.o. daily, Coreg 6.25 mg p.o. twice daily, Jardiance 10 mg p.o. daily, Lipitor 40 mg p.o. nightly. She will need close outpatient monitoring for her renal function and cardiac function, she will meet with cardiology in the next couple of weeks and will have a repeat outpatient echocardiogram to help determine whether or not she needs a cardiac cath or not. I did hold her meloxicam secondary to the multiple medications she is currently on that can affect her renal function. I recommend following up with her PCP prior to restarting this medication. Of note on the day of discharge her BNP had decreased by about 50% and she had an ambulatory pulse ox that did not demonstrate a need for oxygen either at rest or with ambulation. 2. Anxiety, depression her chronic medical conditions which complicate her care. Her home medications were continued where appropriate Physical Exam Narrative General: Alert, Oriented x3, Cooperative, No apparent distress HEENT: Atraumatic, PERRLA, EOMI, Normocephalic Oral: Moist Mucosa Neck: Supple, No JVD Lungs: Diminished, Normal air movement, No rhonchi, No wheeze, No rales Cardiovascular: Regular rate, Regular Rhythm, Normal S1, Normal S2, No murmurs Abdomen: Soft, Non Tender, Non-Distended, No Hepato-splenomegaly Extremities: Trace edema, Capillary Refill Less than 3 Seconds Skin: No rashes, No breakdown Musculoskeletal: No Tenderness to Palpation of Joints or Extremities Neurological: No focal neurological deficits, moves all extremities Psych/Mental Status: Normal Affect, Appropriate Weight / BMI Weight Weight: 234 lb 5.622 oz Body Mass Index (BMI) 40.2 ABG / Lab / Microbiology Data 04/22/25 02:54 04/24/25 05:11 Laboratory: Laboratory Results - last 24 hr 04/24/25 05:11: Sodium 138, Potassium 4.7, Chloride 99, Carbon Dioxide 30.5, Anion Gap 8, BUN 31 H, Creatinine 0.84, Estim Creat Clear Calc 68.82, Est GFR (MDRD) Non-Af 72, BUN/Creatinine Ratio 36.4 H, Glucose 100 H, Calcium 9.4, NT pro BNP II 1947 H D/C Instructions Call your doctor if you observe: Fever of 101 or Higher, Shortness of breath, Dizziness, Fainting spells, Swelling in the ankles, Chest pain and Increased palpitations (irregular heartbeat) DC O2, CPAP, BIPAP Needs Home O2 Discharge instructions: No Meaningful Use Info Meaningful Use Meaningful Use Diagnoses (Choose all that apply): None applicable Discharge Plan Admission Admit Date/Time: 04/21/25 22:08 Attending Provider: Win Marin Primary Care Provider: Faith Barrientos Consulting Providers: Curtis Nichole; Jose Miguel Pink Instructions Patient Instructions: Heart Failure Meds, Heart Failure: Tracking Your Weight, Heart Failure Make Changes Diet, ED CHF Left Side Discharge Orders/Prescriptions Prescriptions: New furosemide 40 mg Tablet 40 mg PO DAILY 30 Days Qty: 30 0RF atorvastatin 40 mg Tablet 40 mg PO QHS 30 Days Qty: 30 0RF carvedilol 6.25 mg Tablet 6.25 mg PO BIDCM 30 Days Qty: 60 0RF lisinopril 20 mg Tablet 20 mg PO BID 30 Days Qty: 60 0RF spironolactone 25 mg Tablet 25 mg PO DAILY 30 Days Qty: 30 0RF Jardiance 10 mg Tablet 10 mg PO DAILY 30 Days Qty: 30 0RF Continued cetirizine 10 mg tablet 10 mg PO DAILY ICaps AREDS 4,296 mcg-226 mg-90 mg capsule 1 cap PO BID citalopram 10 mg tablet 10 mg PO QHS Cholecalciferol (Vitamin D3) [Vitamin D3] 5,000 UNIT capsule 5,000 unit PO DAILY acetaminophen 500 mg capsule 1,000 mg PO Q6H PRN (Reason: fever or pain) white petrolatum-mineral oil 94-3 % ointment 1 applic EACH EYE QHS Held meloxicam 7.5 MG tablet 7.5 mg PO BID Hold Instructions: Resume on 05/01/25. Discontinued furosemide 40 mg tablet 80 mg PO DAILY Referrals / Follow Up: Faith Barrientos DO [Primary Care Provider, Family Practice] - Within 1 Week Jose Miguel Pink MD [Med Staff - Active Staff, Cardiology] - Within 2 Weeks Disposition Disposition (needs filled in before D/C Order can be placed): Home, Self Care Charges/Coding Visit Charges Inpatient E&M: 03051 Disch Hosp >30min
--- NOTE | 2025-04-24 13:30 | CASEMGMT ---
Patient has order for discharge. Patient is discharging on Jardiance. SHELIA LARRY called [facility], copay is $584.04. SHELIA LARRY updated hospitalist. Per hospitalist, patient is not to fill and to follow-up with maintenance planning clerk as an outpatient for further recommendation. SHELIA LARRY updated patient regarding copay, she said she cannot afford medication. SHELIA LARRY updated patient to not fill prescription and to follow up with maintenance planning clerk as an outpatient per hospitalist's recommendation. Patient voiced understanding. Patient denied further needs or concerns.
== END 2025-04-24 14:22 | disposition home or self-care (01) | DRG 291 ==
LOC: ED 18:46 → PCU 22:31
PROVIDERS: Internal Medicine; Admitting Provider Family Medicine; Emergency Provider Surgery; PCP Family Medicine; Visit Provider Family Medicine
DX: I13.0 Hypertensive heart and chronic kidney disease with heart failure and stage 1 through stage 4 chronic kidney disease, or unspecified chronic kidney disease (principal); I50.43 Acute on chronic combined systolic (congestive) and diastolic (congestive) heart failure; I24.89 Other forms of acute ischemic heart disease; Z68.41 Body mass index [BMI] 40.0-44.9, adult; N18.32 Chronic kidney disease, stage 3b; F32.A Depression, unspecified; I08.3 Combined rheumatic disorders of mitral, aortic and tricuspid valves; F41.9 Anxiety disorder, unspecified; E78.5 Hyperlipidemia, unspecified; I25.10 Atherosclerotic heart disease of native coronary artery without angina pectoris; E66.813 Obesity, class 3; Z79.84 Long term (current) use of oral hypoglycemic drugs; Z79.899 Other long term (current) drug therapy; Z87.891 Personal history of nicotine dependence
CPT/HCPCS: 36415; 71275; 80048; 80053; 80061; 83735; 83880; 84443; 84484; 85025; 85610; 85730; 93005; 93306; 99285; Q9957; Q9967; A4216; C8929; J1938

== ENCOUNTER → 2025-04-21 | Outpatient (CLI) | payer MEDICARE, OTHER, SELFPAY ==
[2025-04-21 12:58] LABS: AST(SGOT) 23 U/L (<=31); Alanine Aminotransfer ALT/SGPT 15 U/L (<=34); Albumin, Serum 3.9 g/dL (3.4-4.8); Alkaline Phosphatase 80 U/L (35-104); Anion Gap 10 (5-15); BUN 25 mg/dL (4-19); BUN/Creat Ratio 30.3 RATIO (10-20); Calcium,Total 9.5 mg/dL (7.6-11.0); Carbon Dioxide 29.2 mmol/L (21.0-32.0); Chloride 100 mmol/L (98-108); Globulin 2.7 g/dL (2.2-4.2); Glucose 125 mg/dL (70-99); Potassium 4.2 mmol/L (3.3-5.1); Pro- Brain NATRIURETIC PEPTIDE 4182 pg/mL (<=1800)
== END | disposition home or self-care (01) ==
PROVIDERS: PCP Family Medicine; Visit Provider Family Medicine
DX: N18.32 Chronic kidney disease, stage 3b (principal); I50.33 Acute on chronic diastolic (congestive) heart failure; Z51.81 Encounter for therapeutic drug level monitoring
CPT/HCPCS: 36415; 80053; 83880

== ENCOUNTER → 2025-05-06 | Outpatient (CLI) | payer MEDICARE, OTHER, SELFPAY ==
--- NOTE | 2025-05-06 11:52 | RAD_ITS ---
PROCEDURE: CHEST PA AND LATERAL 05/06/2025 REASON FOR EXAM: COUGH TECHNIQUE: Procedure Code: RADCXR Modality: DX Procedure: CHEST PA AND LATERAL COMPARISON: April 16, 2025 FINDINGS: The lungs are adequately aerated bilaterally without pleural effusion, pneumothorax, or focal airspace disease. Coarse pulmonary markings bilaterally. Bilateral reverse shoulder arthroplasties. Atheromatous changes of the aorta without cardiomegaly. Degenerative changes of the spine. RAD/Chest PA and Lateral IMPRESSION: No evidence of acute cardiopulmonary abnormality with findings suggesting chron ic lung disease. Reading Location: [id number]
[2025-05-06 13:24] LABS: Anion Gap 11 (5-15); BUN 29 mg/dL (4-19); BUN/Creat Ratio 20.7 RATIO (10-20); Calcium,Total 9.8 mg/dL (7.6-11.0); Carbon Dioxide 27.3 mmol/L (21.0-32.0); Chloride 95 mmol/L (98-108); Glucose 123 mg/dL (70-99); Potassium 5.2 mmol/L (3.3-5.1); Pro- Brain NATRIURETIC PEPTIDE 2336 pg/mL (<=1800)
== END | disposition home or self-care (01) ==
LOC: RAD 11:38
PROVIDERS: PCP Family Medicine; Referring Provider Nurse Practitioner Gerontology; Visit Provider Nurse Practitioner Gerontology
DX: R05.9 Cough, unspecified (principal); R06.02 Shortness of breath; R93.1 Abnormal findings on diagnostic imaging of heart and coronary circulation
CPT/HCPCS: 36415; 71046; 80048; 83880

== ENCOUNTER → 2025-05-12 | Outpatient (CLI) | payer MEDICARE, OTHER, SELFPAY ==
[2025-05-12 12:40] LABS: Anion Gap 12 (5-15); BUN 48 mg/dL (4-19); BUN/Creat Ratio 33.4 RATIO (10-20); Calcium,Total 9.9 mg/dL (7.6-11.0); Carbon Dioxide 25.7 mmol/L (21.0-32.0); Chloride 96 mmol/L (98-108); Glucose 117 mg/dL (70-99); Potassium 4.7 mmol/L (3.3-5.1)
== END | disposition home or self-care (01) ==
LOC: LAB 11:09
PROVIDERS: PCP Family Medicine; Referring Provider Nurse Practitioner Gerontology; Visit Provider Nurse Practitioner Gerontology
DX: I50.20 Unspecified systolic (congestive) heart failure (principal)
CPT/HCPCS: 36415; 80048

== ENCOUNTER → 2025-05-19 | Outpatient (CLI) | payer MEDICARE, OTHER, SELFPAY ==
[2025-05-19 15:46] LABS: Anion Gap 9 (5-15); BUN 32 mg/dL (4-19); BUN/Creat Ratio 28.1 RATIO (10-20); Calcium,Total 9.8 mg/dL (7.6-11.0); Carbon Dioxide 30.7 mmol/L (21.0-32.0); Chloride 98 mmol/L (98-108); Glucose 120 mg/dL (70-99); Potassium 5.1 mmol/L (3.3-5.1)
== END | disposition home or self-care (01) ==
LOC: LAB 14:16
PROVIDERS: PCP Family Medicine; Referring Provider Nurse Practitioner Gerontology; Visit Provider Nurse Practitioner Gerontology
DX: R93.1 Abnormal findings on diagnostic imaging of heart and coronary circulation (principal)
CPT/HCPCS: 36415; 80048

== ENCOUNTER → 2025-05-21 | Outpatient (CLI) | payer MEDICARE, OTHER, SELFPAY ==
--- OUTSIDE RECORDS SUMMARY | 2025-05-21 06:15 | XMS RPT_ITS | CCD ---
Author Organization [facility] Care Team Providers Care Helper Animal Laboratory Name Role Phone DARNELL FLORES, DR FAITH Spears Primary Care Physician WHITNEY SOSA, DR LAUREANO Spears Attending Mikal Huitron MD, DR LAUREANO Spears Referring Mikal Huitron MD, DR LAUREANO Spears Admitting Unavailab kj BARRIENTOS DO, DR FAITH Spears Primary Care Unavailable KAYODE DRIVER/MERCHANDISER-BANQUET LINE COOK, FAITH Garcia Consulting Unavailtory OLSON MD, DR LAUREANO Spears Attending Unavailab kj BARRIENTOS DO, DR FAITH Spears Primary Care Unavailable DARNELL FLORES, DR FAITH Spears Primary Care Unavailable WHITNEY SOSA, DR LAUREANO Spears Attending Unavailab Tomy SOSA, DR LAUREANO Spears Attending Unavailab kj BARRIENTOS DO, DR FAITH Spears Primary Care Unavailable WHITNEY SOSA, DR LAUREANO Spears Attending Mikal Huitron MD, DR LAUREANO Spears Referring Unavailab Tomy SOSA, DR LAUREANO Spears Admitting Unavailab kj BARRIENTOS DO, DR FAITH Spears Primary Care Unavailable KAYODE DRIVER/MERCHANDISER-BANQUET LINE COOK, FAITH M Consulting Unavaila ble Malys, Faith Referring Unavailable Malys, Faith Attending Unavailable Malys, Faith Primary Care Unavailable Malys, Faith Referring Unavailable Malys, Faith Attending Unavailable Malys, Faith Primary Care Unavailable Malys, Faith Primary Care Unavailable Malys, Faith Attending Unavailable Luis Brown Attending Unavailable Malys, Faith Primary Care Unavailable Malys, Faith Primary Care Unavailable Win Marin Attending Unavailable Curtis Nichole Consulting Unavailable Curtis Nichole Admitting Unavailable Jose Miguel Pink Consulting Unavailable Malys, Faith Referring Unavailable Malys, Faith Attending Unavailable Malys, Faith Primary Care Unavailable Malys, Faith Primary Care Unavailable Evgeny Aviles Attending Unavailable Jose Miguel Pink Attending Unavailable Win Marin Consulting Unavailable Faith Barrientos Primary Care Unavailable Freddie Wick Attending Unavailable Allergies Allergy Classification Reported Allergen(s) Allergy Type Date of Onset Reaction(s) Facility (6 sources) Contrast media; Translations: [iodinated radiocontrast agents] Drug allergy [facility] (6 sources) Latex Allergy to substance [facility] (6 sources) Penicillin; Translations: [penicillins] Drug Allergy [facility] (1 source) Iodine Drug Allergy 5 [facility] (1 source) Penicillins Drug allergy (disorder) 5 [facility] (1 source) Iodine and Iodide Containing Produc Drug allergy (disorder) 5 [facility] Medications Current Medications Medication Drug Class(es) [...] tab(s), 0 Refill(s), 02/17/22 11:25:00 EDT, Pharmacy: [facility]/pharmacy #[id number], 160, cm, 02/01/22 14:54:00 EDT, Height Start [...] prophylaxis, # 60 tab(s), 0 Refill(s), Pharmacy: [facility]/pharmacy #[id number], 160, cm, 02/01/22 14:54:00 EDT, Height Start [...] Ordered docusate sodium 50 mg / sennosides, chcf 8.6 mg oral tablet (1 source) Start: 03-22-2023 End: 03-25-2023 take 1 tablet by mouth twice daily Senokot S 50 mg-8.6 mg oral tablet Dose = 2 tab(s), Oral, BID, Take until first bowel movement, then as needed, X 3 day(s), # 12 tab(s), 0 Refill(s), Pharmacy: [facility]/pharmacy #[id number], 162, cm, 03/21/23 14:52:00 EDT, Height, kg, 03/21/23 14:52:00 EDT, Dosing Weight Start Date: 03/22/23 Stop Date: 03/25/23 Status: Ordered doxycycline hyclate 100 mg oral capsule (1 source) Tetracycline-class Drug Start: 02-03-2022 End: 02-16-2022 doxycycline hyclate 100 mg oral capsule Dose : 100 mg = 1 cap(s), Oral, q12h, X 13 day(s), # 26 cap(s), 0 Refill(s), 02/16/22 11:27:00 EDT, [id number], 160, cm, 02/01/22 14:54:00 EDT, Height, 112.6 Start Date: 02/03/22 Stop Date: 02/16/22 Status: Ordered famotidine 20 mg oral tablet (2 sources) Histamine-2 Receptor Antagonist Start: 03-22-2023 End: 04-05-2023 Pepcid 20 mg oral tablet Dose : 20 mg = 1 tab(s), Oral, qDay, # 14 tab(s), 0 Refill(s), [id number], 162, cm, 03/21/23 14:52:00 EDT, Height, kg, 03/21/23 14:52:00 EDT, Dosing Weight Start Date: 03/22/23 Stop Date: 04/05/23 Status: Ordered Start: 02-03-2022 Pepcid 20 mg o ral tablet Dose : 20 mg = 1 tab(s), Oral, qDay, # 30 tab(s), 0 Refill(s), Pharmacy: [facility]/pharmacy #[id number], 160, cm, 02/01/22 14:54:00 EDT, Height Start Date: 02/03/22 Status: Ordered meloxicam 7.5 mg oral tablet (6 sources) Nonsteroidal Anti-inflammatory Drug Start: 08-10-2022 Mobic 7.5 mg oral tablet Dose : 7.5 mg = 1 tab(s), Oral, BIDM, Do not take any other nonsteroidal anti-inflammatories while on meloxicam/Mobic, # 60 tab(s), 0 Refill(s), [id number], 162.6, cm, 08/09/22 12:41:00 EST, Height Start [...] qHS, # 30 tab(s), 2 Refill(s), Pharmacy: [facility]/pharmacy #[id number], 160, cm, 02/01/22 14:54:00 EDT, Height Start Date: 02/03/22 Status: Ordered nystatin 529029 unt/ml topical cream (3 sources) Polyene Antifungal [...] 0 Refill(s), 03/29/23 6:54:00 AM EDT, Pharmacy: [facility]/pharmacy #[id number], Status post reverse total replacement of left [...] tab(s), 0 Refill(s), 02/10/22 11:28:00 EDT, Pharmacy: [facility]/pharmacy #[id number], Status post revision of total replacement of [...] Translations: [Anxiety disorder, unspecified] Onset: 03-22-2023 Chronic Chronic kidney disease (1 source) Chronic kidney disease; Translations: [Chronic kidney disease, stage 3b] Onset: 04-21-2025 Congestive heart failure; nonhypertensive (2 sources) Unspecified systolic (congestive) heart failure; Translations: [Heart failure, unspecified] Onset: 04-24-2025 Chronic Esophageal disorders (2 sources) Gastroesophageal reflux disease without esophagitis; Translations: [Gastro-esophageal reflux disease without esophagitis] Onset: 03-22-2023 Chronic Essential hypertension (4 sources) Hypertensive disorder; Translations: [Essential (primary) hypertension] [...] respiratory disease (2 sources) Hypoxia 08-10-2022 Episodic Afua-; endo-; and myocarditis; cardiomyopathy (except that caused by tuberculosis or sexually transmitted disease) (1 source) Endocarditis, valve unspecified; Translations: [Endocarditis, valve unspecified] Onset: 04-24-2025 Chronic Past or Other Problems Problem Classification Problem Date Documented Da te Episodic/Chronic Other injuries and conditions due to external causes (1 source) Unspecified injury of unspecified lower leg, initial encounter; Translations: [Unspecified injury of unspecified lower leg, initial encounter] Onset: 11-07-2024 Episodic Results Test Name Value Interpretation Reference Range Facility Basic Metabolic Profile (BMP )on 04-24-2025 BUN/CRE 36.4 RATIO High 10-20 [facility] Comment on above: Performed By: #### L 503.7505, L300.3900, L501.5200 #### [facility] [address] [place], [address] Calcium [Mass/Vol] 9.4 mg/dL Normal 7.6-11.0 [facility] Comment on above: Performed By: #### L 503.7505, L300.3900, L501.5200 #### [facility] [address] [place], [address] Chloride [Moles/Vol] 99 mmol/L Normal 98-108 [facility] Comment on above: Performed By: #### L 503.7505, L300.3900, L501.5200 #### [facility] [address] [place], [address] CO2 [Moles/Vol] 30.5 mmol/L Normal 21.0-32.0 [facility] Comment on above: Performed By: #### L 503.7505, L300.3900, L501.5200 #### [facility] [address] [place], [address] Creatinine [Mass/Vol] 0.84 mg/dL Normal 0.70-1.[address] [facility] Comment on above: Performed By: #### L 503.7505, L300.3900, L501.5200 #### [facility] [address] [place], [address] ECRCL 68.82 ml/min Normal 50-250 [facility] Comment on above: Performed By: #### L 503.7505, L300.3900, L501.5200 #### [facility] [address] [place], [address] GAP 8 Normal 5-15 [facility] Comment on above: Performed By: #### L 503.7505, L300.3900, L501.5200 #### [facility] [address] [place], [address] GFR/1.73 sq M.predicted among non-blacks MDRD (S/P/Bld) [Vol rate/Area] 72 mL/min/{1.73_m2} Normal >60 [facility] Comment on above: Result Comment: mL/m in/1.73m2 CKD-EPI Creatinine Equation (2020) Performed By: #### L 503.7505, L300.3900, L501.5200 #### [facility] [address] [place], [address] Glucose [Mass/Vol] 100 mg/dL High 70-99 [facility] Comment on above: Performed By: #### L 503.7505, L300.3900, L501.5200 #### [facility] [address] [place], [address] Potassium [Moles/Vol] 4.7 mmol/L Normal 3.3-5.[address] [facility] Comment on above: Performed By: #### L 503.7505, L300.3900, L501.5200 #### [facility] [address] [place], [address] Sodium [Moles/Vol] 138 mmol/L Normal 133-145 [facility] Comment on above: Performed By: #### L 503.7505, L300.3900, L501.5200 #### [facility] [address] [place], [address] Urea nitrogen [Mass/Vol] 31 mg/dL High 4-19 [facility] Comment on above: Performed By: #### L 503.7505, L300.3900, L501.5200 #### [facility] [address] [place], [address] Discharge Instructionon 04-12 Discharge Instruction [facility] Medical Records Department [address] [place] [address] Instructions for Home/Discharge Instructions 04/24/25 1111 MR#: [id number] Acct: [id number] Name: MI PRETTY Rep #: [id number] : 1950 74 From: Win Marin MD PCP: Dr. Faith Barrientos, DO Status:ADM IN Discharge Instructions DC O2, CPAP, BIPAP needs Home O2 Discharge instructions: No Dressing / Incision Discharge Activity: Return to Normal Activity Dressing / Incision Call your doctor if you observe: Fever of 101 or Higher, Shortness of breath, Dizziness, Fainting spells, Swelling in the ankles, Chest pain and Increased palpitations (irregular heartbeat) Follow Up Care Test Results: Test results from this visit will be discussed in further detail at your follow-up appointment, if applicable. Discharge Plan Admission Admit Date/Time: 04/21/25 22:08 Attending Provider: Win Marin Primary Care Provider: Faith Barrientos Consulting Providers: Curtis Nichole; Jose Miguel Pink Instructions Patient Instructions: Heart Failure Meds, Heart Failure: Tracking Your Weight, Heart Failure Make Changes Diet, ED CHF Left Side Discharge Orders/Prescriptions Prescriptions: New furosemide 40 mg Tablet 40 mg PO DAILY 30 Days Qty: 30 0RF atorvastatin 40 mg Tablet 40 mg PO QHS 30 Days Qty: 30 0RF carvedilol 6.25 mg Tablet 6.25 mg PO BIDCM 30 Days Qty: 60 0RF lisinopril 20 mg Tablet 20 mg PO BID 30 Days Qty: 60 0RF spironolactone 25 mg Tablet 25 mg PO DAILY 30 Days Qty: 30 0RF Jardiance 10 mg Tablet 10 mg PO DAILY 30 Days Qty: 30 0RF Continued cetirizine 10 mg tablet 10 mg PO DAILY ICaps AREDS 4,296 mcg-226 mg-90 mg capsule 1 cap PO BID citalopram 10 mg tablet 10 mg PO QHS Cholecalciferol (Vitamin D3) [Vitamin D3] 5,000 UNIT capsule 5,000 unit PO DAILY acetaminophen 500 mg capsule 1,000 mg PO Q6H PRN (Reason: fever or pain) white petrolatum-mineral oil 94-3 % ointment 1 applic EACH EYE QHS Held meloxicam 7.5 MG tablet 7.5 mg PO BID Hold Instructions: Resume on 05/01/25. Discontinued furosemide 40 mg tablet 80 mg PO DAILY Referrals / Follow Up: Faith Barrientos DO [Primary Care Provider, Family Practice] - Within 1 Week Jose Miguel Pink MD [Med Staff - Active Staff, Cardiology] - Within 2 Weeks Disposition Disposition (needs filled in before D/C Order can be placed): Home, Self Care 04/24/25 1115 Win Marin MD CC: Dr. Faith Barrientos DO; Dr. Jose Miguel Pink MD; Dr. Curtis Nichole MD Signed Normal [facility] Pro- Brain NATRIURETIC PEPTI Maddison 04-24-2025 Natriuretic peptide B (Bld) [Mass/Vol] 1947 pg/mL High <=1800 [facility] Comment on above: Result Comment: Hear t Failure Unlikely: < 300 pg/mL Heart Failure Likely < 50 Years: > 450 pg/mL 50-75 Years: > 900 pg/mL >75 Years: > 1800 pg/mL Performed By: #### L 503.7505 #### [facility] [address] [facility] [place], [address] Basic Metabolic Profile (BMP )on 04-23-2025 BUN/CRE 29.6 RATIO High - [facility] Comment on above: Performed By: #### L 503.7505 #### [facility] [address] [facility] [address] Calcium [Mass/Vol] 8.9 mg/dL Normal 7.6-11.0 [facility] Comment on above: Performed By: #### L 503.7505 #### [facility] [address] [facility] [address] Chloride [Moles/Vol] 98 mmol/L Normal 98-108 [facility] Comment on above: Performed By: #### L 503.7505 #### [facility] [address] [place], [address] CO2 [Moles/Vol] 20.3 mmol/L Low 21.0-32.0 [facility] Comment on above: Performed By: #### L 503.7505 #### [facility] [address] [place], [address] Creatinine [Mass/Vol] 0.96 mg/dL Normal 0.70-1.[address] [facility] Comment on above: Performed By: #### L 503.7505 #### [facility] [address] [place], [address] ECRCL 60.22 ml/min Normal 50-250 [facility] Comment on above: Performed By: #### L 503.7505 #### [facility] [address] [place], [address] GAP 20 High 5-15 [facility] Comment on above: Performed By: #### L 503.7505 #### [facility] [address] [place], [address] GFR/1.73 sq M.predicted among non-blacks MDRD (S/P/Bld) [Vol rate/Area] 62 mL/min/{1.73_m2} Normal >60 [facility] Comment on above: Result Comment: mL/m in/1.73m2 CKD-EPI Creatinine Equation (2020) Performed By: #### L [id number] #### [facility] [address] [place], [address] Glucose [Mass/Vol] 117 mg/dL High 70-99 [facility] Comment on above: Performed By: #### L [id number] #### [facility] [address] [place], [address] Potassium [Moles/Vol] 4.1 mmol/L Normal 3.3-5.[address] [facility] Comment on above: Performed By: #### L 503.7505 #### [facility] [address] [place], [address] Sodium [Moles/Vol] 139 mmol/L Normal 133-145 [facility] Comment on above: Performed By: #### L 503.7505 #### [facility] [address] [place], [address] Urea nitrogen [Mass/Vol] 28 mg/dL High 4-19 [facility] Comment on above: Performed By: #### L 503.7505 #### [facility] [address] [place], [address] Basic Metabolic Profile (BMP )on 04-22-2025 BUN/CRE 26.8 RATIO High 10-20 [facility] Comment on above: Performed By: #### L 503.7505, L300.3900, L501.5200 #### [facility] [address] [place], [address] Calcium [Mass/Vol] 9.1 mg/dL Normal 7.6-11.0 [facility] Comment on above: Performed By: #### L 503.7505, L300.3900, L501.5200 #### [facility] [address] [place], [address] Chloride [Moles/Vol] 98 mmol/L Normal 98-108 [facility] Comment on above: Performed By: #### L 503.7505, L300.3900, L501.5200 #### [facility] [address] [place], [address] CO2 [Moles/Vol] 25.5 mmol/L Normal 21.0-32.0 [facility] Comment on above: Performed By: #### L 503.7505, L300.3900, L501.5200 #### [facility] [address] [place], [address] Creatinine [Mass/Vol] 0.73 mg/dL Normal 0.70-1.[address] [facility] Comment on above: Performed By: #### L 503.7505, L300.3900, L501.5200 #### [facility] [address] [place], [address] ECRCL 72.27 ml/min Normal 50-250 [facility] Comment on above: Performed By: #### L 503.7505, L300.3900, L501.5200 #### [facility] [address] [place], [address] GAP 13 Normal 5-15 [facility] Comment on above: Performed By: #### L 503.7505, L300.3900, L501.5200 #### [facility] [address] [place], [address] GFR/1.73 sq M.predicted among non-blacks MDRD (S/P/Bld) [Vol rate/Area] 85 mL/min/{1.73_m2} Normal >60 [facility] Comment on above: Result Comment: mL/m in/1.73m2 CKD-EPI Creatinine Equation (2020) Performed By: #### L 503.7505, L300.3900, L501.5200 #### [facility] [address] [place], [address] Glucose [Mass/Vol] 181 mg/dL High 70-99 [facility] Comment on above: Performed By: #### L 503.7505, L300.3900, L501.5200 #### [facility] [address] [place], [address] Potassium [Moles/Vol] 3.9 mmol/L Normal 3.3-5.[address] [facility] Comment on above: Performed By: #### L 503.7505, L300.3900, L501.5200 #### [facility] [address] [place], [address] Sodium [Moles/Vol] 137 mmol/L Normal 133-145 [facility] Comment on above: Performed By: #### L 503.7505, L300.3900, L501.5200 #### [facility] [address] [place], [address] Urea nitrogen [Mass/Vol] 20 mg/dL High 4-19 [facility] Comment on above: Performed By: #### L 503.7505, L300.3900, L501.5200 #### [facility] [address] [place], [address] CBC W/Diff, Automatedon 11- Absolute Lymph 0.46 X10 3/uL Low 0.83-4.51 [facility] Comment on above: Performed By: #### L 503.7505 #### [facility] [address] [place], [address] Absolute Neut 5.2 X10 3/uL Normal 2.0-7.7 [facility] Comment on above: Performed By: #### L 503.7505 #### [facility] [address] [place], [address] Basophils/100 WBC (Bld) 0.2 % Normal 0-1 [facility] Comment on above: Performed By: #### L 503.7505 #### [facility] [address] [place], [address] Eosinophils/100 WBC (Bld) 0.0 % Normal 0-5 [facility] Comment on above: Performed By: #### L 503.7505 #### [facility] [address] [place], [address] Erythrocyte distribution width (RBC) [Ratio] 14.7 % High 11.6-14.6 [facility] Comment on above: Performed By: #### L [id number] #### [facility] [address] [place], [address] Hematocrit (Bld) [Volume fraction] 41.6 % Normal 37-47 [facility] Comment on above: Performed By: #### L 503.7505 #### [facility] [address] [place], [address] Hemoglobin (Bld) [Mass/Vol] 13.5 g/dL Normal 12.0-15.0 [facility] Comment on above: Performed By: #### L 503.7505 #### [facility] [address] [place], [address] IG% 0.300 Normal 0.0-0.9 [facility] Comment on above: Result Comment: IG% - Immature Granulocytes (promyelocytes, myelocytes and metamyelocytes) > 1% indicates that a LEFT SHIFT is Present. Performed By: #### L 503.7505 #### [facility] [address] [place], [address] Lymphocytes/100 WBC (Bld) 8.0 % Low 19-41 [facility] Comment on above: Performed By: #### L [id number] #### [facility] [address] [place], [address] MCH (RBC) [Entitic mass] 30.0 pg Normal 27.0-32.0 [facility] Comment on above: Performed By: #### L 503.0065 #### [facility] [address] [place], [address] MCHC (RBC) [Mass/Vol] 32.5 g/dL Normal 32-[address] [facility] Comment on above: Performed By: #### L [id number] #### [facility] [address] [place], [address] MCV (RBC) [Entitic vol] 92.4 fL Normal 81-99 [facility] Comment on above: Performed By: #### L 503.7505 #### [facility] [address] [place], [address] Monocytes/100 WBC (Bld) 1.2 % Normal 0-10 [facility] Comment on above: Performed By: #### L 503.7505 #### [facility] [address] [place], [address] Neutrophils/100 WBC (Bld) 90.3 % High 47-70 [facility] Comment on above: Performed By: #### L 503.7505 #### [facility] [address] [place], [address] Nucleated RBC (Bld) [#/Vol] 0 10*3/uL Normal 0-5 [facility] Comment on above: Performed By: #### L 503.7505 #### [facility] [address] [place], [address] Platelet mean volume (Bld) [Entitic vol] 11.2 fL Normal 6.2-12.0 [facility] Comment on above: Performed By: #### L 503.7505 #### [facility] [address] [place], [address] Platelets (Bld) [#/Vol] 220 10*3/uL Normal 150-450 [facility] Comment on above: Performed By: #### L 503.7505 #### [facility] [address] [place], [address] RBC (Bld) [#/Vol] 4.50 10*6/uL Normal 4.2-5.4 [facility] Comment on above: Performed By: #### L 503.7505 #### [facility] [address] [place], [address] RDW SD 50.4 fl High 35.1-43.9 [facility] Comment on above: Performed By: #### L 503.7505 #### [facility] [address] [place], [address] WBC (Bld) [#/Vol] 5.7 10*3/uL Normal 4.4-11.0 [facility] Comment on above: Performed By: #### L 503.7505 #### [facility] [address] [place], [address] Consultation - Cardiologyon 04-22-2025 Consultation - Cardiology [facility] Medical Records Department [address] [place] [address] Consultation - Cardiology 04/22/25 1607 MR#: [id number] Acct: [id number] Name: MI PRETTY Rep #: [id number] : 1950 74 From: Jose Miguel Pink MD PCP: Dr. Faith Barrientos, DO Status:ADM IN Location: [place] [address]-1 Assessment Plan Assessment/Plan (1) HFrEF (heart failure with reduced ejection fraction): PLAN: Patient presenting with new onset congestive heart failure. She has a right sided pleural effusion, lower extremity edema, elevated BNP, and ejection fraction of 20% with global LV systolic dysfunction. The patient does have mild to moderate valvular heart disease with mitral regurgitation and aortic stenosis. Aortic stenosis is mild. The patient has responded to IV diuresis. She is now being titrated on guideline directed medical therapy. The patient is starting lisinopril which we will increase to 10 mg twice daily given her blood pressure. The patient was also started on Coreg which has not been given her first dose yet. We need to monitor her rhythm closely as she does appear to have sinus rhythm with blocked PACs. This may be a marker for sick sinus syndrome. She is also been instituted on Jardiance appropriately. Monitor her renal function heart rate and blood pressure response to these medications and then add spironolactone in the next 24-48 hours. The patient will continue on Lasix as needed for decongestion. A repeat BNP should be done prior to discharge. The plan is to titrate guideline directed medical therapy to maximum tolerated doses and then 6 weeks later reevaluate her LV function with echocardiogram. Will need to evaluate the patient for ischemic etiology as there are no definitive etiologies identified. It is likely this represents hypertensive heart disease in the face of mild to moderate valvular heart disease. (2) Valvular heart disease: PLAN: Patient has a history of moderate 2+ mitral regurgitation 3+ tricuspid regurgitation and mild aortic valve stenosis with a mean gradient of 9 mmHg. Given her severe LV dysfunction in combination with this moderate valvular heart disease and a history of significant hypertension this probably represents the etiology of her heart failure. The patient does have calcified coronary arteries noted on CT of the chest and will need further ischemic evaluation once she is maximally treated with guideline directed medical therapy. We will then decide whether we should proceed with left heart catheterization or functional stress testing. (3) Hypertensive disorder: QUALIFIERS: Hypertension type: primary hypertension Qualified Code(s): I10 - Essential (primary) hypertension PLAN: Patient has a history of hypertension that has not been treated by her report. She has been instituted on therapy during this hospitalization. Will titrate carvedilol as heart rate will allow will increase lisinopril to 10 mg twice daily and will add spironolactone in the next 24-48 hours as blood pressure and renal function tolerate. The patient will continue her Lasix which may need to be decreased in the near future. PLAN: Plan 1. Will institute Coreg and monitor heart rate closely given her current rhythm. 2. Increase lisinopril to 10 mg twice daily and will titrate to 20 mg twice daily as blood pressure tolerates. 3. Continue Jardiance 10 mg daily. 4. Recommend switching furosemide to 40 mg every morning starting tomorrow morning. 5. If blood pressure and renal function tolerated would add spironolactone on 04/24/2025. 6. Patient will need to be aggressively titrated with guideline directed medical therapy in ambulatory setting over the next 2 weeks. 7. Once discharged the patient should follow-up within 5 to 7 days in the [place] [facility] for further titration of meds. 8. Once titrated to maximum dose of guideline directed medical therapy would repeat echocardiogram 6 weeks after achieving maximum dose GDMT 9. Once discharged the patient should follow-up with advanced practitioner in the [place] [facility] office in 5 to 7 days for titration of meds. HPI Consult Data Date of Consult: 04/22/25 HPI Narrative Reason for Consultation: New onset heart failure HPI Narrative: MI PRETTY, is a 74 F who presents to the [facility] emergency department on 04/21/2025 with complaints of fluid retention mainly in her legs. She also has a history of shortness of breath when she lays flat over the last 2 to 3 weeks. She saw her primary care physician and started Lasix. She came to the emergency room and was evaluated there and where CBC was really unremarkable her BUN was elevated at 23 with a creatinine in the normal range. Troponins were slightly elevated at 103 and her BNP was 3705. The patient's ECG showed normal sinus rhythm with PVCs and PACs and a nonspecific interventricular c (more content not included)... Normal [facility] Lipid Profileon 04-22-2025 CHOL:HDL 3.80 Normal [facility] Comment on above: Performed By: #### L 503.7505, L300.3900, L501.5200 #### [facility] [address] [place], [address] Cholesterol [Mass/Vol] 144 mg/dL Normal <=200 [facility] Comment on above: Result Comment: Chol esterol level, Desirable <200 mg/dL Borderline high cholesterol 200-239 mg/dL High cholesterol >=240 mg/dL Recommendations of the NCEP Adult Treatment Panel for the following risk-cutoff thresholds for the [place] population. Performed By: #### L 503.7505, L300.3900, L501.5200 #### [facility] [address] [place], [address] Cholesterol in HDL [Mass/Vol] 38 mg/dL Low [facility] Comment on above: Result Comment: Anamika onal Cholesterol Education Program (NCEP) guidelines: <40 mg/dL: Low HDL-cholesterol (major risk factor for CHD) >= 60 mg/dL: High HDL-cholesterol (negative risk factor for CHD) HDL-cholesterol is affected by a number of factors, e.g. smoking, exercise, hormones, sex and age. Performed By: #### L 503.7505, L300.3900, L501.5200 #### [facility] [address] [place], [address] Cholesterol in LDL [Mass/Vol] 93 mg/dL Normal [facility] Comment on above: Result Comment: Bord xbkwlp=417-618 mg/dL Higher Tglu=545 mg/dL or greater Gonzalez Equation 2020 for LDL-C Performed By: #### L 503.7505, L300.3900, L501.5200 #### [facility] [address] [place], [address] Cholesterol in VLDL [Mass/Vol] 13 mg/dL Normal 5-40 [facility] Comment on above: Performed By: #### L 503.7505, L300.3900, L501.5200 #### [facility] [address] [place], [address] Triglyceride [Mass/Vol] 64 mg/dL Normal [facility] Comment on above: Result Comment: The drugs N-Acetylcysteine and Metamizole may falsely depress this assay. Normal range: <150 mg/dL Borderline High: 150-199 mg/dL High: 200-499 mg/dL Very High: >500 mg/dL Performed By: #### L 503.7505, L300.3900, L501.5200 #### [facility] [address] [place], [address] Thyroid Stim Hormone (TSH)on 04-22-2025 TSH 1.310 uIU/mL Normal 0.300-4.200 [facility] Comment on above: Performed By: #### L 503.7505, L300.3900, L501.5200 #### [facility] [address] [place], [address] Troponin T HS 4 HRon 025 Trop T High Sen 84 ng/L Invalid Interpretation Code <=14 [facility] Comment on above: Result Comment: Crit ical Result(s) Called at: 03:27 04-22-25 TO SAPNA READ by: HENRY HARVEY ??Results read back by same. Performed By: #### L 499.0043 #### [facility] [address] [place], [address] 12 Lead EKGon 04-21-2025 12 Lead EKG [facility] Cardiovascular Services [address] [place] [address] 12 Lead EKG 04/21/25 1848 MR#: [id number] Acct: [id number] Name: MI PRETTY Rep #: [id number] : 1950 74 From: Jose Miguel Pink MD Attending Dr: Dr. Win Marin MD Status : ADM IN Ordering Dr: David Pineda DO Date: 5 Location: [facility] Sex: F C Admitted: 04/21/25 Test Reason : DYSRHYTHMIA Blood Pressure : */* mmHG Vent. Rate : 77 BPM Atrial Rate : 71 BPM P-R Int : 186 ms QRS Dur : 118 ms QT Int : 440 ms P-R-T Axes : 65 -35 143 degrees QTcB Int : 497 ms Sinus rhythm with Premature supraventricular complexes and Premature ventricular complexes Left axis deviation Minimal voltage criteria for LVH, may be normal variant NSST changes can not rule out inf HI- old Abnormal Confirmed by Jose Miguel Pink ([id number]), continuity editor TWIN POLLARD ([id number]) on 04/22/2025 11:44:50 AM Referred By: ANALI Confirmed By: Jose Miguel Pink 04/22/25 1144 Date Jose Miguel Pink MD CC: Dr. David Pineda DO; Dr. Faith Barrientos DO; Dr. Win Marin MD Signed Normal [facility] Basic Metabolic Profile (BMP )on 04-21-2025 BUN/CRE 29.1 RATIO High 10- [facility] Comment on above: Performed By: #### L 501.4021, L100.0100, L500.2500 #### [facility] [address] [place], [address] Calcium [Mass/Vol] 8.8 mg/dL Normal 7.6-11.0 [facility] Comment on above: Performed By: #### L 501.4021, L100.0100, L500.2500 #### [facility] [address] [place], [address] Chloride [Moles/Vol] 98 mmol/L Normal 98-108 [facility] Comment on above: Performed By: #### L 501.4021, L100.0100, L500.2500 #### [facility] [address] [place], [address] CO2 [Moles/Vol] 26.0 mmol/L Normal 21.0-32.0 [facility] Comment on above: Performed By: #### L 501.4021, L100.0100, L500.2500 #### [facility] [address] [place], [address] Creatinine [Mass/Vol] 0.80 mg/dL Normal 0.70-1.[address] [facility] Comment on above: Performed By: #### L 501.4021, L100.0100, L500.2500 #### [facility] [address] [place], [address] ECRCL 72.41 ml/min Normal 50-250 [facility] Comment on above: Performed By: #### L 501.4021, L100.0100, L500.2500 #### [facility] [address] [place], [address] GAP 14 Normal 5-15 [facility] Comment on above: Performed By: #### L 501.4021, L100.0100, L500.2500 #### [facility] [address] [place], [address] GFR/1.73 sq M.predicted among non-blacks MDRD (S/P/Bld) [Vol rate/Area] 76 mL/min/{1.73_m2} Normal >60 [facility] Comment on above: Result Comment: mL/m in/1.73m2 CKD-EPI Creatinine Equation (2020) Performed By: #### L 501.4021, L100.0100, L500.2500 #### [facility] [address] [place], [address] Glucose [Mass/Vol] 112 mg/dL High 70-99 [facility] Comment on above: Performed By: #### L 501.4021, L100.0100, L500.2500 #### [facility] [address] [place], [address] Potassium [Moles/Vol] 3.9 mmol/L Normal 3.3-5.[address] [facility] Comment on above: Performed By: #### L 501.4021, L100.0100, L500.2500 #### [facility] [address] [place], [address] Sodium [Moles/Vol] 137 mmol/L Normal 133-145 [facility] Comment on above: Performed By: #### L 501.4021, L100.0100, L500.2500 #### [facility] [address] [place], [address] Urea nitrogen [Mass/Vol] 23 mg/dL High 4-19 [facility] Comment on above: Performed By: #### L 501.4021, L100.0100, L500.2500 #### [facility] [address] [place], [address] CBC W/Diff, Automatedon 11- 0-2024 Absolute Lymph 1.02 X10 3/uL Normal 0.83-4.51 [facility] Comment on above: Performed By: #### L 501.4021, L100.0100, L500.2500 #### [facility] [address] [place], [address] Absolute Neut 4.5 X10 3/uL Normal 2.0-7.7 [facility] Comment on above: Performed By: #### L 501.4021, L100.0100, L500.2500 #### [facility] [address] [place], [address] Basophils/100 WBC (Bld) 0.7 % Normal 0-1 [facility] Comment on above: Performed By: #### L 501.4021, L100.0100, L500.2500 #### [facility] [address] [place], [address] Eosinophils/100 WBC (Bld) 3.1 % Normal 0-5 [facility] Comment on above: Performed By: #### L 501.4021, L100.0100, L500.2500 #### [facility] [address] [place], [address] Erythrocyte distribution width (RBC) [Ratio] 14.6 % Normal 11.6-14.6 [facility] Comment on above: Performed By: #### L 501.4021, L100.0100, L500.2500 #### [facility] [address] [place], [address] Hematocrit (Bld) [Volume fraction] 39.7 % Normal 37-47 [facility] Comment on above: Performed By: #### L 501.4021, L100.0100, L500.2500 #### [facility] [address] [place], [address] Hemoglobin (Bld) [Mass/Vol] 12.9 g/dL Normal 12.0-15.0 [facility] Comment on above: Performed By: #### L 501.4021, L100.0100, L500.2500 #### [facility] [address] [place], [address] IG% 0.300 Normal 0.0-0.9 [facility] Comment on above: Result Comment: IG% - Immature Granulocytes (promyelocytes, myelocytes and metamyelocytes) > 1% indicates that a LEFT SHIFT is Present. Performed By: #### L 501.4021, L100.0100, L500.2500 #### [facility] [address] [place], [address] Lymphocytes/100 WBC (Bld) 16.7 % Low 19-41 [facility] Comment on above: Performed By: #### L 501.4021, L100.0100, L500.2500 #### [facility] [address] [place], [address] MCH (RBC) [Entitic mass] 29.9 pg Normal 27.0-32.0 [facility] Comment on above: Performed By: #### L 501.4021, L100.0100, L500.2500 #### [facility] [address] [place], [address] MCHC (RBC) [Mass/Vol] 32.5 g/dL Normal 32-[address] [facility] Comment on above: Performed By: #### L 501.4021, L100.0100, L500.2500 #### [facility] [address] [place], [address] MCV (RBC) [Entitic vol] 92.1 fL Normal 81-99 [facility] Comment on above: Performed By: #### L 501.4021, L100.0100, L500.2500 #### [facility] [address] [place], [address] Monocytes/100 WBC (Bld) 5.9 % Normal 0-10 [facility] Comment on above: Performed By: #### L 501.4021, L100.0100, L500.2500 #### [facility] [address] [place], [address] Neutrophils/100 WBC (Bld) 73.3 % High 47-70 [facility] Comment on above: Performed By: #### L 501.4021, L100.0100, L500.2500 #### [facility] [address] [place], [address] Nucleated RBC (Bld) [#/Vol] 0 10*3/uL Normal 0-5 [facility] Comment on above: Performed By: #### L 501.4021, L100.0100, L500.2500 #### [facility] [address] [place], [address] Platelet mean volume (Bld) [Entitic vol] 10.9 fL Normal 6.2-12.0 [facility] Comment on above: Performed By: #### L 501.4021, L100.0100, L500.2500 #### [facility] [address] [place], [address] Platelets (Bld) [#/Vol] 196 10*3/uL Normal 150-450 [facility] Comment on above: Performed By: #### L 501.4021, L100.0100, L500.2500 #### [facility] [address] [place], [address] RBC (Bld) [#/Vol] 4.31 10*6/uL Normal 4.2-5.4 [facility] Comment on above: Performed By: #### L 501.4021, L100.0100, L500.2500 #### [facility] [address] [place], [address] RDW SD 49.0 fl High 35.1-43.9 [facility] Comment on above: Performed By: #### L 501.4021, L100.0100, L500.2500 #### [facility] [address] [place], [address] WBC (Bld) [#/Vol] 6.1 10*3/uL Normal 4.4-11.0 [facility] Comment on above: Performed By: #### L 501.4021, L100.0100, L500.2500 #### [facility] [address] [place], [address] CTA Chest W/WO Contraston CTA Chest W/WO Contrast [facility] Imaging Services [address] [place], [place] [address] CTA Chest W/WO Contrast MR#: [id number] Acct: [id number] Name: MI PRETTY Rep #: [id number] : 1950 F 74 From: Chuy Bundy MD PCP: Dr. Faith Barrientos, Status: [facility] ER Study: CTA Chest W/WO Contrast Date of Exam: 04/21/25 Exam# [id number] Ordering Dr: David Pineda DO PROCEDURE: CTA CHEST W/WO CONTRAST 04/21/2025 REASON FOR EXAM: PE TECHNIQUE: Procedure Code: CTCTACHWW Modality: CT Procedure: CTA CHEST W/WO CONTRAST Multiplanar Sagittal and Coronal images were obtained. 3D reconstructions CONTRAST: Isovue 370 VOLUME: 100 mL One or more dose reduction techniques were used (e.g., Automated exposure control, adjustment of the mA and/or kV according to patient size, use of iterative reconstruction technique). RADIATION DOSE SUMMARY: CTDlvol: 57 mGy DLP: 568 MGycm FINDINGS: inspection of the lung windows demonstrates moderate right-sided pleural effusion. No separate areas of pulmonary ramirez consolidation are identified. The contrast bolus appears adequate. There is no thoracic aneurysm or dissection. The pulmonary arterial tree is well opacified without visible filling defect. There is no thoracic compression deformity in the sternum is unremarkable. CT/CTA Chest W/WO Contrast IMPRESSION: No visible aortic pathology. Right-sided pleural effusion. Negative for pulmonary embolism. Positive for coronary artery calcification. No acute lung pathology. Reading [facility]: Dr. David Pineda, DO; Dr. Faith Barrientos, DO [place] Manager: Signed Normal [facility] Comprehensive Metabolic Prof sindy 04-21-2025 Albumin [Mass/Vol] 3.9 g/dL Normal 3.4-4.8 [facility] Comment on above: Performed By: #### L 503.7505, L300.3900, L501.5200 #### [facility] [address] [place], [address] Albumin/Globulin [Mass ratio] 1.4 {ratio} Normal 0.9-2.4 [facility] Comment on above: Performed By: #### L 503.7505, L300.3900, L501.5200 #### [facility] [address] [place], [address] ALK PHOS 80 U/L Normal 35-104 [facility] Comment on above: Performed By: #### L 503.7505, L300.3900, L501.5200 #### [facility] [address] [place], [address] ALT [Catalytic activity/Vol] 15 U/L Normal <=34 [facility] Comment on above: Performed By: #### L 503.7505, L300.3900, L501.5200 #### [facility] [address] [place], [address] AST [Catalytic activity/Vol] 23 U/L Normal <=31 [facility] Comment on above: Performed By: #### L 503.7505, L300.3900, L501.5200 #### [facility] [address] [place], [address] Bilirubin [Mass/Vol] 1.28 mg/dL Normal 0.00-1.30 [facility] Comment on above: Performed By: #### L 503.7505, L300.3900, L501.5200 #### [facility] [address] [place], [address] BUN/CRE 30.3 RATIO High 10-20 [facility] Comment on above: Performed By: #### L 503.7505, L300.3900, L501.5200 #### [facility] [address] [place], [address] Calcium [Mass/Vol] 9.5 mg/dL Normal 7.6-11.0 [facility] Comment on above: Performed By: #### L 503.7505, L300.3900, L501.5200 #### [facility] [address] [place], [address] Chloride [Moles/Vol] 100 mmol/L Normal 98-108 [facility] Comment on above: Performed By: #### L 503.7505, L300.3900, L501.5200 #### [facility] [address] [place], [address] CO2 [Moles/Vol] 29.2 mmol/L Normal 21.0-32.0 [facility] Comment on above: Performed By: #### L 503.7505, L300.3900, L501.5200 #### [facility] [address] [place], [address] Creatinine [Mass/Vol] 0.82 mg/dL Normal 0.70-1.[address] [facility] Comment on above: Performed By: #### L 503.7505, L300.3900, L501.5200 #### [facility] [address] [place], [address] GAP 10 Normal 5-15 [facility] Comment on above: Performed By: #### L 503.7505, L300.3900, L501.5200 #### [facility] [address] [place], [address] GFR/1.73 sq M.predicted among non-blacks MDRD (S/P/Bld) [Vol rate/Area] 74 mL/min/{1.73_m2} Normal >60 [facility] Comment on above: Result Comment: mL/m in/1.73m2 CKD-EPI Creatinine Equation (2020) Performed By: #### L 503.7505, L300.3900, L501.5200 #### [facility] [address] [place], [address] Globulin (S) [Mass/Vol] 2.7 g/dL Normal 2.2-4.2 [facility] Comment on above: Performed By: #### L 503.7505, L300.3900, L501.5200 #### [facility] [address] [place], [address] Glucose [Mass/Vol] 125 mg/dL High 70-99 [facility] Comment on above: Performed By: #### L 503.7505, L300.3900, L501.5200 #### [facility] [address] [place], [address] Potassium [Moles/Vol] 4.2 mmol/L Normal 3.3-5.[address] [facility] Comment on above: Performed By: #### L 503.7505, L300.3900, L501.5200 #### [facility] [address] [place], [address] Sodium [Moles/Vol] 139 mmol/L Normal 133-145 [facility] Comment on above: Performed By: #### L 503.7505, L300.3900, L501.5200 #### [facility] [address] [place], [address] T PROT 6.5 g/dL Normal 5.9-8.4 [facility] Comment on above: Performed By: #### L 503.7505, L300.3900, L501.5200 #### [facility] [address] [place], [address] Urea nitrogen [Mass/Vol] 25 mg/dL High 4- [facility] Comment on above: Performed By: #### L 503.7505, L300.3900, L501.5200 #### [facility] [address] [place], [address] Echo Complete W/ Contraston 04-21-2025 Echo Complete W/ Contrast [facility] [address] [place] [address] Echo Complete W/ Contrast 04/22/25 0832 MR#: [id number] Acct: [id number] Name: MI PRETTY Rep #: [id number] : 1950 74 From: Evgeny Aviles MD Attending Dr: Dr. Win Marin MD Status : ADM IN Ordering Dr: Freddie Wick DO Date: 04/21/25 Location: PCU Sex: F C Admitted: 04/21/25 Reason For Study Reason For Study: CONGESTIVE HEART FAILURE Procedure This was a 2D Doppler, Color Flow transthoracic echocardiogram. Contrast injection was performed. Exam performed portable in patient room. Left Ventricle Normal LV size. Mild concentric left ventricular hypertrophy. Severe global LV systolic dysfunction. Estimated LVEF 20%. Stage III diastolic dysfunction. Right Ventricle Normal right ventricle. Atria There is moderate biatrial dilatation. Mitral Valve Moderate (2+) mitral valve insufficiency. Tricuspid Valve Moderate-Severe (3+) tricuspid valve insufficiency. Right ventricular systolic pressure estimated to be 49 mmHg. Aortic Valve Mildly calcified aortic valve. Mild aortic valve stenosis. Mean peak gradient 9 mmHg. Pulmonic Valve The pulmonic valve is not well visualized. Trivial pulmonic valve insufficiency. Great Vessels Normal sized aortic root. Pericardium/Pleural No pericardial effusion. Medication Diluted definity 2ml given slow IV push to enhance endocardial definition. MMode/2D Measurements Calculations LVIDd: 5.4 cm IVSd: 1.4 cm LVOT diam: 2.1 cm LVIDs: 4.6 cm LVPWd: 1.0 cm RVDd: 5.1 cm FS: 14.0 % LVOT area: 3.3 cm2 asc Aorta Diam: 3.1 cm LAV(MOD-bp): 85.8 ml LVAd ap4: 42.1 cm2 LAV(MOD-bp) Indexed: 41.0 ml/m2 LVLd ap4: 8.5 cm LAV(MOD-sp2): 88.5 ml EDV(MOD-sp4): 173.7 ml LAV(MOD-sp4): 84.1 ml EDV(sp4-el): 178.0 ml LVAs ap4: 37.2 cm2 LVLs ap4: 8.2 cm ESV(MOD-sp4): 138.7 ml ESV(sp4-el): 144.0 ml EF(MOD-sp4): 20.1 % EF(sp4-el): 19.1 % LVAd ap2: 41.9 cm2 SV(MOD-sp4): 35.0 ml SV(MOD-sp2): 34.2 ml LVLd ap2: 8.5 cm SI(MOD-sp4): 16.7 ml/m2 SI(MOD-sp2): 16.4 ml/m2 EDV(MOD-sp2): 166.3 ml EDV(sp2-el): 175.1 ml LVAs ap2: 36.3 cm2 LVLs ap2: 8.3 cm ESV(MOD-sp2): 132.1 ml ESV(sp2-el): 134.9 ml EF(MOD-sp2): 20.6 % SV(sp4-el): 34.0 ml Ao sinus diam: 2.[address] Junction: 2.4 cm LA dimension(2D): 4.7 cm LA A4 area: 26.9 cm2 RA A4 area: 23.1 cm2 TAPSE: 1.3 cm Time Measurements MV dec time: 0.21 sec Doppler Measurements Calculations MV E max carlos: 107.8 cm/sec MV dec slope: 522.1 cm/sec2 Ao V2 max: 199.7 cm/sec MV A max carlos: 48.7 cm/sec Ao max P.0 mmHg MV E/A: 2.2 Ao V2 mean: 144.5 cm/sec Ao mean P.4 mmHg Ao V2 VTI: 39.0 cm AV (velocity ratio): 0.62 DANILO(I,D): 2.1 cm2 DANILO(V,D): 1.9 cm2 LV V1 max: 113.6 cm/sec SV(LVOT): 80.0 ml PA V2 max: 94.0 cm/sec LV V1 max P.3 mmHg LV V1 mean P.1 mmHg LV V1 mean: 82.3 cm/sec LV V1 VTI: 24.2 cm TR max carlos: 293.4 cm/sec TR max P.4 mmHg ECHO/Echo Complete W/ Contrast Interpretation Summary Mild concentric left ventricular hypertrophy. Severe global LV systolic dysfunction. Estimated LVEF 20%. Stage III diastolic dysfunction. There is moderate biatrial dilatation. Moderate (2+) mitral valve insufficiency. Moderate-Severe (3+) tricuspid valve insufficiency. Right ventricular systolic pressure estimated to be 49 mmHg. Mildly calcified aortic valve. Mild aortic valve stenosis. Mean peak gradient 9 mmHg. Ordering Physician: Freddie Wick Referring Physician: Faith Barrientos Performed By: Elisa Isbell RDCS 04/22/25 1045 Date Evgeny Aviles MD CC: Dr. Faith Barrientos DO; Dr. Freddie Wick, ; Dr. Win Marin MD Date Dictated: 04/22/2532 Date Transcribed: 04/22/251044 [place] Manager: Signed Normal [facility] Emergency Department Summary on 04-21-2025 Emergency Department Summary [facility] Medical Records Department [address] [place] [address] Emergency Department Summary 04/21/25 MR#: [id number] Acct: [id number] Name: MI PRETTY Rep #: [id number] : 1950 74 From: David Pineda DO PCP: Dr. Faith Barrientos DO Status:REG ER Location: ED HPI History of Present Illness Chief Complaint: Abn Labs Narrative Narrative: Chief complaint and HPI: 74-year-old female with past medical history of anxiety, arthritis presents for evaluation of shortness of breath and bilateral lower extremity edema. Patient states for the past several weeks she has been having dyspnea, worse with exertion and bilateral lower extremity edema. States she was seen by her PCP in which she had an elevated BNP and a chest x-ray that showed pulmonary effusions. Concern was for CHF. She was started on 40 mg daily Lasix and then increased to 80 mg last Monday. Patient states for the past 3 weeks she has gained 15 pounds. She did lose 6 pounds being on the Lasix. She states she was was seen in the office today in which she had laboratory workup performed. She was further referred to the emergency department for further workup and to rule out blood clot in the lung. She denies any fever, chills, chest pain. Review of systems: See HPI Medications: As listed on the chart Allergies: As listed on the chart PFSH: Per chart Vital signs: As listed on the chart. Reviewed. Physical exam: Gen: A O x3, NAD Head: Normocephalic, atraumatic Eyes: No sclera icterus, conjunctiva clear ENT: Moist mucous membranes Neck: Trachea midline CV: RRR, no murmurs, +2 bilateral pitting peripheral edema of the lower extremities Resp: Lungs diminished in the bilateral bases, dyspneic when speaking GI: Abd soft, non-distended, non-tender, no r/r/g Musc: Full ROM, no deformity Skin: Warm, dry Neuro: Alert, oriented, grossly intact, sensation intact Psych: Cooperative, appropriate mood and affect [facility] Medical History (Updated 04/21/25 @ 17:41 by Eliza Gregory) Anxiety Former smoker Hypertensive disorder Contact with or suspected exposure to other viral communicable disease Acute sinusitis Home Medications ???Medication ???Instructions ???Recorded ???Last Taken ???Type Cholecalciferol (Vitamin D3) 5,000 unit PO DAILY 03/15/2004/21 History [Vitamin D3] citalopram 10 mg tablet 10 mg PO QHS 03/15/20 04/20/25 His tory meloxicam 7.5 mg tablet 7.5 mg PO BID 03/15/20 04/21/25 Hi story cetirizine 10 mg tablet 10 mg PO DAILY 10/03/22 04/20/25 H istory vitamins A,C,Q-cmbj-uwyoyt 4,296 1 cap PO BID 10/03/22 04/21/25 His tory mcg-226 mg-90 mg capsule (ICaps AREDS) acetaminophen 500 mg capsule 1,000 mg PO Q6H PRN fever or pain 04/21/25 04/20/25 History furosemide 40 mg tablet 80 mg PO DAILY 04/21/25 04/21/25 H istory Allergy/AdvReac Type Severity Reaction Status Date / Time iodine Allergy Hives Verified 04/21/25 17:30 Penicillins Allergy Hives Verified 04/21/25 17:30 Iodine and Iodide Containing AdvReac Hives Verified 04/21/25 17:30 Produc Surgical History Hx of shoulder surgery History of carpal tunnel surgery of right wrist Hx of tubal ligation History of total left knee replacement History of right knee joint replacement History of left hip replacement Hx of bilateral cataract extraction Social History household members: spouse current occupational status: retired Smoking Status: Former smoker EXAM Physical Exam Const Vital Signs: 04/21/25 17:30 04/21/25 17:42 04/21/25 19:00 Temperature 98 F Temperature Source Temporal Pulse Rate 72 73 Respiratory Rate 18 18 Respiratory Effort Short of Breath Blood Pressure 133/98 H 138/92 H Blood Pressure Mean 109 107 Pulse Ox 93 94 Oxygen Delivery Method Room Air 04/21/25 21:00 Temperature Temperature Source Pulse Rate 84 Respiratory Rate 18 Respiratory Effort Blood Pressure 152/99 H Blood Pressure Mean 116 Pulse Ox 94 Oxygen Delivery Method Room Air MDM MDM MDM Narrative Medical decision making narrative: 74-year-old female with past medical history of anxiety, arthritis presents for evaluation of shortness of breath and bilateral lower extremity edema. Patient states for the past several weeks she has been having dyspnea, worse with exertion and bilateral lower extremity edema. States she was seen by her PCP in which she had an elevated BNP and a chest x-ray that showed pulmonary effusions. Concern was for CHF. She was started on 40 mg daily Lasix and then increased to 80 mg last Monday. Patient states for the past 3 weeks she has gained 15 pounds. She did los (more content not included)... Normal [facility] H AND P Exam - [facility] 04-21-2025 H&P Exam - Hospitalist [facility] Medical Records Department [address] [place] [address] H P Exam - Hospitalist 04/21/257 MR#: [id number] Acct: [id number] Name: MI PRETTY Rep #: [id number] : 1950 74 From: Freddie Wick DO PCP: Dr. Faith Barrientos, DO Status:REG ER Location: ED HPI - General General Date of Admission: 04/21/25 Date of Service: 04/21/25 Chief Complaint: Shortness of breath, fluid retention HPI Narrative MI PRETTY, is a 74 F who presents to the emergency room at [facility] with complaints of fluid retention chiefly in her legs and shortness of breath especially when she lays flat over the past 2 to 3 weeks. She was placed on Lasix by her family physician because her family physician suspected that the patient might have congestive heart failure. Patient has no complaints at this time of any chest pain. Workup in the emergency room included labs-patient's CBC was unremarkable, chemistry profile was remarkable for BUN of 23, patient's troponin was elevated at 103, and her beta natruretic peptide was elevated at 3705. EKG showed a normal sinus rhythm with Q waves in V1 and V2 and occasional ectopic beats. CTA was obtained which showed right-sided pleural effusion, it was negative for pulmonary embolism and positive for coronary artery calcification. No acute lung pathology was noted. Patient did not require supplemental oxygen to maintain her pulse ox above 90%. Patient will be admitted to PCU for acute congestive heart failure-type unknown-she will be given IV Lasix and an echocardiogram will be obtained. Cardiac enzymes will be cycled but I suspect that the elevation of troponin is secondary to demand ischemia. [facility] Medical History (Updated 04/21/25 @ 22:[address] Freddie Wick, DO) Anxiety Former smoker Hypertensive disorder Contact with or suspected exposure to other viral communicable disease Acute sinusitis Home Medications ???Medication ???Instructions ???Recorded ???Last Taken ???Type Cholecalciferol (Vitamin D3) 5,000 unit PO DAILY 03/15/2004/21 History [Vitamin D3] citalopram 10 mg tablet 10 mg PO QHS 03/15/20 04/20/25 His tory meloxicam 7.5 mg tablet 7.5 mg PO BID 03/15/20 04/21/25 Hi story cetirizine 10 mg tablet 10 mg PO DAILY 10/03/22 04/20/25 H istory vitamins A,C,B-ieub-kdrrlc 4,296 1 cap PO BID 10/03/22 04/21/25 His tory mcg-226 mg-90 mg capsule (ICaps AREDS) acetaminophen 500 mg capsule 1,000 mg PO Q6H PRN fever or pain 04/21/25 04/20/25 History furosemide 40 mg tablet 80 mg PO DAILY 04/21/25 04/21/25 H istory Allergy/AdvReac Type Severity Reaction Status Date / Time iodine Allergy Hives Verified 04/21/25 17:30 Penicillins Allergy Hives Verified 04/21/25 17:30 Iodine and Iodide Containing AdvReac Hives Verified 04/21/25 17:30 Produc Surgical History Hx of shoulder surgery History of carpal tunnel surgery of right wrist Hx of tubal ligation History of total left knee replacement History of right knee joint replacement History of left hip replacement Hx of bilateral cataract extraction Social History household members: spouse current occupational status: retired Smoking Status: Former smoker ROS Constitutional Constitutional: Denies anorexia, change in weight, chills, fatigue, fever(s), night sweats or weakness Eyes Eyes: Denies blurry vision, change in vision, discharge from eye(s) or eye pain Cardiovascular Cardiovascular: Reports edema; Denies chest pain, claudication or palpitations Respiratory/Chest Respiratory/Chest: Reports dyspnea, shortness of breath at rest and shortness of breath with exertion; Denies cough or hemoptysis Gastrointestinal Gastrointestinal: Denies abdominal pain, constipation, diarrhea, hematemesis, hematochezia, melena, nausea or vomiting Genitourinary Genitourinary: Denies dysuria, hematuria, urinary frequency, urinary hesitancy, urinary incontinence or urinary urgency Musculoskeletal Musculoskeletal: Denies back pain, joint pain, joint stiffness, joint swelling, myalgias or neck pain Neurologic Neurologic: Denies abnormal gait, abnormal speech, confusion, disequilibrium, dizziness, focal weakness, headache(s), loss of vision, numbness, other visual disturbances, paresthesias, syncope or tingling Psychiatric Psychiatric: Denies anxiety, cognitive impairment, depression, irritability, mood swings or suicidal ideation Endocrine Endocrinology: Denies change in body appearance, cold intolerance, excessive sweating, heat intolerance, polydipsia or polyuria Hematologic/Lymphatic Hematologic/Lymphatic : Denies none, anemia, easy bleeding, easy bruising or lymphadenopathy Allergic/Immunologic Allergic/Im (more content not included)... Normal [facility] L501.4021on 04-21-2025 Trop T High Sen 103 ng/L Invalid Interpretation Code <=14 [facility] Comment on above: Result Comment: Crit ical Result(s) Called at: 212204/21/2025 by:?? MARTHA ISSA Results read back by same. Performed By: #### L 501.4021, L100.0100, L500.2500 #### [facility] [address] [place], [address] Magnesiumon 04-21-2025 Magnesium [Mass/Vol] 1.9 mg/dL Normal 1.5-2.2 [facility] Comment on above: Performed By: #### L 503.7505, L300.3900, L501.5200 #### [facility] [address] [place], [address] Partial Thromboplast Timeon 04-21-2025 aPTT Coag (Bld) [Time] 28.6 s Normal 24.1-36.2 [facility] Comment on above: Performed By: #### L 503.7505, L300.3900, L501.5200 #### [facility] [address] [place], [address] Pro- Brain NATRIURETIC PEPTI Maddison 04-21-2025 Natriuretic peptide B (Bld) [Mass/Vol] 3705 pg/mL High <=1800 [facility] Comment on above: Result Comment: Hear t Failure Unlikely: < 300 pg/mL Heart Failure Likely < 50 Years: > 450 pg/mL 50-75 Years: > 900 pg/mL >75 Years: > 1800 pg/mL Performed By: #### L 503.7505, L300.3900, L501.5200 #### [facility] [address] [place], [address] Natriuretic peptide B (Bld) [Mass/Vol] 4182 pg/mL High <=1800 [facility] Comment on above: Result Comment: Hear t Failure Unlikely: < 300 pg/mL Heart Failure Likely < 50 Years: > 450 pg/mL 50-75 Years: > 900 pg/mL >75 Years: > 1800 pg/mL Performed By: #### L 503.7505, L300.3900, L501.5200 #### [facility] [address] [place], [address] Prothrombin Time w/INRon 11- 10-2025 INR Coag (PPP) [Relative time] 1.2 {INR} Normal [facility] Comment on above: Performed By: #### L 503.7505, L300.3900, L501.5200 #### [facility] [address] [place], [address] PT Coag (PPP) [Time] 15.4 s High 11.7-14.9 [facility] Comment on above: Performed By: #### L 503.7505, L300.3900, L501.5200 #### [facility] [address] [place], [address] INR Normal [facility] Comment on above: Result Comment: This specimen has been REJECTED due to Laboratory criteria: Quantity Not Sufficient. RAKEL ISSA has been notified of need of recollection. 04/21/251958 Callie Martinez Performed By: #### L 503.7505, L300.3900, L501.5200 #### [facility] [address] [place], [address] PROTIME Normal 11.7-14.9 [facility] Comment on above: Result Comment: This specimen has been REJECTED due to Laboratory criteria: Quantity Not Sufficient. RAKEL ISSA has been notified of need of recollection. 04/21/251958 Callie Martinez Performed By: #### L 503.7505, L300.3900, L501.5200 #### [facility] [address] [place], [address] Troponin T HS 2 HRon 025 Trop T High Sen 96 ng/L Invalid Interpretation Code <=14 [facility] Comment on above: Result Comment: Crit ical Result(s) Called at:04-21-25 23:12 TO SAPNA READ by: HENRY HARVEY ??Results read back by same. Performed By: #### L 503.7505, L300.3900, L501.5200 #### [facility] [address] [place], [address] CBC W/Diff, Automatedon 11-0 5-2025 Absolute Lymph 1.39 X10 3/uL Normal 0.83-4.51 [facility] Comment on above: Performed By: #### L 503.7505, L300.3900, L501.5200 #### [facility] [address] [place], [address] Absolute Neut 5.4 X10 3/uL Normal 2.0-7.7 [facility] Comment on above: Performed By: #### L 503.7505, L300.3900, L501.5200 #### [facility] [address] [place], [address] Basophils/100 WBC (Bld) 0.7 % Normal 0-1 [facility] Comment on above: Performed By: #### L 503.7505, L300.3900, L501.5200 #### [facility] [address] [place], [address] Eosinophils/100 WBC (Bld) 1.3 % Normal 0-5 [facility] Comment on above: Performed By: #### L 503.7505, L300.3900, L501.5200 #### [facility] [address] [place], [address] Erythrocyte distribution width (RBC) [Ratio] 14.6 % Normal 11.6-14.6 [facility] Comment on above: Performed By: #### L 503.7505, L300.3900, L501.5200 #### [facility] [address] [place], [address] Hematocrit (Bld) [Volume fraction] 39.9 % Normal 37-47 [facility] Comment on above: Performed By: #### L 503.7505, L300.3900, L501.5200 #### [facility] [address] [place], [address] Hemoglobin (Bld) [Mass/Vol] 13.1 g/dL Normal 12.0-15.0 [facility] Comment on above: Performed By: #### L 503.7505, L300.3900, L501.5200 #### [facility] [address] [place], [address] IG% 0.300 Normal 0.0-0.9 [facility] Comment on above: Result Comment: IG% - Immature Granulocytes (promyelocytes, myelocytes and metamyelocytes) > 1% indicates that a LEFT SHIFT is Present. Performed By: #### L 503.7505, L300.3900, L501.5200 #### [facility] [address] [place], [address] Lymphocytes/100 WBC (Bld) 18.7 % Low 19-41 [facility] Comment on above: Performed By: #### L 503.7505, L300.3900, L501.5200 #### [facility] [address] [place], [address] MCH (RBC) [Entitic mass] 30.3 pg Normal 27.0-32.0 [facility] Comment on above: Performed By: #### L 503.7505, L300.3900, L501.5200 #### [facility] [address] [place], [address] MCHC (RBC) [Mass/Vol] 32.8 g/dL Normal 32-[address] [facility] Comment on above: Performed By: #### L 503.7505, L300.3900, L501.5200 #### [facility] [address] [place], [address] MCV (RBC) [Entitic vol] 92.4 fL Normal 81-99 [facility] Comment on above: Performed By: #### L 503.7505, L300.3900, L501.5200 #### [facility] [address] [place], [address] Monocytes/100 WBC (Bld) 7.1 % Normal 0-10 [facility] Comment on above: Performed By: #### L 503.7505, L300.3900, L501.5200 #### [facility] [address] [place], [address] Neutrophils/100 WBC (Bld) 71.9 % High 47-70 [facility] Comment on above: Performed By: #### L 503.7505, L300.3900, L501.5200 #### [facility] [address] [place], [address] Nucleated RBC (Bld) [#/Vol] 0 10*3/uL Normal 0-5 [facility] Comment on above: Performed By: #### L 503.7505, L300.3900, L501.5200 #### [facility] [address] [place], [address] Platelet mean volume (Bld) [Entitic vol] 10.4 fL Normal 6.2-12.0 [facility] Comment on above: Performed By: #### L 503.7505, L300.3900, L501.5200 #### [facility] [address] [place], [address] Platelets (Bld) [#/Vol] 186 10*3/uL Normal 150-450 [facility] Comment on above: Performed By: #### L 503.7505, L300.3900, L501.5200 #### [facility] [address] [place], [address] RBC (Bld) [#/Vol] 4.32 10*6/uL Normal 4.2-5.4 [facility] Comment on above: Performed By: #### L 503.7505, L300.3900, L501.5200 #### [facility] [address] [place], [address] RDW SD 49.2 fl High 35.1-43.9 [facility] Comment on above: Performed By: #### L 503.7505, L300.3900, L501.5200 #### [facility] [address] [place], [address] WBC (Bld) [#/Vol] 7.4 10*3/uL Normal 4.4-11.0 [facility] Comment on above: Performed By: #### L 503.7505, L300.3900, L501.5200 #### [facility] [address] [place], [address] Chest PA and Lateralon 04-16 Chest PA and Lateral [facility] Imaging Services [address] [place] [address] Chest PA and Lateral MR#: [id number] Acct: [id number] Name: MI PRETTY Rep #: [id number] : 1950 F 74 From: Aury Castrejon PCP: Dr. Faith Barrientos DO Status: REG CLI Study: Chest PA and Lateral Date of Exam: 04/16/25 Exam# [id number] Ordering Dr: Faith Barrientos DO PROCEDURE: CHEST [...] and interstitial edema. Mild cardiomegaly. Reading Location: [id number] CC: Dr. Faith Barrientos DO [place] Manager: Signed Normal [facility] Comprehensive Metabolic Prof sindy 04-16-2025 Albumin [Mass/Vol] 4.0 g/dL Normal 3.4-4.8 [facility] Comment on above: Performed By: #### L 503.7505, L300.3900, L501.5200 #### [facility] [address] [place], [address] Albumin/Globulin [Mass ratio] 1.5 {ratio} Normal 0.9-2.4 [facility] Comment on above: Performed By: #### L 503.7505, L300.3900, L501.5200 #### [facility] [address] [place], [address] ALK PHOS 86 U/L Normal 35-104 [facility] Comment on above: Performed By: #### L 503.7505, L300.3900, L501.5200 #### [facility] [address] [place], [address] ALT [Catalytic activity/Vol] 12 U/L Normal <=34 [facility] Comment on above: Performed By: #### L 503.7505, L300.3900, L501.5200 #### [facility] [address] [place], [address] AST [Catalytic activity/Vol] 24 U/L Normal <=31 [facility] Comment on above: Performed By: #### L 503.7505, L300.3900, L501.5200 #### [facility] [address] [place], [address] Bilirubin [Mass/Vol] 1.84 mg/dL High 0.00-1.30 [facility] Comment on above: Performed By: #### L 503.7505, L300.3900, L501.5200 #### [facility] [address] [place], [address] BUN/CRE 29.5 RATIO High 10-20 [facility] Comment on above: Performed By: #### L 503.7505, L300.3900, L501.5200 #### [facility] [address] [place], [address] Calcium [Mass/Vol] 9.0 mg/dL Normal 7.6-11.0 [facility] Comment on above: Performed By: #### L 503.7505, L300.3900, L501.5200 #### [facility] [address] [place], [address] Chloride [Moles/Vol] 103 mmol/L Normal 98-108 [facility] Comment on above: Performed By: #### L 503.7505, L300.3900, L501.5200 #### [facility] [address] [place], [address] CO2 [Moles/Vol] 24.5 mmol/L Normal 21.0-32.0 [facility] Comment on above: Performed By: #### L 503.7505, L300.3900, L501.5200 #### [facility] [address] [place], [address] Creatinine [Mass/Vol] 0.65 mg/dL Low 0.70-1.[address] [facility] Comment on above: Performed By: #### L 503.7505, L300.3900, L501.5200 #### [facility] [address] [place], [address] GAP 11 Normal 5-15 [facility] Comment on above: Performed By: #### L 503.7505, L300.3900, L501.5200 #### [facility] [address] [place], [address] GFR/1.73 sq M.predicted among non-blacks MDRD (S/P/Bld) [Vol rate/Area] 92 mL/min/{1.73_m2} Normal >60 [facility] Comment on above: Result Comment: mL/m in/1.73m2 CKD-EPI Creatinine Equation (2020) Performed By: #### L 503.7505, L300.3900, L501.5200 #### [facility] [address] [place], [address] Globulin (S) [Mass/Vol] 2.6 g/dL Normal 2.2-4.2 [facility] Comment on above: Performed By: #### L 503.7505, L300.3900, L501.5200 #### [facility] [address] [place], [address] Glucose [Mass/Vol] 121 mg/dL High 70-99 [facility] Comment on above: Performed By: #### L 503.7505, L300.3900, L501.5200 #### [facility] [address] [place], [address] Potassium [Moles/Vol] 4.4 mmol/L Normal 3.3-5.[address] [facility] Comment on above: Performed By: #### L 503.7505, L300.3900, L501.5200 #### [facility] [address] [place], [address] Sodium [Moles/Vol] 138 mmol/L Normal 133-145 [facility] Comment on above: Performed By: #### L 503.7505, L300.3900, L501.5200 #### [facility] [address] [place], [address] T PROT 6.5 g/dL Normal 5.9-8.4 [facility] Comment on above: Performed By: #### L 503.7505, L300.3900, L501.5200 #### [facility] [address] [place], [address] Urea nitrogen [Mass/Vol] 19 mg/dL Normal 4-19 [facility] Comment on above: Performed By: #### L 503.7505, L300.3900, L501.5200 #### [facility] [address] [place], [address] Pro- Brain NATRIURETIC PEPTI Maddison 04-16-2025 Natriuretic peptide B (Bld) [Mass/Vol] 3156 pg/mL High <=1800 [facility] Comment on above: Result Comment: Hear t Failure Unlikely: < 300 pg/mL Heart Failure Likely < 50 Years: > 450 pg/mL 50-75 Years: > 900 pg/mL >75 Years: > 1800 pg/mL Performed By: #### L 503.7505, L300.3900, L501.5200 #### [facility] [address] [place], [address] Basic Metabolic Profile (BMP )on 11-01-2024 BUN/CRE 34.2 RATIO High 10-20 [facility] Comment on above: Performed By: #### L 101.9900, L501.1400, L100.0100, L501.6710, L500.2500 #### [facility] [address] [place], [address] Calcium [Mass/Vol] 9.3 mg/dL Normal 7.6-11.0 [facility] Comment on above: Performed By: #### L 101.9900, L501.1400, L100.0100, L501.6710, L500.2500 #### [facility] [address] [place], [address] Chloride [Moles/Vol] 100 mmol/L Normal 98-108 [facility] Comment on above: Performed By: #### L 101.9900, L501.1400, L100.0100, L501.6710, L500.2500 #### [facility] [address] [place], [address] CO2 [Moles/Vol] 28.2 mmol/L Normal 21.0-32.0 [facility] Comment on above: Performed By: #### L 101.9900, L501.1400, L100.0100, L501.6710, L500.2500 #### [facility] [address] [place], [address] Creatinine [Mass/Vol] 0.60 mg/dL Low 0.70-1.[address] [facility] Comment on above: Performed By: #### L 101.9900, L501.1400, L100.0100, L501.6710, L500.2500 #### [facility] [address] [place], [address] ECRCL 72.00 ml/min Normal 50-250 [facility] Comment on above: Performed By: #### L 101.9900, L501.1400, L100.0100, L501.6710, L500.2500 #### [facility] [address] [place], [address] GAP 10 Normal 5-15 [facility] Comment on above: Performed By: #### L 101.9900, L501.1400, L100.0100, L501.6710, L500.2500 #### [facility] [address] [place], [address] GFR/1.73 sq M.predicted among non-blacks MDRD (S/P/Bld) [Vol rate/Area] 94 mL/min/{1.73_m2} Normal >60 [facility] Comment on above: Result Comment: mL/m in/1.73m2 CKD-EPI Creatinine Equation (2020) Performed By: #### L 101.9900, L501.1400, L100.0100, L501.6710, L500.2500 #### [facility] [address] [place], [address] Glucose [Mass/Vol] 102 mg/dL High 70-99 [facility] Comment on above: Performed By: #### L 101.9900, L501.1400, L100.0100, L501.6710, L500.2500 #### [facility] [address] [place], [address] Potassium [Moles/Vol] 4.4 mmol/L Normal 3.3-5.[address] [facility] Comment on above: Performed By: #### L 101.9900, L501.1400, L100.0100, L501.6710, L500.2500 #### [facility] [address] [place], [address] Sodium [Moles/Vol] 138 mmol/L Normal 133-145 [facility] Comment on above: Performed By: #### L 101.9900, L501.1400, L100.0100, L501.6710, L500.2500 #### [facility] [address] [place], [address] Urea nitrogen [Mass/Vol] 21 mg/dL High 4-19 [facility] Comment on above: Performed By: #### L 101.9900, L501.1400, L100.0100, L501.6710, L500.2500 #### [facility] [address] [place], [address] CBC W/Diff, Automatedon 05-2 -2024 Absolute Lymph 1.68 X10 3/uL Normal 0.83-4.51 [facility] Comment on above: Performed By: #### L 101.9900, L501.1400, L100.0100, L501.6710, L500.2500 #### [facility] [address] [place], [address] Absolute Neut 4.0 X10 3/uL Normal 2.0-7.7 [facility] Comment on above: Performed By: #### L 101.9900, L501.1400, L100.0100, L501.6710, L500.2500 #### [facility] [address] [place], [address] Basophils/100 WBC (Bld) 0.6 % Normal 0-1 [facility] Comment on above: Performed By: #### L 101.9900, L501.1400, L100.0100, L501.6710, L500.2500 #### [facility] [address] [place], [address] Eosinophils/100 WBC (Bld) 2.7 % Normal 0-5 [facility] Comment on above: Performed By: #### L 101.9900, L501.1400, L100.0100, L501.6710, L500.2500 #### [facility] [address] [place], [address] Erythrocyte distribution width (RBC) [Ratio] 13.2 % Normal 11.6-14.6 [facility] Comment on above: Performed By: #### L 101.9900, L501.1400, L100.0100, L501.6710, L500.2500 #### [facility] [address] [place], [address] Hematocrit (Bld) [Volume fraction] 39.2 % Normal 37-47 [facility] Comment on above: Performed By: #### L 101.9900, L501.1400, L100.0100, L501.6710, L500.2500 #### [facility] [address] [place], [address] Hemoglobin (Bld) [Mass/Vol] 13.1 g/dL Normal 12.0-15.0 [facility] Comment on above: Performed By: #### L 101.9900, L501.1400, L100.0100, L501.6710, L500.2500 #### [facility] [address] [place], [address] IG% 0.600 Normal 0.0-0.9 [facility] Comment on above: Result Comment: IG% - Immature Granulocytes (promyelocytes, myelocytes and metamyelocytes) > 1% indicates that a LEFT SHIFT is Present. Performed By: #### L 101.9900, L501.1400, L100.0100, L501.6710, L500.2500 #### [facility] [address] [place], [address] Lymphocytes/100 WBC (Bld) 26.5 % Normal 19-41 [facility] Comment on above: Performed By: #### L 101.9900, L501.1400, L100.0100, L501.6710, L500.2500 #### [facility] [address] [place], [address] MCH (RBC) [Entitic mass] 30.9 pg Normal 27.0-32.0 [facility] Comment on above: Performed By: #### L 101.9900, L501.1400, L100.0100, L501.6710, L500.2500 #### [facility] [address] [place], [address] MCHC (RBC) [Mass/Vol] 33.4 g/dL Normal 32-[address] [facility] Comment on above: Performed By: #### L 101.9900, L501.1400, L100.0100, L501.6710, L500.2500 #### [facility] [address] [place], [address] MCV (RBC) [Entitic vol] 92.5 fL Normal 81-99 [facility] Comment on above: Performed By: #### L 101.9900, L501.1400, L100.0100, L501.6710, L500.2500 #### [facility] [address] [place], [address] Monocytes/100 WBC (Bld) 6.3 % Normal 0-10 [facility] Comment on above: Performed By: #### L 101.9900, L501.1400, L100.0100, L501.6710, L500.2500 #### [facility] [address] [place], [address] Neutrophils/100 WBC (Bld) 63.3 % Normal 47-70 [facility] Comment on above: Performed By: #### L 101.9900, L501.1400, L100.0100, L501.6710, L500.2500 #### [facility] [address] [place], [address] Nucleated RBC (Bld) [#/Vol] 0 10*3/uL Normal 0-5 [facility] Comment on above: Performed By: #### L 101.9900, L501.1400, L100.0100, L501.6710, L500.2500 #### [facility] [address] [place], [address] Platelet mean volume (Bld) [Entitic vol] 10.7 fL Normal 6.2-12.0 [facility] Comment on above: Performed By: #### L 101.9900, L501.1400, L100.0100, L501.6710, L500.2500 #### [facility] [address] [place], [address] Platelets (Bld) [#/Vol] 216 10*3/uL Normal 150-450 [facility] Comment on above: Performed By: #### L 101.9900, L501.1400, L100.0100, L501.6710, L500.2500 #### [facility] [address] [place], [address] RBC (Bld) [#/Vol] 4.24 10*6/uL Normal 4.2-5.4 [facility] Comment on above: Performed By: #### L 101.9900, L501.1400, L100.0100, L501.6710, L500.2500 #### [facility] [address] [place], [address] RDW SD 44.3 fl High 35.1-43.9 [facility] Comment on above: Performed By: #### L 101.9900, L501.1400, L100.0100, L501.6710, L500.2500 #### [facility] [address] [place], [address] WBC (Bld) [#/Vol] 6.3 10*3/uL Normal 4.4-11.0 [facility] Comment on above: Performed By: #### L 101.9900, L501.1400, L100.0100, L501.6710, L500.2500 #### [facility] [address] [place], [address] CRPon 11-01-2024 C-REACTIVE PROT 11.80 mg/L High 0.0-3.0 [facility] Comment on above: Performed By: #### L 503.7505, L300.3900, L501.5200 #### [facility] [address] [place], [address] Emergency Department Summary on 11-01-2024 Emergency Department Summary [facility] Medical Records Department [address] [place] [address] Emergency Department Summary 11/01/24 MR#: [id number] Acct: [id number] Name: MI PRETTY Rep #: [id number] : 1950 74 From: Luis Brown MD [...] doing any walking or running for exercise. [facility] Medical History Hypertensive disorder Contact with or [...] PO QHS 10/03/22 Unknown Hist ory vitamins A,C,S-sqfd-[id number] 4,296 1 cap PO BID 10/03/22 Unknown [...] x-rays bu (more content not included)... Normal [facility] Erythrocyte Sed Rateon 11-01 SED RATE 7 mm/hr Normal 0-30 [facility] Comment on above: Performed By: #### L 503.9428, L300.8320, L501.5200 #### [facility] [address] [place], [address] Foot min 3 Viewson 5 Foot min 3 Views [facility] Imaging Services [address] [place] [address] Foot min 3 Views MR#: [id number] Acct: [id number] Name: MI PRETTY Rep #: [id number] : 1950 F 74 From: Freddie Vázquez MD PCP: Dr. Faith Barrientos DO Status: REG ER Study: Foot min 3 Views Date of Exam: 11/01/24 Exam# [id number] Ordering Dr: Luis Brown MD EXAM: XR [...] evaluation with CT is recommended. Reading Location: [facility] CC: Dr. Luis Brown MD; Dr. Faith Barrientos DO [place] Manager: Signed Normal [facility] Uric Acidon 11-01-2024 URIC 4.1 mg/dL Normal 2.6-6.0 [facility] Comment on above: Result Comment: The drugs N-Acetylcysteine and Metamizole may falsely depress this assay. Performed By: #### L 503.7505, L300.3900, L501.5200 #### [facility] [address] [place], [id number] CBC W/Diff, Automatedon 04-12 Absolute Lymph 1.74 X10 3/uL Normal 0.83-4.51 [facility] Comment on above: Performed By: #### L 503.7505, L300.3900, L501.5200 #### [facility] [address] [place], [address] Absolute Neut 3.2 X10 3/uL Normal 2.0-7.7 [facility] Comment on above: Performed By: #### L 503.7505, L300.3900, L501.5200 #### [facility] [address] [place], [address] Basophils/100 WBC (Bld) 1.1 % High 0-1 [facility] Comment on above: Performed By: #### L 503.7505, L300.3900, L501.5200 #### [facility] [address] [place], [address] Eosinophils/100 WBC (Bld) 4.4 % Normal 0-5 [facility] Comment on above: Performed By: #### L 503.7505, L300.3900, L501.5200 #### [facility] [address] [place], [address] Erythrocyte distribution width (RBC) [Ratio] 12.6 % Normal 11.6-14.6 [facility] Comment on above: Performed By: #### L 503.7505, L300.3900, L501.5200 #### [facility] [address] [place], [address] Hematocrit (Bld) [Volume fraction] 42.0 % Normal 37-47 [facility] Comment on above: Performed By: #### L 503.7505, L300.3900, L501.5200 #### [facility] [address] [place], [address] Hemoglobin (Bld) [Mass/Vol] 13.4 g/dL Normal 12.0-15.0 [facility] Comment on above: Performed By: #### L 503.7505, L300.3900, L501.5200 #### [facility] [address] [place], [address] IG% 0.400 Normal 0.0-0.9 [facility] Comment on above: Result Comment: IG% - Immature Granulocytes (promyelocytes, myelocytes and metamyelocytes) > 1% indicates that a LEFT SHIFT is Present. Performed By: #### L 503.7505, L300.3900, L501.5200 #### [facility] [address] [place], [address] Lymphocytes/100 WBC (Bld) 30.6 % Normal 19-41 [facility] Comment on above: Performed By: #### L 503.7505, L300.3900, L501.5200 #### [facility] [address] [place], [address] MCH (RBC) [Entitic mass] 29.9 pg Normal 27.0-32.0 [facility] Comment on above: Performed By: #### L 503.7505, L300.3900, L501.5200 #### [facility] [address] [place], [address] MCHC (RBC) [Mass/Vol] 31.9 g/dL Low 32-[address] [facility] Comment on above: Performed By: #### L 503.7505, L300.3900, L501.5200 #### [facility] [address] [place], [address] MCV (RBC) [Entitic vol] 93.8 fL Normal 81-99 [facility] Comment on above: Performed By: #### L 503.7505, L300.3900, L501.5200 #### [facility] [address] [place], [address] Monocytes/100 WBC (Bld) 7.2 % Normal 0-10 [facility] Comment on above: Performed By: #### L 503.7505, L300.3900, L501.5200 #### [facility] [address] [place], [address] Neutrophils/100 WBC (Bld) 56.3 % Normal 47-70 [facility] Comment on above: Performed By: #### L 503.7505, L300.3900, L501.5200 #### [facility] [address] [place], [address] Nucleated RBC (Bld) [#/Vol] 0 10*3/uL Normal 0-5 [facility] Comment on above: Performed By: #### L 503.7505, L300.3900, L501.5200 #### [facility] [address] [place], [address] Platelet mean volume (Bld) [Entitic vol] 10.9 fL Normal 6.2-12.0 [facility] Comment on above: Performed By: #### L 503.7505, L300.3900, L501.5200 #### [facility] [address] [place], [address] Platelets (Bld) [#/Vol] 214 10*3/uL Normal 150-450 [facility] Comment on above: Performed By: #### L 503.7505, L300.3900, L501.5200 #### [facility] [address] [place], [address] RBC (Bld) [#/Vol] 4.48 10*6/uL Normal 4.2-5.4 [facility] Comment on above: Performed By: #### L 503.7505, L300.3900, L501.5200 #### [facility] [address] [place], [address] RDW SD 43.5 fl Normal 35.1-43.9 [facility] Comment on above: Performed By: #### L 503.7505, L300.3900, L501.5200 #### [facility] [address] [place], [address] WBC (Bld) [#/Vol] 5.7 10*3/uL Normal 4.4-11.0 [facility] Comment on above: Performed By: #### L 503.7505, L300.3900, L501.5200 #### [facility] [address] [place], [address] Comprehensive Metabolic Prof [facility] 04-29-2024 Albumin [Mass/Vol] 3.6 g/dL Normal 3.2-5.0 [facility] Comment on above: Performed By: #### L 503.7505, L300.3900, L501.5200 #### [facility] [address] [place], [address] Albumin/Globulin [Mass ratio] 1.0 {ratio} Normal 0.9-2.4 [facility] Comment on above: Performed By: #### L 503.7505, L300.3900, L501.5200 #### [facility] [address] [place], [address] ALK P 86 U/L Normal 45-117 [facility] Comment on above: Performed By: #### L 503.7505, L300.3900, L501.5200 #### [facility] [address] [place], [address] ALT [Catalytic activity/Vol] 17 U/L Normal 13-56 [facility] Comment on above: Performed By: #### L 503.7505, L300.3900, L501.5200 #### [facility] [address] [place], [address] AST [Catalytic activity/Vol] 11 U/L Low 15-37 [facility] Comment on above: Performed By: #### L 503.7505, L300.3900, L501.5200 #### [facility] [address] [place], [address] Bilirubin [Mass/Vol] 0.70 mg/dL Normal 0.20-1.00 [facility] Comment on above: Result Comment: For patients on eltrombopag therapy, use of Dimension [place] TBIL is not recommended. Performed By: #### L 503.7505, L300.3900, L501.5200 #### [facility] [address] [place], [address] BUN/CRE 37.5 RATIO High 10-20 [facility] Comment on above: Performed By: #### L 503.7505, L300.3900, L501.5200 #### [facility] [address] [place], [address] CA,Total 9.0 mg/dL Normal 8.5-10.1 [facility] Comment on above: Performed By: #### L 503.7505, L300.3900, L501.5200 #### [facility] [address] [place], [address] Chloride [Moles/Vol] 105 mmol/L Normal 98-107 [facility] Comment on above: Performed By: #### L 503.7505, L300.3900, L501.5200 #### [facility] [address] [place], [address] CO2 [Moles/Vol] 30.0 mmol/L Normal 21.0-32.0 [facility] Comment on above: Performed By: #### L 503.7505, L300.3900, L501.5200 #### [facility] [address] [place], [address] Creatinine [Mass/Vol] 0.53 mg/dL Low 0.55-1.[address] [facility] Comment on above: Result Comment: The validity of the calculated GFR GFRAA in patients over 70 years has not been determined. Clinical correlation is essential. Performed By: #### L 503.7505, L300.3900, L501.5200 #### [facility] [address] [place], [address] EST GFR - AA 144 mL/min Normal >60 [facility] Comment on above: Result Comment: Afri can Iraqi GFR Calc Performed By: #### L 503.7505, L300.3900, L501.5200 #### [facility] [address] [place], [address] GAP 3 Low 5-15 [facility] Comment on above: Performed By: #### L 503.7505, L300.3900, L501.5200 #### [facility] [address] [place], [address] GFR/1.73 sq M.predicted among non-blacks MDRD (S/P/Bld) [Vol rate/Area] 119 mL/min/{1.73_m2} Normal >60 [facility] Comment on above: Result Comment: Non- GFR Calc Performed By: #### L 503.7505, L300.3900, L501.5200 #### [facility] [address] [place], [address] Globulin (S) [Mass/Vol] 3.7 g/dL Normal 2.2-4.2 [facility] Comment on above: Performed By: #### L 503.7505, L300.3900, L501.5200 #### [facility] [address] [place], [address] Glucose [Mass/Vol] 103 mg/dL Normal 74-106 [facility] Comment on above: Result Comment: Fast ing Glucose result from 100 to 125 mg/dL suggests IMPAIRED HOMEOSTASIS per A.D.A. criteria. Performed By: #### L 503.7505, L300.3900, L501.5200 #### [facility] [address] [place], [address] Potassium [Moles/Vol] 4.4 mmol/L Normal 3.5-5.[address] [facility] Comment on above: Performed By: #### L 503.7505, L300.3900, L501.5200 #### [facility] [address] [place], [address] Sodium [Moles/Vol] 138 mmol/L Normal 136-145 [facility] Comment on above: Performed By: #### L 503.7505, L300.3900, L501.5200 #### [facility] [address] [place], [address] T PROT 7.3 g/dL Normal 6.4-8.2 [facility] Comment on above: Performed By: #### L 503.7505, L300.3900, L501.5200 #### [facility] [address] [place], [address] Urea nitrogen [Mass/Vol] 20 mg/dL High 12-27 [facility] Comment on above: Performed By: #### L 503.7505, L300.3900, L501.5200 #### [facility] [address] [place], [address] Lipid Profileon 04-29-2024 Cholesterol [Mass/Vol] 229 mg/dL High 200 [facility] Comment on above: Result Comment: <200 mg/dL Desirable 200-240 mg/dL Borderline >240 mg/dL High Risk Performed By: #### L 503.7505, L300.3900, L501.5200 #### [facility] [address] [place], [address] Cholesterol in HDL [Mass/Vol] 59 mg/dL Normal [facility] Comment on above: Result Comment: The drugs N-Acetylcysteine and Metamizole may falsely depress this assay. Reference Range HDL <40 mg/dL Low HDL Cholesterol HDL >or= 60 mg/dL High HDL Cholesterol Performed By: #### L 503.7505, L300.3900, L501.5200 #### [facility] [address] [place], [address] Cholesterol in LDL [Mass/Vol] 150 mg/dL High 0-130 [facility] Comment on above: Performed By: #### L 503.7505, L300.3900, L501.5200 #### [facility] [address] [place], [address] Cholesterol in VLDL [Mass/Vol] 20 mg/dL Normal 5-40 [facility] Comment on above: Performed By: #### L 503.7505, L300.3900, L501.5200 #### [facility] [address] [place], [address] Triglyceride [Mass/Vol] 99 mg/dL Normal [facility] Comment on above: Result Comment: The drugs N-Acetylcysteine and Metamizole may falsely depress this assay. Serum Triglycerides Reference Interval Normal <150 mg/dL Borderline high 150 - 199 mg/dL High 200 - 499 mg/dL Very High > or = 500 mg/dL Performed By: #### L 503.7505, L300.3900, L501.5200 #### [facility] [address] [place], [address] Thyroid Stim Hormone (TSH)on 04-29-2024 TSH 2.330 uIU/mL Normal 0.358-3.740 [facility] Comment on above: Performed By: #### L 503.7505, L300.3900, L501.5200 #### [facility] [address] [place], [address] Vitamin D,25 Hydroxyon 04-29 Vitamin D 25-OH 52.6 ng/mL Normal [facility] Comment on above: Result Comment: Bre min D 25(OH) Status Range Deficiency <20 ng/mL (50nmol/L) Insufficiency 20 - 30 ng/mL (50 - 75 nmol/L) Sufficiency 30 - 100 ng/mL (75 - 250 nmol/L) Toxicity >100 ng/mL (>250 nmol/L) Performed By: #### L 503.7505, L300.3900, L501.5200 #### [facility] [address] [place], [address] .Auto Diffon 03-22-2023 Basophil, Absolute 0.0 10 3/mcL Normal 0.0-0.2 [facility] ([place]) Comment on above: Performed By: #### A HAJA, BMP, GFR, CBC, ADIFF #### [address] [address] Basophils/100 WBC (Bld) 0.0 % Normal 0.0-2.5 [facility] ([place]) Comment on above: Performed By: #### A HAJA, BMP, GFR, CBC, ADIFF #### [address] [address] Eosinophil, Absolute 0.0 10 3/mcL Normal 0.0-0.4 [facility] ([place]) Comment on above: Performed By: #### A HAJA, BMP, GFR, CBC, ADIFF #### [address] [address] Eosinophils/100 WBC (Bld) 0.0 % Normal 0.0-7.0 [facility] ([place]) Comment on above: Performed By: #### A HAJA, BMP, GFR, CBC, ADIFF #### [address] [address] Lymphocyte, Absolute 1.1 10 3/mcL Normal 0.8-3.9 [facility] ([place]) Comment on above: Performed By: #### A HAJA, BMP, GFR, CBC, ADIFF #### [address] [address] Lymphocytes/100 WBC (Bld) 10.1 % Normal 10.0-50.0 [facility] ([place]) Comment on above: Performed By: #### A HAJA, BMP, GFR, CBC, ADIFF #### [address] [address] Monocyte, Absolute 0.6 10 3/mcL Normal 0.2-1.0 [facility] ([place]) Comment on above: Performed By: #### A HAJA, BMP, GFR, CBC, ADIFF #### [address] [address] Monocytes/100 WBC (Bld) 5.8 % Normal 1.7-13.0 [facility] ([place]) Comment on above: Performed By: #### A HAJA, BMP, GFR, CBC, ADIFF #### [address] [address] Neutrophils/100 WBC (Bld) 84.1 % High 37.0-80.0 [facility] ([place]) Comment on above: Performed By: #### A HAJA, BMP, GFR, CBC, ADIFF #### [address] [address] .GFRon 03-22-2023 GFR 137 ml/min/1.73sqm Normal [facility] ([place]) Comment on above: Result Comment: GFR Population [...] G FR, ADIFF, CBC, ANEU, BMP #### [address] [address] GFR Non- 113 ml/min/1.73sqm Normal [facility] ([place]) Comment on above: Result Comment: GFR Population [...] G FR, ADIFF, CBC, ANEU, BMP #### [address] [address] .NEUABSon 03-22-2023 Neutrophil, Absolute 9.1 10 3/mcL High 2.9-6.2 [facility] ([place]) Comment on above: Performed By: #### A HAJA, BMP, GFR, CBC, ADIFF #### [address] [address] BMPon 03-22-2023 BUN/Creatinine Ratio 26 ratio Normal 7-27 [facility] ([place]) Comment on above: Performed By: #### A HAJA, BMP, GFR, CBC, ADIFF #### [address] [address] Calcium [Mass/Vol] 8.6 mg/dL Normal 8.4-10.2 [facility] Comment on above: Performed By: #### A HAJA, BMP, GFR, CBC, ADIFF #### [address] [address] Chloride [Moles/Vol] 99 mmol/L Normal 98-107 [facility] ([place] Comment on above: Performed By: #### A HAJA, BMP, GFR, CBC, ADIFF #### [address] [address] CO2 [Moles/Vol] 27 mmol/L Normal 23-31 [facility] ([place]) Comment on above: Performed By: #### A HAJA, BMP, GFR, CBC, ADIFF #### [address] [address] Creatinine [Mass/Vol] 0.53 mg/dL Low 0.55-1.02 [facility] ([place]) Comment on above: Performed By: #### A HAJA, BMP, GFR, CBC, ADIFF #### [address] [address] Electrolyte Balance 8.0 mEq/L Normal 4.0-15.0 [facility] ([place]) Comment on above: Performed By: #### A HAJA, BMP, GFR, CBC, ADIFF #### [address] [address] Glucose [Mass/Vol] 127 mg/dL High 83-110 [facility] [place] Comment on above: Performed By: #### A HAJA, BMP, GFR, CBC, ADIFF #### [address] [address] Potassium [Moles/Vol] 4.6 mmol/L Normal 3.5-5.1 [facility] ([place] Comment on above: Performed By: #### A HAJA, BMP, GFR, CBC, ADIFF #### [address] [address] Sodium [Moles/Vol] 134 mmol/L Low 136-145 [facility] [place] Comment on above: Performed By: #### A HAJA, BMP, GFR, CBC, ADIFF #### [address] [address] Urea nitrogen [Mass/Vol] 14 mg/dL Normal 7-18 [facility] ([place]) Comment on above: Performed By: #### A HAJA, BMP, GFR, CBC, ADIFF #### [address] [address] CBCon 03-22-2023 Erythrocyte distribution width (RBC) [Ratio] 13.8 % Normal 11.5-14.5 [facility] ([place]) Comment on above: Performed By: #### A HAJA, BMP, GFR, CBC, ADIFF #### [address] [address] Hematocrit (Bld) [Volume fraction] 36.0 % Low 37.0-47.0 [facility] ([place]) Comment on above: Performed By: #### A HAJA, BMP, GFR, CBC, ADIFF #### [place] [id number] Hgb 12.0 G/dL Normal 12.0-16.0 [facility] ([place]) Comment on above: Performed By: #### A HAJA, BMP, GFR, CBC, ADIFF #### [address] [address] MCH (RBC) [Entitic mass] 30.6 pg Normal 27.0-31.2 [facility] ([place]) Comment on above: Performed By: #### A HAJA, BMP, GFR, CBC, ADIFF #### [place] [id number] MCHC 33.4 G/dL Normal 33.0-37.0 [facility] ([place]) Comment on above: Performed By: #### A HAJA, BMP, GFR, CBC, ADIFF #### [address] [address] MCV (RBC) [Entitic vol] 91.6 fL Normal 80.0-94.0 [facility] ([place]) Comment on above: Performed By: #### A HAJA, BMP, GFR, CBC, ADIFF #### [address] [address] Platelet 215 10 3/mcL Normal 130-400 [facility] ([place]) Comment on above: Performed By: #### A HAJA, BMP, GFR, CBC, ADIFF #### [address] [address] Platelet mean volume (Bld) [Entitic vol] 8.9 fL Normal 7.4-10.4 [facility] ([place]) Comment on above: Performed By: #### A HAJA, BMP, GFR, CBC, ADIFF #### [place] [place] [address] [place], [place] [address] RBC 3.93 10 6/mcL Low 4.20-5.40 [facility] ([place]) Comment on above: Performed By: #### A HAJA, BMP, GFR, CBC, ADIFF #### [address] [place] [address] [place], [place] [address] WBC 10.8 10 3/mcL Normal 4.6-10.8 [facility] ([place]) Comment on above: Performed By: #### A HAJA, BMP, GFR, CBC, ADIFF #### [place] [address] [place], [place] [address] LABORATORYOrdered By: SYSTEM SYSTEM on 03-22-2023 Basophil, [...] 03-21-2023 ABO/Rh Interp Positive Invalid Interpretation Code [facility] ([place]) Comment on above: Performed By: #### G FR, ADIFF, CBC, ANEU, BMP #### [address] [address] Gel ABSon 03-21-2023 Antibody Screen Gel Negative Normal [facility] ([place]) Comment on above: Performed By: #### G FR, ADIFF, CBC, ANEU, BMP #### Carol[place] [address] [address] LABORATORYOrdered By: Ralf Ramos on 03-21-2023 ABO/Rh [...] 03/21/2023 1:22:24 PM Ordering Provider: LAUREANO Bazzi [facility] ([place]) .Auto Diffon 02-27-2023 Basophil, Absolute 0.0 10 3/mcL Normal 0.0-0.2 [facility] ([place]) Comment on above: Performed By: #### G FR, ADIFF, CBC, ANEU, BMP #### [address] [address] Basophils/100 WBC (Bld) 0.8 % Normal 0.0-2.5 [facility] ([place]) Comment on above: Performed By: #### G FR, ADIFF, CBC, ANEU, BMP #### [address] [address] Eosinophil, Absolute 0.2 10 3/mcL Normal 0.0-0.4 [facility] ([place]) Comment on above: Performed By: #### G FR, ADIFF, CBC, ANEU, BMP #### [address] [address] Eosinophils/100 WBC (Bld) 2.4 % Normal 0.0-7.0 [facility] ([place]) Comment on above: Performed By: #### G FR, ADIFF, CBC, ANEU, BMP #### [address] [address] Lymphocyte, Absolute 1.5 10 3/mcL Normal 0.8-3.9 [facility] ([place] Comment on above: Performed By: #### G FR, ADIFF, CBC, ANEU, BMP #### [address] [address] Lymphocytes/100 WBC (Bld) 24.3 % Normal 10.0-50.0 [facility] ([place]) Comment on above: Performed By: #### G FR, ADIFF, CBC, ANEU, BMP #### [address] [address] Monocyte, Absolute 0.5 10 3/mcL Normal 0.2-1.0 [facility] ([place] Comment on above: Performed By: #### G FR, ADIFF, CBC, ANEU, BMP #### [address] [address] Monocytes/100 WBC (Bld) 7.3 % Normal 1.7-13.0 [facility] ([place]) Comment on above: Performed By: #### G FR, ADIFF, CBC, ANEU, BMP #### [address] [address] Neutrophils/100 WBC (Bld) 65.2 % Normal 37.0-80.0 [facility] ([place] Comment on above: Performed By: #### G FR, ADIFF, CBC, ANEU, BMP #### [address] [address] .GFRon 02-27-2023 GFR Non- 86 ml/min/1.73sqm Normal [facility] ([place] Comment on above: Result Comment: GFR Population [...] G FR, ADIFF, CBC, ANEU, BMP #### [address] [address] GFR 105 ml/min/1.73sqm Normal [facility] ([place] Comment on above: Result Comment: GFR Population [...] G FR, ADIFF, CBC, ANEU, BMP #### [address] [address] .NEUABSon 02-27-2023 Neutrophil, Absolute 4.1 10 3/mcL Normal 2.9-6.2 [facility] ([place] Comment on above: Performed By: #### G FR, ADIFF, CBC, ANEU, BMP #### [address] [address] ALBon 02-27-2023 Albumin Level 3.7 G/dL Normal 3.4-4.8 [facility] ([place]) Comment on above: Performed By: #### G FR, ADIFF, CBC, ANEU, BMP #### [address] [address] BMPon 02-27-2023 BUN/Creatinine Ratio 22 ratio Normal 7-27 [facility] ([place] Comment on above: Performed By: #### G FR, ADIFF, CBC, ANEU, BMP #### [address] [address] Calcium [Mass/Vol] 8.8 mg/dL Normal 8.4-10.2 [facility] [place] Comment [place]: Performed By: #### G FR, ADIFF, CBC, ANEU, BMP #### [address] [address] Chloride [Moles/Vol] 101 mmol/L Normal 98-107 [facility] ([place] Comment on above: Performed By: #### G FR, ADIFF, CBC, ANEU, BMP #### [place] [address] CO2 [Moles/Vol] 32 mmol/L High 23-31 [facility] ([place]) Comment on above: Performed By: #### G FR, ADIFF, CBC, ANEU, BMP #### [address] [address] Creatinine [Mass/Vol] 0.67 mg/dL Normal 0.55-1.02 [facility] ([place]) Comment on above: Performed By: #### Dorie FR, ADIFF, CBC, ANEU, BMP #### [address] [address] Electrolyte Balance 5.0 mEq/L Normal 4.0-15.0 [facility] ([place] Comment on above: Performed By: #### G FR, ADIFF, CBC, ANEU, BMP #### [address] [address] Glucose [Mass/Vol] 104 mg/dL Normal 83-110 [facility] [place] Comment [place]: Performed By: #### G FR, ADIFF, CBC, ANEU, BMP #### [address] [address] Potassium [Moles/Vol] 5.1 mmol/L Normal 3.5-5.1 [facility] ([place] Comment on above: Performed By: #### G FR, ADIFF, CBC, ANEU, BMP #### [address] [address] Sodium [Moles/Vol] 138 mmol/L Normal 136-145 [facility] [place] Comment [place]: Performed By: #### G FR, ADIFF, CBC, ANEU, BMP #### [address] [address] Urea nitrogen [Mass/Vol] 15 mg/dL Normal 7-18 [facility] ([place] Comment on above: Performed By: #### G FR, ADIFF, CBC, ANEU, BMP #### [address] [address] CBCon 02-27-2023 Erythrocyte distribution width (RBC) [Ratio] 13.9 % Normal 11.5-14.5 [facility] ([place]) Comment on above: Order Comment: Pre-A dmission Testing Performed By: #### G FR, ADIFF, CBC, ANEU, BMP #### [address] [address] Hematocrit (Bld) [Volume fraction] 37.9 % Normal 37.0-47.0 [facility] ([place]) Comment on above: Order Comment: Pre-A dmission Testing Performed By: #### G FR, ADIFF, CBC, ANEU, BMP #### [address] [address] Hgb 12.8 G/dL Normal 12.0-16.0 [facility] ([place] Comment on above: Order Comment: Pre-A dmission Testing Performed By: #### G FR, ADIFF, CBC, ANEU, BMP #### [address] [address] MCH (RBC) [Entitic mass] 30.7 pg Normal 27.0-31.2 [facility] ([place] Comment on above: Order Comment: Pre-A dmission Testing Performed By: #### G FR, ADIFF, CBC, ANEU, BMP #### [address] [address] MCHC 33.8 G/dL Normal 33.0-37.0 [facility] ([place] Comment on above: Order Comment: Pre-A dmission Testing Performed By: #### G FR, ADIFF, CBC, ANEU, BMP #### [address] [address] MCV (RBC) [Entitic vol] 90.9 fL Normal 80.0-94.0 [facility] ([place] Comment on above: Order Comment: Pre-A dmission Testing Performed By: #### G FR, ADIFF, CBC, ANEU, BMP #### [address] [address] Platelet 228 10 3/mcL Normal 130-400 [facility] ([place] Comment on above: Order Comment: Pre-A dmission Testing Performed By: #### G FR, ADIFF, CBC, ANEU, BMP #### [address] [address] Platelet mean volume (Bld) [Entitic vol] 8.7 fL Normal 7.4-10.4 [facility] ([place] Comment on above: Order Comment: Pre-A dmission Testing Performed By: #### G FR, ADIFF, CBC, ANEU, BMP #### [address] [address] RBC 4.17 10 6/mcL Low 4.20-5.40 [facility] ([place] Comment on above: Order Comment: Pre-A dmission Testing Performed By: #### G FR, ADIFF, CBC, ANEU, BMP #### [address] [address] WBC 6.3 10 3/mcL Normal 4.6-10.8 [facility] ([place]) Comment on above: Order Comment: Pre-A dmission Testing Performed By: #### G FR, ADIFF, CBC, ANEU, BMP #### [address] [address] [address] SHOULDER W/O CONTRAST LEF Ton 02-27-2023 [...] Date: 02/27/2023 4:50:02 PM Ordering Provider: LAUREANO OLSON [facility] ([place]) LABORATORYOrdered By: SYSTEM SYSTEM on 02-27-2023 Albumin [...] Comment on above: Result Comment: Note s MRSA PCR Int MRSA DNA not detecte [...] MRSA (PCR) Not detected Normal Not Detected [facility] ([place]) Comment on above: Result Comment: [place] [id number] Performed By: #### M RSAPCR #### [place] [address] MRSA PCR Int Normal [facility] ([place]) Comment on above: Result Comment: MRSA DNA [...] Below Performed By: #### M RSAPCR #### [place] [address] .Auto Diffon 08-10-2022 Basophil, Absolute 0.0 10 3/mcL Normal 0.0-0.2 [facility] ([place] Comment on above: Performed By: #### G FR, ADIFF, CBC, ANEU, BMP #### [address] [address] Basophils/100 WBC (Bld) 0.1 % Normal 0.0-2.5 [facility] ([place]) Comment on above: Performed By: #### G FR, ADIFF, CBC, ANEU, BMP #### [address] [address] Eosinophil, Absolute 0.0 10 3/mcL Normal 0.0-0.4 [facility] ([place] Comment on above: Performed By: #### G FR, ADIFF, CBC, ANEU, BMP #### [address] [address] Eosinophils/100 WBC (Bld) 0.1 % Normal 0.0-7.0 [facility] ([place] Comment on above: Performed By: #### G FR, ADIFF, CBC, ANEU, BMP #### [address] [address] Lymphocyte, Absolute 1.3 10 3/mcL Normal 0.8-3.9 [facility] ([place] Comment on above: Performed By: #### G FR, ADIFF, CBC, ANEU, BMP #### [address] [address] Lymphocytes/100 WBC (Bld) 10.8 % Normal 10.0-50.0 [facility] ([place] Comment on above: Performed By: #### G FR, ADIFF, CBC, ANEU, BMP #### [address] [address] Monocyte, Absolute 0.8 10 3/mcL Normal 0.2-1.0 [facility] ([place] Comment on above: Performed By: #### G FR, ADIFF, CBC, ANEU, BMP #### [address] [address] Monocytes/100 WBC (Bld) 6.9 % Normal 1.7-13.0 [facility] ([place]) Comment on above: Performed By: #### G FR, ADIFF, CBC, ANEU, BMP #### [address] [address] Neutrophils/100 WBC (Bld) 82.1 % High 37.0-80.0 [facility] ([place] Comment on above: Performed By: #### G FR, ADIFF, CBC, ANEU, BMP #### [address] [address] .GFRon 08-10-2022 GFR Non- 100 ml/min/1.73sqm Normal [facility] ([place] Comment on above: Result Comment: GFR Population [...] G FR, ADIFF, CBC, ANEU, BMP #### [place] [address] GFR 121 ml/min/1.73sqm Normal [facility] ([place] Comment on above: Result Comment: GFR Population [...] G FR, ADIFF, CBC, ANEU, BMP #### [place] [address] .NEUABSon 08-10-2022 Neutrophil, Absolute 9.6 10 3/mcL High 2.9-6.2 [facility] ([place] Comment on above: Performed By: #### G FR, ADIFF, CBC, ANEU, BMP #### [place] [id number] BMPon 08-10-2022 BUN/Creatinine Ratio 25 ratio Normal 7-27 [facility] ([place] Comment on above: Performed By: #### G FR, ADIFF, CBC, ANEU, BMP #### [address] [address] Calcium [Mass/Vol] 8.6 mg/dL Normal 8.4-10.2 [facility] [place] Comment [place] above: Performed By: #### G FR, ADIFF, CBC, ANEU, BMP #### [address] [address] Chloride [Moles/Vol] 100 mmol/L Normal 98-107 [facility] ([place] Comment on above: Performed By: #### G FR, ADIFF, CBC, ANEU, BMP #### [place] [address] CO2 [Moles/Vol] 30 mmol/L Normal 23-31 [facility] ([place] Comment on above: Performed By: #### G FR, ADIFF, CBC, ANEU, BMP #### [address] [address] Creatinine [Mass/Vol] 0.59 mg/dL Normal 0.55-1.02 [facility] ([place] Comment on above: Performed By: #### G FR, ADIFF, CBC, ANEU, BMP #### [address] [address] Electrolyte Balance 5.0 mEq/L Normal 4.0-15.0 [facility] ([place] Comment on above: Performed By: #### G FR, ADIFF, CBC, ANEU, BMP #### [place] [id number] Glucose [Mass/Vol] 125 mg/dL High 83-110 [facility] [place] Comment [place]: Performed By: #### G FR, ADIFF, CBC, ANEU, BMP #### [place] [id number] Potassium [Moles/Vol] 4.6 mmol/L Normal 3.5-5.1 [facility] ([place] Comment on above: Performed By: #### G FR, ADIFF, CBC, ANEU, BMP #### [address] [address] Sodium [Moles/Vol] 135 mmol/L Low 136-145 [facility] [place] Comment [place] above: Performed By: #### G FR, ADIFF, CBC, ANEU, BMP #### [address] [address] Urea nitrogen [Mass/Vol] 15 mg/dL Normal 7-18 [facility] ([place] Comment on above: Performed By: #### G FR, ADIFF, CBC, ANEU, BMP #### [address] [address] CBCon 08-10-2022 Erythrocyte distribution width (RBC) [Ratio] 14.0 % Normal 11.5-14.5 [facility] ([place] Comment on above: Performed By: #### G FR, ADIFF, CBC, ANEU, BMP #### [address] [address] Hematocrit (Bld) [Volume fraction] 33.2 % Low 37.0-47.0 [facility] ([place] Comment on above: Performed By: #### G FR, ADIFF, CBC, ANEU, BMP #### [address] [address] Hgb 11.1 G/dL Low 12.0-16.0 [facility] ([place] Comment on above: Performed By: #### G FR, ADIFF, CBC, ANEU, BMP #### [address] [address] MCH (RBC) [Entitic mass] 30.0 pg Normal 27.0-31.2 [facility] ([place] Comment on above: Performed By: #### G FR, ADIFF, CBC, ANEU, BMP #### [address] [address] MCHC 33.5 G/dL Normal 33.0-37.0 [facility] ([place] Comment on above: Performed By: #### G FR, ADIFF, CBC, ANEU, BMP #### [address] [address] MCV (RBC) [Entitic vol] 89.6 fL Normal 80.0-94.0 [facility] ([place] Comment on above: Performed By: #### Dorie FR, ADIFF, CBC, ANEU, BMP #### [address] [address] Platelet 210 10 3/mcL Normal 130-400 [facility] ([place] Comment on above: Performed By: #### G FR, ADIFF, CBC, ANEU, BMP #### [address] [address] Platelet mean volume (Bld) [Entitic vol] 8.6 fL Normal 7.4-10.4 [facility] ([place] Comment on above: Performed By: #### Dorie FR, ADIFF, CBC, ANEU, BMP #### [address] [address] RBC 3.70 10 6/mcL Low 4.20-5.40 [facility] ([place]) Comment on above: Performed By: #### Dorie FR, ADIFF, CBC, ANEU, BMP #### [address] [address] WBC 11.7 10 3/mcL High 4.6-10.8 [facility] ([place] Comment on above: Performed By: #### Dorie FR, ADIFF, CBC, ANEU, BMP #### [address] [address] Gel ABOon 08-09-2022 ABO/Rh Interp Positive Invalid Interpretation Code [facility] ([place] Comment on above: Performed By: #### G FR, ADIFF, CBC, ANEU, BMP #### [address] [address] Gel ABSon 08-09-2022 Antibody Screen Gel Negative Normal [facility] ([place] Comment on above: Performed By: #### G FR, ADIFF, CBC, ANEU, BMP #### [facility] [place] [address] [place], [place] [address] XR FLUORO 1-2 HRS TECH TIMEo n 08-09-2022 XR FLUORO 1-2 HRS TECH TIME ORIGINAL Images acquired, not reported on this accession number. Normal [facility] ([place]) XR HIP LEFT W/PELVIS 4 VIEWS on [...] 08/09/2022 12:14:53 PM Ordering Provider: LAUREANO Bazzi [facility] ([place]) .Auto Diffon 07-27-2022 Basophil, Absolute 0.0 10 3/mcL Normal 0.0-0.2 [facility] ([place] Comment on above: Performed By: #### G FR, ADIFF, CBC, ANEU, BMP #### [place] [id number] [place], [place] [address] Basophils/100 WBC (Bld) 0.8 % Normal 0.0-2.5 [facility] ([place] Comment on above: Performed By: #### G FR, ADIFF, CBC, ANEU, BMP #### [place] [id number] [place], [place] [address] Eosinophil, Absolute 0.1 10 3/mcL Normal 0.0-0.4 [facility] ([place] Comment on above: Performed By: #### G FR, ADIFF, CBC, ANEU, BMP #### [address] [address] Eosinophils/100 WBC (Bld) 2.4 % Normal 0.0-7.0 [facility] ([place] Comment on above: Performed By: #### G FR, ADIFF, CBC, ANEU, BMP #### [address] [address] Lymphocyte, Absolute 1.8 10 3/mcL Normal 0.8-3.9 [facility] ([place] Comment on above: Performed By: #### G FR, ADIFF, CBC, ANEU, BMP #### [address] [address] Lymphocytes/100 WBC (Bld) 30.4 % Normal 10.0-50.0 [facility] ([place] Comment on above: Performed By: #### G FR, ADIFF, CBC, ANEU, BMP #### [address] [address] Monocyte, Absolute 0.4 10 3/mcL Normal 0.2-1.0 [facility] ([place] Comment on above: Performed By: #### G FR, ADIFF, CBC, ANEU, BMP #### [address] [address] Monocytes/100 WBC (Bld) 6.8 % Normal 1.7-13.0 [facility] ([place] Comment on above: Performed By: #### G FR, ADIFF, CBC, ANEU, BMP #### [address] [address] Neutrophils/100 WBC (Bld) 59.6 % Normal 37.0-80.0 [facility] ([place] Comment on above: Performed By: #### G FR, ADIFF, CBC, ANEU, BMP #### [address] [address] .GFRon 07-27-2022 GFR 174 ml/min/1.73sqm Normal [facility] ([place] Comment on above: Result Comment: GFR Population [...] G FR, ADIFF, CBC, ANEU, BMP #### [address] [address] GFR Non- 144 ml/min/1.73sqm Normal [facility] ([place] Comment on above: Result Comment: GFR Population [...] G FR, ADIFF, CBC, ANEU, BMP #### [address] [address] .NEUABSon 07-27-2022 Neutrophil, Absolute 3.5 10 3/mcL Normal 2.9-6.2 [facility] ([place] Comment on above: Performed By: #### G FR, ADIFF, CBC, ANEU, BMP #### [address] [address] ALBon 07-27-2022 Albumin Level 3.7 G/dL Normal 3.4-4.8 [facility] ([place] Comment on above: Performed By: #### G FR, ADIFF, CBC, ANEU, BMP #### [address] [address] BMPon 07-27-2022 BUN/Creatinine Ratio 40 ratio High 7-27 [facility] ([place] Comment on above: Performed By: #### G FR, ADIFF, CBC, ANEU, BMP #### [address] [address] Calcium [Mass/Vol] 9.1 mg/dL Normal 8.4-10.2 [facility] [place] Comment [place]: Performed By: #### G FR, ADIFF, CBC, ANEU, BMP #### [address] [address] Chloride [Moles/Vol] 103 mmol/L Normal 98-107 [facility] ([place] Comment on above: Performed By: #### G FR, ADIFF, CBC, ANEU, BMP #### [address] [address] CO2 [Moles/Vol] 29 mmol/L Normal 23-31 [facility] ([place] Comment on above: Performed By: #### G FR, ADIFF, CBC, ANEU, BMP #### [address] [address] Creatinine [Mass/Vol] 0.43 mg/dL Low 0.55-1.02 [facility] ([place] Comment on above: Performed By: #### G FR, ADIFF, CBC, ANEU, BMP #### [address] [address] Electrolyte Balance 8.0 mEq/L Normal 4.0-15.0 [facility] ([place] Comment on above: Performed By: #### G FR, ADIFF, CBC, ANEU, BMP #### [address] [address] Glucose [Mass/Vol] 89 mg/dL Normal 83-110 [facility] [place] Comment [place]: Performed By: #### G FR, ADIFF, CBC, ANEU, BMP #### [place] [address] Potassium [Moles/Vol] 4.8 mmol/L Normal 3.5-5.1 [facility] ([place] Comment on above: Performed By: #### G FR, ADIFF, CBC, ANEU, BMP #### [place] [address] Sodium [Moles/Vol] 140 mmol/L Normal 136-145 [facility] [place] Comment [place] above: Performed By: #### G FR, ADIFF, CBC, ANEU, BMP #### [place] [address] Urea nitrogen [Mass/Vol] 17 mg/dL Normal 7-18 [facility]) Comment on above: Performed By: #### G FR, ADIFF, CBC, ANEU, BMP #### [place] [address] CBCon 07-27-2022 Erythrocyte distribution width (RBC) [Ratio] 14.2 % Normal 11.5-14.5 [facility] ([place] Comment on above: Order Comment: Pre-A dmission Testing Performed By: #### G FR, ADIFF, CBC, ANEU, BMP #### [place] [address] Hematocrit (Bld) [Volume fraction] 39.8 % Normal 37.0-47.0 [facility]) Comment on above: Order Comment: Pre-A dmission Testing Performed By: #### G FR, ADIFF, CBC, ANEU, BMP #### [place] [address] Hgb 13.5 G/dL Normal 12.0-16.0 [facility] ([place] Comment on above: Order Comment: Pre-A dmission Testing Performed By: #### G FR, ADIFF, CBC, ANEU, BMP #### [place] [address] MCH (RBC) [Entitic mass] 30.2 pg Normal 27.0-31.2 [facility] ([place] Comment on above: Order Comment: Pre-A dmission Testing Performed By: #### G FR, ADIFF, CBC, ANEU, BMP #### [address] [address] MCHC 33.9 G/dL Normal 33.0-37.0 [facility] ([place] Comment on above: Order Comment: Pre-A dmission Testing Performed By: #### G FR, ADIFF, CBC, ANEU, BMP #### [address] [address] MCV (RBC) [Entitic vol] 89.0 fL Normal 80.0-94.0 [facility] ([place] Comment on above: Order Comment: Pre-A dmission Testing Performed By: #### G FR, ADIFF, CBC, ANEU, BMP #### [address] [address] Platelet 232 10 3/mcL Normal 130-400 [facility] ([place] Comment on above: Order Comment: Pre-A dmission Testing Performed By: #### G FR, ADIFF, CBC, ANEU, BMP #### [address] [address] Platelet mean volume (Bld) [Entitic vol] 8.9 fL Normal 7.4-10.4 [facility] ([place] Comment on above: Order Comment: Pre-A dmission Testing Performed By: #### G FR, ADIFF, CBC, ANEU, BMP #### [address] [address] RBC 4.47 10 6/mcL Normal 4.20-5.40 [facility] ([place] Comment on above: Order Comment: Pre-A dmission Testing Performed By: #### G FR, ADIFF, CBC, ANEU, BMP #### [address] [address] WBC 5.9 10 3/mcL Normal 4.6-10.8 [facility] ([place] Comment on above: Order Comment: Pre-A dmission Testing Performed By: #### G FR, ADIFF, CBC, ANEU, BMP #### [place] [address] [place], [place] [address] Gel ABOon 07-27-2022 ABO/Rh Interp Positive Invalid Interpretation Code [facility] ([place] Comment on above: Performed By: #### G FR, ADIFF, CBC, ANEU, BMP #### [place] [id number] [place], [place] [address] Gel ABSon 07-27-2022 Antibody Screen Gel Negative Normal [facility] ([place] Comment on above: Performed By: #### G FR, ADIFF, CBC, ANEU, BMP #### [address] [address] LABORATORYOrdered By: Irena Cameron on 07-27-2022 ABO/Rh [...] Workflow SS LABORATORYOrdered By: SYSTEM SYSTEM on 07-27-2022 Albumin BCP dye [Mass/Vol] [...] Acid Fast Smear from Concentrated Specimen: Negative [facility] Culture Tissue No growth to date [facility] FUNSM No fungal elements observed by calcofluor white stain. [facility] GS 3+ Mononuclear cells No organisms seen. [facility] GS 3+ Mononuclear cells 1+ Polymorphonuclear cells No organisms seen. [facility] MRI Lumbar Spine w/oon 10-20 MRI [...] physician: The radiologist can be reached at [phone] if you would like to discuss the findings. 1624 Normal [facility] Robot Technician CNCOon 03-13-2019 [facility] HNO ID: [id number] Author: Mammography Coordinator Service: ? Author Type: Physician Type: Letter Filed: 03/14/2019 11:32 PM Note Text: March 13, 2019 PID: [id number] Mi Pretty [address] [place] [address] Dear Ms. Pretty, We are pleased to [...] report will be kept on file at [facility] as part of your permanent medical record and are available for your continuing care. Thank you for allowing us to help in meeting your health care needs. Sincerely, Dr. Rocha Interpreting Radiologist [facility] (Return to Annual Mammogram schedule) Normal [facility] CNCO HNO ID: [id number] Author: Mammography Coordinator Service: ? Author Type: Physician Type: Letter Filed: 03/14/2019 11:32 PM Note Text: March 13, 2019 PID: [id number] Mi Torres Sukhwinder [address] [place] [address] Dear Ms. Pretty, We are pleased to [...] report will be kept on file at [facility] as part of your permanent medical record and are available for your continuing care. Thank you for allowing us to help in meeting your health care needs. Sincerely, Dr. Rocha Interpreting Radiologist [facility] (Return to Annual Mammogram schedule) Normal [facility] DIAGNOSTIC LTon 03-13-20 19 [facility] DIAGNOSTIC LT * * *Final Report* * * DATE OF EXAM: Mar 13 2019 10:08AM WRW [id number] - [facility] DIAGNOSTIC LT / PROCEDURE REASON: Abnormal mammogram * * * * Physician Interpretation * * * * RESULT: #[id number] - [facility] DIAGNOSTIC LT #[id number] - [facility] US BREAST LTD LT UNILATERAL LEFT DIGITAL DIAGNOSTIC MAMMOGRAM WITH CAD: 03/13/2019 HISTORY: Diagnostic Left Mammogram /Short term follow up left breast-Abnormal Mammogram Abnormal Mammogram. RESULT: TECHNIQUE: The study was acquired using full field digital technology and interpreted from soft copy. Current study was also evaluated with a Computer Aided Detection (CAD). Comparison is made to exam dated: 09/11/2018 mammogram - [facility]. There are scattered fibroglandular elements in left [...] made to exam dated: 09/11/2018 mammogram - [facility]. Color flow and real-time ultrasound of the [...] Health, Family Medicine, and Medical/Surgical Oncology, the [facility] has carefully reviewed the data and reached [...] their providers when to stop screening mammograms. Gypsum Roofer(s): Franchesca Walker RT(R)(M), [facility]; Faye Archer, [facility] letter sent: Return to Annual OVERALL STUDY BIRADS: 2 Benign finding Sugar Plantation Manager: [place] Transcribe Date/Time: Mar 13 2019 9:53A Dictated by: FARHANA ROCHA MD This examination was interpreted and the report reviewed and electronically signed by: FARHANA ROCHA MD on Mar 13 2019 10:29AM EST [id number] Normal [facility] US BREAST LTD LTon 03-13 [facility] US BREAST LTD LT * * *Final Report* * * DATE OF EXAM: Mar 13 2019 10:20AM WRU 0593 - [facility] US BREAST LTD LT / PROCEDURE REASON: Abnormal mammogram * * * * Physician Interpretation * * * * #[id number] - [facility] DIAGNOSTIC LT #[id number] - [facility] US BREAST LTD LT UNILATERAL LEFT DIGITAL DIAGNOSTIC MAMMOGRAM WITH CAD: 03/13/2019 HISTORY: Diagnostic Left Mammogram /Short term follow up left breast-Abnormal Mammogram Abnormal Mammogram. RESULT: TECHNIQUE: The study was acquired using full field digital technology and interpreted from soft copy. Current study was also evaluated with a Computer Aided Detection (CAD). Comparison is made to exam dated: 09/11/2018 mammogram - [facility]. There are scattered fibroglandular elements in left [...] made to exam dated: 09/11/2018 mammogram - [facility]. Color flow and real-time ultrasound of the [...] Health, Family Medicine, and Medical/Surgical Oncology, the [facility] has carefully reviewed the data and reached [...] their providers when to stop screening mammograms. Gypsum Roofer(s): RT iNka(Aidee)(M), [facility]; Faye Archer, [facility] letter sent: Return to Annual OVERALL STUDY BIRADS: 2 Benign finding Sugar Plantation Manager: [place] Transcribe Date/Time: Mar 13 2019 9:53A Dictated by : FARHANA ROCHA MD This examination was interpreted and the report reviewed and electronically signed by: FARHANA ROCHA MD on Mar 13 2019 10:29AM EST [id number] [facility] PROGRESSon 03-13-2019 PROGRESS HNO ID: [id number] Author: Faye Archer Rdms Service: ? Author [...] Rdms March 13, 2019 10:26 AM Normal [facility] PROGRESS HNO ID: [id number] Author: Franchesca Walker Rt Service: ? Author Type: ? Type: Progress [...] IV DATA: Not applicable SIGNED BY: Franchesca Walker March 13, 2019 10:18 AM [facility] CNCOon 09-11-2018 CNCO HNO ID: [id number] Author: Mammography Coordinator Service: ? Author Type: Physician Type: Letter Filed: 09/12/2018 11:31 PM Note Text: September 11, 2018 PID: [id number] Mi Pretty [address] [place] [address] Dear Ms. Pretty, Your recent breast imaging examination performed on 09/11/2018 showed an area that we believe is probably benign (not cancer). A six month follow-up is recommended to ensure your breast health. Please call [phone] to schedule an appointment for these tests [...] meeting your health care needs. Sincerely, Dr. Griffin Interpreting Radiologist [facility] (# mo Follow-up) Normal [facility] CNCO HNO ID: [id number] Author: Mammography Coordinator Service: ? Author Type: Physician Type: Letter Filed: 09/12/2018 11:31 PM Note Text: September 11, 2018 PID: [id number] Mi Pretty [address] [place] [address] Dear Ms. Pretty, Your recent breast imaging examination performed on 09/11/2018 showed an area that we believe is probably benign (not cancer). A six month follow-up is recommended to ensure your breast health. Please call [phone] to schedule an appointment for these tests [...] meeting your health care needs. Sincerely, Dr. Griffin Interpreting Radiologist [facility] (# mo Follow-up) Normal [facility] DIAGNOSTIC LTon 09-12-19 19 [facility] DIAGNOSTIC LT * * *Final Report* * * DATE OF EXAM: Sep 11 2018 9:18AM WRW 0621 - [facility] DIAGNOSTIC LT / PROCEDURE REASON: Abnormal mammogram * * * * Physician Interpretation * * * * RESULT: #[id number] - [facility] DIAGNOSTIC LT #[id number] - [facility] US BREAST LTD LT UNILATERAL LEFT DIGITAL DIAGNOSTIC MAMMOGRAM WITH CAD: 09/11/2018 HISTORY: Abnormal Mammogram/call back left /priors available for comparison Abnormal Mammogram. RESULT: TECHNIQUE: The study was acquired using full field digital technology and interpreted from soft copy. Current study was also evaluated with a Computer Aided Detection (CAD). Comparison is made to exams dated: 08/20/2018 mammogram and 04/01/2015 mammogram - [facility]. There are scattered fibroglandular elements in [...] dated: 08/20/2018 mammogram and 04/01/2015 mammogram - [facility]. Color flow and real-time ultrasound of [...] Health, Family Medicine, and Medical/Surgical Oncology, the [facility] has carefully reviewed the data and reached [...] their providers when to stop screening mammograms. Gypsum Roofer(s): RT Clark(R)(M), [facility]; Faye Archer, [facility] letter sent: # Mo FU OVERALL STUDY BIRADS: 3 Probably benign finding - short term interval follow-up recommended Sugar Plantation Manager: [place] Transcribe Date/Time: Sep 11 2018 9:01A Dictated by: OCTAVIO GRIFFIN MD This examination was interpreted and the report reviewed and electronically signed by: OCTAVIO GRIFFIN MD on Sep 11 2018 10:21AM EST [id number] Normal [facility] US BREAST LTD LTon 09-11 [facility] US BREAST LTD LT * * *Final Report* * * DATE OF EXAM: Sep 11 2018 10:07AM WRU 0593 - [facility] US BREAST LTD LT / PROCEDURE REASON: Abnormal mammogram * * * * Physician Interpretation * * * * #[id number] - [facility] DIAGNOSTIC LT #[id number] - [facility] US BREAST LTD LT UNILATERAL LEFT DIGITAL DIAGNOSTIC MAMMOGRAM WITH CAD: 09/11/2018 HISTORY: Abnormal Mammogram/call back left /priors available for comparison Abnormal Mammogram. RESULT: TECHNIQUE: The study was acquired using full field digital technology and interpreted from soft copy. Current study was also evaluated with a Computer Aided Detection (CAD). Comparison is made to exams dated: 08/20/2018 mammogram and 04/01/2015 mammogram - [facility]. There are scattered fibroglandular elements in [...] dated: 08/20/2018 mammogram and 04/01/2015 mammogram - [facility]. Color flow and real-time ultrasound of [...] Health, Family Medicine, and Medical/Surgical Oncology, the [facility] has carefully reviewed the data and reached [...] their providers when to stop screening mammograms. Gypsum Roofer(s): Mercy Handley RT(R)(M), [facility]; Faye Archer, [facility] letter sent: # Mo FU OVERALL STUDY BIRADS: 3 Probably benign finding - short term interval follow-up recommended Sugar Plantation Manager: [place] Transcribe Date/Time: Sep 11 2018 9:01A Dictated by : OCTAVIO GRIFFIN MD This examination was interpreted and the report reviewed and electronically signed by: OCTAVIO GRIFFIN MD on Sep 11 2018 10:21AM EST [id number] Normal [facility] PROGRESSon 09-11-2018 PROGRESS HNO ID: [id number] Author: Faye Archer [facility] Service: ? Author Type: ? Type: Progress [...] DATA: Not applicable SIGNED BY: Faye Archer Rddc September 11, 2018 10:48 AM Normal [facility] PROGRESS HNO ID: [id number] Author: Triny Alcantara Service: ? Author Type: [...] IMPLANT DATA REVIEWED: Not Applicable RADIOLOGY DEPARTMENT: [facility] diag mammogram PERIPHERAL IV DATA: Not applicable SIGNED BY: Triyn Alcantara September 11, 2018 9:00 AM Normal [facility] CNCOon 08-20-2018 CNCO HNO ID: [id number] Author: Mammography Coordinator Service: ? Author Type: Physician Type: Letter Filed: 08/21/2018 11:32 PM Note Text: August 20, 2018 PID: [id number] Mi Pretty [address] [id number] Dear Ms. Pretty, Your recent breast imaging exam on 08/20/2018 showed a possible finding that requires additional imaging studies for a complete evaluation. Most such findings are probably benign (not cancer). Please call [phone] or [phone] to schedule an appointment for your additional imaging if you have not already done so. Your breast images and report will be kept on file here as part of your permanent medical record and are available for your continuing care. Thank you for allowing us to help in meeting your health care needs. Sincerely, Dr. Mclean Interpreting Radiologist [facility] (Additional imaging) Normal [facility] CNOVon 08-20-2018 CNOV Office Visit (WOOB) MI PRETTY ([id number]) 1950 F Date Time Provider Department 08/20/18 [...] or constipation. Bladder: No dysuria, gross hematuria. Glass Scullion: No PMB. Expanded ROS: Gen: No fevers [...] screening [Z12.31] Other Visit Diagnosis:Folliculiti s [L73.9] Order(s):[facility] SCREENING [8824022] Order #: [id number] FUTURE Prescriptions as of 08/20/2018 Sig: CHOLECALCIFEROL (VITAMIN D3) * Take 2,000 Units by mouth onc* NABUMETONE 500 MG TABLET Take 500 mg by mouth every 8 * IBUPROFEN 200 MG TABLET Take 200 mg by mouth every 6 * Problem List As Of Date: 08/20/2018 (None) Level of Service: NEW PATIENT VISIT LEVEL 2 [47085] Follow-up and Disposition History Recorded Encounter Status:Closed by THAO FORBES MD on 08/20/18 Normal [facility] SCREENINGon 08-20-2018 REYNOLD SCREENING * * *Final Report* * * DATE OF EXAM: Aug 20 2018 10:25AM [facility] 0581 - [facility] SCREENING / PROCEDURE REASON: Breast screening * * * * Physician Interpretation * * * * RESULT: #[id number] - [facility] SCREENING BILATERAL DIGITAL SCREENING MAMMOGRAM WITH CAD: 08/20/2018 HISTORY: Breast Screening /Screening Mammogram - patient reports NO breast symptoms /Priors available for comparison. RESULT: TECHNIQUE: The study was acquired using full field digital technology and interpreted from soft copy. Current study was also evaluated with a Computer Aided Detection (CAD). Comparison is made to exam dated: [facility]/01/2015 [facility]. There are scattered fibroglandular elements in both breasts. There is a focal asymmetry in the left breast upper outer aspect middle depth. No other significant masses, calcifications, or other findings are seen in either breast. IMPRESSION: INCOMPLETE: NEEDS ADDITIONAL IMAGING EVALUATION The focal asymmetry in the left breast is indeterminate. Additional views are recommended. Roscoe clifton/reno:08/20/2018 10:36:32 Gypsum Roofer(s): RT Nika(R)(M), [facility] letter sent: Additional Imaging Needed Mammogram BI-RADS: 0 Incomplete: needs additional imaging evaluation If this report indicates you need additional imaging, and it has NOT yet been performed, please call , to schedule. We sincerely thank you for choosing the [facility] for your breast imaging needs. Multiple national specialty organizations have released breast cancer screening guidelines for women at average risk for developing breast cancer - guidelines that are based on both evidence and opinion, yet differ on when to start and how often to screen for breast cancer. With representation from Breast Imaging, Internal Medicine, Women's Health, Family Medicine, and Medical/Surgical Oncology, the [facility] has carefully reviewed the data and reached [...] their providers when to stop screening mammograms. Sugar Plantation Manager: [place]o Transcribe Date/Time: Aug 20 2018 10:08A Dictated by: ROSCOE MCLEAN MD This examination was interpreted and the report reviewed and electronically signed by: ROSCOE MCLEAN MD on Aug 20 2018 10:36AM EST [id number] Normal [facility] PROGRESSon 08-20-2018 PROGRESS HNO ID: [id number] Author: Thao Forbes Service: ? Author Type: [...] CARPAL TUNNEL bilateral - TOTAL KNEE REPLACEMENT 2006- right 2008-left - TUBAL LIGATION HX Current Outpatient Medications: [...] or constipation. Bladder: No dysuria, gross hematuria. Glass Scullion: No PMB. Expanded ROS: Gen: No fevers [...] exam as well. Thao Forbes, DO Normal [facility] Vital Signs Date Time Vital Sign Value Performing Clinician Lior gomez 03-22-2023 12:19-0400 Body temperature 98.06 [degF] DR LAUREANO OLSON MD [facility] 03-22-2023 12:19-0400 Diastolic Blood Pressure Non-Invasive [address] LAUREANO OLSON MD [facility] 03-22-2023 12:19-0400 Heart rate 71 /min DR LAUREANO OLSON MD [facility] 03-22-2023 12:19-0400 Reason For Taking VItal Signs DR LAUREANO OLSON MD [facility] 03-22-2023 12:19-0400 Respiratory rate 20 /min DR LAUREANO OLSON MD [facility] 03-22-2023 12:19-0400 Systolic Blood Pressure Non-Invasive [address] LAUREANO OLSON MD [facility] 03-22-2023 07:35-0400 Body temperature 98.06 [degF] DR LAUREANO OLSON MD [facility] 03-22-2023 07:35-0400 Diastolic Blood Pressure Non-Invasive [address] LAUREANO OLSON MD [facility] 03-22-2023 07:35-0400 Heart rate 62 /min DR LAUREANO OLSON MD [facility] 03-22-2023 07:35-0400 Reason For Taking VItal Signs DR LAUREANO OLSON MD [facility] 03-22-2023 07:35-0400 Respiratory rate 18 /min DR LAUREANO OLSON MD [facility] 03-22-2023 07:35-0400 Systolic Blood Pressure Non-Invasive [address] LAUREANO OLSON MD [facility] 03-22-2023 03:50-0400 Body temperature 97.7 [degF] DR LAUREANO OLSON MD [facility] 03-22-2023 03:50-0400 Diastolic Blood Pressure Non-Invasive [address] LAUREANO OLSON MD [facility] 03-22-2023 03:50-0400 Heart rate 60 /min DR LAUREANO OLSON MD [facility] 03-22-2023 03:50-0400 Reason For Taking VItal Signs DR LAUREANO OLSON MD [facility] 03-22-2023 03:50-0400 Respiratory rate 18 /min DR LAUREANO OLSON MD [facility] 03-22-2023 03:50-0400 Systolic Blood Pressure Non-Invasive [address] LAUREANO OLSON MD [facility] 03-21-2023 22:44-0400 Heart rate 75 /min DR LAUREANO OLSON MD [facility] 03-21-2023 14:52-0400 Body height [address] LAUREANO OLSON MD [facility] 03-21-2023 14:52-0400 Body weight 97.[address] LAUREANO OLSON MD [facility] 03-21-2023 14:52-0400 Body weight 37.08 kg/m2 DR LAUREANO OLSON MD [facility] 03-21-2023 14:08-0400 Heart rate 81 /min DR LAUREANO OLSON MD [facility] 03-21-2023 13:07-0400 Heart rate 66 /min DR LAUREANO OLSON MD [facility] 03-21-2023 12:45-0400 Heart rate 76 /min DR LAUREANO OLSON MD [facility] 03-21-2023 12:02-0400 Body temperature 96.98 [degF] DR LAUREANO OLSON MD [facility] 03-21-2023 11:55-0400 Respiratory Rate - Anes 0 br/min DR LAUREANO OLSON MD [facility] 03-21-2023 11:50-0400 Respiratory Rate - Anes 15 br/min DR LAUREANO OLSON MD [facility] 03-21-2023 11:45-0400 Respiratory Rate - Anes 16 br/min DR LAUREANO OLSON MD [facility] 03-21-2023 09:00-0400 Body temperature 98.06 [degF] DR LAUREANO OLSON MD [facility] 03-21-2023 09:00-0400 Heart rate 72 /min DR LAUREANO OLSON MD [facility] 02-27-2023 14:05-[address] LAUREANO OLSON MD [facility] 02-27-2023 14:05-[address] LAUREANO Castrejon [facility] 02-27-2023 14:05-0400 Body height [address] LAUREANO OLSON MD [facility] 02-27-2023 14:05-0400 Body weight [address] LAUREANO OLSON MD [facility] 02-27-2023 14:05-0400 Body weight 38.67 kg/m2 DR LAUREANO OLSON MD [facility] 02-27-2023 14:05-0400 Diastolic Blood Pressure Non-Invasive [address] LAUREANO OLSON MD [facility] 02-27-2023 14:05-0400 Heart rate 68 /min DR LAUREANO OLSON MD [facility] 02-27-2023 14:05-0400 Respiratory rate 18 /min DR LAUREANO OLSON MD [facility] 02-27-2023 14:05-0400 Systolic Blood Pressure Non-Invasive [address] LAUREANO OLSON MD [facility] 07-27-2022 13:20-0500 Blood Pressure Cuff Size DR LAUREANO OLSON MD [facility] 07-27-2022 13:20-[address] LAUREANO OLSON MD [facility] 07-27-2022 13:20-[address] LAUREANO Castrejon [facility] 07-27-2022 13:20-0500 Body height 162.[address] LAUREANO OLSON MD [facility] 07-27-2022 13:20-0500 Body weight 105.[address] LAUREANO OLSON MD [facility] 07-27-2022 13:20-0500 Body weight 39.87 kg/m2 DR LAUREANO OLSON MD [facility] 07-27-2022 13:20-0500 Diastolic Blood Pressure Non-Invasive [address] LAUREANO OLSON MD [facility] 07-27-2022 13:20-0500 Heart rate 66 /min DR LAUREANO OLSON MD [facility] 07-27-2022 13:20-0500 Systolic Blood Pressure Non-Invasive [address] LAUREANO OLSON MD [facility] 05-26-2022 14:16-0500 Body height [address] LAUREANO OLSON MD [facility] 05-26-2022 14:16-0500 Body weight [address] LAUREANO OLSON MD [facility] 02-03-2022 07:28-0400 Body temperature 98.06 [degF] DR LAUREANO OLSON MD [facility] 02-03-2022 07:28-0400 Diastolic blood pressure 65 mm[Hg] DR LAUREANO OLSON MD [facility] 02-03-2022 07:28-0400 Heart rate 67 /min DR LAUREANO OLSON MD [facility] 02-03-2022 07:28-0400 Reason For Taking VItal Signs DR LAUREANO OLSON MD [facility] 02-03-2022 07:28-0400 Respiratory rate 16 /min DR LAUREANO OLSON MD [facility] 02-03-2022 07:28-0400 Systolic blood pressure 137 mm[Hg] DR LAUREANO OLSON MD [facility] 02-03-2022 03:14-0400 Body temperature 98.42 [degF] DR LAUREANO OLSON MD [facility] 02-03-2022 03:14-0400 Diastolic blood pressure 86 mm[Hg] DR LAUREANO OLSON MD [facility] 02-03-2022 03:14-0400 Heart rate 70 /min DR LAUREANO OLSON MD [facility] 02-03-2022 03:14-0400 Reason For Taking VItal Signs DR LAUREANO OLSON MD [facility] 02-03-2022 03:14-0400 Systolic blood pressure 153 mm[Hg] DR LAUREANO OLSON MD [facility] 02-02-2022 23:52-0400 Body temperature 98.42 [degF] DR LAUREANO OLSON MD [facility] 02-02-2022 23:52-0400 Diastolic blood pressure 71 mm[Hg] DR LAUREANO OLSON MD [facility] 02-02-2022 23:52-0400 Heart rate 72 /min DR LAUREANO OLSON MD [facility] 02-02-2022 23:52-0400 Reason For Taking VItal Signs DR LAUREANO OLSON MD [facility] 02-02-2022 23:52-0400 Respiratory rate 16 /min DR LAUREANO OLSON MD [facility] 02-02-2022 23:52-0400 Systolic blood pressure 146 mm[Hg] DR LAUREANO OLSON MD [facility] 02-02-2022 19:08-0400 Body temperature 98.06 [degF] DR LAUREANO OLSON MD [facility] 02-02-2022 19:08-0400 Heart rate 69 /min DR LAUREANO OLSON MD [facility] 02-02-2022 15:50-0400 Diastolic Blood Pressure NBP [address] LAUREANO OLSON MD [facility] 02-02-2022 15:50-0400 Heart rate 65 /min DR LAUREANO OLSON MD [facility] 02-02-2022 15:50-0400 Respiratory rate 16 /min DR LAUREANO OLSON MD [facility] 02-02-2022 15:50-0400 Systolic Blood Pressure NBP [address] LAUREAON OLSON MD [facility] 02-02-2022 12:15-0400 Diastolic Blood Pressure NBP [address] LAUREANO OLSON MD [facility] 02-02-2022 12:15-0400 Heart rate 72 /min DR LAUREANO OLSON MD [facility] 02-02-2022 12:15-0400 Systolic Blood Pressure NBP [address] LAUREANO OLSON MD [facility] 02-02-2022 09:10-0400 Diastolic Blood Pressure NBP [address] LAUREANO OLSON MD [facility] 02-02-2022 09:10-0400 Systolic Blood Pressure NBP [address] LAUREANO OLSON MD [facility] 02-01-2022 14:54-0400 Body height [address] LAUREANO OLSON MD [facility] 02-01-2022 14:54-0400 Body weight 112.[address] LAUREANO OLSON MD [facility] 02-01-2022 14:54-0400 Body weight 43.98 kg/m2 DR LAUREANO OLSON MD [facility] 02-01-2022 14:50-0400 Heart rate 76 /min DR LAUREANO OLSON MD [facility] 02-01-2022 13:10-0400 Body temperature 97.16 [degF] DR LAUREANO OLSON MD [facility] 02-01-2022 12:55-0400 Body temperature 99.25 [degF] DR LAUREANO OLSON MD [facility] 02-01-2022 12:50-0400 Body temperature 99.19 [degF] DR LAUREANO OLSON MD [facility] 02-01-2022 12:45-0400 Body temperature 99.14 [degF] DR LAUREANO OLSON MD [facility] 02-01-2022 08:25-0400 Body height [address] LAUREANO OLSON MD [facility] 02-01-2022 08:25-0400 Body temperature 97.52 [degF] DR LAUREANO OLSON MD [facility] 02-01-2022 08:250400 Body weight 112.[address] LAUREANO OLSON MD [facility] 02-01-2022 08:250409 Heart rate 74 /min DR LAUREANO OLSON MD [facility] Encounters Encounter Date Encounter Type Care Provider Facility Start: 04-22-2025 ambulatory Faith Malys [facility] Start: 04-21-2025 Evaluation and manag ement of inpatient Faith Malys Facility:[facility] Start: 04-21-2025 ambulatory Faith Malys [facility] Start: 04-21-2025 End: 04-21-2025 ambulatory Faith Malys Facility:[facility] Start: 04-16-2025 End: 04-16-2025 ambulatory Faith Malys Facility:[facility] Start: 11-01-2024 End: 11-01-2024 Emergency department patient visit [facility] Facility:[facility] Start: 04-29-2024 End: 04-29-2024 ambulatory Faith Malys Facility:[facility] Start: 04-26-2024 End: 04-26-2024 ambulatory Faith Malys Facility:[facility] Start: 03-21-2023 End: 03-22-[address] LAUREANO OLSON MD Facility:[facility] Start: 03-21-2023 End: 03-22-[address] LAUREANO OLSON MD [facility] Start: 02-27-2023 End: 02-28-[address] LAUREANO OLSON MD Facility:[facility] Start: 02-27-2023 End: 02-27-[address] LAUREANO OLSON MD [facility] Start: 02-27-2023 End: 02-27-[address] LAUREANO OLSON MD [address] [place] [address] Start: 08-09-2022 End: 08-10-[address] LAUREANO OLSON MD Facility:[facility] Start: 07-27-2022 End: 07-28-[address] LAUREANO OLSON MD Facility:[facility] Start: 07-27-2022 End: 07-27-[address] LAUREANO OLSON MD [facility] Start: 05-26-2022 End: 05-26-[address] LAUREANO OLSON MD [facility] Start: 02-01-2022 End: 02-03-[address] LAUREANO OLSON MD [facility] Procedures Date Procedure Procedure Detail Performing Clinician Start: 02-01-2022 Revision of left tot al knee arthroplasty DR LAUREANO OLSON MD Start: 03-31-[address] LAUREANO OLSON MD Comment on above: RIGHT SHOULDER Bilateral replacemen t of knee joints DR LAUREANO OLSON MD Decompression of med kathleen nerve DR LAUREANO OLSON MD Comment on above: Bilateral Epidural steroid injection D R LAUREANO OLSON MD Comment on above: LUMBAR SPINE Extraction of cataract DR RAYMUNDO SOSA Left hip region stru cture (body structure) DR LAUREANO OLSON MD Left hip region stru cture (body structure) DR LAUREANO OLSON MD Comment on above: left hip total arthr oplasty Immunizations Immunization Date Immunization Notes Care Provider [facility] 04-11-2022 influenza virus vaccine, unspecified formulation DR LAUREANO OLSON MD [facility] 05-27-2021 SARS-CoV-2 (COVID-19 ) mRNA-[address] LAUREANO OLSON MD [facility] 08-20-2020 SARS-CoV-2 (COVID-19 ) Ad26 vaccine, recombinant DR LAUREANO OLSON MD [facility] Comment on above: Result Comment: 2021: [id number] Payers Date Payer Category Payer Self-pay 2022 Medicare [id number] 2022 Private Health Insurance [id number] 1950 Unknown [id number] 2.16.8 [id number] 1950 Unknown [id number] 2.16.8 40.1.558033.3.579.2.627 1950 Unknown [id number] 2.16.8 40.1.062472.3.579.2.627 1950 Unknown [id number] 2.16.8 40.1.220090.3.579.2.627 1950 Unknown [id number] 2.16.8 40.1.387336.3.579.2.627 Unknown [id number] 2.16.8 40.1.403353.3.579.2.462 Unknown [id number] 2.16.8 40.1.936642.3.579.2.462 Unknown [id number] 2.16.8 40.1.275660.3.579.2.462 Unknown [id number] 2.16.8 40.1.686596.3.579.2.462 Unknown [id number] 2.16.8 40.1.323920.3.579.2.462 Unknown [id number] 2.16.8 40.1.817280.3.579.2.462 Unknown [id number] 2.16.8 40.1.203558.3.579.2.462 Unknown [id number] 2.16.8 40.1.644970.3.579.2.462 Unknown [id number] 2.16.8 40.1.006190.3.579.2.462 Unknown [id number] 2.16.8 40.1.733932.3.579.2.462 Unknown [id number] 2.16.8 40.1.116449.3.579.2.462 Unknown [id number] 2.16.8 40.1.913477.3.579.2.462 Social History Date Type Detail Facility Start: 03-13-2020 End: 03-21-2023 Tobacco smoking status Ex-smoker (finding) [facility] Sex Assigned At Female [facility] Functional Status Date Assessment Result Facility 03-22-2023 Functional Status IND [facility] 03-22-2023 Functional Status Mod A [facility] 03-22-2023 Functional Status Resting [facility] 03-22-2023 Functional Status Room check performed [facility] 03-22-2023 Functional Status Antiembolism S tocking On/Re-applied bilateral thigh high [facility] 03-22-2023 Functional Status [facility] 03-22-2023 Functional Status [facility] 03-21-2023 Functional Status [facility] 03-21-2023 Functional Status Demonstrates C orrect Call Light Use No [facility] 03-21-2023 Functional Status [facility] 03-21-2023 Functional Status Multilevel home [facility] 03-21-2023 Functional Status Patient Identi fied Identification band [facility] 03-21-2023 Functional Status Maintained, More than 8 hours [facility] 02-27-2023 Functional Status Sensory Deficits None A [facility] 07-27-2022 Functional Status Sensory Deficits None A [facility] 05-26-2022 Functional Status Sensory Deficits None A [facility] 02-03-2022 Functional Status Room check performed [facility] 02-03-2022 [facility] Status flight [facility] 02-03-2022 Functional Status Independent [facility] 02-02-2022 Functional Status bilateral knee high [facility] 02-02-2022 Functional Status [facility] 02-02-2022 Functional Status Mod I 6 [facility] 02-02-2022 Functional Status [facility] 02-02-2022 Functional Status [facility] 02-02-2022 Functional Status Orthotics, Dev ice Worn Per Schedule Yes [facility] 02-01-2022 Functional Status [facility] 02-01-2022 Functional Status [facility] 02-01-2022 Functional Status [facility] 02-01-2022 Functional Status Carolyn [facility] 02-01-2022 Functional Status Maintained Carolyn [facility] Mental Status Date Assessment Result Facility 03-22-2023 Mental Status Oriented x 4 [facility]23 Mental Status [facility]-21-2023 Mental Status [facility] 03-21-2023 Mental Status [facility] 02-03-2022 Mental Status Orientation Asse ssment Oriented x 4 [facility] 02-03-2022 Mental Status Oriented x 4 [facility] 02-02-2022 Mental Status [facility] 02-02-2022 Mental Status [facility] Clinical Notes 02-01-2022 to 03-22-2023 Note Date [...] by your health care provider. 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 ?Change your dressing as told by your [...] 12/16/2005 Document Revised: 09/20/2019 Document Reviewed: 03/13/2017 [employer] Patient Education 2020 [facility]. 03/22/2023 06:52:29 5 - [facility] Post-op Instruction 01/2017 (66737) [facility] Post-operative Instructions PLEASE FOLLOW [facility] POST-OP INSTRUCTIONS GIVEN WATCH FOR SIGNS OF INFECTION: call the office ([phone]) if experencing any of the following: (Usually [...] on your follow up instructions. Form: 338A (36252) R: 10/16 Follow Up Care 01/18/2023 14:49:48 With:NILSON GARCIA PA-C, Orthopedic Address: [facility] [address] [place] [address] [place], [place] [id number]- When:04/03/2023 14:00:00 Comments:This is your post-op appointment. Follow-up as scheduled. With:[facility] Address: [address] [place] [phone] When:04/03/2023 15:15:00 Comments:This is your first physical therapy appointment. Follow-up as scheduled. It is right after your appointment with Nilson. [facility] 03-22-2023 Note Discharge Instructions Thank you for allowing [facility] to assist you with your healthcare needs. The following is important discharge information regarding your hospital visit. Your Care Team Laureano Olson MD Your Diagnosis Anxiety Chronic GERD Status post reverse total replacement of left shoulder What to do next Follow Up Appointments Follow Up with [facility] When 04/03/2023 03:15 PM EDT Why: This is your first physical therapy appointment. Follow-up as scheduled. It is right after your appointment with Nilson. Where: [address] [place] [phone] Follow Up with NILSON GARCIA PA-C, Orthopedic When 04/03/2023 02:00 PM EDT Why: This is your post-op appointment. Follow-up as scheduled. Where: [facility] [address] [place] [phone]- The Following Activity and Diet Have Been [...] bowel movement, then as needed Pickup at [facility]/pharmacy #[id number] New famotidine (Pepcid 20 mg oral tablet) 1 tab(s) by mouth Once a day Duration: 14 Days Pickup at [facility]/pharmacy #[id number] New oxyCODONE (oxyCODONE 5 mg oral tablet ( IMMEDIATE release )) See instructions Status post reverse total replacement of left shoulder 1-2 tab(s) Oral q4h Pickup at [facility]/pharmacy #[id number] Unchanged acetaminophen (Tylenol Extra Strength 500 mg [...] Two (2) times a day Pharmacy Information [facility]/pharmacy #[id number]: [address], [place] [id number] [phone] What How Much When Comments Stop Taking [...] The extended-release form of oxycodone is for pmoeeg-ljt-tuurg treatment of pain and should not be [...] against the law. Stop taking all other phfykt-qaz-qnfrn opioid pain medicines when you start taking [...] may report side effects to FDA at 5-145-ZBA-9128. What other drugs will affect oxycodone? You [...] may affect oxycodone. This includes prescription and ehru-whq-kjnztra medicines, vitamins, and herbal products. Not all [...] to ensure that the information provided by [employer]. ('Multum') is accurate, up-to-date, and complete, but no guarantee is made to that effect. Drug information contained herein may be time sensitive. [employer] information has been compiled for use by healthcare practitioners and consumers in the [place] and therefore [employer] does not warrant that uses outside of the [place] are appropriate, unless specifically indicated otherwise. [employer] drug information does not endorse drugs, diagnose patients or recommend therapy. [employer] drug information is an informational resource designed [...] effective or appropriate for any given patient. [employer] does not assume any responsibility for any aspect of healthcare administered with the aid of information [facility] provides. The information contained herein is not intended to cover all possible uses, directions, precautions, warnings, drug interactions, allergic reactions, or adverse effects. If you have questions about the drugs you are taking, check with your doctor, nurse or pharmacist. Copyright 5595-9403 [facility] [employer]. Version: 16.01. Revision Date: 01/13/2023. famotidine (oral/injection) (fam [place] [...] may report side effects to FDA at 4-302-SMU-1846. What other drugs will affect famotidine? Famotidine oral can make it harder for your body to absorb other medicines you take by mouth. Tell your doctor if you are taking: cefditoren; dasatinib; delavirdine; fosamprenavir; or tizanidine (if you are taking famotidine liquid). This list is not complete. Other drugs may affect famotidine, including prescription and zjui-zpx-uwonvyf medicines, vitamins, and herbal products. Not all [...] to ensure that the information provided by [employer]. ('Glusterum') is accurate, up-to-date, and complete, but no guarantee is made to that effect. Drug information contained herein may be time sensitive. [employer] information has been compiled for use by healthcare practitioners and consumers in the [place] and therefore [employer] does not warrant that uses outside of the [place] are appropriate, unless specifically indicated otherwise. [employer] drug information does not endorse drugs, diagnose patients or recommend therapy. [employer] drug information is an informational resource designed [...] effective or appropriate for any given patient. [employer] does not assume any responsibility for any aspect of healthcare administered with the aid of information [employer] provides. The information contained herein is not intended to cover all possible uses, directions, precautions, warnings, drug interactions, allergic reactions, or adverse effects. If you have questions about the drugs you are taking, check with your doctor, nurse or pharmacist. Copyright 5295-3447 [employer]. Version: .. Revision Date: 01/02/2023. aspirin (oral) ( pir in) Aspi-Cor, Joaquina Plus, Durlaza, Ecotrin, Miniprin, Vazalore What is the most important information I should know about aspirin? Aspirin can cause Sana's syndrome, a serious and sometimes fatal condition in children. What is aspirin? Aspirin is a salicylate (my-SFV-on-ate) that is used to treat pain, and [...] may report side effects to FDA at 1-084-NUH-3729. What other drugs will affect aspirin? Ask [...] drugs may affect aspirin, including prescription and qliw-nqm-fzruojs medicines, vitamins, and herbal products. Not all [...] to ensure that the information provided by [employer] ('[employer]') is accurate, up-to-date, and complete, but no guarantee is made to that effect. Drug information contained herein may be time sensitive. [employer] information has been compiled for use by healthcare practitioners and consumers in the [place] and therefore [employer] does not warrant that uses outside of the [place] are appropriate, unless specifically indicated otherwise. [employer] drug information does not endorse drugs, diagnose patients or recommend therapy. [employer] drug information is an informational resource designed [...] effective or appropriate for any given patient. [employer] does not assume any responsibility for any aspect of healthcare administered with the aid of information [employer] provides. The information contained herein is not intended to cover all possible uses, directions, precautions, warnings, drug interactions, allergic reactions, or adverse effects. If you have questions about the drugs you are taking, check with your doctor, nurse or pharmacist. Copyright 7366-7573 [employer]. Version: 18.01. Revision Date: 01/02/2023. docusate and senna (DOK [...] may report side effects to FDA at 4-284-BGC-6269. What other drugs will affect docusate and senna? Other drugs may affect docusate and senna, including prescription and llsb-fzp-fpjewzj medicines, vitamins, and herbal products. Tell your [...] to ensure that the information provided by [employer] ('[employer]') is accurate, up-to-date, and complete, but no guarantee is made to that effect. Drug information contained herein may be time sensitive. [employer] information has been compiled for use by healthcare practitioners and consumers in the [place] and therefore [employer] does not warrant that uses outside of the [place] are appropriate, unless specifically indicated otherwise. [employer] drug information does not endorse drugs, diagnose patients or recommend therapy. [employer] drug information is an informational resource designed [...] effective or appropriate for any given patient. [employer] does not assume any responsibility for any aspect of healthcare administered with the aid of information [employer] provides. The information contained herein is not intended to cover all possible uses, directions, precautions, warnings, drug interactions, allergic reactions, or adverse effects. If you have questions about the drugs you are taking, check with your doctor, nurse or pharmacist. Copyright 6187-2542 [employer]. Version: 5.01. Revision Date: 01/16/2023. meloxicam (oral/injection) [...] may report side effects to FDA at 5-349-SAU-4495. What other drugs will affect meloxicam? Ask [...] drugs may affect meloxicam, including prescription and gxuc-oju-autwmnm medicines, vitamins, and herbal products. Not all [...] to ensure that the information provided by [employer]. ('ADTZtum') is accurate, up-to-date, and complete, but no guarantee is made to that effect. Drug information contained herein may be time sensitive. [employer] information has been compiled for use by healthcare practitioners and consumers in the [place] and therefore [employer] does not warrant that uses outside of the [place] are appropriate, unless specifically indicated otherwise. [employer] drug information does not endorse drugs, diagnose patients or recommend therapy. [employer] drug information is an informational resource designed [...] effective or appropriate for any given patient. [facility] does not assume any responsibility for any aspect of healthcare administered with the aid of information [facility] provides. The information contained herein is not intended to cover all possible uses, directions, precautions, warnings, drug interactions, allergic reactions, or adverse effects. If you have questions about the drugs you are taking, check with your doctor, nurse or phar (more content not included)... [facility] 03-22-2023 Note Date of Service March [...] physical therapy after the 2-week follow-up at [facility]. 5. H & H: 12.0/36.0, asymptomatic. Postoperative [...] E scribed to the primary care pharmacy [facility] in [facility]. I have reviewed the [place] Automated Rx Reporting System (OARRS) report for [...] NILSON GARCIA PA-C on 03/22/2023 06:52 AM [facility] 03-21-2023 Note ORIGINAL EXAMINATION: TWO XRAY [...] 03/21/2023 1:22:24 PM Ordering Provider: LAUREANO OLSON [facility] 03-21-2023 Anesthesiology Consult note Patient: [facility]: [id number] Age: 72 years Sex: Female : 1950 Associated Diagnoses: None Author: TANK AMATO DRIVER/MERCHANDISER-WAREHOUSE SHIPPER Preoperative Information Time of last food or [...] Osteoarthritis of left hip / SNOMED CT [id number] / Confirmed, Active Problems (4) Anxiety Lumbar disc herniation Osteoarthritis Osteoarthritis of left hip Histories Past Medical History: Resolved Hypoxia ([id number]): Resolved. Family History: Diabetes mellitus Mother () CABG - Coronary artery bypass graft Father () Procedure history: Revision of left total knee arthroplasty ([id number]) on 02/01/2022 at 71 Years. Total shoulder replacement ([id number]) on 03/31/2020 at 69 Years. Comments: 03/31/2020 11:22 EDT - Alaina Mcgrath RN RIGHT SHOULDER Bilateral prosthetic arthroplasty of knees ([id number]). CTR - Carpal tunnel release ([id number]). Comments: 03/13/2020 12:21 EDT - Cheyenne Donahue RN Bilateral Excision of cataract ([id number]). Epidural steroid injection ([id number]). Comments: 02/01/2022 8:22 EDT - Marcus Mcknight RN LUMBAR SPINE Left hip ([id number]). 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 Lives In Multilevel home Current Home [...] Signs(last 24 hrs) Last Charted Heart Rate Kcojconqe19 bpm (MAR 21 10:45) Resp Rate 20 br/min (MAR 21 09:00) OIR667 mmHg (MAR 21 10:40) DBP82 mmHg (MAR 21 10:40) Measurements from flowsheet : Measurements 03/21/2023 9:00 EDT Height 162 cm Height in inches 63.8 inch(es) Admission Weight 97.3 kg Weight Lbs 214.1 lb [place] Body Weight 54.19 kg Admission Body Mass [...] Integrity Intact/Dry 03/21/2023 10:48 EDT SN - HI - Medication IRRIGATION CHG 0.05% IRRISEPT [id number] SN - HI - Route of Administration Irrigation SN - HI - By (Single) SN - HI - By (Single) 03/21/2023 10:47 EDT SN [...] Surgeon SN - CAt - Role Performed Weather Algorithm Scientist 1 SN - CAt - Role Performed Scrub 1 SN - CAt - Role Performed Manager Order 1 SN - CAt - Role Performed WAREHOUSE SHIPPER SN - CAt - Role Performed Physician Waste Machine Tender SN - CAt - Role Performed Log Chain Worker SN - CAt - Role Performed Student [...] Provider #1 Bedside Time Out TANK AMATO APRN-WAREHOUSE SHIPPER Provider #2 Bedside Time Out Cheyenne Donahue [...] Designated Person #1 We May Share PHI Conrado Pretty [phone] Designated Person #1 Relationship Spouse Designated Person #2 We May Share PHI Bright Cárdenas [phone] Designated Person #2 Relationship Daughter Privacy Restrictions [...] after midnight, No makeup, No jewelry, Responsible Alliance Party, Aware of surgery location, Pre-op education done, 1 bottle CHG wash with instructions given, No ordered medications, Anesthesia block education provided SN - Preprocedure Comments Spoke with patient, Verbalizes/Nonverbally indicates understanding Barriers to Learning None evident Teaching Method Explanation, Printed materials Preferred Spoken Language Monegasque Preferred Written Language Monegasque Teaching Evaluation Verbalizes/Nonverbally indicates understanding Total Joint [...] Weight 97.3 kg Weight Lbs 214.1 lb [place] Body Weight 54.19 kg Admission Body Mass [...] Quadrants Present Skin Temperature Warm Skin Description Delton, Dry Skin Integrity Intact Skin Moisture General [...] Room 03/21/2023 8:55 . Assessment and Plan [place] Society of Anesthesiologists (ASA) physical status classification: Class II. Anesthetic Preoperative Plan Premedication: intravenous. Anesthetic technique: General. Induction: intravenously. Maintenance airway: Oral endotracheal tube. Regional: Interscalene Block. Postoperative pain management: Per surgeon. Risks discussed: nausea, vomiting, sore throat. Informed consent: signed by patient. Digitally Signed by TANK AMATO DRIVER/MERCHANDISER-WAREHOUSE SHIPPER on 03/21/2023 10:52 AM [facility] 02-27-2023 Note ORIGINAL EXAMINATION: CT OF [...] Date: 02/27/2023 4:50:02 PM Ordering Provider: LAUREANO OLSON [facility] 02-03-2022 [facility] Patient Education 02/03/2022 11:24:02 5 - [facility] Post-op Instruction 01/2017 (01470) [facility] Post-operative Instructions PLEASE FOLLOW [facility] POST-OP INSTRUCTIONS GIVEN WATCH FOR SIGNS OF INFECTION: call the office ([phone]) if experencing any of the following: (Usually [...] on your follow up instructions. Form: 338A 12917) R: 10/16 Follow Up Care 12/21/2021 15:03:14 With:[facility] Address: [address] [place] [phone] When:02/04/2022 13:00:00 Comments:This is your first physical therapy appointment. Follow-up as scheduled. With:NILSON GARCIA PA-C, Orthopedic Address: [facility] [address] [address]- When:02/16/2022 10:45:00 Comments:This is your post-op appointment. Follow-up as scheduled. [facility] 02-03-2022 Note Discharge Instructions Thank you for allowing [facility] to assist you with your healthcare needs. The following is important discharge information regarding your hospital visit. Your Care Team [facility] Medicine Your Diagnosis Hyperkalemia Depression Status post revision of total replacement of left knee What to do next Follow Up Appointments Follow Up with NILSON GARCIA PA-C, Orthopedic When 02/16/2022 10:45 AM EDT Why: This is your post-op appointment. Follow-up as scheduled. Where: [facility] [address] [place] [phone]- Follow Up with [facility] When 02/04/2022 01:00 PM EDT Why: This is your first physical therapy appointment. Follow-up as scheduled. Where: [address] [place] [phone] The Following Activity and Diet Have Been [...] to exceed 3000 mg/ day Pickup at [facility]/pharmacy #[id number] New aspirin (aspirin 81 mg oral delayed release tablet) 1 tab(s) by mouth Two (2) times a day Duration: 30 Days Take 81 mg aspirin twice daily with food for 4 weeks postoperatively for DVT prophylaxis Pickup at [facility]/pharmacy #[id number] New doxycycline (doxycycline hyclate 100 mg oral capsule) 1 cap by mouth Every 12 hours Duration: 13 Days Pickup at [facility]/pharmacy #[id number] New famotidine (Pepcid 20 mg oral tablet) 1 tab(s) by mouth Once a day Pickup at [facility]/pharmacy #[id number] New montelukast (montelukast 10 mg oral tablet) 1 tab(s) by mouth Daily at bedtime Refills: 2 Pickup at [facility]/pharmacy #[id number] New oxyCODONE (oxyCODONE 5 mg oral tablet ( IMMEDIATE release )) See instructions Status post revision of total replacement of left knee 1-2 tab(s) Oral q4h Pickup at [facility]/pharmacy #[id number] Unchanged betamethasone topical (betamethasone dipropionate 0.05% topical [...] day as needed for Rash Pharmacy Information [facility]/pharmacy #[id number]: [address], [place] [phone] What How Much When Comments Stop Taking [...] FOR SIGNS OF INFECTION: call the office ([phone]) if experencing any of the following: (Usually [...] on your follow up instructions. Form: 338A (88292) R: 10/16 Additional Information VACCINATE! IT SAVES LIVES! Members of the community who have not yet received the COVID-19 vaccine and would like to receive it can visit one of [facility] vaccine clinics. There are many vaccine clinic locations within the [facility]. For locations and available times, please visit [email or web address] It is important to note that some COVID mobile vaccine clinics are held outdoors and may be canceled in rainy or stormy conditions. To learn more about pediatric vaccinations (ages 5-11), we invite you to visit the [facility] webpage. [email or web address] [email or web address] To learn more about the COVID-19 vaccine, we invite you to visit the [facility] website for a list of frequently asked questions. [email or web address] [email or web address] requently_[email or web address]-Questions.pdf [facility] Patient Portal Access Instructions: Stay connected with your healthcare team and access your personal medical information anytime with the [facility] Patient Portal.If you would like a full copy of your medical records, please contact the [facility] Medical Records Department, Monday through Monday between 8a.m. and 4:30p.m. Please follow the directions below to access the portal: 1.Access the email account you provided upon registration to the [facility].2.Look for an invitation email from [facility].3.Open the email and access the invitation link: Accept Invitation to [facility]4.Fill in the required marquez to create your account. Sign into [email or web address] with your username and password that you [...] you will allow to register on the [facility] Patient Portal for access to your information. You can also access the [facility] Portal on the AVST jerson. Simply click on Health Records under Health Data and then click on the [facility] logo. [...] Call your local pharmacy or go to http://bit.Tiller/5X8Ix9p to find one close to you.3.Make use of household items: Use cat litter or old coffee grounds to dispose medications if other options are not available. Mix your drugs with these household products, seal them in an airtight container and throw it into the garbage. Call [facility]: [phone] to be sure your drugs can be [...] a CHART COPY. Signatures Patient Education Materials [address] [place] [address] Post-op Instruction 01/2017 (92164) Medication Leaflets My discharge plan and instructions have been reviewed and explained to me and I,MI PRETTY understand my current condition and have read and understand these discharge instructions. I have received a written copy of the plan/instructions. If I have questions, I am aware that I should contact my doctor. Patient/Dog Raiser Signature: Date/Time: Relationship to Patient: Witness Name/Signature: Date/Time: [facility] 02-03-2022 Note ORIGINAL EXAMINATION: TWO XRAY [...] the resident's findings and interpretation. Interpreted by: Sapna Garnica Preliminary Report By: Jigna Mclean Electronically signed By Sapna Garnica Dictated Date: 02/03/2022 9:05:19 AM Prelim Date: 02/03/2022 12:28:36 PM Sign Date: 02/03/2022 12:28:36 PM Ordering Provider: DAVIDMARISOL JUAN [facility] 02-03-2022 Note Date of Service 02/03/2022 [...] by FAITH HEADLEY on 02/03/2022 01:14 PM [facility] 02-03-2022 Note Date of Service February 03, [...] would like her prescriptions E scribed to [facility] in [facility]. She has outpatient physical therapy established [...] concerns or questions. I have reviewed the [place] Automated Rx Reporting System (OARRS) report for [...] NILSON GARCIA PA-C on 02/03/2022 11:23 AM [facility] 02-02-2022 Note ORIGINAL EXAMINATION: TWO XRAY [...] the resident's findings and interpretation. Interpreted by: Sapna Garnica Preliminary Report By: Jigna Mclean Electronically signed By Sapna Garnica Dictated Date: 02/03/2022 9:05:19 AM Prelim Date: 02/03/2022 12:28:36 PM Sign Date: 02/03/2022 12:28:36 PM Ordering Provider: DAVID JUAN [facility] 02-02-2022 Note Date of Service 02/02/2022 [...] by DAVID JUAN on 02/02/2022 02:42 PM [facility] 02-02-2022 Note Date of Service February [...] patient's elevated BMI. I have reviewed the [place] Automated Rx Reporting System (OARRS) report for [...] NILSON GARCIA PA-C on 02/02/2022 07:41 AM [facility] 02-01-2022 Anesthesiology Consult note Patient: MI PRETTY Age: 71 years Sex: Female : 1950 Associated Diagnoses: None Author: SARKIS FOLEY DRIVER/MERCHANDISER-WAREHOUSE SHIPPER Assessment Postanesthesia assessment Vitals: Vital signs from [...] normal limits. Digitally Signed by SARKIS FOLEY APRN-WAREHOUSE SHIPPER on 02/01/2022 07:37 PM [facility] 02-01-2022 Note ORIGINAL HISTORY: Arthroplasty COMPARISON: No FINDINGS: There is an arthroplasty in near anatomic alignment. There is no radiographic evidence of loosening or failure of hardware. There is gas in the joint space and overlying soft tissues, and there are skin colin. IMPRESSION: Arthroplasty with immediate postoperative changes. Interpreted by: Cheerlle Vargas MD Preliminary Report By: Cherelle Vargas MD Electronically signed By Cherelle Vargas MD Dictated Date: 02/01/2022 3:05:46 PM Prelim Date: 02/01/2022 3:06:26 PM Sign Date: 02/01/2022 3:06:26 PM Ordering Provider: [facility] 02-01-2022 Note ORIGINAL HISTORY: Arthroplasty COMPARISON: [...] Sign Date: 02/01/2022 3:06:26 PM Ordering Provider: [facility] 02-01-2022 Anesthesiology Consult note Patient: MI PRETTY Age: 71 years Sex: Female : 1950 Associated Diagnoses: None Author: SARKIS FOLEY DRIVER/MERCHANDISER-WAREHOUSE SHIPPER Preoperative Information Time of last food or [...] Father () Procedure history: Total shoulder replacement ([id number]) on 03/31/2020 at 69 Years. Comments: 03/31/2020 11:22 EDT - Alaina Mcgrath RN RIGHT SHOULDER Bilateral prosthetic arthroplasty of knees ([id number]). CTR - Carpal tunnel release ([id number]). Comments: 03/13/2020 12:21 EDT - Cheyenne Donahue RN Bilateral Excision of cataract ([id number]). Epidural steroid injection ([id number]). 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 Lives In Multilevel home Current Home [...] Signs(last 24 hrs) Last Charted Heart Rate Pppeqnfhh89 bpm (FEB 01 09:40) Resp Rate 8 br/min (FEB 01 09:40) IGB480 mmHg (FEB 01 09:40) DBP64 mmHg (FEB 01 09:40) Measurements from flowsheet : Measurements 02/01/2022 8:25 EDT Height 160 cm Height in inches 63 inch(es) Admission Weight 112.6 kg Weight Lbs 247.7 lb [place] Body Weight 52.38 kg Admission Body Mass [...] - Additive IRRIGATION CHG 0.05% IRRISEPT 12/CA [id number] SN - IrI - Volume Out 450 [...] Attendee SN - CAt - Role Performed WAREHOUSE SHIPPER SN - CAt - Role Performed Manager Order 1 SN - CAt - Role Performed Scrub 1 SN - CAt - Role Performed Scrub 2 SN - CAt - Role Performed Weather Algorithm Scientist 1 SN - CAt - Role Performed Physician Waste Machine Tender SN - CAt - Role Performed Log Chain Worker 02/01/2022 9:14 EDT SN - Preop - [...] Weight 112.6 kg Weight Lbs 247.7 lb [place] Body Weight 52.38 kg Admission Body Mass Index 43.98 m2 Temperature Temporal Artery 36.4 DegC Apical Heart Rate 74 bpm Respiratory Rate 15 br/min Systolic Blood Pressure NBP 147 mmHg HI Diastolic Blood Pressure NBP 77 mmHg Primary Pain Intensity 0 Pain Scale Type 0-10 Pain scale Monitor Alarms On and Limits Checked Nail Bed Color Delton Capillary Refill < 2 seconds Heart Rhythm Regular All Lobes Breath Sounds Clear Oxygen Therapy Room air Oxygen Saturation 96 % Abdomen Description Non-distended Abdomen Palpation Non-Tender Bowel Sounds All Quadrants Present Urinary Elimination Voiding, no difficulties Skin Temperature Warm Skin Description Normal for ethnicity Skin Integrity Intact Mucous Membrane Color Delton IV Present Present Extremity Movement Equal Characteristics [...] (In Error) Safety Brochure Information Reviewed Yes [facility] Video Viewed No Teaching Evaluation Verbalizes/Nonverbally indicates understanding Admission Note-Nursing Same Day Patient History (Modified) . Assessment and Plan [place] [employer] Anesthesiologists (ASA) physical status classification: Class III. Anesthetic Preoperative Plan Anesthetic technique: General. Postoperative pain management: adductor. Informed consent: signed by patient. Notes: pt request GA. Digitally Signed by SARKIS FOLEY on 02/01/2022 09:52 AM [facility] Evaluation + Plan note No data available for this section [facility] Evaluation + Plan note Future Appointments Appointment Date:2022 02:00:00 PM Scheduled Provider: Location:[facility] Appointment Type:PT Outpatient Evaluation [facility] Evaluation + Plan note Future Appointments [facility] Hospital Discharge instructions No data available for this section [facility] Progress note No data available for this section [facility] Summary Purpose Family History No Family [...] section and content) DATE CREATED AUTHOR 03/17/[address] [facility] DATE CREATED AUTHOR AUTHOR'S ORGANIZ ATION 10/23/2021 [facility] dical Specialist DATE CREATED AUTHOR AUTHOR'S ORGANIZ ATION 06/15/2023 [facility] ([place]) DATE CREATED AUTHOR AUTHOR'S ORGANIZ ATION 04/24/2025 [facility] Care Team (unrecognized sect ion and content) Care Team Personnel Name: FAITH BARRIENTOS DO Member Role: Primary Care Physician Address: Address: [address] [place] [address]- Care Team Related Persons Name: HANS PRETTY Address: Home [address] [place] [address] [place] [address] Care Team Personnel Name: FAITH BARRIENTOS DO Member Role: Primary Care Physician Address: Address: [address] [place] [id number]- Care Team Related Persons Name: HANS PRETTY Address: Home [address] [place] [id number] Care Team Personnel Name: FAITH BARRIENTOS DO Member Role: Primary Care Physician Address: Address: [address] [place] [id number]- Care Team Related Persons Name: HANS PRETTY Address: Home [facility] [place] [address] Patient Care team informatio n (unrecognized section and content) Care Team Personnel Name: FAITH BARRIENTOS Tory FLORES Member Role: Primary Care Physician Address: Address: [address] [place] [address] Care Team Related Persons Name: HANS PRETTY Address: [place] [address] Care Team Personnel Name: FAITH BARRIENTOS Tory FLORES Member Role: Primary Care Physician Address: Address: [address] [place] [address] Care Team Related Persons Name: HANS PRETTY Address: [place] [address] Care Team Personnel Name: FAITH BARRIENTOS Member Role: Primary Care Physician Address: Address: [address] [place] [address] Care Team Related Persons Name: HANS PRETTY Address: [place] [address] FOR RECORDS PERTAINING TO PATIENTS WHO ARE [...] BE BASED ON THE PRIMARY CLINICAL RECORDS. [facility] [employer] [facility]. provides no warranty or guarantee of the accuracy or completeness of information in this document.
--- NOTE | 2025-05-22 10:21 | STRESSREP_ITS ---
Stress Test Report Pharmacologic myocardial perfusion stress test. [74]-year-old [Female] with a history of [heart failure]. Resting EKG demonstrates [normal sinus rhythm] with a rate of [55] bpm. Resting blood pressure is [ 132/74] mmHg. 0.4 mg of regadenoson was infused per usual protocol followed by rapid intravenous saline flush injection. Continuous EKG monitoring was performed. The maximum heart rate was [77 ] bpm, which was 58% of max predicted heart rate. The maximum workload was [1] metabolic equivalent. At rest there were no ST or T wave changes noted to suggest ischemia and at peak infusion. Nonspecific ST changes were noted which did not meet the criteria for ischemia. No clinical angina is noted. The final blood pressure was [118/ 70]mmHg. Myocardial perfusion protocol. [14.5] mCi of technetium 99m sestamibi was injected at rest. 0.4 mg of regadenoson was infused per usual protocol. At peak infusion [44.3] mCi of technetium 99m sestamibi was injected stress images were obtained stress and rest images were reconstructed and compared in the short axis vertical long and horizontal long axis. Gated images were not able to be captured in this examination. Perfusion SPECT analysis: Review of the stress images demonstrate abnormal uptake of tracer. There is a moderate-sized, mild to moderate intensity defect in the anterior wall. This defect is reversible and consistent with ischemia. There is a moderate-sized, moderate to severe intensity defect in the inferior wall. This defect is reversible and consistent with ischemia. There is a moderate-sized, moderate intensity defect in the Basal-mid inferolateral and anterolateral sparks. This defect is reversible and consistent with ischemia. There is prominent RV uptake, TID: 1.29 which is borderline abnormal. Gating images were unable to be completed, no ejection fraction or wall motion analysis available for interpretation. Conclusion: [Abnormal] pharmacologic myocardial perfusion stress test. Evidence of ischemia on myocardial perfusion imaging in multiple coronary distributions, concerning for High-risk coronary artery disease.
== END | disposition home or self-care (01) ==
LOC: CVS 06:02
PROVIDERS: PCP Family Medicine; Referring Provider Nurse Practitioner Gerontology; Visit Provider Nurse Practitioner Gerontology
DX: R93.1 Abnormal findings on diagnostic imaging of heart and coronary circulation (principal); I50.1 Left ventricular failure, unspecified
CPT/HCPCS: 78452; 93017; A9500; A4216; J2785